=== PATIENT | female | born 2000 | race Caucasian/White ===

== ENCOUNTER 2021-05-29 16:50 | Emergency (ER) | payer SELFPAY ==
[2021-05-29 20:07] LABS: BUN Blood Urea Nitrogen 10 mg/dL (7-18); Bicarbonate 26 mmol/L (21-32); Glucose Level 93 mg/dL (74-106); Potassium 4.1 mmol/L (3.5-5.1); Sodium Level 138 mmol/L (136-145)
[2021-05-29 20:08] LABS: Absolute Lymphocytes (CBC) 1.9 K/uL (0.7-4.9); Basophils % 0.5 % (0-1.3); Hematocrit 39.5 % (36.0-45.0); Lymphocytes % 24.8 % (15.3-44.8); MPV 9.4 fL (7.6-11.3); RBC Red Blood Cell Count 4.62 M/uL (3.86-4.86)
--- NOTE | 2021-05-29 20:20 | ER ---
Nurse's Notes [facility] Name: Danuta Montiel Age: 21 yrs Sex: Female : 2000 Arrival Date: 05/29/2021 Time: 16:53 Bed 6 Private MD: Diagnosis: Acute anal fissure Presentation: 05/29 17:51 Chief complaint: Patient states: Anal bleeding starting this am. Pt stated, " Its been kg fading back and forth on how much blood, The blood is almost like I had my period." Pt stated that its bloody when she wipes but doesn't have to wear a pad or change her underwear, denies having clots. Coronavirus screen: Client denies travel out of the [place] in the last 14 days. At this time, unable to obtain information related to travel outside the [place] At this time, the client does not indicate any symptoms associated with coronavirus-19. Ebola Screen: Patient negative for fever greater than or equal to 101.5 degrees Fahrenheit, and additional compatible Ebola Virus Disease symptoms Patient denies exposure to infectious person. Patient denies travel to an Ebola-affected area in the 21 days before illness onset. Initial Sepsis Screen: Does the patient meet any 2 criteria? No. Patient's initial sepsis screen is negative. Does the patient have a suspected source of infection? No. Patient's initial sepsis screen is negative. Risk Assessment: Do you want to hurt yourself or someone else? Patient reports no desire to harm self or others. Onset of symptoms was May 29, 2021 at 11:00. 17:51 Method Of Arrival: Ambulatory kg 17:51 Acuity: VIRI 4 kg Triage Assessment: 17:55 General: Appears in no apparent distress. Behavior is calm, cooperative, appropriate kg for age, quiet. Pain: Denies pain. 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 - Social history:: Smoking status: Patient denies any tobacco usage or history of. Screenin:57 Abuse screen: Denies threats or abuse. Denies injuries from another. Nutritional kg screening: No deficits noted. Tuberculosis screening: No symptoms or risk factors identified. 17:57 Fall Risk None identified. kg Assessment: 19:03 General: Appears in no apparent distress. comfortable, Behavior is calm, cooperative, ap3 appropriate for age. Pain: Denies pain. Neuro: Level of Consciousness is awake, alert, obeys commands, Oriented to person, place, time, situation, Appropriate for age Contact Officer are equal bilaterally Moves all extremities. Gait is steady, Speech is normal. Cardiovascular: Denies chest pain, shortness of breath. Respiratory: Denies shortness of breath. GI: Reports rectal bleeding. : No signs and/or symptoms were reported regarding the genitourinary system. EENT: No signs and/or symptoms were reported regarding the EENT system. Derm: No signs and/or symptoms reported regarding the dermatologic system. 19:44 Reassessment: Assisted LEROY Milligan with rectal exam, small anal fissure noted, not lp1 actively bleeding at this time; patient reports hx of constipation, takes daily stool softener. Vital Signs: 17:51 Pulse 73; Resp 17; Temp 98.1(TE); Pulse Ox 99% on R/A; Weight 75.75 kg; Height 5 ft. 3 kg in. (160.02 cm); Pain 0/10; 17:51 BP 121 / 75; kg 20:57 BP 115 / 74; Pulse 84; Resp 16; Pulse Ox 100% on R/A; lp1 17:51 Body Mass Index 29.58 (75.75 kg, 160.02 cm) kg ED Course: 16:53 Patient arrived in ED. am2 17:54 Triage completed. kg 17:55 Arm band placed on right wrist. kg 17:57 Patient has correct armband on for positive identification. kg 18:52 Srini Nieves PA is PHCP. [facility] 18:52 Germán Murphy MD is Attending Physician. [facility] 19:36 Inserted saline lock: 20 gauge in right antecubital area, using aseptic technique. lp1 Blood collected. 19:43 Mara Munoz, RN is Primary Nurse. lp1 19:43 Served as a application development liaison during rectal exam. lp1 20:57 IV discontinued, No redness/swelling at site. Pressure dressing applied. lp1 Administered Medications: No medications were administered Outcome: 20:20 Discharge ordered by . gabriel 20:57 Discharged to home ambulatory. lp1 20:57 Condition: good 20:57 Discharge instructions given to patient, Instructed on discharge instructions, follow up and referral plans. Demonstrated understanding of instructions, follow-up care. 20:57 Patient left the ED. lp1 Signatures: Srini Nieves PA PA jmm Pena, Laura, RN RN lp1 Danuta Wilkerson am2 Danuta Melara RN RN ap3 Rajani Thompson RN RN kg Corrections: (The following items were deleted from the chart) 17:57 17:57 Fall Risk kg kg
--- NOTE | 2021-05-29 20:21 | EDPHYS ---
Physician Documentation [facility] Name: Danuta Montiel Age: 21 yrs Sex: Female : 2000 Arrival Date: 05/29/2021 Time: 16:53 Bed 6 Private MD: ED Physician Germán Murphy HPI: 05/29 19:09 This 21 yrs old Female presents to ER via Ambulatory with complaints of jmm Rectal Bleeding. 19:09 The patient presents to the emergency department with bleeding from the rectum/anus, jmm that is moderate. Onset: The symptoms/episode began/occurred today. Modifying factors: The symptoms are alleviated by nothing, The symptoms are aggravated by bowel movement. Associate signs and symptoms: Pertinent negatives: abdominal pain, diarrhea, vomiting. The patient has not experienced similar symptoms in the past. 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 - Social history:: Smoking status: Patient denies any tobacco usage or history of. ROS: 19:09 Constitutional: Negative for fever, chills, and weight loss, Cardiovascular: Negative jmm for chest pain, palpitations, and edema, Respiratory: Negative for shortness of breath, cough, wheezing, and pleuritic chest pain. 19:09 Abdomen/GI: Positive for rectal bleeding. 19:09 All other systems are negative. Exam: 19:09 Constitutional: This is a well developed, well nourished patient who is awake, alert, jmm and in no acute distress. Head/Face: atraumatic. Eyes: EOMI, no conjunctival erythema appreciated ENT: Moist Mucus Membranes Neck: Trachea midline, Supple Chest/axilla: Normal chest wall appearance and motion. Cardiovascular: Regular rate and rhythm. No edema appreciated Respiratory: Normal respirations, no respiratory distress appreciated 19:09 Back: Normal ROM Skin: General appearance color normal MS/ Extremity: Moves all extremities, no obvious deformities appreciated, no edema noted to the lower extremities Neuro: Awake and alert, normal gait Psych: Behavior is normal, Mood is normal, Patient is cooperative and pleasant 19:09 Abdomen/GI: Inspection: abdomen appears normal, Bowel sounds: normal, Palpation: soft, nontender, in all quadrants. Vital Signs: 17:51 Pulse 73; Resp 17; Temp 98.1(TE); Pulse Ox 99% on R/A; Weight 75.75 kg; Height 5 ft. 3 kg in. (160.02 cm); Pain 0/10; 17:51 BP 121 / 75; kg 20:57 BP 115 / 74; Pulse 84; Resp 16; Pulse Ox 100% on R/A; lp1 17:51 Body Mass Index 29.58 (75.75 kg, 160.02 cm) kg MDM: 19:08 Patient medically screened. [facility] 20:19 Data reviewed: vital signs, nurses notes. Counseling: I had a detailed discussion with gabriel the patient and/or guardian regarding: the historical points, exam findings, and any diagnostic results supporting the discharge/admit diagnosis, lab results, the need for outpatient follow up, to return to the emergency department if symptoms worsen or persist or if there are any questions or concerns that arise at home. ED course: Physical exam revealed an anal fissure. Patient's vital signs are normal, H\T\H is normal, patient is alert nontoxic in appearance. Patient advised to take stool softeners and otherwise advised to follow-up with PCP for reevaluation. Patient was otherwise given strict return precautions if she develops abdominal pain or increased bleeding or weakness. Patient understood and agrees plan of care.. 05/29 19:09 Order name: CBC with Diff; Complete Time: 20:19 [facility] 05/29 19:09 Order name: BMP; Complete Time: 20:19 [facility] 05/29 19:09 Order name: Saline Lock; Complete Time: 19:45 [facility] 05/29 19:09 Order name: Gown patient; Complete Time: 19:45 [facility] Administered Medications: No medications were administered Disposition Summary: 05/29/21 20:20 Discharge Ordered Location: Home [facility] Condition: Stable [facility] Diagnosis - Acute anal fissure [facility] Followup: [facility] - With: Private Physician - When: 2 - 3 days - Reason: Recheck today's complaints, Continuance of care, Re-evaluation by your physician Discharge Instructions: - Discharge Summary Sheet jmm - Anal Fissure, Adult jmm Forms: - Medication Reconciliation Form jm - Thank You Letter gabriel - Antibiotic Education [facility] - Prescription Opioid Use [facility] Addendum: 05/31/2021 09:08 Co-signature as Attending Physician, Germán Murphy MD I agree with the assessment and k dr plan of care. Signatures: Dispatcher [employer] EDGermán Sullivan MD MD kdr Mickail, Joel, PA PA jmm Graham, Kristen, RN RN kg
[2021-05-29 21:09] VITALS: BP 115/74; O2SAT 100
[2021-05-29 21:12] VITALS: TEMP 97.8
== END 2021-05-29 20:57 | disposition home or self-care (01) ==
LOC: ER 16:50
DX: K60.0 Acute anal fissure (principal)
CPT/HCPCS: 36415; 80048; 85025; 99283

== ENCOUNTER 2022-09-11 13:38 | Emergency (ER) | payer SELFPAY ==
--- OUTSIDE RECORDS SUMMARY | 2022-09-11 13:54 | XMS REPORT | Continuity of Care Document ---
:2000 Author Organization [facility] t Address [address] [place] [address] Care Team Providers Name Role Phone CARMEN HILTON Primary Care Physician Unavailable MOUSTAPHA BEATTY Attending Clinician Unavailable CARMEN HILTON Admitting Clinician Unavailable MOUSTAPHA BEATTY Admitting Clinician Unavailable Payers Payer Name Policy Type Policy Number Effective Date Expiration Date [facility] [id number] 2019 CHOICE MEDICAID 00:00:00 Problems This patient has no known problems. Allergies, Adverse Reactions, Alerts Allergy Allergy Status Severity Reaction(s) Onset Inactive Treating Comm ents Source Name Type Date Date Clinician BANANA DRUG Active High Anaphylaxis 2018-0 Unive rs INGREDI 06 ity of 00:00: [address] Medications This patient has no known medications. Procedures This patient has no known procedures. Encounters Start End Encounter Admission Attending Care Care Encounter Source Date/Time Date/Time Type Type Clinicians Facility Department ID 2021-08-07 Outpatient P [facility] [place] [id number] [facility] 14:58:04 [facility] 2019-12-20 2019-12-20 Emergency X S[facility]ER [facility] ERT [id number] [facility] 14:57:45 16:56:00 MOUSTAPHA [facility] 2019-03-21 2019-03-21 Emergency E [id number] MH 08:56:00 08:56:[address] [facility] l Results This patient has no known results.
[2022-09-11 15:24] LABS: Urine Blood Negative (Negative); Urine Glucose Negative (Negative); Urine Protein Negative (Negative); Urine Specific Gravity >=1.030 (1.005-1.030); Urine pH 5.5 (5.0-7.0)
[2022-09-11 15:37] LABS: Urine Bacteria <20 /HPF (<20); Urine Mucus 1+ /HPF (None Seen); Urine RBC <5 /HPF (None Seen)
--- NOTE | 2022-09-11 15:50 | RAD REPORT ---
EXAM DESCRIPTION: Mary Criag And Tab (2 Views)09/11/2022 3:40 pm CLINICAL HISTORY: Chest pain COMPARISON: None FINDINGS: The lungs appear clear of acute infiltrate. The heart is normal size IMPRESSION: No acute abnormalities displayed
[2022-09-11] MEDS ORDERED: KETOROLAC 30 MG/ML INJ ONE (16:41)
--- NOTE | 2022-09-11 16:44 | ER ---
Nurse's Notes [facility] Name: Danuta Montiel Age: 22 yrs Sex: Female : 2000 Arrival Date: 09/11/2022 Time: 13:42 Bed 7 Private MD: Diagnosis: Chest pain, unspecified Presentation: 09/11 14:19 Chief complaint: Patient states: woke up with substernal CP but thought the pain was kb3 caused by her 3-year old daughter kicking her in her sleep. Reports she went to work and the pain continued to come and go. Last episode caused her to feel faint and she called 911 for further evaluation. Coronavirus screen: Vaccine status: Patient reports being unvaccinated. Client denies travel out of the [place] in the last 14 days. Ebola Screen: Patient negative for fever greater than or equal to 101.5 degrees Fahrenheit, and additional compatible Ebola Virus Disease symptoms Patient denies exposure to infectious person. Patient denies travel to an Ebola-affected area in the 21 days before illness onset. Initial Sepsis Screen: Does the patient meet any 2 criteria? No. Patient's initial sepsis screen is negative. Does the patient have a suspected source of infection? No. Patient's initial sepsis screen is negative. Risk Assessment: Do you want to hurt yourself or someone else? Patient reports no desire to harm self or others. Onset of symptoms was September 11, 2022 at 08:00. 14:19 Method Of Arrival: EMS: [facility] kb3 14:19 Acuity: VIRI 3 kb3 Triage Assessment: 14:22 General: Appears in no apparent distress. Behavior is calm, cooperative. Pain: kb3 Complains of pain in mid-sternal area Pain does not radiate. Pain currently is 2 out of 10 on a pain scale. at worst was 10 out of 10 on a pain scale. Cardiovascular: Reports chest pain, lightheadedness, syncope. 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 Last tetanus immunization: up to date. - Social history:: Smoking status: Patient denies any tobacco usage or history of. Screenin:17 Abuse screen: Denies threats or abuse. Denies injuries from another. Nutritional kc6 screening: No deficits noted. Tuberculosis screening: No symptoms or risk factors identified. Fall Risk No fall in past 12 months (0 pts). No secondary diagnosis (0 pts). IV access (20 points). Ambulatory Aid- None/Bed Rest/Nurse Assist (0 pts). Gait- Normal/Bed Rest/Wheelchair (0 pts) Mental Status- Oriented to own ability (0 pts). Total Nichole Fall Scale indicates No Risk (0-24 pts). Assessment: 15:18 General: Appears in no apparent distress. comfortable, Behavior is calm, cooperative, kc6 appropriate for age. Pain: Complains of pain in chest Pain does not radiate. Pain currently is 1 out of 10 on a pain scale. Quality of pain is described as crampy, Pain began gradually, Is intermittent, Alleviated by rest, Aggravated by increased activity, Also complains of nausea. Neuro: Womack Agitation-Sedation Scale (RASS): 0 - Alert and Calm Level of Consciousness is awake, alert, obeys commands, Oriented to person, place, time, situation, Appropriate for age. Cardiovascular: Heart tones S1 S2 present Capillary refill < 3 seconds. Respiratory: Airway is patent Trachea midline Respiratory effort is even, unlabored, Respiratory pattern is regular, symmetrical, Breath sounds are clear bilaterally. GI: No signs and/or symptoms were reported involving the gastrointestinal system. : No signs and/or symptoms were reported regarding the genitourinary system. EENT: No signs and/or symptoms were reported regarding the EENT system. Derm: No signs and/or symptoms reported regarding the dermatologic system. Skin is intact, Skin is pink, warm \T\ dry. Musculoskeletal: No signs and/or symptoms reported regarding the musculoskeletal system. Circulation, motion, and sensation intact. Capillary refill < 3 seconds, Range of motion: intact in all extremities. 16:18 Reassessment: Patient appears in no apparent distress at this time. No changes from kc6 previously documented assessment. Patient and/or family updated on plan of care and expected duration. Pain level reassessed. Patient is alert, oriented x 3, equal unlabored respirations, skin warm/dry/pink. Vital Signs: 14:19 BP 115 / 62; Pulse 57; Resp 20; Temp 99.1; Pulse Ox 100% ; Weight 81.65 kg; Height 5 kb3 ft. 3 in. (160.02 cm); Pain 2/10; 16:25 BP 109 / 66; Pulse 60; Resp 18 S; Pulse Ox 100% on R/A; kc6 14:19 Body Mass Index 31.89 (81.65 kg, 160.02 cm) kb3 ED Course: 13:42 Patient arrived in ED. rg4 13:45 [facility]C [facility]. snw 13:45 Cristian Malone MD is Attending Physician. snw 14:22 Triage completed. kb3 14:22 Arm band placed on right wrist. kb3 14:24 Maintain EMS IV. Dressing intact. Site clean \T\ dry. Gauge \T\ site: 20G LAC. kb 3 15:04 Camelia Barker, AMENA is Primary Nurse. kc6 15:26 Urine Culture Sent. kc6 15:26 Urine Microscopic Only Sent. kc6 15:42 Chest Pa And Lat (2 Views) XRAY In Process Unspecified. EDMS 16:57 No provider procedures requiring assistance completed. IV discontinued, intact, kc6 bleeding controlled, No redness/swelling at site. Pressure dressing applied. Patient maintains SpO2 saturation greater than 95% on room air. 16:58 Patient has correct armband on for positive identification. Bed in low position. Call kc6 light in reach. Side rails up X 1. Adult w/ patient. Client placed on continuous cardiac and pulse oximetry monitoring. NIBP monitoring applied. Administered Medications: 16:43 Drug: Ketorolac 30 mg Route: IVP; Site: left antecubital; kc6 16:53 Follow up: Response: No adverse reaction kc6 Medication: 16:58 VIS not applicable for this client. kc6 Outcome: 16:43 Discharge ordered by . snw 16:58 Discharged to home ambulatory, with friend. kc6 16:58 Condition: stable 16:58 Discharge instructions given to patient, Instructed on discharge instructions, medication usage, Demonstrated understanding of instructions, medications, Prescriptions given X 2. 16:58 Patient left the ED. kc6 Signatures: Dispatcher [employer] EDMS Robnia Michael, SIGNAL MECHANIC-C SIGNAL MECHANIC-Csnw Jaleesa Paulino rg4 Camelia Barker RN RN kc6 Filomena Chahal RN RN kb3 Corrections: (The following items were deleted from the chart) 14:23 14:22 Home Meds: ALLERGY MEDICATION; kb3 kb3
--- NOTE | 2022-09-11 16:44 | EDPHYS ---
Physician Documentation [facility] Name: Danuta Montiel Age: 22 yrs Sex: Female : 2000 Arrival Date: 09/11/2022 Time: 13:42 Bed 7 Private MD: ED Physician Cristian Malone HPI: 09/11 15:19 This 22 yrs old Female presents to ER via EMS with complaints of Chest Pain. snw 15:19 The patient or guardian reports chest pain that is located primarily in the anterior snw chest wall, left. The pain does not radiate. Associated signs and symptoms: Pertinent positives: back pain. The chest pain is described as sharp. Duration: The patient or guardian reports multiple episodes, that wax and wane. Severity of pain: At its worst the pain was moderate. EMS care prior to arrival includes: saline lock. The patient has not experienced similar symptoms in the past. The patient has not recently seen a physician, pt recently off medications for anxiety, PTSD. 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 Last tetanus immunization: up to date. - Social history:: Smoking status: Patient denies any tobacco usage or history of. ROS: 15:18 Constitutional: Negative for fever, chills, and weight loss, Eyes: Negative for injury, snw pain, redness, and discharge, ENT: Negative for injury, pain, and discharge, Neck: Negative for injury, pain, and swelling. 15:18 Respiratory: Negative for shortness of breath, cough, wheezing, and pleuritic chest pain, Abdomen/GI: Negative for abdominal pain, nausea, vomiting, diarrhea, and constipation, Back: Negative for injury and pain, : Negative for injury, bleeding, discharge, and swelling, MS/Extremity: Negative for injury and deformity, Skin: Negative for injury, rash, and discoloration, Neuro: Negative for headache, weakness, numbness, tingling, and seizure, Psych: Negative for depression, anxiety, suicide ideation, homicidal ideation, and hallucinations. 15:18 Constitutional: 15:18 Cardiovascular: Positive for chest pain, of the anterior aspect of left upper chest. Exam: 15:17 Constitutional: This is a well developed, well nourished patient who is awake, alert, snw and in no acute distress. Head/Face: Normocephalic, atraumatic. Eyes: Pupils equal round and reactive to light, extra-ocular motions intact. Lids and lashes normal. Conjunctiva and sclera are non-icteric and not injected. Cornea within normal limits. Periorbital areas with no swelling, redness, or edema. ENT: Nares patent. No nasal discharge, no septal abnormalities noted. Tympanic membranes are normal and external auditory canals are clear. Oropharynx with no redness, swelling, or masses, exudates, or evidence of obstruction, uvula midline. Mucous membranes moist. Neck: Trachea midline, no thyromegaly or masses palpated, and no cervical lymphadenopathy. Supple, full range of motion without nuchal rigidity, or vertebral point tenderness. No Meningismus. Chest/axilla: Normal chest wall appearance and motion. Nontender with no deformity. No lesions are appreciated. Cardiovascular: Regular rate and rhythm with a normal S1 and S2. No gallops, murmurs, or rubs. Normal PMI, no JVD. No pulse deficits. Respiratory: Lungs have equal breath sounds bilaterally, clear to auscultation and percussion. No rales, rhonchi or wheezes noted. No increased work of breathing, no retractions or nasal flaring. Abdomen/GI: Soft, non-tender, with normal bowel sounds. No distension or tympany. No guarding or rebound. No evidence of tenderness throughout. Back: No spinal tenderness. No costovertebral tenderness. Full range of motion. Skin: Warm, dry with normal turgor. Normal color with no rashes, no lesions, and no evidence of cellulitis. MS/ Extremity: Pulses equal, no cyanosis. Neurovascular intact. Full, normal range of motion. Neuro: Awake and alert, GCS 15, oriented to person, place, time, and situation. Cranial nerves II-XII grossly intact. Motor strength 5/5 in all extremities. Sensory grossly intact. Cerebellar exam normal. Normal gait. Psych: Awake, alert, with orientation to person, place and time. Behavior, mood, and affect are within normal limits. Vital Signs: 14:19 BP 115 / 62; Pulse 57; Resp 20; Temp 99.1; Pulse Ox 100% ; Weight 81.65 kg; Height 5 kb3 ft. 3 in. (160.02 cm); Pain 2/10; 16:25 BP 109 / 66; Pulse 60; Resp 18 S; Pulse Ox 100% on R/A; kc6 14:19 Body Mass Index 31.89 (81.65 kg, 160.02 cm) kb3 MDM: 14:33 Patient medically screened. romie 15:20 HEART Score: History: Slightly Suspicious (0), ECG: Normal (0), Age: < or = 45 years snw (0), Risk Factors: No Risk Factors Known (0), Total Score = 0. Data reviewed: vital signs, nurses notes. Data interpreted: Pulse oximetry: on room air is 100 %. Interpretation: normal. 16:41 Counseling: I had a detailed discussion with the patient and/or guardian regarding: the snw historical points, exam findings, and any diagnostic results supporting the discharge/admit diagnosis, lab results, radiology results, the need for outpatient follow up, to return to the emergency department if symptoms worsen or persist or if there are any questions or concerns that arise at home. Response to treatment: the patient's symptoms have markedly improved after treatment. Special discussion: Based on the patient's history, exam, and Dx evaluation, there is no indication for emergent intervention or inpatient Tx. It is understood by the patient/guardian that if the Sx's persist or worsen they need to return immediately for re-evaluation. Based on the history and exam findings, there is no indication for further emergent testing or inpatient evaluation. I discussed with the patient/guardian the need to see the primary care provider for further evaluation of the symptoms. 09/11 15:07 Order name: Urine Culture snw 09/11 15:07 Order name: Urine Microscopic Only; Complete Time: 15:38 snw 09/11 14:34 Order name: Chest Pa And Lat (2 Views) XRAY; Complete Time: 15:53 snw 09/11 15:24 Order name: Urine Dipstick-Ancillary; Complete Time: 15:31 EDMS 09/11 15:30 Order name: Urine --Ancillary (enter results) eb 09/11 14:34 Order name: EKG; Complete Time: 14:35 snw 09/11 14:34 Order name: EKG - Nurse/Tech; Complete Time: 15:17 snw 09/11 15:07 Order name: Urine Dipstick-Ancillary (obtain specimen); Complete Time: 15:26 snw 09/11 15:07 Order name: Urine Test (obtain specimen); Complete Time: 15:26 snw EC:17 Rate is 52 beats/min. Rhythm is regular. QRS Newberg is Normal. NM interval is normal. snw Clinical impression: Sinus bradycardia. Administered Medications: 16:43 Drug: Ketorolac 30 mg Route: IVP; Site: left antecubital; [facility] 16:53 Follow up: Response: No adverse reaction kc6 Disposition: 09/12 08:09 Co-signature as Attending Physician, Cristian Malone MD I agree with the assessment and romie plan of care. Disposition Summary: 09/11/22 16:43 Discharge Ordered Location: Home snw Condition: Stable snw Diagnosis - Chest pain, unspecified snw Followup: snw - With: Emergency Department - When: As needed - Reason: Worsening of condition Followup: snw - With: Private Physician - When: 2 - 3 days - Reason: Recheck today's complaints, Continuance of care, Re-evaluation by your physician Discharge Instructions: - Discharge Summary Sheet snw - Chest Wall Pain snw - Musculoskeletal Pain snw Forms: - Medication Reconciliation Form snw - Thank You Letter snw - Antibiotic Education snw - Prescription Opioid Use snw - Work release form kc6 Prescriptions: - Mobic 7.5 mg Oral Tablet - take 1 tablet by ORAL route once daily take with food; 20 tablet; Refills: 0, snw Product Selection Permitted - Pepcid 20 mg Oral Tablet - take 1 tablet by ORAL route once daily; 20 tablet; Refills: 0, Product snw Selection Permitted Signatures: Dispatcher [employer] Cristian Feng MD MD cha Waters, Shelly, PRAVEENC CAR WRECKER-Camelia López RN RN kc6 Filomena Chahal RN RN kb3 Corrections: (The following items were deleted from the chart) 09/11 14:23 14:22 Home Meds: ALLERGY MEDICATION; kb3 kb3
[2022-09-11 17:03] VITALS: TEMP 99.1; O2SAT 100
[2022-09-11 17:04] VITALS: BP 109/66
--- NOTE | 2022-09-13 13:51 | EKG ---
Test Date: 2022-09-11 Test Time: 15:14:36 Rattan Worker: SELWYN MEASUREMENT RESULTS: Intervals: Rate: 52 HI: 170 QRSD: 86 QT: 438 QTc: 407 [place]: P: 48 HI: 170 QRS: 46 T: 34 INTERPRETIVE STATEMENTS: Sinus bradycardia with marked sinus arrhythmia Otherwise normal ECG No previous ECG available for comparison Electronically Signed On 09-13-22 13:49:34 HORTICULTURALIST by Rodríguez De Leon
== END 2022-09-11 16:58 | disposition home or self-care (01) ==
LOC: ER 13:38
DX: R07.9 Chest pain, unspecified (principal)
CPT/HCPCS: 71046; 81003; 81015; 81025; 87086; 87088; 93005; 96374; 99284

== ENCOUNTER 2023-03-02 14:16 | Emergency (ER) | payer OTHER ==
--- OUTSIDE RECORDS SUMMARY | 2023-03-02 14:23 | XMS REPORT | Continuity of Care Document ---
:2000 Author Organization [facility] t Address [address] [place] [address] [place] [id number] Care Team Providers Name Role Phone PCP, PATIENT DOES NOT HAVE A Primary Care Physician Unavaila ble CARMEN HILTON Attending Clinician Unavailable MJ IZAGUIRRE Attending Clinician Unavailable Carmen Hilton MD Attending Clinician BETI SHIRLEY Attending Clinician Unavailable Beti Shirley MD Attending Clinician NAEL DURAN Attending Clinician Unavailable Darren Moe MD Attending Clinician Nael Duran MD Attending Clinician 2, [facility] Attending Clinician Unavailable Doctor Unassigned, [place] Attending Clinician Unavailable MOUSTAPHA PAIZ Attending Clinician Unavailable Moustapha Paiz DO Attending Clinician CARMEN HILTON Admitting Clinician Unavailable BETI SHIRLEY Admitting Clinician Unavailable DARREN MOE Admitting Clinician Unavailable MOUSTAPHA PAIZ Admitting Clinician Unavailable Payers Payer Name Policy Type Policy Number Effective Date Expiration Date Critical access hospital [id number] 2019 [facility] MEDICAID 00:00:00 Problems Condition Condition Condition Status Onset Resolution Last Treating Co mments Source Name Details Category Date Date Treatment Clinician Date Vaginal Vaginal Disease Active [facility] bleeding bleeding 2-15 [place] High-risk High-risk Disease Active Uni vers 1-30 ity of in first in first 00:00: [place] trimester trimester 00 [facility] Branch History of History of Disease Active U nivers gestationa gestationa 1-30 [place] l diabetes l [place] [facility] History of History of Disease Active U nivers 1-30 [place] Disease Active U nivers depression depression 1-28 it y of 00:00: [place] [facility] Routine Routine Disease Active Univers 1-28 [place] of [place] Diabetes Diabetes Disease Active 2018-10 Unive rs mellitus mellitus 1-27 [place] [facility] in third in third Branch trimester trimester Asthma Asthma Disease Active Overview: Univer s Formattin ity of g of this [place] note Medical might be Branch different from the original. inhaler Allergies, Adverse Reactions, Alerts Allergy Allergy Status Severity Reaction(s) Onset Inactive Treating Comm ents Source Name Type Date Date Clinician Banana Propensi Active Anaphylaxis Uni vers ty to 6-06 ity of adverse 00:00: [place] reaction 00 [facility] BANANA DRUG Active High Anaphylaxis Unive rs INGREDI 6-06 ity of 00:00: [place] 00 [facility] Social History Social Habit Start Date Stop Date Quantity Comments Source ASSERTION 2022-09-15 [facility] 00:00:00 [facility] Alcohol intake 2022-12-05 2022-12-05 Ex-drinker [facility] 00:00:00 00:00:00 (finding) [facility] Exposure to 2022-11-14 2022-11-24 Not sure [facility] SARS-CoV-2 00:00:00 13:27:00 [facility] (event) Branch Tobacco use and 2022-11-08 2022-11-08 Smokeless tobacco Un iversity of exposure 00:00:00 00:00:00 non-user [facility] Alcohol Comment 2019-03-15 2019-03-15 last alcohol use: Un iversity of 00:00:00 00:00:00 08/2018 [facility] History of 2017-03-10 Cigarette Smoker [facility] ty of tobacco use 00:00:00 [facility] Sex Assigned At [birth year] Universit y of 00:00:00 00:00:00 [facility] Smoking Status Start Date Stop Date Source Ex-smoker 2022-11-08 00:00:00 2022-11-08 00:00:00 [facility] Medications Ordered Filled Start Stop Current Ordering Indication Dosage Frequency Signature Comments Components Source Medication Medication Date Date Medication? Clinician (SIG) Name Name amoxicillin 2022-3- No [id number] 500mg Take 1 Univers 500 mg 11-22- capsule by ity of capsule 00:00: 05:59 mouth in [place] 00 :00 the Medical morning Branch and 1 capsule at noon and 1 capsule in the evening. Do all this for 21 days. amoxicillin 2022-0 3- No [id number] 500mg Take 1 Univers 500 mg 11-22- capsule by ity of capsule 00:00: 05:59 mouth in [place] 00 :00 the Medical morning Branch and 1 capsule at noon and 1 capsule in the evening. Do all this for 21 days. amoxicillin 2022-0 3- No [id number] 500mg Take 1 Univers 500 mg 11-22- capsule by ity of capsule 00:00: 05:59 mouth in [place] 00 :00 the Medical morning Branch and 1 capsule at noon and 1 capsule in the evening. Do all this for 21 days. amoxicillin 2022-0 3- No [id number] 500mg Take 1 Univers 500 mg 11-22- capsule by ity of capsule 00:00: 05:59 mouth in [place] 00 :00 the Medical morning Branch and 1 capsule at noon and 1 capsule in the evening. Do all this for 21 days. amoxicillin 3-0 3- No [id number] 500mg Take 1 Univers 500 mg 11-22- capsule by ity of capsule 00:00: 05:59 mouth in [place] 00 :00 the Medical morning Branch and 1 capsule at noon and 1 capsule in the evening. Do all this for 21 days. cephALEXin 2022-0 2023- No [id number] 500mg Take 1 Univers 500 mg 11-12 capsule by ity of capsule 00:00: 05:59 mouth 4 [place] 00 :00 (four) Medical times Branch daily for 7 days. cephALEXin 2022-0 2022- No [id number] 500mg Take 1 Univers 500 mg 11-12 capsule by ity of capsule 00:00: 05:59 mouth 4 [place] 00 :00 (four) Medical times Branch daily for 7 days. cephALEXin 2022-0 3- No [id number] 500mg Take 1 Univers 500 mg 211-20 capsule by ity of capsule 00:00: 05:59 mouth 4 [place] 00 :00 (four) Medical times Branch daily for 7 days. cephALEXin 2022-0 2022- No [id number] 500mg Take 1 Univers 500 mg 11-12 capsule by ity of capsule 00:00: 05:59 mouth 4 [place] 00 :00 (four) Medical times Branch daily for 7 days. cephALEXin 2022-0 2022- No [id number] 500mg Take 1 Univers 500 mg 11-12- capsule by ity of capsule 00:00: 05:59 mouth 4 [place] 00 :00 (four) Medical times Branch daily for 7 days. metoclopram 0 Yes [id number] 10mg Take 1 Univers luis alberto HCl 10 1-30 tablet by ity of mg tablet 00:00: mouth [place] 00 every 6 Medical (six) Branch hours as needed for Nausea and Vomiting (N/V). pyridoxine, 0 Yes [id number] 25mg Take 1 Univers VITAMIN 1-30 tablet by ity of B-6, 00:00: mouth [place] (VITAMIN 00 every 6 Medical B-6) 25 mg (six) Branch tablet hours as needed for Nausea and Vomiting (N/V). doxylamine 2022-0 Yes [id number] 25mg Take 1 U nivers (UNISOM, 1-30 tablet by ity of DOXYLAMINE, [place] 25 mg 00 bedtime as Medica l tablet needed for Branch Nausea and Vomiting (N/V). metoclopram 2022-0 Yes [id number] 10mg Take 1 Univers luis alberto HCl 10 1-30 tablet by ity of mg tablet 00:00: mouth [place] 00 every 6 Medical (six) Branch hours as needed for Nausea and Vomiting (N/V). pyridoxine, 3-0 Yes [id number] 25mg Take 1 Univers VITAMIN 1-30 tablet by ity of B-6, 00:00: mouth [place] (VITAMIN 00 every 6 Medical B-6) 25 mg (six) Branch tablet hours as needed for Nausea and Vomiting (N/V). doxylamine 2022-0 Yes [id number] 25mg Take 1 U nivers (UNISOM, 1-30 tablet by ity of DOXYLAMINE, [place]:00: [place] 25 mg 00 bedtime as Medica l tablet needed for Branch Nausea and Vomiting (N/V). metoclopram 2022-0 Yes [id number] 10mg Take 1 Univers luis alberto HCl 10 1-30 tablet by ity of mg tablet 00:00: mouth [place] 00 every 6 Medical (six) Branch hours as needed for Nausea and Vomiting (N/V). pyridoxine, 2022-0 Yes [id number] 25mg Take 1 Univers VITAMIN 1-30 tablet by ity of B-6, 00:00: mouth [place] (VITAMIN 00 every 6 Medical B-6) 25 mg (six) Branch tablet hours as needed for Nausea and Vomiting (N/V). doxylamine 2022-0 Yes [id number] 25mg Take 1 U nivers (UNISOM, 1-30 tablet by ity of DOXYLAMINE, 00:00: [place] 25 mg 00 bedtime as Medica l tablet needed for Branch Nausea and Vomiting (N/V). metoclopram 3-0 Yes [id number] 10mg Take 1 Univers luis alberto HCl 10 1-30 tablet by ity of mg tablet 00:00: mouth [place] 00 every 6 Medical (six) Branch hours as needed for Nausea and Vomiting (N/V). pyridoxine, 3-0 Yes [id number] 25mg Take 1 Univers VITAMIN 1-30 tablet by ity of B-6, 00:00: mouth [place] (VITAMIN 00 every 6 Medical B-6) 25 mg (six) Branch tablet hours as needed for Nausea and Vomiting (N/V). doxylamine 2023-0 Yes [id number] 25mg Take 1 U nivers (UNISOM, 1-30 tablet by ity of DOXYLAMINE, [place]:00: [place] 25 mg 00 bedtime as Medica l tablet needed for Branch Nausea and Vomiting (N/V). metoclopram 2023-0 Yes [id number] 10mg Take 1 Univers luis alberto HCl 10 1-30 tablet by ity of mg tablet 00:00: mouth [place] 00 every 6 Medical (six) Branch hours as needed for Nausea and Vomiting (N/V). pyridoxine, 2022-0 Yes [id number] 25mg Take 1 Univers VITAMIN 1-30 tablet by ity of B-6, 00:00: mouth [place] (VITAMIN 00 every 6 Medical B-6) 25 mg (six) Branch tablet hours as needed for Nausea and Vomiting (N/V). doxylamine 3-0 Yes [id number] 25mg Take 1 U nivers (UNISOM, 1-30 tablet by ity of DOXYLAMINE, [place]:00: [place] 25 mg 00 bedtime as Medica l tablet needed for Branch Nausea and Vomiting (N/V). metoclopram 2022-0 Yes [id number] 10mg Take 1 Univers luis alberto HCl 10 1-30 tablet by ity of mg tablet 00:00: mouth [place] 00 every 6 Medical (six) Branch hours as needed for Nausea and Vomiting (N/V). pyridoxine, 3-0 Yes [id number] 25mg Take 1 Univers VITAMIN 1-30 tablet by ity of B-6, 00:00: mouth [place] (VITAMIN 00 every 6 Medical B-6) 25 mg (six) Branch tablet hours as needed for Nausea and Vomiting (N/V). doxylamine 3-0 Yes [id number] 25mg Take 1 U nivers (UNISOM, 1-30 tablet by ity of DOXYLAMINE, [place]:00: [place] 25 mg 00 bedtime as Medica l tablet needed for Branch Nausea and Vomiting (N/V). metoclopram 2023-0 Yes [id number] 10mg Take 1 Univers luis alberto HCl 10 1-30 tablet by ity of mg tablet 00:00: mouth [place] 00 every 6 Medical (six) Branch hours as needed for Nausea and Vomiting (N/V). pyridoxine, 3-0 Yes [id number] 25mg Take 1 Univers VITAMIN 1-30 tablet by ity of B-6, 00:00: mouth [place] (VITAMIN 00 every 6 Medical B-6) 25 mg (six) Branch tablet hours as needed for Nausea and Vomiting (N/V). doxylamine 3-0 Yes [id number] 25mg Take 1 U nivers (UNISOM, 1-30 tablet by ity of DOXYLAMINE, [place]: [place] 25 mg 00 bedtime as Medica l tablet needed for Branch Nausea and Vomiting (N/V). metoclopram 2022-0 Yes [id number] 10mg Take 1 Univers luis alberto HCl 10 1-30 tablet by ity of mg tablet 00:00: mouth [place] 00 every 6 Medical (six) Branch hours as needed for Nausea and Vomiting (N/V). pyridoxine, 2022-0 Yes [id number] 25mg Take 1 Univers VITAMIN 1-30 tablet by ity of B-6, 00:00: mouth [place] (VITAMIN 00 every 6 Medical B-6) 25 mg (six) Branch tablet hours as needed for Nausea and Vomiting (N/V). doxylamine 2022-0 Yes [id number] 25mg Take 1 U nivers (UNISOM, 1-30 tablet by ity of DOXYLAMINE, [place]:00: [place] 25 mg 00 bedtime as Medica l tablet needed for Branch Nausea and Vomiting (N/V). metoclopram 2022-0 Yes [id number] 10mg Take 1 Univers luis alberto HCl 10 1-30 tablet by ity of mg tablet 00:00: mouth [place] 00 every 6 Medical (six) Branch hours as needed for Nausea and Vomiting (N/V). pyridoxine, 2022-0 Yes [id number] 25mg Take 1 Univers VITAMIN 1-30 tablet by ity of B-6, 00:00: mouth [place] (VITAMIN 00 every 6 Medical B-6) 25 mg (six) Branch tablet hours as needed for Nausea and Vomiting (N/V). doxylamine 2023-0 Yes [id number] 25mg Take 1 U nivers (UNISOM, 1-30 tablet by ity of DOXYLAMINE, 00:00: [place] 25 mg 00 bedtime as Medica l tablet needed for Branch Nausea and Vomiting (N/V). metoclopram 2023-0 Yes [id number] 10mg Take 1 Univers luis alberto HCl 10 1-30 tablet by ity of mg tablet 00:00: mouth [place] 00 every 6 Medical (six) Branch hours as needed for Nausea and Vomiting (N/V). pyridoxine, 2022-0 Yes [id number] 25mg Take 1 Univers VITAMIN 1-30 tablet by ity of B-6, 00:00: mouth [place] (VITAMIN 00 every 6 Medical B-6) 25 mg (six) Branch tablet hours as needed for Nausea and Vomiting (N/V). doxylamine 2022-0 Yes [id number] 25mg Take 1 U nivers (UNISOM, 1-30 tablet by ity of DOXYLAMINE, 00:00: [place] 25 mg 00 bedtime as Medica l tablet needed for Branch Nausea and Vomiting (N/V). metoclopram 2022-0 Yes [id number] 10mg Take 1 Univers luis alberto HCl 10 1-30 tablet by ity of mg tablet 00:00: mouth [place] 00 every 6 Medical (six) Branch hours as needed for Nausea and Vomiting (N/V). pyridoxine, 0 Yes [id number] 25mg Take 1 Univers VITAMIN 1-30 tablet by ity of B-6, 00:00: mouth [place] (VITAMIN 00 every 6 Medical B-6) 25 mg (six) Branch tablet hours as needed for Nausea and Vomiting (N/V). doxylamine 2022-0 Yes [id number] 25mg Take 1 U nivers (UNISOM, 1-30 tablet by ity of DOXYLAMINE, 00:00: [place] 25 mg 00 bedtime as Medica l tablet needed for Branch Nausea and Vomiting (N/V). metoclopram 2022-0 Yes [id number] 10mg Take 1 Univers luis alberto HCl 10 1-30 tablet by ity of mg tablet 00:00: mouth [place] 00 every 6 Medical (six) Branch hours as needed for Nausea and Vomiting (N/V). pyridoxine, 2022-0 Yes [id number] 25mg Take 1 Univers VITAMIN 1-30 tablet by ity of B-6, 00:00: mouth [place] (VITAMIN 00 every 6 Medical B-6) 25 mg (six) Branch tablet hours as needed for Nausea and Vomiting (N/V). doxylamine 2022-0 Yes [id number] 25mg Take 1 U nivers (UNISOM, 1-30 tablet by ity of DOXYLAMINE, 00:00: [place] 25 mg 00 bedtime as Medica l tablet needed for Branch Nausea and Vomiting (N/V). lactulose 2022-0 2022- No 30mL 30 mL, Unive rs (CEPHULAC) 10-30 Oral, ity of solution 30 05:45: 05:41 ONCE, 1 [place] mL 00 :00 dose, On Medical Fri Branch 10/29/22 at 2345, TIMOTHY NaCl 0.9% 2022- No 1000mL at 999 Uni vers (NS) bolus 10-30 mL/hr, ity of infusion 05:45: 06:48 1,000 mL, [place] 1,000 mL 00 :00 IV Medical Infusion, Branch ONCE, 1 dose, On 10/29/22 at 2345, STAT metoclopram 2022-0 2022- No 10mg 10 mg, Uni vers luis alberto HCl 10-30 Slow IV ity of (REGLAN) 05:30: 05:39 Push, [place] injection 00 :00 ONCE, 1 Medical 10 mg dose, On Branch 10/29/22 at 2330, TIMOTHY metoclopram 3-0 Yes [id number] 10mg Take 1 Univers luis alberto HCl 10 1-21 tablet by ity of mg tablet 00:00: mouth [place] 00 every 6 Medical (six) Branch hours. metoclopram 2023-0 Yes [id number] 10mg Take 1 Univers luis alberto HCl 10 1-21 tablet by ity of mg tablet 00:00: mouth [place] 00 every 6 Medical (six) Branch hours. metoclopram 2023-0 Yes [id number] 10mg Take 1 Univers luis alberto HCl 10 1-21 tablet by ity of mg tablet 00:00: mouth [place] 00 every 6 Medical (six) Branch hours. metoclopram 2023-0 Yes [id number] 10mg Take 1 Univers luis alberto HCl 10 1-21 tablet by ity of mg tablet 00:00: mouth [place] 00 every 6 Medical (six) Branch hours. metoclopram 2023-0 Yes [id number] 10mg Take 1 Univers luis alberto HCl 10 1-21 tablet by ity of mg tablet 00:00: mouth [place] 00 every 6 Medical (six) Branch hours. metoclopram 2023-0 Yes [id number] 10mg Take 1 Univers luis alberto HCl 10 1-21 tablet by ity of mg tablet 00:00: mouth [place] 00 every 6 Medical (six) Branch hours. metoclopram 2023-0 Yes [id number] 10mg Take 1 Univers luis alberto HCl 10 1-21 tablet by ity of mg tablet 00:00: mouth [place] 00 every 6 Medical (six) Branch hours. metoclopram 2023-0 Yes [id number] 10mg Take 1 Univers luis alberto HCl 10 1-21 tablet by ity of mg tablet 00:00: mouth [place] 00 every 6 Medical (six) Branch hours. metoclopram 2023-0 Yes [id number] 10mg Take 1 Univers luis alberto HCl 10 1-21 tablet by ity of mg tablet 00:00: mouth [place] 00 every 6 Medical (six) Branch hours. metoclopram 2023-0 Yes [id number] 10mg Take 1 Univers luis alberto HCl 10 1-21 tablet by ity of mg tablet 00:00: mouth [place] 00 every 6 Medical (six) Branch hours. metoclopram 2023-0 Yes [id number] 10mg Take 1 Univers luis alberto HCl 10 1-21 tablet by ity of mg tablet 00:00: mouth [place] 00 every 6 Medical (six) Branch hours. metoclopram 2023-0 Yes [id number] 10mg Take 1 Univers luis alberto HCl 10 1-21 tablet by ity of mg tablet 00:00: mouth [place] 00 every 6 Medical (six) Branch hours. metoclopram 2023-0 Yes [id number] 10mg Take 1 Univers luis alberto HCl 10 1-21 tablet by ity of mg tablet 00:00: mouth [place] 00 every 6 Medical (six) Branch hours. metoclopram 2023-0 Yes [id number] 10mg Take 1 Univers luis alberto HCl 10 1-21 tablet by ity of mg tablet 00:00: mouth [place] 00 every 6 Medical (six) Branch hours. FLUoxetine 2020-0 Yes [id number] 10mg Take 1 U nivers 10 mg 6-30 capsule by ity of capsule 00:00: mouth [place] 00 daily. Medical Branch FLUoxetine 2020-0 Yes [id number] 10mg Take 1 U nivers 10 mg 6-30 capsule by ity of capsule 00:00: mouth [place] 00 daily. Medical Branch FLUoxetine 2020-0 Yes [id number] 10mg Take 1 U nivers 10 mg 6-30 capsule by ity of capsule 00:00: mouth [place] 00 daily. Medical Branch FLUoxetine 2022- No [id number] 10mg Take 1 Univers 10 mg 6-30 01-30 capsule by ity of capsule 00:00: 00:00 mouth [place] 00 :00 daily. Medical Branch FLUoxetine 2022- No [id number] 10mg Take 1 Univers 10 mg 6-30 01-30 capsule by ity of capsule 00:00: 00:00 mouth [place] 00 :00 daily. Medical Branch ondansetron Yes [id number] 4mg Take 1 Univers 4 mg 3-12 tablet by ity of disintegrat 00:00: mouth [place] ing tablet 00 every 8 Medica l (eight) Branch hours as needed for Nausea and Vomiting (N/V). ondansetron Yes [id number] 4mg Take 1 Univers 4 mg 3-12 tablet by ity of disintegrat 00:00: mouth [place] ing tablet 00 every 8 Medica l (eight) Branch hours as needed for Nausea and Vomiting (N/V). ondansetron Yes [id number] 4mg Take 1 Univers 4 mg 3-12 tablet by ity of disintegrat 00:00: mouth [place] ing tablet 00 every 8 Medica l (eight) Branch hours as needed for Nausea and Vomiting (N/V). ondansetron 2022- No [id number] 4mg Take 1 Univers 4 mg 3-12 01-30 tablet by ity of disintegrat 00:00: 00:00 [place] tablet 00 :00 every 8 Medica l (eight) Branch hours as needed for Nausea and Vomiting (N/V). ondansetron 2022- No [id number] 4mg Take 1 Univers 4 mg 3-12 01-30 tablet by ity of disintegrat 00:00: 00:00 [place] tablet 00 :00 every 8 Medica l (eight) Branch hours as needed for Nausea and Vomiting (N/V). 2019- Yes [id number] 1{tbl} Take 1 Univers vitamin 1-10 102 tablet by ity of w/FA tablet 00:00: mouth [place] 00 daily. Medical Branch Yes [id number] 1{tbl} Take 1 Univers vitamin 1-10 102 tablet by ity of w/FA tablet 00:00: mouth [place] 00 daily. Medical Branch 2020-0 Yes [id number] 1{tbl} Take 1 Univers vitamin 1-10 102 tablet by ity of w/FA tablet 00:00: mouth [place] 00 daily. Medical Branch 2020-0 Yes [id number] 1{tbl} Take 1 Univers vitamin 1-10 102 tablet by ity of w/FA tablet 00:00: mouth [place] 00 daily. Medical Branch 2020-0 Yes [id number] 1{tbl} Take 1 Univers vitamin 1-10 102 tablet by ity of w/FA tablet 00:00: mouth [place] 00 daily. Medical Branch 2020-0 Yes [id number] 1{tbl} Take 1 Univers vitamin 1-10 102 tablet by ity of w/FA tablet 00:00: mouth [place] 00 daily. Medical Branch 2020-0 Yes [id number] 1{tbl} Take 1 Univers vitamin 1-10 102 tablet by ity of w/FA tablet 00:00: mouth [place] 00 daily. Medical Branch 2020-0 Yes [id number] 1{tbl} Take 1 Univers vitamin 1-10 102 tablet by ity of w/FA tablet 00:00: mouth [place] 00 daily. Medical Branch 2020-0 Yes [id number] 1{tbl} Take 1 Univers vitamin 1-10 102 tablet by ity of w/FA tablet 00:00: mouth [place] 00 daily. Medical Branch 2020-0 Yes [id number] 1{tbl} Take 1 Univers vitamin 1-10 102 tablet by ity of w/FA tablet 00:00: mouth [place] 00 daily. Medical Branch 2020-0 Yes [id number] 1{tbl} Take 1 Univers vitamin 1-10 102 tablet by ity of w/FA tablet 00:00: mouth [place] 00 daily. Medical Branch 2020-0 Yes [id number] 1{tbl} Take 1 Univers vitamin 1-10 102 tablet by ity of w/FA tablet 00:00: mouth [place] 00 daily. Medical Branch 2020-0 Yes [id number] 1{tbl} Take 1 Univers vitamin 1-10 102 tablet by ity of w/FA tablet 00:00: mouth [place] 00 daily. Medical Branch 2020-0 Yes [id number] 1{tbl} Take 1 Univers vitamin 1-10 102 tablet by ity of w/FA tablet 00:00: mouth 00 daily. Medical Branch 2020-0 Yes [id number] 1{tbl} Take 1 Univers vitamin 1-10 102 tablet by ity of w/FA tablet 00:00: mouth 00 daily. Medical Branch Immunizations Ordered Immunization Filled Immunization Date Status Commen ts Source Name Name Influenza Virus 2022-11-08 Completed Universit y of Vaccine [facility] IM, 00:00:00 [place] Me dical Preserv and ABX Free Bran ch 6 MO-64 YRS Influenza Virus 2022-11-08 Completed Universit y of Vaccine [facility] IM, 00:00:00 [place] Me dical Preserv and ABX Free Bran ch 6 MO-64 YRS Influenza Virus 2022-11-08 Completed Universit y of Vaccine [facility] IM, 00:00:00 [place] Me dical Preserv and ABX Free Bran ch 6 MO-64 YRS Influenza Virus 2022-11-08 Completed Universit y of Vaccine [facility] IM, 00:00:00 [place] Me dical Preserv and ABX Free Bran ch 6 MO-64 YRS Influenza Virus 2022-11-08 Completed Universit y of Vaccine [facility] IM, 00:00:00 [place] Me dical Preserv and ABX Free Bran ch 6 MO-64 YRS Influenza Virus 2022-11-08 Completed Universit y of Vaccine [facility] IM, 00:00:00 [place] Me dical Preserv and ABX Free Bran ch 6 MO-64 YRS Influenza Virus 2022-11-08 Completed Universit y of Vaccine [facility] IM, 00:00:00 [place] Me dical Preserv and ABX Free Bran ch 6 MO-64 YRS Influenza Virus 2022-11-08 Completed Universit y of Vaccine [facility] IM, 00:00:00 [place] Me dical Preserv and ABX Free Bran ch 6 MO-64 YRS Influenza Virus 2022-11-08 Completed Universit y of Vaccine [facility] IM, 00:00:00 [place] Me dical Preserv and ABX Free Bran ch 6 MO-64 YRS Influenza Virus 2022-11-08 Completed Universit y of Vaccine [facility] IM, 00:00:00 [place] Me dical Preserv and ABX Free Bran ch 6 MO-64 YRS Influenza Virus 2022-11-08 Completed Universit y of Vaccine [facility] IM, 00:00:00 [place] Me dical Preserv and ABX Free Bran ch 6 MO-64 YRS Influenza Virus 2022-11-08 Completed Universit y of Vaccine Quad IM, 00:00:00 [place] Me dical Preserv and ABX Free Bran ch 6 MO-64 YRS TDAP (ADACEL) VACCINE 2019-08-15 Completed Uni versity of 00:00:00 [place] [facility] Branch TDAP 2019-08-15 Completed University of 00:00:00 [place] [facility] TDAP (ADACEL) VACCINE 2019-08-15 Completed Uni versity of 00:00:00 [place] [facility] TDAP 2019-08-15 Completed University of 00:00:00 [place] [facility] TDAP (ADACEL) VACCINE 2019-08-15 Completed Uni versity of 00:00:00 [place] [facility] TDAP 2019-08-15 Completed University of 00:00:00 [place] [facility] TDAP (ADACEL) VACCINE 2019-08-15 Completed Uni versity of 00:00:00 [place] [facility] TDAP 2019-08-15 Completed University of 00:00:00 [place] [facility] TDAP (ADACEL) VACCINE 2019-08-15 Completed Uni versity of 00:00:00 [place] [facility] TDAP 2019-08-15 Completed University of 00:00:00 [place] [facility] TDAP (ADACEL) VACCINE 2019-08-15 Completed Uni versity of 00:00:00 [place] [facility] TDAP (ADACEL) VACCINE 2019-08-15 Completed Uni versity of 00:00:00 [place] [facility] TDAP 2019-08-15 Completed University of 00:00:00 [place] [facility] TDAP (ADACEL) VACCINE 2019-08-15 Completed Uni versity of 00:00:00 [place] [facility] TDAP 2019-08-15 Completed University of 00:00:00 [place] [facility] TDAP (ADACEL) VACCINE 2019-08-15 Completed Uni versity of 00:00:00 [place] [facility] TDAP 2019-08-15 Completed University of 00:00:00 [place] [facility] TDAP (ADACEL) VACCINE 2019-08-15 Completed Uni versity of 00:00:00 [place] [facility] TDAP 2019-08-15 Completed University of 00:00:00 [place] [facility] TDAP (ADACEL) VACCINE 2019-08-15 Completed Uni versity of 00:00:00 [place] [facility] TDAP 2019-08-15 Completed University of 00:00:00 [facility] Branch TDAP 2019-08-15 Completed University of 00:00:00 [facility] TDAP (ADACEL) VACCINE 2019-08-15 Completed Uni versity of 00:00:00 [facility] Branch TDAP 2019-08-15 Completed University of 00:00:00 [facility] Branch TDAP (ADACEL) VACCINE 2019-08-15 Completed Uni versity of 00:00:00 [facility] Branch TDAP 2019-08-15 Completed [facility] 00:00:00 [facility] TDAP (ADACEL) VACCINE 2019-08-15 Completed [facility] 00:00:00 [facility] TDAP 2019-08-15 Completed [facility] 00[facility]00:00 [facility] TDAP (ADACEL) VACCINE 2019-08-15 Completed [facility] 00:00:00 [facility] TDAP 2019-08-15 Completed [facility] 00:00:00 [facility] HPV 2011-11-03 Completed [facility] 00:00:00 [facility] HPV 2011-11-03 Completed [facility] 00[facility]00:00 [facility] HPV 2011-11-03 Completed [facility] 00:00:00 [facility] HPV 2011-11-03 Completed [facility] 00:00:00 [facility] HPV 2011-11-03 Completed [facility] 00:00:00 [facility] HPV 2011-11-03 Completed [facility] 00:00:00 [facility] HPV 2011-11-03 Completed [facility] 00:00:00 [facility] HPV 2011-11-03 Completed [facility] 00:00:00 [facility] HPV 2011-11-03 Completed [facility] 00:00:00 [facility] HPV 2011-11-03 Completed [facility] 00:00:00 [facility] HPV 2011-11-03 Completed [facility] 00:00:00 [facility] HPV 2011-11-03 Completed [facility] 00:00:00 [facility] HPV 2011-11-03 Completed [facility] 00:00:00 [facility] HPV 2011-11-03 Completed [facility] 00:00:00 [facility] HPV 2011-11-03 Completed [facility] 00:00:00 [facility] HIB 3 Dose Schedule 2011-07-10 Completed [facility] 00:00:00 [facility] HIB 3 Dose Schedule 2011-07-10 Completed [facility] 00:00:00 [facility] HIB 3 Dose Schedule 2011-07-10 Completed [facility] 00:00:00 [facility] HIB 3 Dose Schedule 2011-07-10 Completed [facility] 00:00:00 [facility] HIB 3 Dose Schedule 2011-07-10 Completed [facility] 00:00:00 [facility] HIB 3 Dose Schedule 2011-07-10 Completed [facility] 00:00:00 [facility] HIB 3 Dose Schedule 2011-07-10 Completed [facility] 00:00:00 [facility] HIB 3 Dose Schedule 2011-07-10 Completed [facility] 00:00:00 [facility] HIB 3 Dose Schedule 2011-07-10 Completed [facility] 00:00:00 [facility] HIB 3 Dose Schedule 2011-07-10 Completed [facility] 00:00:00 [facility] HIB 3 Dose Schedule 2011-07-10 Completed [facility] 00:00:00 [facility] HIB 3 Dose Schedule 2011-07-10 Completed [facility] 00:00:00 [facility] HIB 3 Dose Schedule 2011-07-10 Completed [facility] 00:00:00 [facility] HIB 3 Dose Schedule 2011-07-10 Completed [facility] 00:00:00 [facility] HIB 3 Dose Schedule 2011-07-10 Completed [facility] 00:00:00 [facility] HPV 2011-07-01 Completed [facility] 00:00:00 [facility] HPV 2011-07-01 Completed [facility] 00:00:00 [facility] HPV 2011-07-01 Completed [facility] 00:00:00 [facility] HPV 2011-07-01 Completed [facility] 00:00:00 [facility] HPV 2011-07-01 Completed [facility] 00:00:00 [facility] HPV 2011-07-01 Completed [facility] 00:00:00 [facility] HPV 2011-07-01 Completed [facility] 00:00:00 [facility] HPV 2011-07-01 Completed [facility] 00:00:00 [facility] HPV 2011-07-01 Completed [facility] 00:00:00 [facility] HPV 2011-07-01 Completed [facility] 00:00:00 [facility] HPV 2011-07-01 Completed [facility] 00:00:00 [facility] HPV 2011-07-01 Completed [facility] 00:00:00 [facility] HPV 2011-07-01 Completed [facility] 00:00:00 [facility] HPV 2011-07-01 Completed [facility] 00:00:00 [facility] HPV 2011-07-01 Completed [facility] 00:00:00 [facility] HPV 2011-04-29 Completed [facility] 00:00:00 [facility] HPV 2011-04-29 Completed [facility] 00:00:00 [facility] HPV 2011-04-29 Completed [facility] 00:00:00 [facility] HPV 2011-04-29 Completed [facility] 00:00:00 [facility] HPV 2011-04-29 Completed [facility] 00:00:00 [facility] HPV 2011-04-29 Completed [facility] 00:00:00 [facility] HPV 2011-04-29 Completed [facility] 00:00:00 [facility] HPV 2011-04-29 Completed [facility] 00:00:00 [facility] HPV 2011-04-29 Completed [facility] 00:00:00 [facility] HPV 2011-04-29 Completed [facility] 00:00:00 [facility] HPV 2011-04-29 Completed [facility] 00:00:00 [facility] HPV 2011-04-29 Completed [facility] 00:00:00 [facility] HPV 2011-04-29 Completed [facility] 00:00:00 [facility] HPV 2011-04-29 Completed [facility] 00:00:00 [facility] HPV 2011-04-29 Completed [facility] 00:00:00 [facility] HPV 2010-10-27 Completed [facility] 00:00:00 [facility] HPV 2010-10-27 Completed [facility] 00:00:00 [facility] HPV 2010-10-27 Completed [facility] 00:00:00 [facility] HPV 2010-10-27 Completed [facility] 00:00:00 [facility] HPV 2010-10-27 Completed [facility] 00:00:00 [facility] HPV 2010-10-27 Completed [facility] 00:00:00 [facility] HPV 2010-10-27 Completed [facility] 00:00:00 [facility] HPV 2010-10-27 Completed [facility] 00:00:00 [facility] HPV 2010-10-27 Completed [facility] 00:00:00 [facility] HPV 2010-10-27 Completed [facility] 00:00:00 [facility] HPV 2010-10-27 Completed [facility] 00:00:00 [facility] HPV 2010-10-27 Completed [facility] 00:00:00 [facility] HPV 2010-10-27 Completed [facility] 00:00:00 [facility] HPV 2010-10-27 Completed [facility] 00:00:00 [facility] HPV 2010-10-27 Completed [facility] 00:00:00 [facility] Meningococcal 2010-03-18 Completed [facility] Polysaccharide 00:00:00 [place] [facility] (groups A, C, Y and Branc h W-135) conjugate vaccine (MCV4P) TDAP 2010-03-18 Completed [facility] 00:00:00 [facility] Varicella 2010-03-18 Completed [facility] (varivax)(chicken 00:00:00 [facility] pox) [facility] Meningococcal 2010-03-18 Completed [facility] Polysaccharide 00:00:00 [place] [facility] (groups A, C, Y and Branc h W-135) conjugate vaccine (MCV4P) TDAP 2010-03-18 Completed [facility] 00:00:00 [facility] Varicella 2010-03-18 Completed [facility] (varivax)(chicken 00:00:00 [facility] pox[facility] Meningococcal 2010-03-18 Completed [facility] Polysaccharide 00:00:00 [place] [facility] (groups A, C, Y and Branc h W-135) conjugate vaccine (MCV4P) TDAP 2010-03-18 Completed [facility] 00:00:00 [facility] Varicella 2010-03-18 Completed [facility] (varivax)(chicken 00:00:00 [place] [facility]ox[facility] Meningococcal 2010-03-18 Completed [facility] Polysaccharide 00:00:00 [place] [facility] (groups A, C, Y and Branc h W-135) conjugate vaccine (MCV4P) TDAP 2010-03-18 Completed [facility] 00:00:00 [facility] Varicella 2010-03-18 Completed [facility] (varivax)(chicken 00:00:00 [place] [facility] pox) [facility] Meningococcal 2010-03-18 Completed [facility] Polysaccharide 00:00:00 [place] [facility] (groups A, C, Y and Branc h W-135) conjugate vaccine (MCV4P) TDAP 2010-03-18 Completed [facility] 00:00:00 [facility] Varicella 2010-03-18 Completed [facility] (varivax)(chicken 00:00:00 [place] [facility] pox) [facility] Meningococcal 2010-03-18 Completed [facility] Polysaccharide 00:00:00 [place] [facility] (groups A, C, Y and Branc h W-135) conjugate vaccine (MCV4P) TDAP 2010-03-18 Completed [facility] 00:00:00 [facility] Varicella 2010-03-18 Completed [facility] (varivax)(chicken 00:00:00 [place] [facility]ox) [facility] Meningococcal 2010-03-18 Completed [facility] Polysaccharide 00:00:00 [place] [facility] (groups A, C, Y and Branc h W-135) conjugate vaccine (MCV4P) TDAP 2010-03-18 Completed [facility] 00:00:00 [facility] Varicella 2010-03-18 Completed [facility] (varivax)(chicken 00:00:00 [place] [facility]ox) [facility] Meningococcal 2010-03-18 Completed [facility] Polysaccharide 00:00:00 [place] [facility] (groups A, C, Y and Branc h W-135) conjugate vaccine (MCV4P) TDAP 2010-03-18 Completed [facility] 00:00:00 [facility] Varicella 2010-03-18 Completed [facility] (varivax)(chicken 00:00:00 [place] [facility]ox[facility] Meningococcal 2010-03-18 Completed [facility] Polysaccharide 00:00:00 [place] [facility] (groups A, C, Y and Branc h W-135) conjugate vaccine (MCV4P) TDAP 2010-03-18 Completed [facility] 00:00:00 [facility] Varicella 2010-03-18 Completed [facility] (varivax)(chicken 00:00:00 [place] [facility]ox) [facility] Meningococcal 2010-03-18 Completed [facility] Polysaccharide 00:00:00 [place] [facility] (groups A, C, Y and Branc h W-135) conjugate vaccine (MCV4P) Meningococcal 2010-03-18 Completed [facility] Polysaccharide 00:00:00 [place] [facility] (groups A, C, Y and Branc h W-135) conjugate vaccine (MCV4P) TDAP 2010-03-18 Completed [facility] 00:00:00 [facility] Varicella 2010-03-18 Completed [facility] (varivax)(chicken 00:00:00 [place] [facility] TDAP 2010-03-18 Completed [facility] 00:00:00 [facility] Varicella 2010-03-18 Completed [facility] (varivax)(chicken 00:00:00 [place] [facility]ox[facility] Meningococcal 2010-03-18 Completed [facility] Polysaccharide 00:00:00 [place] [facility] (groups A, C, Y and Branc h W-135) conjugate vaccine (MCV4P) TDAP 2010-03-18 Completed [facility] 00:00:00 [facility] Varicella 2010-03-18 Completed [facility] (varivax)(chicken 00:00:00 [place] [facility] pox) [facility] Meningococcal 2010-03-18 Completed [facility] Polysaccharide 00:00:00 [place] [facility] (groups A, C, Y and Branc h W-135) conjugate vaccine (MCV4P) TDAP 2010-03-18 Completed [facility] 00:00:00 [facility] Varicella 2010-03-18 Completed [facility] (varivax)(chicken 00:00:00 [place] [facility]ox[facility] Meningococcal 2010-03-18 Completed [facility] Polysaccharide 00:00:00 [place] [facility] (groups A, C, Y and Branc h W-135) conjugate vaccine (MCV4P) TDAP 2010-03-18 Completed [facility] 00:00:00 [facility] Varicella 2010-03-18 Completed [facility] (varivax)(chicken 00:00:00 [place] [facility]ox) [facility] Meningococcal 2010-03-18 Completed [facility] Polysaccharide 00:00:00 [place] [facility] (groups A, C, Y and Branc h W-135) conjugate vaccine (MCV4P) TDAP 2010-03-18 Completed [facility] 00:00:00 [facility] Varicella 2010-03-18 Completed [facility] (varivax)(chicken 00:00:00 [place] [facility] HEPATITIS A 2006-05-25 Completed [facility] 00:00:00 [facility] HEPATITIS A 2006-05-25 Completed [facility] 00:00:00 [facility] HEPATITIS A 2006-05-25 Completed [facility] 00:00:00 [facility] HEPATITIS A 2006-05-25 Completed [facility] 00:00:00 [facility] HEPATITIS A 2006-05-25 Completed [facility] 00:00:00 [facility] HEPATITIS A 2006-05-25 Completed [facility] 00:00:00 [facility] HEPATITIS A 2006-05-25 Completed [facility] 00:00:00 [facility] HEPATITIS A 2006-05-25 Completed [facility] 00:00:00 [facility] HEPATITIS A 2006-05-25 Completed [facility] 00:00:00 [facility] HEPATITIS A 2006-05-25 Completed [facility] 00:00:00 [facility] HEPATITIS A 2006-05-25 Completed [facility] 00:00:00 [facility] HEPATITIS A 2006-05-25 Completed [facility] 00:00:00 [facility] HEPATITIS A 2006-05-25 Completed [facility] 00:00:00 [facility] HEPATITIS A 2006-05-25 Completed [facility] 00:00:00 [facility] HEPATITIS A 2006-05-25 Completed [facility] 00:00:00 [facility] HEPATITIS A 2005-05-19 Completed [facility] 00:00:00 [facility] HEPATITIS A 2005-05-19 Completed [facility] 00:00:00 [facility] HEPATITIS A 2005-05-19 Completed [facility] 00:00:00 [facility] HEPATITIS A 2005-05-19 Completed [facility] 00:00:00 [facility] HEPATITIS A 2005-05-19 Completed [facility] 00:00:00 [facility] HEPATITIS A 2005-05-19 Completed [facility] 00:00:00 [facility] HEPATITIS A 2005-05-19 Completed [facility] 00:00:00 [facility] HEPATITIS A 2005-05-19 Completed [facility] 00:00:00 [facility] HEPATITIS A 2005-05-19 Completed [facility] 00:00:00 [facility] HEPATITIS A 2005-05-19 Completed [facility] 00:00:00 [facility] HEPATITIS A 2005-05-19 Completed [facility] 00:00:00 [facility] HEPATITIS A 2005-05-19 Completed [facility] 00:00:00 [facility] HEPATITIS A 2005-05-19 Completed [facility] 00:00:00 [facility] HEPATITIS A 2005-05-19 Completed [facility] 00:00:00 [facility] HEPATITIS A 2005-05-19 Completed [facility] 00:00:00 [facility] Varicella 2001-06-19 Completed [facility] (varivax)(chicken 00:00:00 [place] [facility] Varicella 2001-06-19 Completed [facility] (varivax)(chicken 00:00:00 [place] [facility] Varicella 2001-06-19 Completed [facility] (varivax)(chicken 00:00:00 [place] [facility] Varicella 2001-06-19 Completed [facility] (varivax)(chicken 00:00:00 [place] [facility] Varicella 2001-06-19 Completed [facility] (varivax)(chicken 00:00:00 [place] [facility] Varicella 2001-06-19 Completed [facility] (varivax)(chicken 00:00:00 [place] [facility] Varicella 2001-06-19 Completed [facility] (varivax)(chicken 00:00:00 [place] [facility] Varicella 2001-06-19 Completed [facility] (varivax)(chicken 00:00:00 [place] [facility] Varicella 2001-06-19 Completed [facility] (varivax)(chicken 00:00:00 [place] [facility] Varicella 2001-06-19 Completed [facility] (varivax)(chicken 00:00:00 [place] [facility] Varicella 2001-06-19 Completed [facility] (varivax)(chicken 00:00:00 [place] [facility] Varicella 2001-06-19 Completed [facility] (varivax)(chicken 00:00:00 [place] [facility] Varicella 2001-06-19 Completed [facility] (varivax)(chicken 00:00:00 [place] [facility] Varicella 2001-06-19 Completed [facility] (varivax)(chicken 00:00:00 [place] [facility] Varicella 2001-06-19 Completed [facility] (varivax)(chicken 00:00:00 [place] [facility] DTAP 1998 Completed [facility] 00:00:00 [facility] HIB 3 Dose Schedule 1998 Completed [facility] 00:00:00 [facility] Polio (IPV/OPV) 1998 Completed [facility] 00:00:00 [facility] DTAP 1998 Completed [facility] 00:00:00 [facility] HIB 3 Dose Schedule 1998 Completed [facility] 00:00:00 [facility] Polio (IPV/OPV) 1998 Completed [facility] 00:00:00 [facility] DTAP 1998 Completed [facility] 00:00:00 [facility] HIB 3 Dose Schedule 1998 Completed [facility] 00:00:00 [facility] Polio (IPV/OPV) 1998 Completed [facility] 00:00:00 [facility] DTAP 1998 Completed [facility] 00:00:00 [facility] HIB 3 Dose Schedule 1998 Completed [facility] of 00:00:00 [facility] Polio (IPV/OPV) 1998 Completed [facility] 00:00:00 [facility] DTAP 1998 Completed [facility] 00:00:00 [facility] HIB 3 Dose Schedule 1998 Completed [facility] of 00:00:00 [facility] Polio (IPV/OPV) 1998 Completed [facility] 00:00:00 [facility] DTAP 1998 Completed [facility] 00:00:00 [facility] HIB 3 Dose Schedule 1998 Completed [facility] 00:00:00 [facility] Polio (IPV/OPV) 1998 Completed [facility] 00:00:00 [facility] DTAP 1998 Completed [facility] 00:00:00 [facility] HIB 3 Dose Schedule 1998 Completed [facility] 00:00:00 [facility] DTAP 1998 Completed [facility] 00:00:00 [facility] Polio (IPV/OPV) 1998 Completed [facility] 00:00:00 [facility] HIB 3 Dose Schedule 1998 Completed [facility] 00:00:00 [facility] DTAP 1998 Completed [facility] 00:00:00 [facility] HIB 3 Dose Schedule 1998 Completed [facility] of 00:00:00 [facility] Polio (IPV/OPV) 1998 Completed [facility] 00:00:00 [facility] DTAP 1998 Completed [facility] 00:00:00 [facility] HIB 3 Dose Schedule 1998 Completed [facility] 00:00:00 [facility] Polio (IPV/OPV) 1998 Completed [facility] 00:00:00 [facility] DTAP 1998 Completed [facility] 00:00:00 [facility] HIB 3 Dose Schedule 1998 Completed [facility] 00:00:00 [facility] Polio (IPV/OPV) 1998 Completed [facility] 00:00:00 [facility] Polio (IPV/OPV) 1998 Completed [facility] 00:00:00 [facility] DTAP 1998 Completed [facility] 00:00:00 [facility] HIB 3 Dose Schedule 1998 Completed [facility] of 00:00:00 [facility] Polio (IPV/OPV) 1998 Completed [facility] 00:00:00 [facility] DTAP 1998 Completed [facility] 00:00:00 [facility] HIB 3 Dose Schedule 1998 Completed [facility] 00:00:00 [facility] Polio (IPV/OPV) 1998 Completed [facility] 00:00:00 [facility] DTAP 1998 Completed [facility] 00:00:00 [facility] HIB 3 Dose Schedule 1998 Completed [facility] 00:00:00 [facility] Polio (IPV/OPV) 1998 Completed [facility] 00:00:00 [facility] DTAP 1998 Completed [facility] 00:00:00 [facility] HIB 3 Dose Schedule 1998 Completed [facility] 00:00:00 [facility] Polio (IPV/OPV) 1998 Completed [facility] 00:00:00 [facility] DTAP 1998 Completed [facility] 00:00:00 [facility] Hep B, Adol or Pedi 1998 Completed Unive rsity of Dosage 00:00:00 [facility] Polio (IPV/OPV) 1998 Completed [facility] 00:00:00 [facility] DTAP 1998 Completed [facility] 00:00:00 [facility] Hep B, Adol or Pedi 1998 Completed [facility]ive [facility]ity of Dosage 00:00:00 [facility] Polio (IPV/OPV) 1998 Completed [facility] 00:00:00 [facility] DTAP 1998 Completed [facility] 00:00:00 [facility] Hep B, Adol or Pedi 1998 Completed [facility]ive [facility] of Dosage 00:00:00 [facility] Polio (IPV/OPV) 1998 Completed [facility] 00:00:00 [facility] DTAP 1998 Completed [facility] 00:00:00 [facility] Hep B, Adol or Pedi 1998 Completed Unive rsity of Dosage 00:00:00 [facility] Polio (IPV/OPV) 1998 Completed [facility] 00:00:00 [facility] DTAP 1998 Completed [facility] 00:00:00 [facility] Hep B, Adol or Pedi 1998 Completed Unive rsity of Dosage 00:00:00 [facility] Polio (IPV/OPV) 1998 Completed [facility] 00:00:00 [facility] DTAP 1998 Completed [facility] 00:00:00 [facility] Hep B, Adol or Pedi 1998 Completed Unive [facility]ity of Dosage 00:00:00 [facility] Polio (IPV/OPV) 1998 Completed [facility] 00:00:00 [facility] DTAP 1998 Completed [facility] 00:00:00 [facility] DTAP 1998 Completed [facility] 00:00:00 [facility] Hep B, Adol or Pedi 1998 Completed Unive [facility]ity of Dosage 00:00:00 [facility] Polio (IPV/OPV) 1998 Completed [facility] 00:00:00 [facility] DTAP 1998 Completed [facility] 00:00:00 [facility] Hep B, Adol or Pedi 1998 Completed Unive [facility]ity of Dosage 00:00:00 [facility] Polio (IPV/OPV) 1998 Completed [facility] 00:00:00 [facility] Hep B, Adol or Pedi 1998 Completed Unive [facility]ity of Dosage 00:00:00 [facility] DTAP 1998 Completed [facility] 00:00:00 [facility] Hep B, Adol or Pedi 1998 Completed [facility]ive [facility] of Dosage 00:00:00 [facility] Polio (IPV/OPV) 1998 Completed [facility] 00:00:00 [facility] Polio (IPV/OPV) 1998 Completed [facility] 00:00:00 [facility] DTAP 1998 Completed [facility] 00:00:00 [facility] Hep B, Adol or Pedi 1998 Completed [facility]ive [facility] of Dosage 00:00:00 [facility] Polio (IPV/OPV) 1998 Completed [facility] 00:00:00 [facility] DTAP 1998 Completed [facility] 00:00:00 [facility] Hep B, Adol or Pedi 1998 Completed [facility] of Dosage 00:00:00 [facility] Polio (IPV/OPV) 1998 Completed [facility] 00:00:00 [facility] DTAP 1998 Completed [facility] 00:00:00 [facility] Hep B, Adol or Pedi 1998 Completed [facility] of Dosage 00:00:00 [facility] Polio (IPV/OPV) 1998 Completed [facility] 00:00:00 [facility] DTAP 1998 Completed [facility] 00:00:00 [facility] Hep B, Adol or Pedi 1998 Completed [facility] of Dosage 00:00:00 [facility] Polio (IPV/OPV) 1998 Completed [facility] 00:00:00 [facility] DTAP 1998 Completed [facility] 00:00:00 [facility] Hep B, Adol or Pedi 1998 Completed [facility] of Dosage 00:00:00 [facility] Polio (IPV/OPV) 1998 Completed [facility] 00:00:00 [facility] Hep B, Adol or Pedi 1998 Completed [facility] Dosage 00:00:00 [facility] Hep B, Adol or Pedi 1998 Completed [facility] Dosage 00:00:00 [facility] Hep B, Adol or Pedi 1998 Completed [facility] Dosage 00:00:00 [facility] Hep B, Adol or Pedi 1998 Completed [facility] Dosage 00:00:00 [facility] Hep B, Adol or Pedi 1998 Completed [facility]ive [facility] of Dosage 00:00:00 [facility] Hep B, Adol or Pedi 1998 Completed [facility]ive [facility] of Dosage 00:00:00 [facility] Hep B, Adol or Pedi 1998 Completed [facility]ive [facility]ity of Dosage 00:00:00 [facility] Hep B, Adol or Pedi 1998 Completed [facility]ive rsity of Dosage 00:00:00 [facility] Hep B, Adol or Pedi 1998 Completed [facility]ive [facility] of Dosage 00:00:00 [facility] Hep B, Adol or Pedi 1998 Completed [facility]ive rsity of Dosage 00:00:00 [facility] Hep B, Adol or Pedi 1998 Completed [facility]ive rsity of Dosage 00:00:00 [facility] Hep B, Adol or Pedi 1998 Completed [facility]ive rsity of Dosage 00:00:00 [facility] Hep B, Adol or Pedi 1998 Completed [facility]ive rsity of Dosage 00:00:00 [facility] Hep B, Adol or Pedi 1998 Completed [facility]ive [facility] of Dosage 00:00:00 [facility] Hep B, Adol or Pedi 1998 Completed Unive [facility] of Dosage 00:00:00 [facility] Vital Signs Vital Name Observation Time Observation Value Comments Source Systolic blood 2022-12-05 19:39:00 120 mm[Hg] Univer sity of pressure [facility] Diastolic blood 2022-12-05 19:39:00 64 mm[Hg] Unive rsity of pressure [facility] Heart rate 2022-12-05 19:39:00 93 /min [facility] Body temperature 2022-12-05 19:39:00 36.61 [facility] height 2022-12-05 19:39:00 160 cm [facility] Body weight 2022-12-05 19:39:00 74.844 kg [facility] BMI 2022-12-05 19:39:00 29.23 kg/m2 [facility] Oxygen saturation in 2022-12-05 19:39:00 98 /min [facility] Arterial blood by [facility] Pulse oximetry Branch Systolic blood 2022-11-24 19:55:00 134 mm[Hg] Univer sity of pressure [facility] Diastolic blood 2022-11-24 19:55:00 66 mm[Hg] Unive rsity of pressure [facility] Heart rate 2022-11-24 19:55:00 89 /min [facility] Body temperature 2022-11-24 19:55:00 37 Leny [facility] Respiratory rate 2022-11-24 19:55:00 18 /min [facility] Body height 2022-11-24 19:55:00 160 cm [facility] Body weight 2022-11-24 19:55:00 76.658 kg [facility] BMI 2022-11-24 19:55:00 29.94 kg/m2 [facility] Systolic blood 2022-11-22 15:00:00 108 mm[Hg] Univer sity of pressure [facility] Diastolic blood 2022-11-22 15:00:00 62 mm[Hg] Unive rsity of pressure [facility] Heart rate 2022-11-22 15:00:00 74 /min [facility] Respiratory rate 2022-11-22 15:00:00 16 /min [facility] Oxygen saturation in 2022-11-22 15:00:00 100 /min [facility] Arterial blood by [facility] Pulse oximetry Branch Body temperature 2022-11-22 09:17:00 37.5 Leny [facility] Body height 2022-11-22 09:17:00 160 cm [facility] Body weight 2022-11-22 09:17:00 78.472 kg [facility] BMI 2022-11-22 09:17:00 30.65 kg/m2 [facility] Systolic blood 2022-11-08 17:39:00 116 mm[Hg] Univer sity of pressure [facility] Diastolic blood 2022-11-08 17:39:00 69 mm[Hg] Unive rsity of pressure [facility] Heart rate 2022-11-08 17:39:00 93 /min [facility] Body temperature 2022-11-08 17:39:00 36.72 Leny [facility] Body height 2022-11-08 17:39:00 160 cm Universi [facility] Body weight 2022-11-08 17:39:00 79.652 kg [facility] BMI 2022-11-08 17:39:00 31.11 kg/m2 [facility] Heart rate 2022-10-30 06:00:00 63 /min [facility] Oxygen saturation in 2022-10-30 06:00:00 99 /min [facility] Arterial blood by [facility] Pulse oximetry Branch Systolic blood 2022-10-30 06:00:00 105 mm[Hg] [facility] Diastolic blood 2022-10-30 06:00:00 65 mm[Hg] [facility] Body temperature 2022-10-30 05:00:00 37.22 Leny [facility] Respiratory rate 2022-10-30 05:00:00 16 /min [facility] Body height 2022-10-30 05:00:00 160 cm [facility] Body weight 2022-10-30 05:00:00 83.462 kg [facility] BMI 2022-10-30 05:00:00 32.59 kg/m2 [facility] Procedures Procedure Date / Time Performing Clinician Source Performed COMP. METABOLIC PANEL 2022-12-05 21:49:00 [id number] TOTAL BETA HCG ASSAY 2022-12-05 21:49:00 Beti Shirley [facility] CBC WITH DIFF 2022-12-05 21:49:[address] [facility] URINALYSIS 2022-12-05 21:49:[address] [facility] US FIRST 2022-12-05 21:18:35 Beti Shirley [facility] TRIMESTER LESS THAN 14 Medical [facility] WEEKS WITH TRANSVAGINAL ASSIGNMENT OF BENEFITS 2022-12-05 19:57:54 Doctor Unassigned, No [facility] Name [facility] POCT URINALYSIS W/O 2022-11-24 00:00:00 Carmen Hilton [facility] SPECIFIC GRAVITY [facility] US FIRST 2022-11-22 12:44:00 Darren Moe [facility] TRIMESTER LESS THAN 14 Medical [facility] WEEKS POCT TEST 2022-11-22 09:30:[address] [facility] LIPASE 2022-11-22 09:29:[address] [facility] COMP. METABOLIC PANEL 2022-11-22 09:29:00 Darren Moe [facility] ([id number]) [facility] TOTAL BETA HCG ASSAY 2022-11-22 09:29:00 Darren Moe [facility] CBC WITH DIFF 2022-11-22 09:29:[address] [facility] URINALYSIS 2022-11-22 09:29:[address] [facility] HB ABO GROUPING 2022-11-22 09:28:[address] [facility] CONSENT/REFUSAL FOR 2022-11-22 09:08:48 Doctor Unassigned, No [facility] DIAGNOSIS AND TREATMENT [facility] OB TRANSVAGINAL 2022-11-08 19:18:23 Carmen Hilton [facility] FLU VACC ([phone]), 6 2022-11-08 18:26:24 Carmen Hilton [facility] MO-62 YRS, .5ML, IM, Medical [facility] QUAD (FLUCELVAX) GALV ONLY - VAGINAL 2022-11-08 18:19:00 Carmen Hilton [facility] PATHOGENS BY NUCLEIC Medical [facility] ACID TESTING GC & CHLAMYDIA AMPLIFIED 2022-11-08 18:17:00 Carmen Hilton [facility] ASSAY [facility] Branch LAB ONLY PAP 2022-11-08 18:17:00 Carmen Hilton [facility] SMEAR-LIQUID BASED Medical Branc h TRICHOMONAS AMPLIFIED 2022-11-08 18:17:00 Carmen Hilton [facility] ASSAY [facility] PAP SMEAR-LIQUID 2022-11-08 18:17:00 Carmen Hilton [facility] BASED-CP Medical Branch URINE DRUG (IMMUNOASSAY) 2022-11-08 17:48:00 Carmen Hilton [facility] DRUG Medical [facility] SCREEN URINE CULTURE 2022-11-08 17:48:00 Carmen Hilton [facility] ASSIGNMENT OF BENEFITS 2022-11-08 16:58:12 Doctor Unassigned, No [facility] POCT TEST 2022-11-08 00:00:00 Carmen Hilton [facility] POCT URINALYSIS W/O 2022-11-08 00:00:00 Carmen Hilton [facility] SPECIFIC GRAVITY [facility] COMP. METABOLIC PANEL 2022-10-30 05:36:00 Crooks Moustapha [facility] ([id number]) [facility] CBC WITH DIFF 2022-10-30 05:36:00 [facility] URINALYSIS 2022-10-30 05:36:00 [facility] NOTICE OF PRIVACY 2022-10-30 04:59:24 Doctor Unassigned, No [facility] PRACTICES [facility] CONSENT/REFUSAL FOR 2022-10-30 04:58:00 Doctor Unassigned, No [facility] DIAGNOSIS AND TREATMENT [facility] Encounters Start End Encounter Admission Attending Care Care Encounter Source Date/Time Date/Time Type Type Clinicians Facility Department ID 2021-08-07 Outpatient P [facility] BONNIE [id number] Univers 14:58:04 [facility] 2022-12-22 2022-12-22 Outpatient R ZINA [facility] [id number] Univers 16:30:00 16:30:00 MJ [facility] 2022-12-07 2022-12-07 Telephone Carmen Hilton [facility] [id number] Univers 00:00:00 00:00:00 Cam [place] [id number] i ty of [facility] [id number] [phone] [place]ical NAL [address] [facility] 2022-12-05 2022-12-05 [facility] [id number] Univers 13:40:00 17:24:00 BETI ity [facility] 2022-12-05 2022-12-05 Emergency [facility] [id number] Univers 13:40:00 17:24:00 Beti [place] [id number] i ty [place] [id number] [address] 2022-11-24 2022-11-24 Outpatient R CARMEN HILTON [facility] [id number] Univers 13:45:00 14:30:38 ity of [facility] 2022-11-24 2022-11-24 Routine Anthony [facility] [id number] Univers 13:45:00 14:30:38 Van [place] [id number] ity of [place] [id number] [address] 2022-11-22 2022-11-22 Emergency X RENEE [facility] ERT [id number] Univers 03:13:00 09:10:00 NAEL barragan [facility] 2022-11-22 2022-11-22 Emergency Darren Moe S [facility] 1.2.840 .[id number] Univers 03:13:00 09:10:00 Nael Duran [id number] ity of [facility] [id number] [id number] [address] 2022-11-22 2022-11-22 Telephone Carmen Hilton [facility] [id number] Univers 00:00:00 00:00:00 Cam [place] [id number] i ty of [facility] [id number] [phone] [place] dical NAL 134 [facility] 2022-11-15 2022-11-15 Laboratory Manager 2, Adc Lab [facility] 1.2.840.114 [id number] Univers 10:15:00 10:30:00 Visit Carmen Hilton Van [place] [id number] ity of [place] [id number] Ga dical NAL 353 [facility] 2022-11-15 2022-11-15 Outpatient R CARMEN HILTON [facility] [id number] Univers 10:15:00 10:15:00 ity of [facility] 2022-11-15 2022-11-15 Telephone Carmen Hilton [facility] 1.2.840.114 [id number] Univers 00:00:00 00:00:00 Cam [place] [id number] i ty of [facility] [id number] [phone] Ga dical NAL 134 [facility] 2022-11-12 2022-11-12 Case Carmen Hilton [facility] [id number] Univers 00:00:00 00:00:00 Management Cam [place] [id number] ity of [facility] [id number] [id number] Ga dical NAL 134 [facility] 2022-11-08 2022-11-08 Outpatient R CARMEN HILTON [facility] [id number] Univers 11:00:00 12:28:17 ity of [facility] 2022-11-08 2022-11-08 Initial Carmen Hilton [facility] [id number] Univers 11:00:00 12:28:17 Cam [place] [id number] ity of [place] [phone] Ga dical NAL 134 [facility] 2022-11-08 2022-11-08 Orders Doctor LINDO 1.2.840.114 [id number] Univers 00:00:00 00:00:00 Only Unassigned, NICOLE [id number] ity of [facility] 4.2.7.2.686 Dean as [id number] [address] 2022-10-29 2022-10-30 Emergency X SINGER [facility] ERT [id number] Univers 23:07:00 00:49:00 MOUSTAPHA barragan [facility] 2022-10-29 2022-10-30 Emergency Singer [facility] [id number] Univers 23:07:00 00:49:00 Moustapha PAY[place] 350.1.13.10 i ty [facility] 4.2.7.2.686 [place] [facility] [id number] [place] 209334 [place] 2022-10-29 2022-10-29 Orders Doctor BELGICA 1.2.840.114 [id number] Univers 00:00:00 00:00:00 Only UnassignedNICOLE [id number] ity of [place] [facility] 4.2.7.2.686 Dean as [id number] [address] 2019-12-20 2019-12-20 Emergency X [facility] ERT [id number] Univers 14:57:45 16:56:00 MOUSTAPHA barragan [facility] 2019-03-21 2019-03-21 Emergency E MHSE MHSE [id number] MH 08:56:00 08:56:00 [facility] Results Test Description Test Time Test Comments Results Result Comments Source POCT URINALYSIS W/O SPECIFIC GRAVITY 2022-11-24 19:55:00 Test Item Value Reference Range Interpretation Comme nts POCT PH U (test code = 3254) 5 mg/dl 5-8 POCT U LEUK EST (test code = 3263) negative Negative - Negative POCT U NIT (test code = 3262) negative Negative - Negative POCT U PROT (test code = 3259) negative Negative - Negative POCT U GLU (test code = 3256) negative Negative - Negative POCT U KETONE (test code = 3258) 2+ Negative - Negative POCT U BLD (test code = 3257) negative Negative - Negative [facility] - ONCE [id number] 10:17:50 Test Item Value Reference Range Interpretation Comments ABO & RH (test code O Positive Performe d at [facility] = 20) Laboratory Serv [facility] [address] [place] [phone] Free: [phone] A No. [id number] IAT (test code = Negative Performed a t [facility] 1185) Laboratory Serv [facility] [address] [place] [phone] Free: [phone] A No. [id number] [facility] [id number] 09:30:00 Test Item Value Reference Range Interpretation Comments POCT PREG (test code = 1605) + On board controls acceptable with yes C Line (test code = 3574) POCT PREG LOT # (test code = 3575) [id number] POCT PREG TEST DATE (test 03/09/2024 code = 3576) Lab Interpretation (test code = Normal 63749-3) [facility] [id number] 17:43:00 Test Item Value Reference Range Interpretation Comments POCT PREG (test code = 1605) Positive On board controls acceptable with C Yes Line (test code = 3574) POCT PREG LOT # (test code = 3575) POCT PREG TEST DATE (test code = 3576) [facility] URINALYSIS W/O SPECIFIC [id number] 17:43:00 Test Item Value Reference Range Interpretation Comments POCT PH U (test code = 3254) 5 mg/dl 5-8 POCT U LEUK EST (test code = 2+ Negative - Negative 3263) POCT U NIT (test code = 3262) negative Negative - Negative POCT U PROT (test code = 3259) trace Negative - Negative POCT U GLU (test code = 3256) negative Negative - Negative POCT U KETONE (test code = 3258) 3+ Negative - Negative POCT U BLD (test code = 3257) negative Negative - Negative [facility] [id number] 17:43:00 Test Item Value Reference Range Interpretation Comments POCT PREG (test code = 1605) Positive On board controls acceptable with C Yes Line (test code = 3574) POCT PREG LOT # (test code = 3575) POCT PREG TEST DATE (test code = 3576) [facility] W/O SPECIFIC [id number] 17:43:00 Test Item Value Reference Range Interpretation Comments POCT PH U (test code = 3254) 5 mg/dl 5-8 POCT U LEUK EST (test code = 2+ Negative - Negative 3263) POCT U NIT (test code = 3262) negative Negative - Negative POCT U PROT (test code = 3259) trace Negative - Negative POCT U GLU (test code = 3256) negative Negative - Negative POCT U KETONE (test code = 3258) 3+ Negative - Negative POCT U BLD (test code = 3257) negative Negative - Negative [facility]OLIC PANEL ([id number])2022-10-30 06:22:54 Test Item Value Reference Range Interpretation Comments NA (test code = 135 mmol/L 135-145 7251097292) K (test code = 4.3 mmol/L 3.5-5.0 8089316773) CL (test code = 105 mmol/L 98-108 6108976677) CO2 TOTAL (test code = 22 mmol/L 23-31 L 4812444844) AGAP (test code = 2-16 5315285453) BUN (test code = 6 mg/dL 7-23 L 8672357565) GLUCOSE (test code = 100 mg/dL 70-110 4078988167) CREATININE (test code = 0.53 mg/dL 0.50-1.04 1316796763) TOTAL BILI (test code = 0.6 mg/dL 0.1-1.6 0490426050) CALCIUM (test code = 9.2 mg/dL 8.6-10.6 8144787105) T PROTEIN (test code = 7.7 g/dL 6.3-8.2 2217669409) ALBUMIN (test code = 4.5 g/dL 3.5-5.0 0923891742) ALK PHOS (test code = 66 U/L 34-122 6039649648) ALTv (test code = 21 U/L 5-35 1742-6) AST(SGOT) (test code = 23 U/L 13-40 4891624160) eGFR (test code = mL/min/1.73m2 2878363320) MATHEUS (test code = MATHEUS) Association of Glomerular Filtration Rate (GFR) and Staging of Kidney Disease* + --+ --+ ------+| GFR (mL/min/1.73 m2) ?| With Kidney Damage ?| ?Without Kidney Damage+ --------+ --------+ +| ?>90 ?| ?Stage one ?| ? Normal ?+ ---+ ---+ -------+| ?60-89 ?| ?Stage two ?| ? Decreased GFR ? + --+ --+ ------+| ?30-59 ?| ?Stage three ?| ? Stage three ? + --+ --+ ------+| ?15-29 ?| ?Stage four ? | ? Stage four ?+ ---+ ---+ -------+| ?<15 (or dialysis) ? ?| ?Stage five ? | ? Stage five ?+ ---+ ---+ -------+ *Each stage assumes the associated GFR level has been in effect for at least three months. ?Stages 1 to 5, with or without kidney disease, indicate chronic kidney disease. Notes: Determination of stages one and two (with eGFR >59mL/min/1.73 m2) requires estimation of kidney damage for at least three months as defined by structural or functional abnormalities of the kidney, manifested by either:Pathological abnormalities or Markers of kidney damage (including abnormalities in the composition of the blood or urine or abnormalities in imaging tests). Lab Interpretation Abnormal (test code = 24652-2) [facility] WITH [id number] 06:01:54 Test Item Value Reference Range Interpretation Comments WBC (test code = See_Comment [Automated message] 6690-2) The system [employer] generated this result transmitted ref erence range: 4.30 - 1 1.10 10*3/?L. The re ference range was not u sed to interpret this result as normal/abnor mal. RBC (test code = See_Comment [Automated message] 789-8) The system [employer] generated this result transmitted ref erence range: 3.93 - 5 .25 10*6/?L. The re ference range was not u sed to interpret this result as normal/abnor mal. HGB (test code = 12.7 g/dL 11.6-15.0 718-7) HCT (test code = 37.6 % 35.7-45.2 4544-3) MCV (test code = 85.8 fL 80.6-95.5 787-2) MCH (test code = 29.0 pg 25.9-32.8 785-6) MCHC (test code = 33.8 g/dL 31.6-35.1 786-4) RDW-SD (test code 39.1 fL 39.0-49.9 = 10509-6) RDW-CV (test code 12.5 % 12.0-15.5 = 788-0) PLT (test code = See_Comment [Automated message] 777-3) The system [employer] generated this result transmitted ref erence range: 166 - 35 8 10*3/?L. The re ference range was not u sed to interpret this result as normal/abnor mal. MPV (test code = 11.2 fL 9.5-12.9 26724-9) NRBC/100 WBC (test See_Comment [Automat ed message] code = 0393486810) The syste m which generated this result transmitted ref erence range: 0.0 - 10 .0 /100 WBCs. The refer ence range was not u sed to interpret this result as normal/abnor mal. NRBC x10^3 (test See_Comment [Automated message] code = 7852376141) The syste m which generated this result transmitted ref erence range: 10*3/?L. The reference range was not used to interpr et this result as normal/abnormal . GRAN MAT (NEUT) % 60.6 % (test code = 770-8) IMM GRAN % (test 0.40 % code = 3962852095) LYMPH % (test code 27.1 % = 736-9) MONO % (test code 7.6 % = 5905-5) EOS % (test code = 3.8 % 713-8) BASO % (test code 0.5 % = 706-2) GRAN MAT 4.95 10*3/uL 1.88-7.09 x10^3(ANC) (test code = 3893119034) IMM GRAN x10^3 0.03 10*3/uL 0.00-0.06 (test code = 8151874293) LYMPH x10^3 (test 2.21 10*3/uL 1.32-3.29 code = 731-0) MONO x10^3 (test 0.62 10*3/uL 0.33-0.92 code = 742-7) EOS x10^3 (test 0.31 10*3/uL 0.03-0.39 code = 711-2) BASO x10^3 (test 0.04 10*3/uL 0.01-0.07 code = 704-7) [facility]"
[2023-03-02 15:24] LABS: Specific Gravity 1.014 (1.005-1.030); Urine Bacteria <20 /HPF (<20); Urine Bilirubin NEGATIVE (Negative); Urine Blood Negative (Negative); Urine Clarity Clear (Clear); Urine Color Light-Yellow (Yellow); Urine Glucose NEGATIVE (Negative); Urine Mucus Slight /HPF (None Seen); Urine Protein NEGATIVE (Negative); Urine RBC <5 /HPF (None Seen); Urine Urobilinogen Normal (Normal)
[2023-03-02 15:38] LABS: Absolute Lymphocytes (CBC) 1.3 K/uL (0.7-4.9); Hematocrit 35.6 % (36.0-45.0); Lymphocytes % 13.2 % (15.3-44.8); MPV 10.3 fL (7.6-11.3); RBC Red Blood Cell Count 4.09 M/uL (3.86-4.86)
[2023-03-02 16:15] LABS: BUN Blood Urea Nitrogen 7 mg/dL (7-18); Bicarbonate 23 mEq/L (21-32); Glomerular Filtration Rate 134 ml/min (=/>90); Glucose Level 86 mg/dL (74-106); HCG, Quantitative 7058 mIU/mL (1-3); Lipase 35 U/L (13-75); Potassium 3.6 mEq/L (3.5-5.1); Sodium Level 136 mEq/L (136-145); Troponin High Sensitivity < 3.0 pg/mL (<58.9)
--- NOTE | 2023-03-02 17:05 | RAD REPORT ---
EXAM DESCRIPTION: USExtremity Venous Uni Ltd03/02/2023 4:37 pm CLINICAL HISTORY: left leg swelling COMPARISON: None FINDINGS: Left common femoral, superficial femoral, greater saphenous, popliteal and posterior tibi al veins are compressible and demonstrate augmentation. Doppler demonstrates good flow. Grayscale, color and spectral analysis performed on all vessels IMPRESSION: No evidence of deep venous thrombosis involving the left lower extremity.
--- NOTE | 2023-03-02 17:10 | ER ---
Nurse's Notes [facility] Name: Danuta Montiel Age: 22 yrs Sex: Female : 2000 Arrival Date: 03/02/2023 Time: 14:16 Bed 12 Private MD: Diagnosis: Chest pain, unspecified; state, incidental Presentation: 03/02 14:42 Chief complaint: Patient states: chest pain X 2 days, worse today, also her left eye iw has been twitching X 1 week, and her left hand is twitching , also feeling light headed . pt is approx 6 months . Coronavirus screen: At this time, the client does not indicate any symptoms associated with coronavirus-19. Ebola Screen: Patient negative for fever greater than or equal to 101.5 degrees Fahrenheit, and additional compatible Ebola Virus Disease symptoms Patient denies exposure to infectious person. Patient denies travel to an Ebola-affected area in the 21 days before illness onset. No symptoms or risks identified at this time. Initial Sepsis Screen: Does the patient meet any 2 criteria? No. Patient's initial sepsis screen is negative. Does the patient have a suspected source of infection? No. Patient's initial sepsis screen is negative. Risk Assessment: Do you want to hurt yourself or someone else? Patient reports no desire to harm self or others. Onset of symptoms was February 28, 2023. 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 - Social history:: Smoking status: Patient denies any tobacco usage or history of. Screenin:15 [facility] ED Fall Risk Assessment (Adult) History of falling in the last 3 months, mb9 including since admission No falls in past 3 months (0 pts) Confusion or Disorientation No (0 pts) Intoxicated or Sedated No (0 pts) Impaired Gait No (0 pts) Mobility Assist Device Used No (0 pt) Altered Elimination No (0 pt) Score/Fall Risk Level 0 - 2 = Low Risk Oriented to surroundings, Maintained a safe environment, Educated pt \T\ family on fall prevention, incl call for assistance when getting out of bed. Abuse screen: Denies threats or abuse. Nutritional screening: No deficits noted. Tuberculosis screening: No symptoms or risk factors identified. Assessment: 15:14 General: Appears in no apparent distress. Behavior is cooperative. Pain: Complains of mb9 pain in chest Pain does not radiate. Neuro: Level of Consciousness is awake, alert, obeys commands, Oriented to person, place, time, situation, Appropriate for age. Neuro: Reports dizziness. Cardiovascular: Heart tones S1 S2 present Patient's skin is warm and dry. Rhythm is regular. Respiratory: Airway is patent Respiratory effort is even, unlabored, Respiratory pattern is regular, symmetrical. Derm: Skin is pink, warm \T\ dry. Musculoskeletal: Range of motion: intact in all extremities. 16:22 Reassessment: No changes from previously documented assessment. Patient and/or family mb9 updated on plan of care and expected duration. Pain level reassessed. Patient is alert, oriented x 3, equal unlabored respirations, skin warm/dry/pink. 16:22 Reassessment: ultrasound at bedside. mb9 17:19 Reassessment: Patient and/or family updated on plan of care and expected duration. Pain mb9 level reassessed. Patient is alert, oriented x 3, equal unlabored respirations, skin warm/dry/pink. Patient states feeling better. Patient states symptoms have improved. Vital Signs: 14:42 BP 120 / 72; Pulse 65; Resp 16; Temp 98.1; Pulse Ox 100% on R/A; Weight 76.2 kg; Height iw 5 ft. 3 in. ; Pain 5/10; 16:21 BP 108 / 61; Pulse 61; Resp 16; Pulse Ox 100% on R/A; mb9 17:19 BP 105 / 64; Pulse 74; Resp 17; Pulse Ox 100% on R/A; mb9 14:42 Body Mass Index 29.76 (76.20 kg, 160.02 cm) iw 14:42 Pain Scale: Adult iw ED Course: 14:19 Patient arrived in ED. mr 14:25 Robina Michael FNP-C is PHCP. snw 14:26 Nathan Gilmore MD is Attending Physician. snw 14:37 Dora Woodson, RN is Primary Nurse. mb9 14:37 Arm band placed on. mb9 14:37 Placed in gown. Bed in low position. Call light in reach. Side rails up X 1. Client mb9 placed on continuous cardiac and pulse oximetry monitoring. NIBP monitoring applied. clinical research monitor on. 14:46 Triage completed. iw 15:14 Urinalysis w/ reflexes Sent. mb9 15:15 No provider procedures requiring assistance completed. mb9 15:30 Inserted saline lock: 20 gauge in right antecubital area, using aseptic technique. rs5 Blood collected. 15:30 Lipase Sent. rs5 15:30 Troponin HS Sent. rs5 15:30 Abo/rh Typing Sent. rs5 15:30 Basic Metabolic Panel Sent. rs5 15:30 CBC with Diff Sent. rs5 15:30 Quantitative Hcg Sent. rs5 15:41 Lipase Sent. mb9 15:41 Troponin HS Sent. mb9 15:41 Abo/rh Typing Sent. mb9 15:41 Basic Metabolic Panel Sent. mb9 15:41 CBC with Diff Sent. mb9 15:41 Quantitative Hcg Sent. mb9 16:39 US Extremity Venous Unilateral Ltd In Process Unspecified. EDMS 17:19 IV discontinued, intact, bleeding controlled, No redness/swelling at site. Pressure mb9 dressing applied. Administered Medications: 17:12 Drug: Famotidine PO 20 mg Route: PO; mb9 Medication: 14:37 VIS not applicable for this client. mb9 Outcome: 17:10 Discharge ordered by . snw 17:19 Discharged to home ambulatory. mb9 17:19 Condition: stable 17:19 Discharge instructions given to patient, Instructed on discharge instructions, follow up and referral plans. Demonstrated understanding of instructions, follow-up care. 17:19 Patient left the ED. mb9 Signatures: Dispatcher [employer] EDMS Robina Michael FNP-C FNP-Dora Orta Irene, RN AMENA iw Dora Woodson, RN RN mb9 Fernando Cosme rs5
--- NOTE | 2023-03-02 17:11 | EDPHYS ---
Physician Documentation [facility] Name: Danuta Montiel Age: 22 yrs Sex: Female : 2000 Arrival Date: 03/02/2023 Time: 14:16 Bed 12 Private MD: ED Physician Nathan Gilmore HPI: 03/02 14:54 This 22 yrs old Female presents to ER via Ambulatory with complaints of Chest Pain. snw 14:54 The patient or guardian reports chest pain that is located primarily in the anterior snw chest wall, left. The pain does not radiate. Associated signs and symptoms: Pertinent positives: lower extremity swelling, shortness of breath. The chest pain is described as squeezing. Duration: The patient or guardian reports multiple episodes. Severity of pain: At its worst the pain was moderate. The patient has experienced a previous episode, approximately 6 months ago. pt is , has seen OB 3 times but been to ED more as "placenta keeps ripping". Denies vaginal bleeding or abd pain currently. 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 - Social history:: Smoking status: Patient denies any tobacco usage or history of. ROS: 14:53 Constitutional: Negative for fever, chills, and weight loss, Eyes: Negative for injury, snw pain, redness, and discharge, ENT: Negative for injury, pain, and discharge, Neck: Negative for injury, pain, and swelling, Cardiovascular: Negative for palpitations, positive for edema and chest pain Respiratory: Negative for cough, wheezing, and pleuritic chest pain, + sob two to three days ago which is currently better Abdomen/GI: Negative for abdominal pain, nausea, vomiting, diarrhea, and constipation, Back: Negative for injury and pain, : Negative for injury, bleeding, discharge, and swelling, MS/Extremity: Negative for injury and deformity, Skin: Negative for injury, rash, and discoloration, Neuro: Negative for headache, weakness, numbness, tingling, and seizure, Psych: Negative for depression, anxiety, suicide ideation, homicidal ideation, and hallucinations. Exam: 14:53 Constitutional: This is a well developed, well nourished patient who is awake, alert, snw and in no acute distress. Head/Face: Normocephalic, atraumatic. Eyes: Pupils equal round and reactive to light, extra-ocular motions intact. Lids and lashes normal. Conjunctiva and sclera are non-icteric and not injected. Cornea within normal limits. Periorbital areas with no swelling, redness, or edema. ENT: Nares patent. No nasal discharge, no septal abnormalities noted. Tympanic membranes are normal and external auditory canals are clear. Oropharynx with no redness, swelling, or masses, exudates, or evidence of obstruction, uvula midline. Mucous membranes moist. Neck: Trachea midline, no thyromegaly or masses palpated, and no cervical lymphadenopathy. Supple, full range of motion without nuchal rigidity, or vertebral point tenderness. No Meningismus. Chest/axilla: Normal chest wall appearance and motion. Nontender with no deformity. No lesions are appreciated. Cardiovascular: Regular rate and rhythm with a normal S1 and S2. No gallops, murmurs, or rubs. Normal PMI, no JVD. No pulse deficits. Respiratory: Lungs have equal breath sounds bilaterally, clear to auscultation and percussion. No rales, rhonchi or wheezes noted. No increased work of breathing, no retractions or nasal flaring. Back: No spinal tenderness. No costovertebral tenderness. Full range of motion. Skin: Warm, dry with normal turgor. Normal color with no rashes, no lesions, and no evidence of cellulitis. MS/ Extremity: Pulses equal, no cyanosis. Neurovascular intact. Full, normal range of motion. Neuro: Awake and alert, GCS 15, oriented to person, place, time, and situation. Cranial nerves II-XII grossly intact. Motor strength 5/5 in all extremities. Sensory grossly intact. Cerebellar exam normal. Normal gait. Psych: Awake, alert, with orientation to person, place and time. Behavior, mood, and affect are within normal limits. 14:53 Abdomen/GI: Inspection: gravid appearance, is noted, Palpation: abdomen is soft and non-tender, in all quadrants. Vital Signs: 14:42 BP 120 / 72; Pulse 65; Resp 16; Temp 98.1; Pulse Ox 100% on R/A; Weight 76.2 kg; Height iw 5 ft. 3 in. ; Pain 5/10; 16:21 BP 108 / 61; Pulse 61; Resp 16; Pulse Ox 100% on R/A; mb9 17:19 BP 105 / 64; Pulse 74; Resp 17; Pulse Ox 100% on R/A; mb9 14:42 Body Mass Index 29.76 (76.20 kg, 160.02 cm) iw 14:42 Pain Scale: Adult iw MDM: 14:26 Patient medically screened. snw 17:16 Differential diagnosis: anxiety, chest wall pain, costochondritis, esophagitis, snw gastritis, gastroesophageal reflux disease (GERD). Data reviewed: vital signs, nurses notes. I considered the following discharge prescriptions or medication management in the emergency department Medications were administered in the Emergency Department. See MAR. Counseling: I had a detailed discussion with the patient and/or guardian regarding: the historical points, exam findings, and any diagnostic results supporting the discharge/admit diagnosis, lab results, radiology results, the need for outpatient follow up, for definitive care, to return to the emergency department if symptoms worsen or persist or if there are any questions or concerns that arise at home. Response to treatment: the patient's symptoms have mildly improved after treatment. Special discussion: Based on the patient's history, exam, and Dx evaluation, there is no indication for emergent intervention or inpatient Tx. It is understood by the patient/guardian that if the Sx's persist or worsen they need to return immediately for re-evaluation. Based on the history and exam findings, there is no indication for further emergent testing or inpatient evaluation. I discussed with the patient/guardian the need to see the OB Gyne specialist for further evaluation of the symptoms. I discussed with the patient/guardian the need to see the primary care provider for further evaluation of the symptoms. 03/02 14:53 Order name: Abo/rh Typing; Complete Time: 16:25 snw 03/02 14:53 Order name: Basic Metabolic Panel; Complete Time: 16:24 snw 03/02 14:53 Order name: CBC with Diff; Complete Time: 15:46 snw 03/02 14:53 Order name: Quantitative Hcg; Complete Time: 16:24 snw 03/02 14:53 Order name: Urinalysis w/ reflexes; Complete Time: 15:43 snw 03/02 14:53 Order name: Troponin HS; Complete Time: 16:24 snw 03/02 14:53 Order name: Lipase; Complete Time: 16:24 snw 03/02 14:53 Order name: US Extremity Venous Unilateral Ltd; Complete Time: 17:08 snw 03/02 14:53 Order name: Labs collected and sent; Complete Time: 15:30 snw 03/02 14:53 Order name: NPO; Complete Time: 15:00 snw Administered Medications: 17:12 Drug: Famotidine PO 20 mg Route: PO; mb9 Disposition: 20:12 Co-signature as Attending Physician, Nathan Gilmore MD I reviewed the patient's care rt provided by the Advanced Practice Provider and agree with the diagnosis and treatment plan. Disposition Summary: 03/02/23 17:10 Discharge Ordered Location: Home snw Condition: Stable snw Diagnosis - Chest pain, unspecified snw - state, incidental snw Followup: snw - With: Emergency Department - When: As needed - Reason: Worsening of condition Followup: snw - With: Private Physician - When: 2 - 3 days - Reason: Recheck today's complaints, Continuance of care, Re-evaluation by your physician Discharge Instructions: - Discharge Summary Sheet snw - Nonspecific Chest Pain, Adult snw - Gastroesophageal Reflux Disease, Adult snw - Care snw Forms: - Medication Reconciliation Form snw - Thank You Letter snw - Antibiotic Education snw - Prescription Opioid Use snw - Work release form mb9 Signatures: Dispatcher [employer] EDRobina Moreno, SEXTON HELPER-C SEXTON HELPER-Csnw Priti Jasmine RN Dora Zapata RN AMENA mb9 Nathan Gilmore MD MD rt Corrections: (The following items were deleted from the chart) 14:59 14:54 The patient has experienced a previous episode, approximately 6 months ago, snw snw 15:00 14:54 pt is 6mo , has seen OB 3 times but been to ED more as "placenta keeps snw ripping". Denies vaginal bleeding or abd pain currently, snw 15:00 14:54 The patient has experienced a previous episode, approximately 6 months ago, snw snw
[2023-03-02] MEDS ORDERED: FAMOTIDINE 20 MG TAB ONE (17:18)
[2023-03-02 17:34] VITALS: TEMP 98.1; O2SAT 100
[2023-03-02 17:46] VITALS: BP 105/64
== END 2023-03-02 17:19 | disposition home or self-care (01) ==
LOC: ER 14:16
DX: R07.89 Other chest pain (principal); Z33.1 Pregnant state, incidental
CPT/HCPCS: 36415; 80048; 81001; 83690; 84484; 84702; 85025; 86900; 86901; 93971

== ENCOUNTER → 2023-10-02 | Emergency (ER) | payer OTHER ==
[~2023-10-02] MED LIST: MORPHINE 4 MG/ML SYR ONE; NA CHLORIDE 0.9% 1,000 ML ONE; ONDANSETRON 4 MG/2 ML VIAL ONE
--- OUTSIDE RECORDS SUMMARY | 2023-10-02 11:00 | XMS REPORT | Continuity of Care Document ---
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
[2023-10-02 11:24] LABS: Absolute Lymphocytes (CBC) 1.5 K/uL (0.7-4.9); Hematocrit 37.2 % (36.0-45.0); Lymphocytes % 17.7 % (15.3-44.8); MCV 84.1 fL (80-100); MPV 9.3 fL (7.6-11.3); Platelets 338 thou/uL (152-406); RBC Red Blood Cell Count 4.42 M/uL (3.86-4.86)
[2023-10-02 11:34] LABS: Specific Gravity 1.026 (1.005-1.030)
[2023-10-02 11:42] LABS: Albumin 3.6 g/dL (3.4-5.0); Bilirubin Total 0.3 mg/dL (0.2-1.0); Potassium 3.5 mEq/L (3.5-5.1); Protein, Total 7.4 g/dL (6.4-8.2)
--- NOTE | 2023-10-02 13:39 | RAD REPORT ---
EXAM DESCRIPTION: CT - Abdomen Pelvis W Contrast - 10/02/2023 12:34 pm CLINICAL HISTORY: RLQ PAIN COMPARISON: No comparisons TECHNIQUE: Thin cut axial CT imaging of the abdomen and pelvis was performed following intravenous a dministration of 100 mL Isovue 300. Multiplanar reformats were generated and reviewed. All CT scans are performed using dose optimization technique as appropriate and may include automated exposure control or mA/KV adjustment according to patient size. FINDINGS: No suspicious findings in the lung bases. The liver, spleen, adrenal glands, and pancreas show no suspicious findings. Gallbladder and biliary tree are also without suspicious finding. Symmetric renal function is seen with no hydronephrosis or suspicious renal mass. No dilated bowel loops or bowel wall thickening. No free air, free fluid or inflammatory stranding. N o hernia, mass or bulky lymphadenopathy. The urinary bladder is without significant finding. No suspicious bony findings. IMPRESSION: No acute intra-abdominal process.
[2023-10-02 15:25] LABS: Specific Gravity 1.026 (1.005-1.030); Urine Bacteria <20 /HPF (<20); Urine Bilirubin NEGATIVE (Negative); Urine Blood 3+ (OVER) (Negative); Urine Clarity Turbid (Clear); Urine Color Light-Yellow (Yellow); Urine Glucose NEGATIVE (Negative); Urine Protein TRACE (Negative); Urine RBC <5 /HPF (None Seen); Urine Urobilinogen Normal (Normal); Urine WBC Clump Rare /HPF (None Seen); Urine pH 7.5 (5.0-7.0)
--- NOTE | 2023-10-02 15:36 | EDPHYS ---
Physician Documentation [facility] Name: Danuta Montiel Age: 23 yrs Sex: Female : 2000 Arrival Date: 10/02/2023 Time: 10:56 Bed 6 Private MD: ED Physician Nathan Gilmore HPI: 10/02 16:41 This 23 yrs old Female presents to ER via EMS with complaints of Abdominal Pain. rt 16:41 Patient presents to the ED with abdominal pain to the suprapubic right lower quadrant, rt sharp in nature. Otherwise radiating. Started overnight. Reports nausea without vomiting. Denies other acute complaints at this time, symptoms are moderate in severity, no other aggravating or elevating factors.. 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 - Social history:: Smoking status: Patient denies any tobacco usage or history of. - Family history:: not pertinent. ROS: 16:41 Constitutional: Negative for fever, chills, and weight loss, Cardiovascular: Negative rt for chest pain, palpitations, and edema, Respiratory: Negative for shortness of breath, cough, wheezing, and pleuritic chest pain, : Negative for injury, bleeding, discharge, and swelling, MS/Extremity: Negative for injury and deformity, Skin: Negative for injury, rash, and discoloration, Neuro: Negative for headache, weakness, numbness, tingling, and seizure, Psych: Negative for depression, anxiety, suicide ideation, homicidal ideation, and hallucinations, 16:41 Abdomen/GI: Positive for abdominal pain, nausea, Exam: 16:41 Constitutional: This is a well developed, well nourished patient who is awake, alert, rt and in no acute distress. Head/Face: Normocephalic, atraumatic. Chest/axilla: Normal chest wall appearance and motion. Nontender with no deformity. No lesions are appreciated. Cardiovascular: Regular rate and rhythm with a normal S1 and S2. No gallops, murmurs, or rubs. Normal PMI, no JVD. No pulse deficits. Respiratory: Lungs have equal breath sounds bilaterally, clear to auscultation and percussion. No rales, rhonchi or wheezes noted. No increased work of breathing, no retractions or nasal flaring. Skin: Warm, dry with normal turgor. Normal color with no rashes, no lesions, and no evidence of cellulitis. MS/ Extremity: Pulses equal, no cyanosis. Neurovascular intact. Full, normal range of motion. 16:41 Abdomen/GI: Mild tenderness to the right lower quadrant without guarding, rebound, distention, Vital Signs: 11:01 BP 119 / 77; Pulse 79; Resp 18; Temp 97.9; Pulse Ox 100% ; cp4 16:40 BP 106 / 70; Pulse 61; Resp 18; Pulse Ox 100% ; cp4 MDM: 11:04 Patient medically screened. rt 16:43 Differential diagnosis: UTI, kidney stone, appendicitis, ectopic . Data rt reviewed: vital signs, nurses notes, lab test result(s), radiologic studies. I considered the following discharge prescriptions or medication management in the emergency department Medications were administered in the Emergency Department. See MAR. Independent interpretation of the following test(s) in the Emergency Department CT Scan: My interpretation is No bowel obstruction seen on interpretation of CT scan images. Test considered but Not performed: Ultrasound Presentation not consistent with ovarian torsion, ultrasound not indicated. Counseling: I had a detailed discussion with the patient and/or guardian regarding the historical points, exam findings, and any diagnostic results supporting the discharge/admit diagnosis, lab results, radiology results, the need for outpatient follow up, to return to the emergency department if symptoms worsen or persist or if there are any questions or concerns that arise at home. Response to treatment: the patient's symptoms have markedly improved after treatment. 10/02 11:09 Order name: CBC with Diff; Complete Time: 11: rt 10/02 11:09 Order name: CMP; Complete Time: : rt 10/02 11:09 Order name: Lipase; Complete Time: : rt 10/02 11:09 Order name: Test, Urine; Complete Time: : rt 10/02 11:09 Order name: Urinalysis w/ reflexes; Complete Time: 15:27 rt 10/02 11:49 Order name: CT Abd/Pelvis - IV Contrast Only; Complete Time: 13:53 rt 10/02 11:09 Order name: IV Saline Lock; Complete Time: 11:12 rt 10/02 11:09 Order name: Labs collected and sent; Complete Time: 11:12 rt Administered Medications: 11:21 Drug: NS 0.9% IV 1000 ml IV at 1 bolus Per protocol; 1000 mL bolus Route: IV; Rate: 1 cp4 bolus; Site: right antecubital; 11:21 Drug: Ondansetron IVP 4 mg IVP once; over 2 minutes Route: IVP; Site: right antecubital;cp4 11:21 Drug: morphine IVP or IV 4 mg IVP once over 4 mins Route: IVP; Infused Over: 4 mins; cp4 Site: right antecubital; Disposition Summary: 10/02/23 15:36 Discharge Ordered Notes: Location: Home rt Problem: new rt Symptoms: are resolved rt Condition: Stable rt Diagnosis - Abdominal pain, Generalized rt Followup: rt - With: Private Physician - When: 2 - 3 days - Reason: Discharge Instructions: - Discharge Summary Sheet rt - Abdominal Pain, Adult rt Forms: - Medication Reconciliation Form rt - Thank You Letter rt - Antibiotic Education rt - Prescription Opioid Use rt - Patient Portal Instructions rt - Leadership Thank You Letter rt Signatures: Dispatcher [employer] Nathan Gaitan MD MD rt Mirta Preciado cp4
--- NOTE | 2023-10-02 15:36 | ER ---
Nurse's Notes [facility] Name: Danuta Montiel Age: 23 yrs Sex: Female : 2000 Arrival Date: 10/02/2023 Time: 10:56 Bed 6 Private MD: Diagnosis: Abdominal pain, Generalized Presentation: 10/02 11:01 Chief complaint: EMS states: abdominal pain that started last night. Patient reports cp4 she might be and had a brownish discharge this morning. Coronavirus screen: Vaccine status: Patient reports receiving the 2nd dose of the covid vaccine. At this time, the client does not indicate any symptoms associated with coronavirus-19. Ebola Screen: Patient negative for fever greater than or equal to 101.5 degrees Fahrenheit, and additional compatible Ebola Virus Disease symptoms Patient denies exposure to infectious person. Patient denies travel to an Ebola-affected area in the 21 days before illness onset. No symptoms or risks identified at this time. Initial Sepsis Screen: Does the patient meet any 2 criteria? No. Patient's initial sepsis screen is negative. Does the patient have a suspected source of infection? No. Patient's initial sepsis screen is negative. Risk Assessment: Do you want to hurt yourself or someone else? Patient reports no desire to harm self or others. Onset of symptoms was October 01, 2023. 11:01 Method Of Arrival: EMS: [facility] cp4 11:01 Acuity: VIRI 3 cp4 Triage Assessment: 11:03 General: Appears in no apparent distress. Behavior is calm, cooperative, appropriate cp4 for age. Pain: Complains of pain in abdomen Pain currently is 10 out of 10 on a pain scale. GI: Bowel sounds present X 4 quads. Reports diarrhea. 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 - Social history:: Smoking status: Patient denies any tobacco usage or history of. - Family history:: not pertinent. Screenin:04 [facility] ED Fall Risk Assessment (Adult) History of falling in the last 3 months, cp4 including since admission No falls in past 3 months (0 pts) Confusion or Disorientation No (0 pts) Intoxicated or Sedated No (0 pts) Impaired Gait No (0 pts) Mobility Assist Device Used No (0 pt) Altered Elimination No (0 pt) Score/Fall Risk Level 0 - 2 = Low Risk Oriented to surroundings, Maintained a safe environment, Educated pt \T\ family on fall prevention, incl call for assistance when getting out of bed, Assessed \T\ reinforced patient's understanding of fall precautions, Hourly rounding (assess needs \T\ fall precautionary measures) done. Abuse screen: Denies threats or abuse. Nutritional screening: No deficits noted. Tuberculosis screening: No symptoms or risk factors identified. Assessment: 11:04 Reassessment: No changes from previously documented assessment. GI: Abd is soft Abdomen cp4 is tender to palpation X 4 quads. Vital Signs: 11:01 BP 119 / 77; Pulse 79; Resp 18; Temp 97.9; Pulse Ox 100% ; cp4 16:40 BP 106 / 70; Pulse 61; Resp 18; Pulse Ox 100% ; cp4 ED Course: 11:00 Patient arrived in ED. cp4 11:01 Mirta Preciado is Primary Nurse. cp4 11:02 Nathan Gilmore MD is Attending Physician. rt 11:03 Triage completed. cp4 11:03 Arm band placed on right wrist. Patient placed in the treatment room, on a stretcher. cp4 11:04 Placed in gown. Bed in low position. Call light in reach. Side rails up X 1. cp4 11:04 No provider procedures requiring assistance completed. cp4 11:12 CBC with Diff Sent. cp4 11:12 CMP Sent. cp4 11:12 Lipase Sent. cp4 11:12 Test, Urine Sent. cp4 11:12 Urinalysis w/ reflexes Sent. cp4 11:21 Inserted saline lock: 20 gauge in right antecubital area, using aseptic technique. cp4 Blood collected. 12:36 CT Abd/Pelvis - IV Contrast Only In Process Unspecified. EDMS 16:41 Provided Education on: abdominal pain. cp4 Administered Medications: 11:21 Drug: NS 0.9% IV 1000 ml IV at 1 bolus Per protocol; 1000 mL bolus Route: IV; Rate: 1 cp4 bolus; Site: right antecubital; 11:21 Drug: Ondansetron IVP 4 mg IVP once; over 2 minutes Route: IVP; Site: right antecubital;cp4 11:21 Drug: morphine IVP or IV 4 mg IVP once over 4 mins Route: IVP; Infused Over: 4 mins; cp4 Site: right antecubital; Medication: 11:04 VIS not applicable for this client. cp4 Outcome: 15:36 Discharge ordered by . rt 16:41 Discharged to home ambulatory, cp4 16:41 Condition: stable 16:41 Discharge instructions given to patient, Instructed on discharge instructions, follow up and referral plans. Demonstrated understanding of instructions, follow-up care, 16:42 Patient left the ED. cp4 Signatures: Dispatcher [employer] EDNathan Longoria MD MD rt Mirat Preciado cp4
[2023-10-02 17:17] VITALS: TEMP 97.9; O2SAT 100
[2023-10-02 17:24] VITALS: BP 106/70
== END ==
LOC: ER 10:56
DX: R10.84 Generalized abdominal pain (principal); R11.0 Nausea
CPT/HCPCS: 85025; 81001; 36415; 81025; 83690; 80053; 74177; 96375; 96374; 99284; Q9967; J2405; J7030

== ENCOUNTER → 2023-12-04 | Emergency (ER) | payer OTHER ==
[~2023-12-04] MED LIST changes: +CEFTRIAXONE 1000 MG/VIAL ONE; +CIPROFLOXACIN HCL 500 MG TAB ONE; +MORPHINE 2 MG/ML SYR ONE; -MORPHINE 4 MG/ML SYR ONE
--- OUTSIDE RECORDS SUMMARY | 2023-12-04 13:25 | XMS REPORT | Continuity of Care Document ---
Author Name Unknown Address [address] [facility] [address] [place] [address] [facility] Address [address] [facility] [address] [place] [address] Care Team Providers Care Complaint Evaluation Officer Name Role Phone CONRAD COELLO Primary Care Physician KIRA Briceño Attending Clinician KIRA Briceño Attending Clinician SCOOTER Parish Attending Clinician Pily Lewis RN, Emiliano Attending Clinician Unavailab olivia Doctor Unassigned, [place] Attending Clinician U LORRIE Whalen Attending Clinician Unavailable Lorrie Tran MD Attending Clinician [phone] MARSHA KAPLAN Attending Clinician Unavailable Marsha Alonso Attending Clinician [phone] True BECKWITH, Zuleima Rider Attending Clinician UnavailRAMÍREZ Kerr Attending Clinician Unavailable Ramírez Shea Attending Clinician [phone] Unknown, Attending Attending Clinician Unavailab FAWN Parra Attending Clinician Unavailable Lab, Ang - Db Attending Clinician Unavailable BETI RODRÍGUEZ Attending Clinician Unavailable Beti Rodríguez MD Attending Clinician [phone] SPENCER SKELTON Attending Clinician Nell sherman Nurse, [facility] Attending Clinician Un available Spencer Mclean Attending Clinician + [phone] Fawn Cortez Attending Clinician [phone] Carmen Hilton MD Attending Clinician [phone] CARMEN HILTON Attending Clinician Unavailable Hayley Tinajero MD Attending Clinician [phone] Dale Lal CRNA Attending Clinician [phone], [facility] Attending Clinician Unavailable MJ IZAGUIRRE Attending Clinician Unavailable NAEL ARAGON Attending Clinician Unavailmitch Moe MD, Darren Alcantara Attending Clinician [phone] Nael Aargon MD Attending Clinician [phone] LUCHO BEATTY Attending Clinician Unavailable Lucho Beatty DO Attending Clinician [phone] KIRA FLOWER Admitting Clinician CARMEN Diehl Admitting Clinician Unavailable LORRIE TRAN Admitting Clinician Unavailable MARSHA KAPLAN Admitting Clinician Unavailable Carmen Hilton MD Admitting Clinician [phone] BETI RODRÍGUEZ Admitting Clinician Unavailable DARREN MOE Admitting Clinician Unavailable LUCHO BEATTY Admitting Clinician Unavailable Payers Payer Name Policy Type Policy Number Effective Date Expirati on Date Source [facility] [id number] 2022 00:00:00 Problems Condition Name Condition Details Condition Category Status Onset Date Resolution Date Last Treatment Date Treating Clinician Comments Source Sterilizat ion Sterilizat ion Disease Active 10-21 00:00: 00 [facility] Dizziness Dizziness Disease Active 2022-10 00:00: 00 [facility] Chest pain, unspecifie d type Chest pain, unspecifie d type Disease Active 2022-10 00:00: 00 [facility] premature rupture of membranes (PPROM) with onset of labor within 24 hours of rupture in third trimester, antepartum premature rupture of membranes (PPROM) with onset of labor within 24 hours of rupture in third trimester, antepartum Disease Active 822 00:00: 00 [facility] Full-term premature rupture of membranes with onset of labor within 24 hours of rupture Full-term premature rupture of membranes with onset of labor within 24 hours of rupture Disease Active 821 00:00: 00 [facility] Gestationa l hypertensi on, third trimester Gestationa l hypertensi on, third trimester Disease Active 821 00:00: 00 [facility] Encounter for tubal ligation counseling Encounter for tubal ligation counseling Disease Active 8 00:00: 00 [facility] Other specified anxiety disorders Other specified anxiety disorders Disease Active 04-06 00:00: 00 [facility] Depression affecting , antepartum Depression affecting , antepartum Disease Active 04-06 00:00: 00 [facility] History of anxiety History of anxiety Disease Active 04-06 00:00: 00 [facility] History of depression History of depression Disease Active 04-06 00:00: 00 [facility] Abnormal maternal glucose tolerance, antepartum Abnormal maternal glucose tolerance, antepartum Disease Active 04-06 00:00: 00 Last Assessmen t & Plan: Formattin g of this note might be different from the original. Normal 3 hr [facility] Obesity (BMI 30-39.9) Obesity (BMI 30-39.9) Disease Active 612 00:00: 00 [facility] Acute pain of left knee Acute pain of left knee Disease Active 6 00:00: 00 [facility] 27 weeks gestation of 27 weeks gestation of Disease Active 6 00:00: 00 [facility] Vaginal bleeding affecting early Vaginal bleeding affecting early Disease Active 2-15 00:00: 00 [facility] High-risk in first trimester High-risk in first trimester Disease Active 11-08 00:00: 00 [facility] History of gestationa l diabetes History of gestationa l diabetes Disease Active 11-08 00:00: 00 [facility] History of depression History of depression Disease Active 11-08 00:00: 00 [facility] depression depression Disease Active 11-06 00:00: 00 [facility] Routine follow-up Routine follow-up Disease Active 11-06 00:00: 00 [facility] Liveborn , of nielsen , born in hospital by vaginal delivery Liveborn infant, of nielsen , born in hospital by vaginal delivery Disease Active 10-18 00:00: 00 [facility] 38 weeks gestation of 38 weeks gestation of Disease Active 2018-10 00:00: 00 [facility] 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 inhaler [facility] Allergies, Adverse Reactions, Alerts Allergy Name Allergy Type Status Severity Reaction(s) Onset Date Inactive Date Treating Clinician Comments Source AVOCADO DRUG INGREDI Active Anaphylaxis 05-30 00:00: 00 [facility] Avocado Propensi ty to adverse reaction s Active Anaphylaxis 05-30 00:00: 00 [facility] Banana Propensi ty to adverse reaction s Active Anaphylaxis 03-15 00:00: 00 [facility] BANANA DRUG INGREDI Active High Anaphylaxis 03-15 00:00: 00 [facility] Social History Social Habit Start Date Stop Date Quantity Comments Source ASSERTION 2022-09-15 00:00:00 [facility] Gender identity Univ [facility] Sexual orientation U [facility] Alcohol intake 2023-11-28 00:00:00 2023-11-28 00:00:00 Ex-drinker (finding) [facility] History of Social function 2023-08-16 00:00:00 2023-08-16 00:00:00 [facility] Exposure to SARS-CoV-2 (event) 2022-11-14 00:00:00 2022-11-24 13:27:00 Not sure [facility] Tobacco use and exposure 2022-11-08 00:00:00 2022-11-08 00:00:00 Smokeless tobacco non-user [facility] Alcohol Comment 2019-03-15 00:00:00 2019-03-15 00:00:00 last alcohol use: 08/2018 [facility] History of tobacco use 2017-03-10 00:00:00 Cigarette Smoker [facility] Sex Assigned At 2000 00:00:00 2000 00:00:00 [facility] Smoking Status Start Date Stop Date Source Ex-smoker 2022-11-08 00:00:00 2022-11-08 00:00:00 U [facility] Medications Ordered Medication Name Filled Medication Name Start Date Stop Date Current Medication? Ordering Clinician Indication Dosage Frequency Signature (SIG) Comments Components Source PNV no.95/alexa us fum/folic ac ( ORAL) 11-24 08:38: 11 Yes Take by mouth. [facility] PNV no.95/alexa us fum/folic ac ( ORAL) 11-24 08:38: 11 Yes Take by mouth. [facility] PNV no.95/alexa us fum/folic ac ( ORAL) 11-24 08:38: 11 Yes Take by mouth. [facility] PNV no.95/alexa us fum/folic ac ( ORAL) 10-17 14:36: 47 Yes Take by mouth. [facility] PNV no.95/alexa us fum/folic ac ( ORAL) 10-17 14:36: 47 Yes Take by mouth. [facility] PNV no.95/alexa us fum/folic ac ( ORAL) 10-17 14:36: 47 Yes Take by mouth. [facility] PNV no.95/alexa us fum/folic ac ( ORAL) 10-17 14:36: 47 Yes Take by mouth. [facility] PNV no.95/alexa us fum/folic ac ( ORAL) 10-17 14:36: 47 Yes Take by mouth. [facility] PNV no.95/alexa us fum/folic ac ( ORAL) 10-17 14:36: 47 Yes Take by mouth. [facility] PNV no.95/alexa us fum/folic ac ( ORAL) 10-17 14:36: 47 Yes Take by mouth. [facility] PNV no.95/alexa us fum/folic ac ( ORAL) 10-17 14:36: 47 Yes Take by mouth. [facility] meclizine 25 mg tablet 2022-10 00:00: 00 10-07 05:59 :00 Yes [id number] 25mg Take 1 tablet by mouth 3 (three) times daily as needed for Dizziness for up to 7 days. [facility] meclizine 25 mg tablet 2022-10 00:00: 00 10-07 05:59 :00 Yes [id number] 25mg Take 1 tablet by mouth 3 (three) times daily as needed for Dizziness for up to 7 days. [facility] meclizine 25 mg tablet 2022-10 00:00: 00 10-07 05:59 :00 Yes [id number] 25mg Take 1 tablet by mouth 3 (three) times daily as needed for Dizziness for up to 7 days. [facility] meclizine 25 mg tablet 2022-10 00:00: 00 10-07 05:59 :00 Yes [id number] 25mg Take 1 tablet by mouth 3 (three) times daily as needed for Dizziness for up to 7 days. [facility] meclizine 25 mg tablet 2022-10 2 00:00: 00 10-07 05:59 :00 Yes [id number] 25mg Take 1 tablet by mouth 3 (three) times daily as needed for Dizziness for up to 7 days. [facility] meclizine 25 mg tablet 2022-10 00:00: 00 10-07 05:59 :00 Yes [id number] 25mg Take 1 tablet by mouth 3 (three) times daily as needed for Dizziness for up to 7 days. [facility] iopamidol (ISOVUE 370-500 mL) injection 83 mL 2022-10 15:45: 00 09-08 15:39 :00 No [id number] 83mL 83 mL, Intravenou s, ONCE, 1 dose, On Mariela 09/08/23 at 0945, Routine [facility] azelastine 137 mcg (0.1 %) nasal spray 2022-10 00:00: 00 Yes [id number] 1{spray } Use 1 [place] in each nostril in the morning and 1 [place] in the evening. Use in each nostril as directed [facility] azelastine 137 mcg (0.1 %) nasal spray 2022-10 00:00: 00 Yes [id number] 1{spray } Use 1 [place] in each nostril in the morning and 1 [place] in the evening. Use in each nostril as directed [facility] azelastine 137 mcg (0.1 %) nasal spray 2022-10 00:00: 00 Yes [id number] 1{spray } Use 1 [place] in each nostril in the morning and 1 [place] in the evening. Use in each nostril as directed [facility] azelastine 137 mcg (0.1 %) nasal spray 2022-10 00:00: 00 Yes [id number] 1{spray } Use 1 [place] in each nostril in the morning and 1 [place] in the evening. Use in each nostril as directed [facility] azelastine 137 mcg (0.1 %) nasal spray 2022-10 00:00: 00 Yes [id number] 1{spray } Use 1 [place] in each nostril in the morning and 1 [place] in the evening. Use in each nostril as directed [facility] azelastine 137 mcg (0.1 %) nasal spray 2022-10 00:00: 00 Yes [id number] 1{spray } Use 1 [place] in each nostril in the morning and 1 [place] in the evening. Use in each nostril as directed [facility] azelastine 137 mcg (0.1 %) nasal spray 2022-10 00:00: 00 Yes [id number] 1{spray } Use 1 [place] in each nostril in the morning and 1 [place] in the evening. Use in each nostril as directed [facility] azelastine 137 mcg (0.1 %) nasal spray 2022-10 00:00: 00 Yes [id number] 1{spray } Use 1 [place] in each nostril in the morning and 1 [place] in the evening. Use in each nostril as directed [facility] azelastine 137 mcg (0.1 %) nasal spray 2022-10 00:00: 00 Yes [id number] 1{spray } Use 1 [place] in each nostril in the morning and 1 [place] in the evening. Use in each nostril as directed [facility] azelastine 137 mcg (0.1 %) nasal spray 2022-10 00:00: 00 Yes [id number] 1{spray } Use 1 [place] in each nostril in the morning and 1 [place] in the evening. Use in each nostril as directed [facility] azelastine 137 mcg (0.1 %) nasal spray 2022-10 00:00: 00 Yes [id number] 1{spray } Use 1 [place] in each nostril in the morning and 1 [place] in the evening. Use in each nostril as directed [facility] azelastine 137 mcg (0.1 %) nasal spray 2022-10 00:00: 00 Yes [id number] 1{spray } Use 1 [place] in each nostril in the morning and 1 [place] in the evening. Use in each nostril as directed [facility] azelastine 137 mcg (0.1 %) nasal spray 2022-10 00:00: 00 Yes [id number] 1{spray } Use 1 [place] in each nostril in the morning and 1 [place] in the evening. Use in each nostril as directed [facility] azelastine 137 mcg (0.1 %) nasal spray 2022-10 00:00: 00 Yes [id number] 1{spray } Use 1 [place] in each nostril in the morning and 1 [place] in the evening. Use in each nostril as directed [facility] azelastine 137 mcg (0.1 %) nasal spray 2022-10 00:00: 00 10-17 00:00 :00 No [id number] 1{spray } Use 1 [place] in each nostril in the morning and 1 [place] in the evening. Use in each nostril as directed [facility] azelastine 137 mcg (0.1 %) nasal spray 2022-10 00:00: 00 10-17 00:00 :00 No [id number] 1{spray } Use 1 [place] in each nostril in the morning and 1 [place] in the evening. Use in each nostril as directed [facility] ketorolac (TORADOL) injection 30 mg 2022-10 21:45: 00 08-20 21:28 :00 No 30mg 30 mg, Slow IV Push, ONCE NOW, 1 dose, [facility] 08[facility]20[facility]23 [facility] 1545[facility]TRAVEL-EAS E (MECLIZINE) ) tablet 25 mg 2022-10 21:00: 00 08-20 21:28 :00 No 25mg 25 mg, Oral, ONCE, 1 dose, On 08/20/23 at 1500, TIMOTHY [facility] ketorolac 10 mg tablet 2022-10 00:00: 00 Yes [id number] 10mg Take 1 tablet by mouth every 6 (six) hours as needed for Pain (scale 4-6) or Pain (scale 7-10). [facility] ondansetron 4 mg disintegrat ing tablet 2022-10 00:00: 00 Yes [id number] 4mg Take 1 tablet by mouth every 8 (eight) hours as needed for Nausea and Vomiting (N/V). [facility] meclizine 25 mg tablet 2022-10 00:00: 00 Yes [id number] 25mg Take 1 tablet by mouth every 6 (six) hours. [facility] hyoscyamine sulfate (LEVSIN/SL) 0.125 mg sublingual tablet 2022-10 00:00: [id number] 2 tablets under the tongue every 6 (six) hours as needed (Abdominal pain or cramping). [facility] ketorolac 10 mg tablet 2022-10 00:00: 00 Yes [id number] 10mg Take 1 tablet by mouth every 6 (six) hours as needed for Pain (scale 4-6) or Pain (scale 7-10). [facility] ondansetron 4 mg disintegrat ing tablet 2022-10 00:00: 00 Yes [id number] 4mg Take 1 tablet by mouth every 8 (eight) hours as needed for Nausea and Vomiting (N/V). [facility] meclizine 25 mg tablet 2022-10 00:00: 00 Yes [id number] 25mg Take 1 tablet by mouth every 6 (six) hours. [facility] hyoscyamine sulfate (LEVSIN/SL) 0.125 mg sublingual tablet 2022-10 00:00: [id number] 2 tablets under the tongue every 6 (six) hours as needed (Abdominal pain or cramping). [facility] ketorolac 10 mg tablet 2022-10 00:00: 00 Yes [id number] 10mg Take 1 tablet by mouth every 6 (six) hours as needed for Pain (scale 4-6) or Pain (scale 7-10). [facility] ondansetron 4 mg disintegrat ing tablet 2022-10 00:00: 00 Yes [id number] 4mg Take 1 tablet by mouth every 8 (eight) hours as needed for Nausea and Vomiting (N/V). [facility] meclizine 25 mg tablet 2022-10 00:00: 00 Yes [id number] 25mg Take 1 tablet by mouth every 6 (six) hours. [facility] hyoscyamine sulfate (LEVSIN/SL) 0.125 mg sublingual tablet 2022-10 00:00: [id number] 2 tablets under the tongue every 6 (six) hours as needed (Abdominal pain or cramping). [facility] ketorolac 10 mg tablet 2022-10 00:00: 00 Yes [id number] 10mg Take 1 tablet by mouth every 6 (six) hours as needed for Pain (scale 4-6) or Pain (scale 7-10). [facility] ondansetron 4 mg disintegrat ing tablet 2022-10 00:00: 00 Yes [id number] 4mg Take 1 tablet by mouth every 8 (eight) hours as needed for Nausea and Vomiting (N/V). [facility] meclizine 25 mg tablet 2022-10 00:00: 00 Yes [id number] 25mg Take 1 tablet by mouth every 6 (six) hours. [facility] hyoscyamine sulfate (LEVSIN/SL) 0.125 mg sublingual tablet 2022-10 00:00: [id number] 2 tablets under the tongue every 6 (six) hours as needed (Abdominal pain or cramping). [facility] ketorolac 10 mg tablet 2022-10 00:00: 00 Yes [id number] 10mg Take 1 tablet by mouth every 6 (six) hours as needed for Pain (scale 4-6) or Pain (scale 7-10). [facility] ondansetron 4 mg disintegrat ing tablet 2022-10 00:00: 00 Yes [id number] 4mg Take 1 tablet by mouth every 8 (eight) hours as needed for Nausea and Vomiting (N/V). [facility] meclizine 25 mg tablet 2022-10 00:00: 00 Yes [id number] 25mg Take 1 tablet by mouth every 6 (six) hours. [facility] hyoscyamine sulfate (LEVSIN/SL) 0.125 mg sublingual tablet 2022-10 00:00: [id number] 2 tablets under the tongue every 6 (six) hours as needed (Abdominal pain or cramping). [facility] ketorolac 10 mg tablet 2022-10 00:00: 00 Yes [id number] 10mg Take 1 tablet by mouth every 6 (six) hours as needed for Pain (scale 4-6) or Pain (scale 7-10). [facility] ondansetron 4 mg disintegrat ing tablet 2022-10 00:00: 00 Yes [id number] 4mg Take 1 tablet by mouth every 8 (eight) hours as needed for Nausea and Vomiting (N/V). [facility] meclizine 25 mg tablet 2022-10 00:00: 00 Yes [id number] 25mg Take 1 tablet by mouth every 6 (six) hours. [facility] hyoscyamine sulfate (LEVSIN/SL) 0.125 mg sublingual tablet 2022-10 00:00: [id number] 2 tablets under the tongue every 6 (six) hours as needed (Abdominal pain or cramping). [facility] ketorolac 10 mg tablet 2022-10 00:00: 00 Yes [id number] 10mg Take 1 tablet by mouth every 6 (six) hours as needed for Pain (scale 4-6) or Pain (scale 7-10). [facility] ondansetron 4 mg disintegrat ing tablet 2022-10 00:00: 00 Yes [id number] 4mg Take 1 tablet by mouth every 8 (eight) hours as needed for Nausea and Vomiting (N/V). [facility] meclizine 25 mg tablet 2022-10 00:00: 00 Yes [id number] 25mg Take 1 tablet by mouth every 6 (six) hours. [facility] hyoscyamine sulfate (LEVSIN/SL) 0.125 mg sublingual tablet 2022-10 00:00: [id number] 2 tablets under the tongue every 6 (six) hours as needed (Abdominal pain or cramping). [facility] ketorolac 10 mg tablet 2022-10 00:00: 00 Yes [id number] 10mg Take 1 tablet by mouth every 6 (six) hours as needed for Pain (scale 4-6) or Pain (scale 7-10). [facility] ondansetron 4 mg disintegrat ing tablet 2022-10 00:00: 00 Yes [id number] 4mg Take 1 tablet by mouth every 8 (eight) hours as needed for Nausea and Vomiting (N/V). [facility] meclizine 25 mg tablet 2022-10 00:00: 00 Yes [id number] 25mg Take 1 tablet by mouth every 6 (six) hours. [facility] hyoscyamine sulfate (LEVSIN/SL) 0.125 mg sublingual tablet 2022-10 00:00: [id number] 2 tablets under the tongue every 6 (six) hours as needed (Abdominal pain or cramping). [facility] ketorolac 10 mg tablet 2022-10 00:00: 00 Yes [id number] 10mg Take 1 tablet by mouth every 6 (six) hours as needed for Pain (scale 4-6) or Pain (scale 7-10). [facility] ondansetron 4 mg disintegrat ing tablet 2022-10 00:00: 00 Yes [id number] 4mg Take 1 tablet by mouth every 8 (eight) hours as needed for Nausea and Vomiting (N/V). [facility] meclizine 25 mg tablet 2022-10 00:00: 00 Yes [id number] 25mg Take 1 tablet by mouth every 6 (six) hours. [facility] hyoscyamine sulfate (LEVSIN/SL) 0.125 mg sublingual tablet 2022-10 00:00: [id number] 2 tablets under the tongue every 6 (six) hours as needed (Abdominal pain or cramping). [facility] ketorolac 10 mg tablet 2022-10 00:00: 00 Yes [id number] 10mg Take 1 tablet by mouth every 6 (six) hours as needed for Pain (scale 4-6) or Pain (scale 7-10). [facility] ondansetron 4 mg disintegrat ing tablet 2022-10 00:00: 00 Yes [id number] 4mg Take 1 tablet by mouth every 8 (eight) hours as needed for Nausea and Vomiting (N/V). [facility] meclizine 25 mg tablet 2022-10 00:00: 00 Yes [id number] 25mg Take 1 tablet by mouth every 6 (six) hours. [facility] hyoscyamine sulfate (LEVSIN/SL) 0.125 mg sublingual tablet 2022-10 00:00: [id number] 2 tablets under the tongue every 6 (six) hours as needed (Abdominal pain or cramping). [facility] ketorolac 10 mg tablet 2022-10 00:00: 00 Yes [id number] 10mg Take 1 tablet by mouth every 6 (six) hours as needed for Pain (scale 4-6) or Pain (scale 7-10). [facility] ondansetron 4 mg disintegrat ing tablet 2022-10 00:00: 00 Yes [id number] 4mg Take 1 tablet by mouth every 8 (eight) hours as needed for Nausea and Vomiting (N/V). [facility] meclizine 25 mg tablet 2022-10 00:00: 00 Yes [id number] 25mg Take 1 tablet by mouth every 6 (six) hours. [facility] hyoscyamine sulfate (LEVSIN/SL) 0.125 mg sublingual tablet 2022-10 00:00: [id number] 2 tablets under the tongue every 6 (six) hours as needed (Abdominal pain or cramping). [facility] ketorolac 10 mg tablet 2022-10 00:00: 00 Yes [id number] 10mg Take 1 tablet by mouth every 6 (six) hours as needed for Pain (scale 4-6) or Pain (scale 7-10). [facility] ondansetron 4 mg disintegrat ing tablet 2022-10 00:00: 00 Yes [id number] 4mg Take 1 tablet by mouth every 8 (eight) hours as needed for Nausea and Vomiting (N/V). [facility] meclizine 25 mg tablet 2022-10 00:00: 00 Yes [id number] 25mg Take 1 tablet by mouth every 6 (six) hours. [facility] hyoscyamine sulfate (LEVSIN/SL) 0.125 mg sublingual tablet 2022-10 00:00: [id number] 2 tablets under the tongue every 6 (six) hours as needed (Abdominal pain or cramping). [facility] ketorolac 10 mg tablet 2022-10 00:00: 00 Yes [id number] 10mg Take 1 tablet by mouth every 6 (six) hours as needed for Pain (scale 4-6) or Pain (scale 7-10). [facility] ondansetron 4 mg disintegrat ing tablet 2022-10 00:00: 00 Yes [id number] 4mg Take 1 tablet by mouth every 8 (eight) hours as needed for Nausea and Vomiting (N/V). [facility] meclizine 25 mg tablet 2022-10 00:00: 00 Yes [id number] 25mg Take 1 tablet by mouth every 6 (six) hours. [facility] hyoscyamine sulfate (LEVSIN/SL) 0.125 mg sublingual tablet 2022-10 00:00: [id number] 2 tablets under the tongue every 6 (six) hours as needed (Abdominal pain or cramping). [facility] ketorolac 10 mg tablet 2022-10 00:00: 00 Yes [id number] 10mg Take 1 tablet by mouth every 6 (six) hours as needed for Pain (scale 4-6) or Pain (scale 7-10). [facility] ondansetron 4 mg disintegrat ing tablet 2022-10 00:00: 00 Yes [id number] 4mg Take 1 tablet by mouth every 8 (eight) hours as needed for Nausea and Vomiting (N/V). [facility] meclizine 25 mg tablet 2022-10 00:00: 00 Yes [id number] 25mg Take 1 tablet by mouth every 6 (six) hours. [facility] hyoscyamine sulfate (LEVSIN/SL) 0.125 mg sublingual tablet 2022-10 00:00: [id number] 2 tablets under the tongue every 6 (six) hours as needed (Abdominal pain or cramping). [facility] ketorolac 10 mg tablet 2022-10 00:00: 00 Yes [id number] 10mg Take 1 tablet by mouth every 6 (six) hours as needed for Pain (scale 4-6) or Pain (scale 7-10). [facility] ondansetron 4 mg disintegrat ing tablet 2022-10 00:00: 00 Yes [id number] 4mg Take 1 tablet by mouth every 8 (eight) hours as needed for Nausea and Vomiting (N/V). [facility] meclizine 25 mg tablet 2022-10 00:00: 00 Yes [id number] 25mg Take 1 tablet by mouth every 6 (six) hours. [facility] hyoscyamine sulfate (LEVSIN/SL) 0.125 mg sublingual tablet 2022-10 00:00: [id number] 2 tablets under the tongue every 6 (six) hours as needed (Abdominal pain or cramping). [facility] ketorolac 10 mg tablet 2022-10 00:00: 00 Yes [id number] 10mg Take 1 tablet by mouth every 6 (six) hours as needed for Pain (scale 4-6) or Pain (scale 7-10). [facility] ondansetron 4 mg disintegrat ing tablet 2022-10 00:00: 00 Yes [id number] 4mg Take 1 tablet by mouth every 8 (eight) hours as needed for Nausea and Vomiting (N/V). [facility] meclizine 25 mg tablet 2022-10 00:00: 00 Yes [id number] 25mg Take 1 tablet by mouth every 6 (six) hours. [facility] hyoscyamine sulfate (LEVSIN/SL) 0.125 mg sublingual tablet 2022-10 00:00: [id number] 2 tablets under the tongue every 6 (six) hours as needed (Abdominal pain or cramping). [facility] ketorolac 10 mg tablet 2022-10 00:00: 00 Yes [id number] 10mg Take 1 tablet by mouth every 6 (six) hours as needed for Pain (scale 4-6) or Pain (scale 7-10). [facility] ondansetron 4 mg disintegrat ing tablet 2022-10 00:00: 00 Yes [id number] 4mg Take 1 tablet by mouth every 8 (eight) hours as needed for Nausea and Vomiting (N/V). [facility] meclizine 25 mg tablet 2022-10 00:00: 00 Yes [id number] 25mg Take 1 tablet by mouth every 6 (six) hours. [facility] hyoscyamine sulfate (LEVSIN/SL) 0.125 mg sublingual tablet 2022-10 00:00: [id number] 2 tablets under the tongue every 6 (six) hours as needed (Abdominal pain or cramping). [facility] ketorolac 10 mg tablet 2022-10 00:00: 00 Yes [id number] 10mg Take 1 tablet by mouth every 6 (six) hours as needed for Pain (scale 4-6) or Pain (scale 7-10). [facility] ondansetron 4 mg disintegrat ing tablet 2022-10 00:00: 00 Yes [id number] 4mg Take 1 tablet by mouth every 8 (eight) hours as needed for Nausea and Vomiting (N/V). [facility] hyoscyamine sulfate (LEVSIN/SL) 0.125 mg sublingual tablet 2022-10 00:00: [id number] 2 tablets under the tongue every 6 (six) hours as needed (Abdominal pain or cramping). [facility] ketorolac 10 mg tablet 2022-10 00:00: 00 Yes [id number] 10mg Take 1 tablet by mouth every 6 (six) hours as needed for Pain (scale 4-6) or Pain (scale 7-10). [facility] ondansetron 4 mg disintegrat ing tablet 2022-10 00:00: 00 Yes [id number] 4mg Take 1 tablet by mouth every 8 (eight) hours as needed for Nausea and Vomiting (N/V). [facility] hyoscyamine sulfate (LEVSIN/SL) 0.125 mg sublingual tablet 2022-10 00:00: [id number] 2 tablets under the tongue every 6 (six) hours as needed (Abdominal pain or cramping). [facility] ketorolac 10 mg tablet 2022-10 00:00: 00 Yes [id number] 10mg Take 1 tablet by mouth every 6 (six) hours as needed for Pain (scale 4-6) or Pain (scale 7-10). [facility] ondansetron 4 mg disintegrat ing tablet 2022-10 00:00: 00 Yes [id number] 4mg Take 1 tablet by mouth every 8 (eight) hours as needed for Nausea and Vomiting (N/V). [facility] hyoscyamine sulfate (LEVSIN/SL) 0.125 mg sublingual tablet 2022-10 00:00: [id number] 2 tablets under the tongue every 6 (six) hours as needed (Abdominal pain or cramping). [facility] ketorolac 10 mg tablet 2022-10 00:00: 00 Yes [id number] 10mg Take 1 tablet by mouth every 6 (six) hours as needed for Pain (scale 4-6) or Pain (scale 7-10). [facility] ondansetron 4 mg disintegrat ing tablet 2022-10 00:00: 00 Yes [id number] 4mg Take 1 tablet by mouth every 8 (eight) hours as needed for Nausea and Vomiting (N/V). [facility] hyoscyamine sulfate (LEVSIN/SL) 0.125 mg sublingual tablet 2022-10 00:00: [id number] 2 tablets under the tongue every 6 (six) hours as needed (Abdominal pain or cramping). [facility] ketorolac 10 mg tablet 2022-10 00:00: 00 Yes [id number] 10mg Take 1 tablet by mouth every 6 (six) hours as needed for Pain (scale 4-6) or Pain (scale 7-10). [facility] ondansetron 4 mg disintegrat ing tablet 2022-10 00:00: 00 Yes [id number] 4mg Take 1 tablet by mouth every 8 (eight) hours as needed for Nausea and Vomiting (N/V). [facility] hyoscyamine sulfate (LEVSIN/SL) 0.125 mg sublingual tablet 2022-10 00:00: [id number] 2 tablets under the tongue every 6 (six) hours as needed (Abdominal pain or cramping). [facility] ketorolac 10 mg tablet 2022-10 00:00: 00 Yes [id number] 10mg Take 1 tablet by mouth every 6 (six) hours as needed for Pain (scale 4-6) or Pain (scale 7-10). [facility] ondansetron 4 mg disintegrat ing tablet 2022-10 00:00: 00 Yes [id number] 4mg Take 1 tablet by mouth every 8 (eight) hours as needed for Nausea and Vomiting (N/V). [facility] hyoscyamine sulfate (LEVSIN/SL) 0.125 mg sublingual tablet 2022-10 00:00: [id number] 2 tablets under the tongue every 6 (six) hours as needed (Abdominal pain or cramping). [facility] ketorolac 10 mg tablet 2022-10 00:00: 00 Yes [id number] 10mg Take 1 tablet by mouth every 6 (six) hours as needed for Pain (scale 4-6) or Pain (scale 7-10). [facility] ondansetron 4 mg disintegrat ing tablet 2022-10 00:00: 00 Yes [id number] 4mg Take 1 tablet by mouth every 8 (eight) hours as needed for Nausea and Vomiting (N/V). [facility] hyoscyamine sulfate (LEVSIN/SL) 0.125 mg sublingual tablet 2022-10 00:00: [id number] 2 tablets under the tongue every 6 (six) hours as needed (Abdominal pain or cramping). [facility] ketorolac 10 mg tablet 2022-10 00:00: 00 Yes [id number] 10mg Take 1 tablet by mouth every 6 (six) hours as needed for Pain (scale 4-6) or Pain (scale 7-10). [facility] ondansetron 4 mg disintegrat ing tablet 2022-10 00:00: 00 Yes [id number] 4mg Take 1 tablet by mouth every 8 (eight) hours as needed for Nausea and Vomiting (N/V). [facility] hyoscyamine sulfate (LEVSIN/SL) 0.125 mg sublingual tablet 2022-10 00:00: [id number] 2 tablets under the tongue every 6 (six) hours as needed (Abdominal pain or cramping). [facility] ketorolac 10 mg tablet 2022-10 00:00: 00 Yes [id number] 10mg Take 1 tablet by mouth every 6 (six) hours as needed for Pain (scale 4-6) or Pain (scale 7-10). [facility] ondansetron 4 mg disintegrat ing tablet 2022-10 00:00: 00 Yes [id number] 4mg Take 1 tablet by mouth every 8 (eight) hours as needed for Nausea and Vomiting (N/V). [facility] hyoscyamine sulfate (LEVSIN/SL) 0.125 mg sublingual tablet 2022-10 00:00: [id number] 2 tablets under the tongue every 6 (six) hours as needed (Abdominal pain or cramping). [facility] ketorolac 10 mg tablet 2022-10 00:00: 00 Yes [id number] 10mg Take 1 tablet by mouth every 6 (six) hours as needed for Pain (scale 4-6) or Pain (scale 7-10). [facility] ondansetron 4 mg disintegrat ing tablet 2022-10 00:00: 00 Yes [id number] 4mg Take 1 tablet by mouth every 8 (eight) hours as needed for Nausea and Vomiting (N/V). [facility] hyoscyamine sulfate (LEVSIN/SL) 0.125 mg sublingual tablet 2022-10 00:00: [id number] 2 tablets under the tongue every 6 (six) hours as needed (Abdominal pain or cramping). [facility] ketorolac 10 mg tablet 2022-10 00:00: 00 Yes [id number] 10mg Take 1 tablet by mouth every 6 (six) hours as needed for Pain (scale 4-6) or Pain (scale 7-10). [facility] ondansetron 4 mg disintegrat ing tablet 2022-10 00:00: 00 Yes [id number] 4mg Take 1 tablet by mouth every 8 (eight) hours as needed for Nausea and Vomiting (N/V). [facility] hyoscyamine sulfate (LEVSIN/SL) 0.125 mg sublingual tablet 2022-10 00:00: [id number] 2 tablets under the tongue every 6 (six) hours as needed (Abdominal pain or cramping). [facility] meclizine 25 mg tablet 2022-10 00:00: 00 10-17 00:00 :00 No [id number] 25mg Take 1 tablet by mouth every 6 (six) hours. [facility] meclizine 25 mg tablet 2022-10 00:00: 00 10-17 00:00 :00 No [id number] 25mg Take 1 tablet by mouth every 6 (six) hours. [facility] pantoprazol e 40 mg EC tablet 2022-10 00:00: 00 09-16 05:59 :00 No [id number] 40mg Take 1 tablet by mouth in the morning for 30 days. [facility] pantoprazol e 40 mg EC tablet 2022-10 00:00: 00 09-16 05:59 :00 No [id number] 40mg Take 1 tablet by mouth in the morning for 30 days. [facility] pantoprazol e 40 mg EC tablet 2022-10 00:00: 00 09-16 05:59 :00 No [id number] 40mg Take 1 tablet by mouth in the morning for 30 days. [facility] pantoprazol e 40 mg EC tablet 2022-10 00:00: 00 09-16 05:59 :00 No [id number] 40mg Take 1 tablet by mouth in the morning for 30 days. [facility] pantoprazol e 40 mg EC tablet 2022-10 00:00: 00 09-16 05:59 :00 No [id number] 40mg Take 1 tablet by mouth in the morning for 30 days. [facility] pantoprazol e 40 mg EC tablet 2022-10 00:00: 00 09-16 05:59 :00 No [id number] 40mg Take 1 tablet by mouth in the morning for 30 days. [facility] pantoprazol e 40 mg EC tablet 2022-10 00:00: 00 09-16 05:59 :00 No [id number] 40mg Take 1 tablet by mouth in the morning for 30 days. [facility] pantoprazol e 40 mg EC tablet 2022-10 00:00: 00 09-16 05:59 :00 No [id number] 40mg Take 1 tablet by mouth in the morning for 30 days. [facility] pantoprazol e 40 mg EC tablet 2022-10 00:00: 00 09-16 05:59 :00 No [id number] 40mg Take 1 tablet by mouth in the morning for 30 days. [facility] pantoprazol e 40 mg EC tablet 2022-10 00:00: 00 09-16 05:59 :00 No [id number] 40mg Take 1 tablet by mouth in the morning for 30 days. [facility] pantoprazol e 40 mg EC tablet 2022-10 00:00: 00 09-16 05:59 :00 No [id number] 40mg Take 1 tablet by mouth in the morning for 30 days. [facility] pantoprazol e 40 mg EC tablet 2022-10 00:00: 00 09-16 05:59 :00 No [id number] 40mg Take 1 tablet by mouth in the morning for 30 days. [facility] pantoprazol e 40 mg EC tablet 2022-10 00:00: 00 09-16 05:59 :00 No [id number] 40mg Take 1 tablet by mouth in the morning for 30 days. [facility] pantoprazol e 40 mg EC tablet 2022-10 00:00: 00 09-16 05:59 :00 No [id number] 40mg Take 1 tablet by mouth in the morning for 30 days. [facility] pantoprazol e 40 mg EC tablet 2022-10 00:00: 00 09-16 05:59 :00 No [id number] 40mg Take 1 tablet by mouth in the morning for 30 days. [facility] pantoprazol e 40 mg EC tablet 2022-10 00:00: 00 09-16 05:59 :00 No [id number] 40mg Take 1 tablet by mouth in the morning for 30 days. [facility] pantoprazol e 40 mg EC tablet 2022-10 00:00: 09-16 05:59 :00 No [id number] 40mg Take 1 tablet by mouth in the morning for 30 days. [facility] pantoprazol e 40 mg EC tablet 2022-10 00:00: 00 09-16 05:59 :00 No [id number] 40mg Take 1 tablet by mouth in the morning for 30 days. [facility] pantoprazol e 40 mg EC tablet 2022-10 00:00: 00 09-16 05:59 :00 No [id number] 40mg Take 1 tablet by mouth in the morning for 30 days. [facility] pantoprazol e 40 mg EC tablet 2022-10 00:00: 00 09-16 05:59 :00 No [id number] 40mg Take 1 tablet by mouth in the morning for 30 days. [facility] pantoprazol e 40 mg EC tablet 2022-10 00:00: 09-16 05:59 :00 No [id number] 40mg Take 1 tablet by mouth in the morning for 30 days. [facility] FLUoxetine (PROZAC) capsule 20 mg 06-01 14:00: 00 Yes 20mg 20 mg, Oral, DAILY, First dose on Tue06/01/23 at 0900, Until Discontinu ed, Routine [facility] ferrous sulfate 325 mg (65 mg iron) tablet 05-31 00:00: 00 Yes [id number] 325mg Take 1 tablet by mouth in the morning and 1 tablet in the evening. [facility] ibuprofen 600 mg tablet 05-31 00:00: 00 Yes [id number] 600mg Take 1 tablet by mouth every 6 (six) hours as needed (Pain). Take with food or milk. [facility] vitamin w/FA tablet 05-31 00:00: 00 Yes [id number] 1{tbl} Take 1 tablet by mouth in the morning. [facility] docusate 100 mg capsule 05-31 00:00: 00 Yes [id number] 200mg Take 2 capsules by mouth once daily as needed for Constipati on. [facility] ferrous sulfate 325 mg (65 mg iron) tablet 2022-0 05-31 00:00: 00 Yes [id number] 325mg Take 1 tablet by mouth in the morning and 1 tablet in the evening. [facility] ibuprofen 600 mg tablet 0 05-31 00:00: 00 Yes [id number] 600mg Take 1 tablet by mouth every 6 (six) hours as needed (Pain). Take with food or milk. [facility] vitamin w/FA tablet 05-31 00:00: 00 Yes [id number] 1{tbl} Take 1 tablet by mouth in the morning. [facility] docusate 100 mg capsule 05-31 00:00: 00 Yes [id number] 200mg Take 2 capsules by mouth once daily as needed for Constipati on. [facility] ferrous sulfate 325 mg (65 mg iron) tablet 05-31 00:00: 00 Yes [id number] 325mg Take 1 tablet by mouth in the morning and 1 tablet in the evening. [facility] ibuprofen 600 mg tablet 05-31 00:00: 00 Yes [id number] 600mg Take 1 tablet by mouth every 6 (six) hours as needed (Pain). Take with food or milk. [facility] vitamin w/FA tablet 0 05-31 00:00: 00 Yes [id number] 1{tbl} Take 1 tablet by mouth in the morning. [facility] docusate 100 mg capsule 2022-0 05-31 00:00: 00 Yes [id number] 200mg Take 2 capsules by mouth once daily as needed for Constipati on. [facility] ferrous sulfate 325 mg (65 mg iron) tablet 2022-0 05-31 00:00: 00 Yes [id number] 325mg Take 1 tablet by mouth in the morning and 1 tablet in the evening. [facility] ibuprofen 600 mg tablet 2022-0 05-31 00:00: 00 Yes [id number] 600mg Take 1 tablet by mouth every 6 (six) hours as needed (Pain). Take with food or milk. [facility] vitamin w/FA tablet 2022-0 05-31 00:00: 00 Yes [id number] 1{tbl} Take 1 tablet by mouth in the morning. [facility] docusate 100 mg capsule 2022-0 05-31 00:00: 00 Yes [id number] 200mg Take 2 capsules by mouth once daily as needed for Constipati on. [facility] ferrous sulfate 325 mg (65 mg iron) tablet 2022-0 05-31 00:00: 00 Yes [id number] 325mg Take 1 tablet by mouth in the morning and 1 tablet in the evening. [facility] ibuprofen 600 mg tablet 2022-0 05-31 00:00: 00 Yes [id number] 600mg Take 1 tablet by mouth every 6 (six) hours as needed (Pain). Take with food or milk. [facility] vitamin w/FA tablet 2022-0 05-31 00:00: 00 Yes [id number] 1{tbl} Take 1 tablet by mouth in the morning. [facility] docusate 100 mg capsule 2022-0 05-31 00:00: 00 Yes [id number] 200mg Take 2 capsules by mouth once daily as needed for Constipati on. [facility] ferrous sulfate 325 mg (65 mg iron) tablet 2022-0 05-31 00:00: 00 Yes [id number] 325mg Take 1 tablet by mouth in the morning and 1 tablet in the evening. [facility] ibuprofen 600 mg tablet 2022-0 05-31 00:00: 00 Yes [id number] 600mg Take 1 tablet by mouth every 6 (six) hours as needed (Pain). Take with food or milk. [facility] vitamin w/FA tablet 2022-0 05-31 00:00: 00 Yes [id number] 1{tbl} Take 1 tablet by mouth in the morning. [facility] docusate 100 mg capsule 2022-0 05-31 00:00: 00 Yes [id number] 200mg Take 2 capsules by mouth once daily as needed for Constipati on. [facility] ferrous sulfate 325 mg (65 mg iron) tablet 2022-0 05-31 00:00: 00 Yes [id number] 325mg Take 1 tablet by mouth in the morning and 1 tablet in the evening. [facility] ibuprofen 600 mg tablet 2022-0 05-31 00:00: 00 Yes [id number] 600mg Take 1 tablet by mouth every 6 (six) hours as needed (Pain). Take with food or milk. [facility] vitamin w/FA tablet 2022-0 05-31 00:00: 00 Yes [id number] 1{tbl} Take 1 tablet by mouth in the morning. [facility] docusate 100 mg capsule 2022-0 05-31 00:00: 00 Yes [id number] 200mg Take 2 capsules by mouth once daily as needed for Constipati on. [facility] ferrous sulfate 325 mg (65 mg iron) tablet 2022-0 05-31 00:00: 00 Yes [id number] 325mg Take 1 tablet by mouth in the morning and 1 tablet in the evening. [facility] ibuprofen 600 mg tablet 2022-0 05-31 00:00: 00 Yes [id number] 600mg Take 1 tablet by mouth every 6 (six) hours as needed (Pain). Take with food or milk. [facility] vitamin w/FA tablet 2022-0 05-31 00:00: 00 Yes [id number] 1{tbl} Take 1 tablet by mouth in the morning. [facility] docusate 100 mg capsule 2022-0 05-31 00:00: 00 Yes [id number] 200mg Take 2 capsules by mouth once daily as needed for Constipati on. [facility] ferrous sulfate 325 mg (65 mg iron) tablet 2022-0 05-31 00:00: 00 Yes [id number] 325mg Take 1 tablet by mouth in the morning and 1 tablet in the evening. [facility] ibuprofen 600 mg tablet 2022-0 05-31 00:00: 00 Yes [id number] 600mg Take 1 tablet by mouth every 6 (six) hours as needed (Pain). Take with food or milk. [facility] vitamin w/FA tablet 2022-0 05-31 00:00: 00 Yes [id number] 1{tbl} Take 1 tablet by mouth in the morning. [facility] docusate 100 mg capsule 2022-0 05-31 00:00: 00 Yes [id number] 200mg Take 2 capsules by mouth once daily as needed for Constipati on. [facility] ferrous sulfate 325 mg (65 mg iron) tablet 2022-0 05-31 00:00: 00 Yes [id number] 325mg Take 1 tablet by mouth in the morning and 1 tablet in the evening. [facility] ibuprofen 600 mg tablet 2022-0 05-31 00:00: 00 Yes [id number] 600mg Take 1 tablet by mouth every 6 (six) hours as needed (Pain). Take with food or milk. [facility] vitamin w/FA tablet 2022-0 05-31 00:00: 00 Yes [id number] 1{tbl} Take 1 tablet by mouth in the morning. [facility] docusate 100 mg capsule 0 05-31 00:00: 00 Yes [id number] 200mg Take 2 capsules by mouth once daily as needed for Constipati on. [facility] ferrous sulfate 325 mg (65 mg iron) tablet 0 05-31 00:00: 00 Yes [id number] 325mg Take 1 tablet by mouth in the morning and 1 tablet in the evening. [facility] ibuprofen 600 mg tablet 2022-0 05-31 00:00: 00 Yes [id number] 600mg Take 1 tablet by mouth every 6 (six) hours as needed (Pain). Take with food or milk. [facility] vitamin w/FA tablet 2022-0 05-31 00:00: 00 Yes [id number] 1{tbl} Take 1 tablet by mouth in the morning. [facility] docusate 100 mg capsule 2022-0 05-31 00:00: 00 Yes [id number] 200mg Take 2 capsules by mouth once daily as needed for Constipati on. [facility] ferrous sulfate 325 mg (65 mg iron) tablet 2022-0 05-31 00:00: 00 Yes [id number] 325mg Take 1 tablet by mouth in the morning and 1 tablet in the evening. [facility] ibuprofen 600 mg tablet 2022-0 05-31 00:00: 00 Yes [id number] 600mg Take 1 tablet by mouth every 6 (six) hours as needed (Pain). Take with food or milk. [facility] vitamin w/FA tablet 2022-0 05-31 00:00: 00 Yes [id number] 1{tbl} Take 1 tablet by mouth in the morning. [facility] docusate 100 mg capsule 2022-0 05-31 00:00: 00 Yes [id number] 200mg Take 2 capsules by mouth once daily as needed for Constipati on. [facility] ferrous sulfate 325 mg (65 mg iron) tablet 0 05-31 00:00: 00 Yes [id number] 325mg Take 1 tablet by mouth in the morning and 1 tablet in the evening. [facility] ibuprofen 600 mg tablet 2022-0 05-31 00:00: 00 Yes [id number] 600mg Take 1 tablet by mouth every 6 (six) hours as needed (Pain). Take with food or milk. [facility] vitamin w/FA tablet 2022-0 05-31 00:00: 00 Yes [id number] 1{tbl} Take 1 tablet by mouth in the morning. [facility] docusate 100 mg capsule 0 05-31 00:00: 00 Yes [id number] 200mg Take 2 capsules by mouth once daily as needed for Constipati on. [facility] ferrous sulfate 325 mg (65 mg iron) tablet 0 05-31 00:00: 00 Yes [id number] 325mg Take 1 tablet by mouth in the morning and 1 tablet in the evening. [facility] ibuprofen 600 mg tablet 2022-0 05-31 00:00: 00 Yes [id number] 600mg Take 1 tablet by mouth every 6 (six) hours as needed (Pain). Take with food or milk. [facility] vitamin w/FA tablet 2022-0 05-31 00:00: 00 Yes [id number] 1{tbl} Take 1 tablet by mouth in the morning. [facility] docusate 100 mg capsule 2022-0 05-31 00:00: 00 Yes [id number] 200mg Take 2 capsules by mouth once daily as needed for Constipati on. [facility] ferrous sulfate 325 mg (65 mg iron) tablet 2022-0 05-31 00:00: 00 Yes [id number] 325mg Take 1 tablet by mouth in the morning and 1 tablet in the evening. [facility] ibuprofen 600 mg tablet 2022-0 05-31 00:00: 00 Yes [id number] 600mg Take 1 tablet by mouth every 6 (six) hours as needed (Pain). Take with food or milk. [facility] vitamin w/FA tablet 2022-0 05-31 00:00: 00 Yes [id number] 1{tbl} Take 1 tablet by mouth in the morning. [facility] docusate 100 mg capsule 2022-0 05-31 00:00: 00 Yes [id number] 200mg Take 2 capsules by mouth once daily as needed for Constipati on. [facility] ferrous sulfate 325 mg (65 mg iron) tablet 0 05-31 00:00: 00 Yes [id number] 325mg Take 1 tablet by mouth in the morning and 1 tablet in the evening. [facility] ibuprofen 600 mg tablet 2022-0 05-31 00:00: 00 Yes [id number] 600mg Take 1 tablet by mouth every 6 (six) hours as needed (Pain). Take with food or milk. [facility] vitamin w/FA tablet 2022-0 05-31 00:00: 00 Yes [id number] 1{tbl} Take 1 tablet by mouth in the morning. [facility] docusate 100 mg capsule 2022-0 05-31 00:00: 00 Yes [id number] 200mg Take 2 capsules by mouth once daily as needed for Constipati on. [facility] ferrous sulfate 325 mg (65 mg iron) tablet 2022-0 05-31 00:00: 00 Yes [id number] 325mg Take 1 tablet by mouth in the morning and 1 tablet in the evening. [facility] ibuprofen 600 mg tablet 2022-0 05-31 00:00: 00 Yes [id number] 600mg Take 1 tablet by mouth every 6 (six) hours as needed (Pain). Take with food or milk. [facility] vitamin w/FA tablet 2022-0 05-31 00:00: 00 Yes [id number] 1{tbl} Take 1 tablet by mouth in the morning. [facility] docusate 100 mg capsule 2022-0 05-31 00:00: 00 Yes [id number] 200mg Take 2 capsules by mouth once daily as needed for Constipati on. [facility] ferrous sulfate 325 mg (65 mg iron) tablet 2022-0 05-31 00:00: 00 Yes [id number] 325mg Take 1 tablet by mouth in the morning and 1 tablet in the evening. [facility] ibuprofen 600 mg tablet 2022-0 05-31 00:00: 00 Yes [id number] 600mg Take 1 tablet by mouth every 6 (six) hours as needed (Pain). Take with food or milk. [facility] vitamin w/FA tablet 2022-0 05-31 00:00: 00 Yes [id number] 1{tbl} Take 1 tablet by mouth in the morning. [facility] docusate 100 mg capsule 2022-0 05-31 00:00: 00 Yes [id number] 200mg Take 2 capsules by mouth once daily as needed for Constipati on. [facility] ferrous sulfate 325 mg (65 mg iron) tablet 2022-0 05-31 00:00: 00 Yes [id number] 325mg Take 1 tablet by mouth in the morning and 1 tablet in the evening. [facility] ibuprofen 600 mg tablet 2022-0 05-31 00:00: 00 Yes [id number] 600mg Take 1 tablet by mouth every 6 (six) hours as needed (Pain). Take with food or milk. [facility] vitamin w/FA tablet 2022-0 05-31 00:00: 00 Yes [id number] 1{tbl} Take 1 tablet by mouth in the morning. [facility] docusate 100 mg capsule 2022-0 05-31 00:00: 00 Yes [id number] 200mg Take 2 capsules by mouth once daily as needed for Constipati on. [facility] ferrous sulfate 325 mg (65 mg iron) tablet 2022-0 05-31 00:00: 00 Yes [id number] 325mg Take 1 tablet by mouth in the morning and 1 tablet in the evening. [facility] ibuprofen 600 mg tablet 2022-0 05-31 00:00: 00 Yes [id number] 600mg Take 1 tablet by mouth every 6 (six) hours as needed (Pain). Take with food or milk. [facility] vitamin w/FA tablet 2022-0 05-31 00:00: 00 Yes [id number] 1{tbl} Take 1 tablet by mouth in the morning. [facility] docusate 100 mg capsule 2022-0 05-31 00:00: 00 Yes [id number] 200mg Take 2 capsules by mouth once daily as needed for Constipati on. [facility] ferrous sulfate 325 mg (65 mg iron) tablet 2022-0 05-31 00:00: 00 Yes [id number] 325mg Take 1 tablet by mouth in the morning and 1 tablet in the evening. [facility] ibuprofen 600 mg tablet 2022-0 05-31 00:00: 00 Yes [id number] 600mg Take 1 tablet by mouth every 6 (six) hours as needed (Pain). Take with food or milk. [facility] vitamin w/FA tablet 2022-0 05-31 00:00: 00 Yes [id number] 1{tbl} Take 1 tablet by mouth in the morning. [facility] docusate 100 mg capsule 2022-0 05-31 00:00: 00 Yes [id number] 200mg Take 2 capsules by mouth once daily as needed for Constipati on. [facility] ferrous sulfate 325 mg (65 mg iron) tablet 2022-0 05-31 00:00: 00 Yes [id number] 325mg Take 1 tablet by mouth in the morning and 1 tablet in the evening. [facility] ibuprofen 600 mg tablet 2022-0 05-31 00:00: 00 Yes [id number] 600mg Take 1 tablet by mouth every 6 (six) hours as needed (Pain). Take with food or milk. [facility] vitamin w/FA tablet 2022-0 05-31 00:00: 00 Yes [id number] 1{tbl} Take 1 tablet by mouth in the morning. [facility] docusate 100 mg capsule 2022-0 05-31 00:00: 00 Yes [id number] 200mg Take 2 capsules by mouth once daily as needed for Constipati on. [facility] ferrous sulfate 325 mg (65 mg iron) tablet 2022-05-31 00:00: 00 Yes [id number] 325mg Take 1 tablet by mouth in the morning and 1 tablet in the evening. [facility] ibuprofen 600 mg tablet 05-31 00:00: 00 Yes [id number] 600mg Take 1 tablet by mouth every 6 (six) hours as needed (Pain). Take with food or milk. [facility] vitamin w/FA tablet 05-31 00:00: 00 Yes [id number] 1{tbl} Take 1 tablet by mouth in the morning. [facility] docusate 100 mg capsule 05-31 00:00: 00 Yes [id number] 200mg Take 2 capsules by mouth once daily as needed for Constipati on. [facility] vitamin w/FA tablet 05-31 00:00: 00 09-27 00:00 :00 No [id number] 1{tbl} Take 1 tablet by mouth in the morning. [facility] docusate 100 mg capsule 05-31 00:00: 00 09-27 00:00 :00 No [id number] 200mg Take 2 capsules by mouth once daily as needed for Constipati on. [facility] ferrous sulfate 325 mg (65 mg iron) tablet 05-31 00:00: 00 09-27 00:00 :00 No [id number] 325mg Take 1 tablet by mouth in the morning and 1 tablet in the evening. [facility] ibuprofen 600 mg tablet 2022-05-31 00:00: 00 09-27 00:00 :00 No [id number] 600mg Take 1 tablet by mouth every 6 (six) hours as needed (Pain). Take with food or milk. [facility] vitamin w/FA tablet 2022-05-31 00:00: 00 09-27 00:00 :00 No [id number] 1{tbl} Take 1 tablet by mouth in the morning. [facility] docusate 100 mg capsule 2022-05-31 00:00: 00 09-27 00:00 :00 No [id number] 200mg Take 2 capsules by mouth once daily as needed for Constipati on. [facility] ferrous sulfate 325 mg (65 mg iron) tablet 05-31 00:00: 00 09-27 00:00 :00 No [id number] 325mg Take 1 tablet by mouth in the morning and 1 tablet in the evening. [facility] ibuprofen 600 mg tablet 05-31 00:00: 00 09-27 00:00 :00 No [id number] 600mg Take 1 tablet by mouth every 6 (six) hours as needed (Pain). Take with food or milk. [facility] vitamin w/FA tablet 05-31 00:00: 00 09-27 00:00 :00 No [id number] 1{tbl} Take 1 tablet by mouth in the morning. [facility] docusate 100 mg capsule 05-31 00:00: 00 09-27 00:00 :00 No [id number] 200mg Take 2 capsules by mouth once daily as needed for Constipati on. [facility] ferrous sulfate 325 mg (65 mg iron) tablet 05-31 00:00: 00 09-27 00:00 :00 No [id number] 325mg Take 1 tablet by mouth in the morning and 1 tablet in the evening. [facility] ibuprofen 600 mg tablet 05-31 00:00: 00 09-27 00:00 :00 No [id number] 600mg Take 1 tablet by mouth every 6 (six) hours as needed (Pain). Take with food or milk. [facility] rho(D) immune globulin (RHOGAM) syringe 300 mcg 05-30 18:30: 58 Yes 300ug 300 mcg, Intramuscu lar, ONCE, For 1 dose, Conditiona l, Routine [facility] witch Marcellus (TUCKS) 50 % topical pad 05-30 18:30: 26 Yes Topical, Q4HPRN, Starting on Tue05/30/23 at 1330, Until Discontinu ed, Routine, rectal/hem orrhoidal pain [facility] HYDROcodone -acetaminop hen (NORCO 5) 5-325 mg tablet 1 tablet 05-30 18:29: 39 Yes 1{tbl} 1 tablet, Oral, Q6HPRN, Starting on Tue05/30/23 at 1329, Until Discontinu ed, Routine, Pain (scale 7-10) [facility] ibuprofen (IBU) tablet 600 mg 05-30 18:29: 39 Yes 600mg 600 mg, Oral, Q6HPRN, Starting on Tue05/30/23 at 1329, Until Discontinu ed, Routine, Pain (scale 4-6) [facility] acetaminoph en (TYLENOL) tablet 650 mg 05-30 18:29: 39 Yes 650mg 650 mg, Oral, Q6HPRN, Starting on Tue05/30/23 at 1329, Until Discontinu ed, Routine, Pain (scale 1-3) [facility] diphenhydrA MINE (BENADRYL) tablet 25 mg 05-30 18:29: 39 Yes 25mg 25 mg, Oral, Q6HPRN, Starting on Tue05/30/23 at 1329, Until Discontinu ed, Routine, Sleep, Itching [facility] ondansetron (ZOFRAN (PF)) injection 4 mg 05-30 18:29: 39 Yes 4mg 4 mg, Slow IV Push, Q8HPRN, Starting on Tue05/30/23 at 1329, Until Discontinu ed, Routine, Nausea and Vomiting (N/V) [facility] simethicone (GAS RELIEF (SIMETHICON E)) chewable tablet 160 mg 05-30 18:29: 39 Yes 160mg 160 mg, Oral, PC+HSPRN, Starting on Tue05/30/23 at 1329, Until Discontinu ed, Routine, Gas [facility] docusate (COLACE) capsule 200 mg 05-30 18:29: 39 Yes 200mg 200 mg, Oral, QDAILYPRN, Starting on Tue05/30/23 at 1329, Until Discontinu ed, Routine, Constipati on [facility] magnesium hydroxide (MILK OF MAGNESIA) 400 mg/5 mL suspension 30 mL 05-30 18:29: 39 Yes 30mL 30 mL, Oral, QDAILYPRN, Starting on Tue05/30/23 at 1329, Until Discontinu ed, Routine, Constipati on [facility] benzocaine- menthol (DERMOPLAST ) 20-0.5 % topical spray 05-30 18:29: 39 Yes Topical, PRN, Starting on Tue05/30/23 at 1329, Until Discontinu ed, Routine, Perineum discomfort [facility] oxytocin (PITOCIN) 30 units in NS 500 mL IV infusion 05-30 08:48: 56 05-30 18:30 :56 No 2mU/min at 2-40 mL/hr, IV Infusion, TITRATE, Starting on Tue05/30/23 at 0348, Until Tue05/30/23 at 1330, TIMOTHY [facility] FENTanyl PF (SUBLIMAZE (PF)) injection 100 mcg 05-30 07:43: 28 05-30 18:30 :56 No 100ug 100 mcg, Slow IV Push, Q1HPRN, Starting on Tue05/30/23 at 0243, Until Tue05/30/23 at 1330, Routine, Pain (scale 7-10) [facility] proMETHazin e (PHENERGAN) 25 mg in NaCl 0.9% (NS) 50 mL IV piggyback 05-30 07:43: 19 05-30 18:30 :56 No 25mg 25 mg, IV Piggyback, Q4HPRN, Starting on Tue05/30/23 at 0243, Until Tue05/30/23 at 1330, Routine, Nausea and Vomiting (N/V) [facility] D5W-LR IV infusion 1,000 mL 05-30 07:37: 11 05-30 18:30 :56 No 1000mL at 1-125 mL/hr, IV Infusion, TITRATE, Starting on Tue05/30/23 at 0237, Until Tue05/30/23 at 1330, Routine [facility] FLUoxetine 20 mg capsule 2023-0 8-16 00:00: 00 Yes [id number] 20mg Take 1 capsule by mouth in the morning. [facility] FLUoxetine 20 mg capsule 2023-0 8-16 00:00: 00 Yes [id number] 20mg Take 1 capsule by mouth in the morning. [facility] FLUoxetine 20 mg capsule 2023-0 8-16 00:00: 00 Yes [id number] 20mg Take 1 capsule by mouth in the morning. [facility] FLUoxetine 20 mg capsule 2023-0 8-16 00:00: 00 Yes [id number] 20mg Take 1 capsule by mouth in the morning. [facility] FLUoxetine 20 mg capsule 2023-0 8-16 00:00: 00 Yes [id number] 20mg Take 1 capsule by mouth in the morning. [facility] FLUoxetine 20 mg capsule 2023-0 8-16 00:00: 00 Yes [id number] 20mg Take 1 capsule by mouth in the morning. [facility] FLUoxetine 20 mg capsule 2023-0 8-16 00:00: 00 Yes [id number] 20mg Take 1 capsule by mouth in the morning. [facility] FLUoxetine 20 mg capsule 2023-0 8-16 00:00: 00 Yes [id number] 20mg Take 1 capsule by mouth in the morning. [facility] FLUoxetine 20 mg capsule 2023-0 8-16 00:00: 00 Yes [id number] 20mg Take 1 capsule by mouth in the morning. [facility] FLUoxetine 20 mg capsule 2023-0 8-16 00:00: 00 Yes [id number] 20mg Take 1 capsule by mouth in the morning. [facility] FLUoxetine 20 mg capsule 2023-0 8-16 00:00: 00 Yes [id number] 20mg Take 1 capsule by mouth in the morning. [facility] FLUoxetine 20 mg capsule 2023-0 8-16 00:00: 00 Yes [id number] 20mg Take 1 capsule by mouth in the morning. [facility] FLUoxetine 20 mg capsule 2023-0 8-16 00:00: 00 Yes [id number] 20mg Take 1 capsule by mouth in the morning. [facility] FLUoxetine 20 mg capsule 2023-0 8-16 00:00: 00 Yes [id number] 20mg Take 1 capsule by mouth in the morning. [facility] FLUoxetine 20 mg capsule 2023-0 8-16 00:00: 00 Yes [id number] 20mg Take 1 capsule by mouth in the morning. [facility] FLUoxetine 20 mg capsule 2023-0 8-16 00:00: 00 Yes [id number] 20mg Take 1 capsule by mouth in the morning. [facility] FLUoxetine 20 mg capsule 2023-0 8-16 00:00: 00 Yes [id number] 20mg Take 1 capsule by mouth in the morning. [facility] FLUoxetine 20 mg capsule 3-0 8-16 00:00: 00 Yes [id number] 20mg Take 1 capsule by mouth in the morning. [facility] FLUoxetine 20 mg capsule 2023-0 8-16 00:00: 00 Yes [id number] 20mg Take 1 capsule by mouth in the morning. [facility] FLUoxetine 20 mg capsule 2023-0 8-16 00:00: 00 Yes [id number] 20mg Take 1 capsule by mouth in the morning. [facility] FLUoxetine 20 mg capsule 2023-0 8-16 00:00: 00 Yes [id number] 20mg Take 1 capsule by mouth in the morning. [facility] FLUoxetine 20 mg capsule 2023-0 8-16 00:00: 00 Yes [id number] 20mg Take 1 capsule by mouth in the morning. [facility] FLUoxetine 20 mg capsule 2023-0 8-16 00:00: 00 Yes [id number] 20mg Take 1 capsule by mouth in the morning. [facility] FLUoxetine 20 mg capsule 2023-0 8-16 00:00: 00 Yes [id number] 20mg Take 1 capsule by mouth in the morning. [facility] FLUoxetine 20 mg capsule 2023-0 8-16 00:00: 00 Yes [id number] 20mg Take 1 capsule by mouth in the morning. [facility] FLUoxetine 20 mg capsule 2023-0 8-16 00:00: 00 Yes [id number] 20mg Take 1 capsule by mouth in the morning. [facility] FLUoxetine 20 mg capsule 2023-0 8-16 00:00: 00 Yes [id number] 20mg Take 1 capsule by mouth in the morning. [facility] FLUoxetine 20 mg capsule 2023-0 8-16 00:00: 00 Yes [id number] 20mg Take 1 capsule by mouth in the morning. [facility] FLUoxetine 20 mg capsule 2023-0 8-16 00:00: 00 Yes [id number] 20mg Take 1 capsule by mouth in the morning. [facility] FLUoxetine 20 mg capsule 2023-0 8-16 00:00: 00 Yes [id number] 20mg Take 1 capsule by mouth in the morning. [facility] FLUoxetine 20 mg capsule 2023-0 8-16 00:00: 00 Yes [id number] 20mg Take 1 capsule by mouth in the morning. [facility] FLUoxetine 20 mg capsule 2023-0 8-16 00:00: 00 Yes [id number] 20mg Take 1 capsule by mouth in the morning. [facility] FLUoxetine 20 mg capsule 2023-0 8-16 00:00: 00 Yes [id number] 20mg Take 1 capsule by mouth in the morning. [facility] FLUoxetine 20 mg capsule 2023-0 8-16 00:00: 00 Yes [id number] 20mg Take 1 capsule by mouth in the morning. [facility] FLUoxetine 20 mg capsule 2023-0 8-16 00:00: 00 Yes [id number] 20mg Take 1 capsule by mouth in the morning. [facility] FLUoxetine 20 mg capsule 2023-0 8-16 00:00: 00 Yes [id number] 20mg Take 1 capsule by mouth in the morning. [facility] FLUoxetine 20 mg capsule 2023-0 8-16 00:00: 00 Yes [id number] 20mg Take 1 capsule by mouth in the morning. [facility] FLUoxetine 20 mg capsule 2023-0 8-16 00:00: 00 Yes [id number] 20mg Take 1 capsule by mouth in the morning. [facility] FLUoxetine 20 mg capsule 2023-0 8-16 00:00: 00 Yes [id number] 20mg Take 1 capsule by mouth in the morning. [facility] FLUoxetine 20 mg capsule 2023-0 8-16 00:00: 00 Yes [id number] 20mg Take 1 capsule by mouth in the morning. [facility] FLUoxetine 20 mg capsule 3-0 8-16 00:00: 00 Yes [id number] 20mg Take 1 capsule by mouth in the morning. [facility] FLUoxetine 20 mg capsule 3-0 8-16 00:00: 00 Yes [id number] 20mg Take 1 capsule by mouth in the morning. [facility] FLUoxetine 20 mg capsule 3-0 8-16 00:00: 00 Yes [id number] 20mg Take 1 capsule by mouth in the morning. [facility] FLUoxetine 20 mg capsule 3-0 8-16 00:00: 00 Yes [id number] 20mg Take 1 capsule by mouth in the morning. [facility] FLUoxetine 20 mg capsule 3-0 8-16 00:00: 00 Yes [id number] 20mg Take 1 capsule by mouth in the morning. [facility] amoxicillin 500 mg capsule 2022-0 2-13 00:00: 00 12-14 05:59 :00 No [id number] 500mg Take 1 capsule by mouth in the morning and 1 capsule at noon and 1 capsule in the evening. Do all this for 21 days. [facility] amoxicillin 500 mg capsule 3-0 2-13 00:00: 00 12-14 05:59 :00 No [id number] 500mg Take 1 capsule by mouth in the morning and 1 capsule at noon and 1 capsule in the evening. Do all this for 21 days. [facility] amoxicillin 500 mg capsule 3-0 2-13 00:00: 00 12-14 05:59 :00 No [id number] 500mg Take 1 capsule by mouth in the morning and 1 capsule at noon and 1 capsule in the evening. Do all this for 21 days. [facility] amoxicillin 500 mg capsule 3-0 2-13 00:00: 00 12-14 05:59 :00 No [id number] 500mg Take 1 capsule by mouth in the morning and 1 capsule at noon and 1 capsule in the evening. Do all this for 21 days. [facility] amoxicillin 500 mg capsule 2023-0 2-13 00:00: 00 12-14 05:59 :00 No [id number] 500mg Take 1 capsule by mouth in the morning and 1 capsule at noon and 1 capsule in the evening. Do all this for 21 days. [facility] cephALEXin 500 mg capsule 0 2-03 00:00: 00 11-20 05:59 :00 No [id number] 500mg Take 1 capsule by mouth 4 (four) times daily for 7 days. [facility] cephALEXin 500 mg capsule 0 2-03 00:00: 00 11-20 05:59 :00 No [id number] 500mg Take 1 capsule by mouth 4 (four) times daily for 7 days. [facility] cephALEXin 500 mg capsule 2-03 00:00: 00 11-20 05:59 :00 No [id number] 500mg Take 1 capsule by mouth 4 (four) times daily for 7 days. [facility] cephALEXin 500 mg capsule 2- 00:00: 00 11-20 05:59 :00 No [id number] 500mg Take 1 capsule by mouth 4 (four) times daily for 7 days. [facility] cephALEXin 500 mg capsule 2 00:00: 00 11-20 05:59 :00 No [id number] 500mg Take 1 capsule by mouth 4 (four) times daily for 7 days. [facility] metoclopram luis alberto HCl 10 mg tablet 11-08 00:00: 00 Yes [id number] 10mg Take 1 tablet by mouth every 6 (six) hours as needed for Nausea and Vomiting (N/V). [facility] pyridoxine, VITAMIN B-6, (VITAMIN B-6) 25 mg tablet 11-08 00:00: 00 Yes [id number] 25mg Take 1 tablet by mouth every 6 (six) hours as needed for Nausea and Vomiting (N/V). [facility] doxylamine (UNISOM, DOXYLAMINE, ) 25 mg tablet 11-08 00:00: 00 Yes [id number] 25mg Take 1 tablet by mouth at bedtime as needed for Nausea and Vomiting (N/V). [facility] metoclopram luis alberto HCl 10 mg tablet 11-08 00:00: 00 Yes [id number] 10mg Take 1 tablet by mouth every 6 (six) hours as needed for Nausea and Vomiting (N/V). [facility] pyridoxine, VITAMIN B-6, (VITAMIN B-6) 25 mg tablet 11-08 00:00: 00 Yes [id number] 25mg Take 1 tablet by mouth every 6 (six) hours as needed for Nausea and Vomiting (N/V). [facility] doxylamine (UNISOM, DOXYLAMINE, ) 25 mg tablet 11-08 00:00: 00 Yes [id number] 25mg Take 1 tablet by mouth at bedtime as needed for Nausea and Vomiting (N/V). [facility] metoclopram luis alberto HCl 10 mg tablet 11-08 00:00: 00 Yes [id number] 10mg Take 1 tablet by mouth every 6 (six) hours as needed for Nausea and Vomiting (N/V). [facility] pyridoxine, VITAMIN B-6, (VITAMIN B-6) 25 mg tablet 11-08 00:00: 00 Yes [id number] 25mg Take 1 tablet by mouth every 6 (six) hours as needed for Nausea and Vomiting (N/V). [facility] doxylamine (UNISOM, DOXYLAMINE, ) 25 mg tablet 11-08 00:00: 00 Yes [id number] 25mg Take 1 tablet by mouth at bedtime as needed for Nausea and Vomiting (N/V). [facility] metoclopram luis alberto HCl 10 mg tablet 11-08 00:00: 00 Yes [id number] 10mg Take 1 tablet by mouth every 6 (six) hours as needed for Nausea and Vomiting (N/V). [facility] pyridoxine, VITAMIN B-6, (VITAMIN B-6) 25 mg tablet 11-08 00:00: 00 Yes [id number] 25mg Take 1 tablet by mouth every 6 (six) hours as needed for Nausea and Vomiting (N/V). [facility] doxylamine (UNISOM, DOXYLAMINE, ) 25 mg tablet 11-08 00:00: 00 Yes [id number] 25mg Take 1 tablet by mouth at bedtime as needed for Nausea and Vomiting (N/V). [facility] metoclopram luis alberto HCl 10 mg tablet 0 11-08 00:00: 00 Yes [id number] 10mg Take 1 tablet by mouth every 6 (six) hours as needed for Nausea and Vomiting (N/V). [facility] pyridoxine, VITAMIN B-6, (VITAMIN B-6) 25 mg tablet 11-08 00:00: 00 Yes [id number] 25mg Take 1 tablet by mouth every 6 (six) hours as needed for Nausea and Vomiting (N/V). [facility] doxylamine (UNISOM, DOXYLAMINE, ) 25 mg tablet 11-08 00:00: 00 Yes [id number] 25mg Take 1 tablet by mouth at bedtime as needed for Nausea and Vomiting (N/V). [facility] metoclopram luis alberto HCl 10 mg tablet 11-08 00:00: 00 Yes [id number] 10mg Take 1 tablet by mouth every 6 (six) hours as needed for Nausea and Vomiting (N/V). [facility] pyridoxine, VITAMIN B-6, (VITAMIN B-6) 25 mg tablet 11-08 00:00: 00 Yes [id number] 25mg Take 1 tablet by mouth every 6 (six) hours as needed for Nausea and Vomiting (N/V). [facility] doxylamine (UNISOM, DOXYLAMINE, ) 25 mg tablet 0 11-08 00:00: 00 Yes [id number] 25mg Take 1 tablet by mouth at bedtime as needed for Nausea and Vomiting (N/V). [facility] metoclopram luis alberto HCl 10 mg tablet 11-08 00:00: 00 Yes [id number] 10mg Take 1 tablet by mouth every 6 (six) hours as needed for Nausea and Vomiting (N/V). [facility] pyridoxine, VITAMIN B-6, (VITAMIN B-6) 25 mg tablet 11-08 00:00: 00 Yes [id number] 25mg Take 1 tablet by mouth every 6 (six) hours as needed for Nausea and Vomiting (N/V). [facility] doxylamine (UNISOM, DOXYLAMINE, ) 25 mg tablet 11-08 00:00: 00 Yes [id number] 25mg Take 1 tablet by mouth at bedtime as needed for Nausea and Vomiting (N/V). [facility] pyridoxine, VITAMIN B-6, (VITAMIN B-6) 25 mg tablet 11-08 00:00: 00 Yes [id number] 25mg Take 1 tablet by mouth every 6 (six) hours as needed for Nausea and Vomiting (N/V). [facility] doxylamine (UNISOM, DOXYLAMINE, ) 25 mg tablet 11-08 00:00: 00 Yes [id number] 25mg Take 1 tablet by mouth at bedtime as needed for Nausea and Vomiting (N/V). [facility] pyridoxine, VITAMIN B-6, (VITAMIN B-6) 25 mg tablet 11-08 00:00: 00 Yes [id number] 25mg Take 1 tablet by mouth every 6 (six) hours as needed for Nausea and Vomiting (N/V). [facility] doxylamine (UNISOM, DOXYLAMINE, ) 25 mg tablet 11-08 00:00: 00 Yes [id number] 25mg Take 1 tablet by mouth at bedtime as needed for Nausea and Vomiting (N/V). [facility] metoclopram luis alberto HCl 10 mg tablet 11-08 00:00: 00 Yes [id number] 10mg Take 1 tablet by mouth every 6 (six) hours as needed for Nausea and Vomiting (N/V). [facility] pyridoxine, VITAMIN B-6, (VITAMIN B-6) 25 mg tablet 11-08 00:00: 00 Yes [id number] 25mg Take 1 tablet by mouth every 6 (six) hours as needed for Nausea and Vomiting (N/V). [facility] doxylamine (UNISOM, DOXYLAMINE, ) 25 mg tablet 11-08 00:00: 00 Yes [id number] 25mg Take 1 tablet by mouth at bedtime as needed for Nausea and Vomiting (N/V). [facility] metoclopram luis alberto HCl 10 mg tablet 11-08 00:00: 00 Yes [id number] 10mg Take 1 tablet by mouth every 6 (six) hours as needed for Nausea and Vomiting (N/V). [facility] pyridoxine, VITAMIN B-6, (VITAMIN B-6) 25 mg tablet 11-08 00:00: 00 Yes [id number] 25mg Take 1 tablet by mouth every 6 (six) hours as needed for Nausea and Vomiting (N/V). [facility] doxylamine (UNISOM, DOXYLAMINE, ) 25 mg tablet 11-08 00:00: 00 Yes [id number] 25mg Take 1 tablet by mouth at bedtime as needed for Nausea and Vomiting (N/V). [facility] metoclopram luis alberto HCl 10 mg tablet 0 11-08 00:00: 00 Yes [id number] 10mg Take 1 tablet by mouth every 6 (six) hours as needed for Nausea and Vomiting (N/V). [facility] pyridoxine, VITAMIN B-6, (VITAMIN B-6) 25 mg tablet 11-08 00:00: 00 Yes [id number] 25mg Take 1 tablet by mouth every 6 (six) hours as needed for Nausea and Vomiting (N/V). [facility] doxylamine (UNISOM, DOXYLAMINE, ) 25 mg tablet 0 11-08 00:00: 00 Yes [id number] 25mg Take 1 tablet by mouth at bedtime as needed for Nausea and Vomiting (N/V). [facility] metoclopram luis alberto HCl 10 mg tablet 0 11-08 00:00: 00 Yes [id number] 10mg Take 1 tablet by mouth every 6 (six) hours as needed for Nausea and Vomiting (N/V). [facility] pyridoxine, VITAMIN B-6, (VITAMIN B-6) 25 mg tablet 11-08 00:00: 00 Yes [id number] 25mg Take 1 tablet by mouth every 6 (six) hours as needed for Nausea and Vomiting (N/V). [facility] doxylamine (UNISOM, DOXYLAMINE, ) 25 mg tablet 11-08 00:00: 00 Yes [id number] 25mg Take 1 tablet by mouth at bedtime as needed for Nausea and Vomiting (N/V). [facility] metoclopram luis alberto HCl 10 mg tablet 11-08 00:00: 00 Yes [id number] 10mg Take 1 tablet by mouth every 6 (six) hours as needed for Nausea and Vomiting (N/V). [facility] pyridoxine, VITAMIN B-6, (VITAMIN B-6) 25 mg tablet 11-08 00:00: 00 Yes [id number] 25mg Take 1 tablet by mouth every 6 (six) hours as needed for Nausea and Vomiting (N/V). [facility] doxylamine (UNISOM, DOXYLAMINE, ) 25 mg tablet 11-08 00:00: 00 Yes [id number] 25mg Take 1 tablet by mouth at bedtime as needed for Nausea and Vomiting (N/V). [facility] metoclopram luis alberto HCl 10 mg tablet 11-08 00:00: 00 Yes [id number] 10mg Take 1 tablet by mouth every 6 (six) hours as needed for Nausea and Vomiting (N/V). [facility] pyridoxine, VITAMIN B-6, (VITAMIN B-6) 25 mg tablet 11-08 00:00: 00 Yes [id number] 25mg Take 1 tablet by mouth every 6 (six) hours as needed for Nausea and Vomiting (N/V). [facility] doxylamine (UNISOM, DOXYLAMINE, ) 25 mg tablet 11-08 00:00: 00 Yes [id number] 25mg Take 1 tablet by mouth at bedtime as needed for Nausea and Vomiting (N/V). [facility] metoclopram luis alberto HCl 10 mg tablet 11-08 00:00: 00 Yes [id number] 10mg Take 1 tablet by mouth every 6 (six) hours as needed for Nausea and Vomiting (N/V). [facility] pyridoxine, VITAMIN B-6, (VITAMIN B-6) 25 mg tablet 11-08 00:00: 00 Yes [id number] 25mg Take 1 tablet by mouth every 6 (six) hours as needed for Nausea and Vomiting (N/V). [facility] doxylamine (UNISOM, DOXYLAMINE, ) 25 mg tablet 11-08 00:00: 00 Yes [id number] 25mg Take 1 tablet by mouth at bedtime as needed for Nausea and Vomiting (N/V). [facility] metoclopram luis alberto HCl 10 mg tablet 11-08 00:00: 00 Yes [id number] 10mg Take 1 tablet by mouth every 6 (six) hours as needed for Nausea and Vomiting (N/V). [facility] pyridoxine, VITAMIN B-6, (VITAMIN B-6) 25 mg tablet 11-08 00:00: 00 Yes [id number] 25mg Take 1 tablet by mouth every 6 (six) hours as needed for Nausea and Vomiting (N/V). [facility] doxylamine (UNISOM, DOXYLAMINE, ) 25 mg tablet 11-08 00:00: 00 Yes [id number] 25mg Take 1 tablet by mouth at bedtime as needed for Nausea and Vomiting (N/V). [facility] metoclopram luis alberto HCl 10 mg tablet 11-08 00:00: 00 Yes [id number] 10mg Take 1 tablet by mouth every 6 (six) hours as needed for Nausea and Vomiting (N/V). [facility] pyridoxine, VITAMIN B-6, (VITAMIN B-6) 25 mg tablet 11-08 00:00: 00 Yes [id number] 25mg Take 1 tablet by mouth every 6 (six) hours as needed for Nausea and Vomiting (N/V). [facility] doxylamine (UNISOM, DOXYLAMINE, ) 25 mg tablet 11-08 00:00: 00 Yes [id number] 25mg Take 1 tablet by mouth at bedtime as needed for Nausea and Vomiting (N/V). [facility] metoclopram luis alberto HCl 10 mg tablet 11-08 00:00: 00 Yes [id number] 10mg Take 1 tablet by mouth every 6 (six) hours as needed for Nausea and Vomiting (N/V). [facility] pyridoxine, VITAMIN B-6, (VITAMIN B-6) 25 mg tablet 11-08 00:00: 00 Yes [id number] 25mg Take 1 tablet by mouth every 6 (six) hours as needed for Nausea and Vomiting (N/V). [facility] doxylamine (UNISOM, DOXYLAMINE, ) 25 mg tablet 11-08 00:00: 00 Yes [id number] 25mg Take 1 tablet by mouth at bedtime as needed for Nausea and Vomiting (N/V). [facility] metoclopram luis alberto HCl 10 mg tablet 11-08 00:00: 00 Yes [id number] 10mg Take 1 tablet by mouth every 6 (six) hours as needed for Nausea and Vomiting (N/V). [facility] pyridoxine, VITAMIN B-6, (VITAMIN B-6) 25 mg tablet 11-08 00:00: 00 Yes [id number] 25mg Take 1 tablet by mouth every 6 (six) hours as needed for Nausea and Vomiting (N/V). [facility] doxylamine (UNISOM, DOXYLAMINE, ) 25 mg tablet 11-08 00:00: 00 Yes [id number] 25mg Take 1 tablet by mouth at bedtime as needed for Nausea and Vomiting (N/V). [facility] metoclopram luis alberto HCl 10 mg tablet 11-08 00:00: 00 Yes [id number] 10mg Take 1 tablet by mouth every 6 (six) hours as needed for Nausea and Vomiting (N/V). [facility] pyridoxine, VITAMIN B-6, (VITAMIN B-6) 25 mg tablet 11-08 00:00: 00 Yes [id number] 25mg Take 1 tablet by mouth every 6 (six) hours as needed for Nausea and Vomiting (N/V). [facility] doxylamine (UNISOM, DOXYLAMINE, ) 25 mg tablet 11-08 00:00: 00 Yes [id number] 25mg Take 1 tablet by mouth at bedtime as needed for Nausea and Vomiting (N/V). [facility] metoclopram luis alberto HCl 10 mg tablet 11-08 00:00: 00 Yes [id number] 10mg Take 1 tablet by mouth every 6 (six) hours as needed for Nausea and Vomiting (N/V). [facility] pyridoxine, VITAMIN B-6, (VITAMIN B-6) 25 mg tablet 11-08 00:00: 00 Yes [id number] 25mg Take 1 tablet by mouth every 6 (six) hours as needed for Nausea and Vomiting (N/V). [facility] doxylamine (UNISOM, DOXYLAMINE, ) 25 mg tablet 11-08 00:00: 00 Yes [id number] 25mg Take 1 tablet by mouth at bedtime as needed for Nausea and Vomiting (N/V). [facility] metoclopram luis alberto HCl 10 mg tablet 11-08 00:00: 00 Yes [id number] 10mg Take 1 tablet by mouth every 6 (six) hours as needed for Nausea and Vomiting (N/V). [facility] pyridoxine, VITAMIN B-6, (VITAMIN B-6) 25 mg tablet 11-08 00:00: 00 Yes [id number] 25mg Take 1 tablet by mouth every 6 (six) hours as needed for Nausea and Vomiting (N/V). [facility] doxylamine (UNISOM, DOXYLAMINE, ) 25 mg tablet 11-08 00:00: 00 Yes [id number] 25mg Take 1 tablet by mouth at bedtime as needed for Nausea and Vomiting (N/V). [facility] metoclopram luis alberto HCl 10 mg tablet 11-08 00:00: 00 Yes [id number] 10mg Take 1 tablet by mouth every 6 (six) hours as needed for Nausea and Vomiting (N/V). [facility] pyridoxine, VITAMIN B-6, (VITAMIN B-6) 25 mg tablet 11-08 00:00: 00 Yes [id number] 25mg Take 1 tablet by mouth every 6 (six) hours as needed for Nausea and Vomiting (N/V). [facility] doxylamine (UNISOM, DOXYLAMINE, ) 25 mg tablet 11-08 00:00: 00 Yes [id number] 25mg Take 1 tablet by mouth at bedtime as needed for Nausea and Vomiting (N/V). [facility] metoclopram luis alberto HCl 10 mg tablet 11-08 00:00: 00 Yes [id number] 10mg Take 1 tablet by mouth every 6 (six) hours as needed for Nausea and Vomiting (N/V). [facility] pyridoxine, VITAMIN B-6, (VITAMIN B-6) 25 mg tablet 11-08 00:00: 00 Yes [id number] 25mg Take 1 tablet by mouth every 6 (six) hours as needed for Nausea and Vomiting (N/V). [facility] doxylamine (UNISOM, DOXYLAMINE, ) 25 mg tablet 11-08 00:00: 00 Yes [id number] 25mg Take 1 tablet by mouth at bedtime as needed for Nausea and Vomiting (N/V). [facility] metoclopram luis alberto HCl 10 mg tablet 11-08 00:00: 00 Yes [id number] 10mg Take 1 tablet by mouth every 6 (six) hours as needed for Nausea and Vomiting (N/V). [facility] pyridoxine, VITAMIN B-6, (VITAMIN B-6) 25 mg tablet 11-08 00:00: 00 Yes [id number] 25mg Take 1 tablet by mouth every 6 (six) hours as needed for Nausea and Vomiting (N/V). [facility] doxylamine (UNISOM, DOXYLAMINE, ) 25 mg tablet 11-08 00:00: 00 Yes [id number] 25mg Take 1 tablet by mouth at bedtime as needed for Nausea and Vomiting (N/V). [facility] metoclopram luis alberto HCl 10 mg tablet 11-08 00:00: 00 Yes [id number] 10mg Take 1 tablet by mouth every 6 (six) hours as needed for Nausea and Vomiting (N/V). [facility] pyridoxine, VITAMIN B-6, (VITAMIN B-6) 25 mg tablet 11-08 00:00: 00 Yes [id number] 25mg Take 1 tablet by mouth every 6 (six) hours as needed for Nausea and Vomiting (N/V). [facility] doxylamine (UNISOM, DOXYLAMINE, ) 25 mg tablet 11-08 00:00: 00 Yes [id number] 25mg Take 1 tablet by mouth at bedtime as needed for Nausea and Vomiting (N/V). [facility] metoclopram luis alberto HCl 10 mg tablet 11-08 00:00: 00 Yes [id number] 10mg Take 1 tablet by mouth every 6 (six) hours as needed for Nausea and Vomiting (N/V). [facility] pyridoxine, VITAMIN B-6, (VITAMIN B-6) 25 mg tablet 11-08 00:00: 00 Yes [id number] 25mg Take 1 tablet by mouth every 6 (six) hours as needed for Nausea and Vomiting (N/V). [facility] doxylamine (UNISOM, DOXYLAMINE, ) 25 mg tablet 11-08 00:00: 00 Yes [id number] 25mg Take 1 tablet by mouth at bedtime as needed for Nausea and Vomiting (N/V). [facility] metoclopram luis alberto HCl 10 mg tablet 11-08 00:00: 00 Yes [id number] 10mg Take 1 tablet by mouth every 6 (six) hours as needed for Nausea and Vomiting (N/V). [facility] pyridoxine, VITAMIN B-6, (VITAMIN B-6) 25 mg tablet 11-08 00:00: 00 Yes [id number] 25mg Take 1 tablet by mouth every 6 (six) hours as needed for Nausea and Vomiting (N/V). [facility] doxylamine (UNISOM, DOXYLAMINE, ) 25 mg tablet 11-08 00:00: 00 Yes [id number] 25mg Take 1 tablet by mouth at bedtime as needed for Nausea and Vomiting (N/V). [facility] metoclopram luis alberto HCl 10 mg tablet 11-08 00:00: 00 Yes [id number] 10mg Take 1 tablet by mouth every 6 (six) hours as needed for Nausea and Vomiting (N/V). [facility] pyridoxine, VITAMIN B-6, (VITAMIN B-6) 25 mg tablet 11-08 00:00: 00 Yes [id number] 25mg Take 1 tablet by mouth every 6 (six) hours as needed for Nausea and Vomiting (N/V). [facility] doxylamine (UNISOM, DOXYLAMINE, ) 25 mg tablet 11-08 00:00: 00 Yes [id number] 25mg Take 1 tablet by mouth at bedtime as needed for Nausea and Vomiting (N/V). [facility] metoclopram luis alberto HCl 10 mg tablet 11-08 00:00: 00 Yes [id number] 10mg Take 1 tablet by mouth every 6 (six) hours as needed for Nausea and Vomiting (N/V). [facility] pyridoxine, VITAMIN B-6, (VITAMIN B-6) 25 mg tablet 11-08 00:00: 00 Yes [id number] 25mg Take 1 tablet by mouth every 6 (six) hours as needed for Nausea and Vomiting (N/V). [facility] doxylamine (UNISOM, DOXYLAMINE, ) 25 mg tablet 11-08 00:00: 00 Yes [id number] 25mg Take 1 tablet by mouth at bedtime as needed for Nausea and Vomiting (N/V). [facility] pyridoxine, VITAMIN B-6, (VITAMIN B-6) 25 mg tablet 11-08 00:00: 00 05-31 00:00 :00 No [id number] 25mg Take 1 tablet by mouth every 6 (six) hours as needed for Nausea and Vomiting (N/V). [facility] doxylamine (UNISOM, DOXYLAMINE, ) 25 mg tablet 11-08 00:00: 00 05-31 00:00 :00 No [id number] 25mg Take 1 tablet by mouth at bedtime as needed for Nausea and Vomiting (N/V). [facility] metoclopram luis alberto HCl 10 mg tablet 11-08 00:00: 00 05-25 00:00 :00 No [id number] 10mg Take 1 tablet by mouth every 6 (six) hours as needed for Nausea and Vomiting (N/V). [facility] lactulose (CEPHULAC) solution 30 mL 10-30 05:45: 00 10-30 05:41 :00 No 30mL 30 mL, Oral, ONCE, 1 dose, On Tue10/29/22 at 2345, TIMOTHY [facility] NaCl 0.9% (NS) bolus infusion 1,000 mL 10-30 05:45: 00 10-30 06:48 :00 No 1000mL at 999 mL/hr, 1,000 mL, IV Infusion, ONCE, 1 dose, On Tue10/29/22 at 2345, STAT [facility] metoclopram luis alberto HCl (REGLAN) injection 10 mg 10-30 05:30: 00 10-30 05:39 :00 No 10mg 10 mg, Slow IV Push, ONCE, 1 dose, On Tue10/29/22 at 2330, TIMOTHY [facility] metoclopram luis alberto HCl 10 mg tablet 10-30 00:00: 00 Yes [id number] 10mg Take 1 tablet by mouth every 6 (six) hours. [facility] metoclopram luis alberto HCl 10 mg tablet 10-30 00:00: 00 Yes [id number] 10mg Take 1 tablet by mouth every 6 (six) hours. [facility] metoclopram luis alberto HCl 10 mg tablet 2023-0 1-21 00:00: 00 Yes [id number] 10mg Take 1 tablet by mouth every 6 (six) hours. [facility] metoclopram luis alberto HCl 10 mg tablet 3-0 1-21 00:00: 00 Yes [id number] 10mg Take 1 tablet by mouth every 6 (six) hours. [facility] metoclopram luis alberto HCl 10 mg tablet 3-0 1-21 00:00: 00 Yes [id number] 10mg Take 1 tablet by mouth every 6 (six) hours. [facility] metoclopram luis alberto HCl 10 mg tablet 3-0 -21 00:00: 00 Yes [id number] 10mg Take 1 tablet by mouth every 6 (six) hours. [facility] metoclopram luis alberto HCl 10 mg tablet 3-0 -21 00:00: 00 Yes [id number] 10mg Take 1 tablet by mouth every 6 (six) hours. [facility] metoclopram luis alberto HCl 10 mg tablet 3-0 -21 00:00: 00 Yes [id number] 10mg Take 1 tablet by mouth every 6 (six) hours. [facility] metoclopram luis alberto HCl 10 mg tablet 3-0 -21 00:00: 00 Yes [id number] 10mg Take 1 tablet by mouth every 6 (six) hours. [facility] metoclopram luis alberto HCl 10 mg tablet 3-0 -21 00:00: 00 Yes [id number] 10mg Take 1 tablet by mouth every 6 (six) hours. [facility] metoclopram luis alberto HCl 10 mg tablet 3-0 -21 00:00: 00 Yes [id number] 10mg Take 1 tablet by mouth every 6 (six) hours. [facility] metoclopram luis alberto HCl 10 mg tablet 3-0 1-21 00:00: 00 Yes [id number] 10mg Take 1 tablet by mouth every 6 (six) hours. [facility] metoclopram luis alberto HCl 10 mg tablet 3-0 1-21 00:00: 00 Yes [id number] 10mg Take 1 tablet by mouth every 6 (six) hours. [facility] metoclopram luis alberto HCl 10 mg tablet 3-0 1-21 00:00: 00 Yes [id number] 10mg Take 1 tablet by mouth every 6 (six) hours. [facility] metoclopram luis alberto HCl 10 mg tablet 2022-0 1-21 00:00: 00 Yes [id number] 10mg Take 1 tablet by mouth every 6 (six) hours. [facility] metoclopram luis alberto HCl 10 mg tablet 2022-0 1-21 00:00: 00 Yes [id number] 10mg Take 1 tablet by mouth every 6 (six) hours. [facility] metoclopram luis alberto HCl 10 mg tablet 2022-0 -21 00:00: 00 Yes [id number] 10mg Take 1 tablet by mouth every 6 (six) hours. [facility] metoclopram luis alberto HCl 10 mg tablet 2022-0 -21 00:00: 00 Yes [id number] 10mg Take 1 tablet by mouth every 6 (six) hours. [facility] metoclopram luis alberto HCl 10 mg tablet 2022-0 -21 00:00: 00 Yes [id number] 10mg Take 1 tablet by mouth every 6 (six) hours. [facility] metoclopram luis alberto HCl 10 mg tablet 2022-0 -21 00:00: 00 Yes [id number] 10mg Take 1 tablet by mouth every 6 (six) hours. [facility] metoclopram luis alberto HCl 10 mg tablet 2022-0 -21 00:00: 00 Yes [id number] 10mg Take 1 tablet by mouth every 6 (six) hours. [facility] metoclopram luis alberto HCl 10 mg tablet 2022-0 -21 00:00: 00 Yes [id number] 10mg Take 1 tablet by mouth every 6 (six) hours. [facility] metoclopram luis alberto HCl 10 mg tablet 2022-0 -21 00:00: 00 Yes [id number] 10mg Take 1 tablet by mouth every 6 (six) hours. [facility] metoclopram luis alberto HCl 10 mg tablet 3-0 1-21 00:00: 00 Yes [id number] 10mg Take 1 tablet by mouth every 6 (six) hours. [facility] metoclopram luis alberto HCl 10 mg tablet 3-0 1-21 00:00: 00 Yes [id number] 10mg Take 1 tablet by mouth every 6 (six) hours. [facility] metoclopram luis alberto HCl 10 mg tablet 3-0 1-21 00:00: 00 Yes [id number] 10mg Take 1 tablet by mouth every 6 (six) hours. [facility] metoclopram luis alberto HCl 10 mg tablet 3-0 1-21 00:00: 00 Yes [id number] 10mg Take 1 tablet by mouth every 6 (six) hours. [facility] metoclopram luis alberto HCl 10 mg tablet 2022-0 1-21 00:00: 00 Yes [id number] 10mg Take 1 tablet by mouth every 6 (six) hours. [facility] metoclopram luis alberto HCl 10 mg tablet 2022-0 1-21 00:00: 00 Yes [id number] 10mg Take 1 tablet by mouth every 6 (six) hours. [facility] metoclopram luis alberto HCl 10 mg tablet 2022-0 1-21 00:00: 00 Yes [id number] 10mg Take 1 tablet by mouth every 6 (six) hours. [facility] metoclopram luis alberto HCl 10 mg tablet 2022-0 1-21 00:00: 00 Yes [id number] 10mg Take 1 tablet by mouth every 6 (six) hours. [facility] metoclopram luis alberto HCl 10 mg tablet 2022-0 1-21 00:00: 00 0816 00:00 :00 No [id number] 10mg Take 1 tablet by mouth every 6 (six) hours. [facility] FLUoxetine 10 mg capsule 2019-0 6-30 00:00: 00 Yes [id number] 10mg Take 1 capsule by mouth daily. [facility] FLUoxetine 10 mg capsule 2020-0 6-30 00:00: 00 Yes [id number] 10mg Take 1 capsule by mouth daily. [facility] FLUoxetine 10 mg capsule 2019-0 6-30 00:00: 00 Yes [id number] 10mg Take 1 capsule by mouth daily. [facility] FLUoxetine 10 mg capsule 2019-0 6-30 00:00: 00 30 00:00 :00 No [id number] 10mg Take 1 capsule by mouth daily. [facility] FLUoxetine 10 mg capsule 6-30 00:00: 00 11-08 00:00 :00 No [id number] 10mg Take 1 capsule by mouth daily. [facility] ondansetron 4 mg disintegrat ing tablet 3-12 00:00: 00 Yes [id number] 4mg Take 1 tablet by mouth every 8 (eight) hours as needed for Nausea and Vomiting (N/V). [facility] ondansetron 4 mg disintegrat ing tablet 3-12 00:00: 00 Yes [id number] 4mg Take 1 tablet by mouth every 8 (eight) hours as needed for Nausea and Vomiting (N/V). [facility] ondansetron 4 mg disintegrat ing tablet -12 00:00: 00 Yes [id number] 4mg Take 1 tablet by mouth every 8 (eight) hours as needed for Nausea and Vomiting (N/V). [facility] ondansetron 4 mg disintegrat ing tablet 3-12 00:00: 00 11-08 00:00 :00 No [id number] 4mg Take 1 tablet by mouth every 8 (eight) hours as needed for Nausea and Vomiting (N/V). [facility] ondansetron 4 mg disintegrat ing tablet -12 00:00: 00 11-08 00:00 :00 No [id number] 4mg Take 1 tablet by mouth every 8 (eight) hours as needed for Nausea and Vomiting (N/V). [facility] vitamin w/FA tablet 2019-0 1-10 00:00: 00 Yes [id number] 102 1{tbl} Take 1 tablet by mouth daily. [facility] vitamin w/FA tablet 2020-0 1-10 00:00: 00 Yes [id number] 102 1{tbl} Take 1 tablet by mouth daily. [facility] vitamin w/FA tablet 2020-0 1-10 00:00: 00 Yes [id number] 102 1{tbl} Take 1 tablet by mouth daily. [facility] vitamin w/FA tablet 2020-0 1-10 00:00: 00 Yes [id number] 102 1{tbl} Take 1 tablet by mouth daily. [facility] vitamin w/FA tablet 2020-0 1-10 00:00: 00 Yes [id number] 102 1{tbl} Take 1 tablet by mouth daily. [facility] vitamin w/FA tablet 2020-0 -10 00:00: 00 Yes [id number] 102 1{tbl} Take 1 tablet by mouth daily. [facility] vitamin w/FA tablet 2020-0 -10 00:00: 00 Yes [id number] 102 1{tbl} Take 1 tablet by mouth daily. [facility] vitamin w/FA tablet 2020-0 - 00:00: 00 Yes [id number] 102 1{tbl} Take 1 tablet by mouth daily. [facility] vitamin w/FA tablet 2020-0 - 00:00: 00 Yes [id number] 102 1{tbl} Take 1 tablet by mouth daily. [facility] vitamin w/FA tablet 2020-0 - 00:00: 00 Yes [id number] 102 1{tbl} Take 1 tablet by mouth daily. [facility] vitamin w/FA tablet 2019-0 - 00:00: 00 Yes [id number] 102 1{tbl} Take 1 tablet by mouth daily. [facility] vitamin w/FA tablet 2020-0 - 00:00: 00 Yes [id number] 102 1{tbl} Take 1 tablet by mouth daily. [facility] vitamin w/FA tablet 2020-0 -10 00:00: 00 Yes [id number] 102 1{tbl} Take 1 tablet by mouth daily. [facility] vitamin w/FA tablet 2020-0 -10 00:00: 00 Yes [id number] 102 1{tbl} Take 1 tablet by mouth daily. [facility] vitamin w/FA tablet 2020-0 -10 00:00: 00 Yes [id number] 102 1{tbl} Take 1 tablet by mouth daily. [facility] vitamin w/FA tablet 2020-0 - 00:00: 00 Yes [id number] 102 1{tbl} Take 1 tablet by mouth daily. [facility] vitamin w/FA tablet 2020-0 -10 00:00: 00 Yes [id number] 102 1{tbl} Take 1 tablet by mouth daily. [facility] vitamin w/FA tablet 2020-0 -10 00:00: 00 Yes [id number] 102 1{tbl} Take 1 tablet by mouth daily. [facility] vitamin w/FA tablet 2020-0 -10 00:00: 00 Yes [id number] 102 1{tbl} Take 1 tablet by mouth daily. [facility] vitamin w/FA tablet 2020-0 - 00:00: 00 Yes [id number] 102 1{tbl} Take 1 tablet by mouth daily. [facility] vitamin w/FA tablet 2020-0 - 00:00: 00 Yes [id number] 102 1{tbl} Take 1 tablet by mouth daily. [facility] vitamin w/FA tablet 2020-0 - 00:00: 00 Yes [id number] 102 1{tbl} Take 1 tablet by mouth daily. [facility] vitamin w/FA tablet 2020-0 - 00:00: 00 Yes [id number] 102 1{tbl} Take 1 tablet by mouth daily. [facility] vitamin w/FA tablet 2020-0 - 00:00: 00 Yes [id number] 102 1{tbl} Take 1 tablet by mouth daily. [facility] vitamin w/FA tablet 2020-0 - 00:00: 00 Yes [id number] 102 1{tbl} Take 1 tablet by mouth daily. [facility] vitamin w/FA tablet 2020-0 -10 00:00: 00 Yes [id number] 102 1{tbl} Take 1 tablet by mouth daily. [facility] vitamin w/FA tablet 2020-0 -10 00:00: 00 Yes [id number] 102 1{tbl} Take 1 tablet by mouth daily. [facility] vitamin w/FA tablet 2020-0 -10 00:00: 00 Yes [id number] 102 1{tbl} Take 1 tablet by mouth daily. [facility] vitamin w/FA tablet 2020-0 1-10 00:00: 00 Yes [id number] 102 1{tbl} Take 1 tablet by mouth daily. [facility] vitamin w/FA tablet 2020-0 1-10 00:00: 00 Yes [id number] 102 1{tbl} Take 1 tablet by mouth daily. [facility] vitamin w/FA tablet 2019-0 -10 00:00: 00 Yes [id number] 102 1{tbl} Take 1 tablet by mouth daily. [facility] vitamin w/FA tablet 2019-0 - 00:00: 00 Yes [id number] 102 1{tbl} Take 1 tablet by mouth daily. [facility] vitamin w/FA tablet 2020-0 - 00:00: 00 Yes [id number] 102 1{tbl} Take 1 tablet by mouth daily. [facility] vitamin w/FA tablet 2019-0 10-19 00:00: 00 Yes [id number] 102 1{tbl} Take 1 tablet by mouth daily. [facility] vitamin w/FA tablet 2019-0 10-19 00:00: 00 05-31 00:00 :00 No [id number] 102 1{tbl} Take 1 tablet by mouth daily. [facility] Immunizations Ordered Immunization Name Filled Immunization Name Date Status Comments Source TDAP 2023-03-21 00:00:00 Completed [facility] TDAP 2023-03-21 00:00:00 Completed [facility] TDAP 2023-03-21 00:00:00 Completed [facility] TDAP 2023-03-21 00:00:00 Completed [facility] TDAP 2023-03-21 00:00:00 Completed [facility] TDAP 2023-03-21 00:00:00 Completed [facility] TDAP 2023-03-21 00:00:00 Completed [facility] TDAP 2023-03-21 00:00:00 Completed [facility] TDAP 2023-03-21 00:00:00 Completed [facility] TDAP 2023-03-21 00:00:00 Completed [facility] TDAP 2023-03-21 00:00:00 Completed [facility] TDAP 2023-03-21 00:00:00 Completed [facility] TDAP 2023-03-21 00:00:00 Completed [facility] TDAP 2023-03-21 00:00:00 Completed [facility] TDAP 2023-03-21 00:00:00 Completed [facility] TDAP 2023-03-21 00:00:00 Completed [facility] TDAP 2023-03-21 00:00:00 Completed [facility] TDAP 2023-03-21 00:00:00 Completed [facility] Influenza Virus Vaccine Quad IM, Preserv and ABX Free 6 MO-64 YRS 2022-11-08 00:00:00 Completed [facility] Influenza Virus Vaccine Quad IM, Preserv and ABX Free 6 MO-64 2022-11-08 00:00:00 Completed [facility] Influenza Virus Vaccine Quad IM, Preserv and ABX Free 6 MO-64 YRS 2022-11-08 00:00:00 Completed [facility] Influenza Virus Vaccine Quad IM, Preserv and ABX Free 6 MO-64 2022-11-08 00:00:00 Completed [facility] Influenza Virus Vaccine Quad IM, Preserv and ABX Free 6 MO-64 YRS 2022-11-08 00:00:00 Completed [facility] Influenza Virus Vaccine Quad IM, Preserv and ABX Free 6 MO-64 2022-11-08 00:00:00 Completed [facility] Influenza Virus Vaccine Quad IM, Preserv and ABX Free 6 MO-64 YRS 2022-11-08 00:00:00 Completed [facility] Influenza Virus Vaccine Quad IM, Preserv and ABX Free 6 MO-64 2022-11-08 00:00:00 Completed [facility] Influenza Virus Vaccine Quad IM, Preserv and ABX Free 6 MO-64 2022-11-08 00:00:00 Completed [facility] Influenza Virus Vaccine Quad IM, Preserv and ABX Free 6 MO-64 YRS 2022-11-08 00:00:00 Completed [facility] Influenza Virus Vaccine Quad IM, Preserv and ABX Free 6 MO-64 YRS 2022-11-08 00:00:00 Completed [facility] Influenza Virus Vaccine Quad IM, Preserv and ABX Free 6 MO-64 YRS 2022-11-08 00:00:00 Completed [facility] Influenza Virus Vaccine Quad IM, Preserv and ABX Free 6 MO-64 YRS 2022-11-08 00:00:00 Completed [facility] Influenza Virus Vaccine Quad IM, Preserv and ABX Free 6 MO-64 YRS 2022-11-08 00:00:00 Completed [facility] Influenza Virus Vaccine Quad IM, Preserv and ABX Free 6 MO-64 YRS 2022-11-08 00:00:00 Completed [facility] Influenza Virus Vaccine Quad IM, Preserv and ABX Free 6 MO-64 YRS 2022-11-08 00:00:00 Completed [facility] Influenza Virus Vaccine Quad IM, Preserv and ABX Free 6 MO-64 YRS 2022-11-08 00:00:00 Completed [facility] Influenza Virus Vaccine Quad IM, Preserv and ABX Free 6 MO-64 YRS 2022-11-08 00:00:00 Completed [facility] Influenza Virus Vaccine Quad IM, Preserv and ABX Free 6 MO-64 YRS 2022-11-08 00:00:00 Completed [facility] Influenza Virus Vaccine Quad IM, Preserv and ABX Free 6 MO-64 YRS 2022-11-08 00:00:00 Completed [facility] Influenza Virus Vaccine Quad IM, Preserv and ABX Free 6 MO-64 YRS 2022-11-08 00:00:00 Completed [facility] Influenza Virus Vaccine Quad IM, Preserv and ABX Free 6 MO-64 YRS 2022-11-08 00:00:00 Completed [facility] Influenza Virus Vaccine Quad IM, Preserv and ABX Free 6 MO-64 YRS 2022-11-08 00:00:00 Completed [facility] Influenza Virus Vaccine Quad IM, Preserv and ABX Free 6 MO-64 2022-11-08 00:00:00 Completed [facility] Influenza Virus Vaccine Quad IM, Preserv and ABX Free 6 MO-64 YRS 2022-11-08 00:00:00 Completed [facility] Influenza Virus Vaccine Quad IM, Preserv and ABX Free 6 MO-64 YRS 2022-11-08 00:00:00 Completed [facility] Influenza Virus Vaccine Quad IM, Preserv and ABX Free 6 MO-64 YRS 2022-11-08 00:00:00 Completed [facility] Influenza Virus Vaccine Quad IM, Preserv and ABX Free 6 MO-64 YRS 2022-11-08 00:00:00 Completed [facility] Influenza Virus Vaccine Quad IM, Preserv and ABX Free 6 MO-64 YRS 2022-11-08 00:00:00 Completed [facility] Influenza Virus Vaccine Quad IM, Preserv and ABX Free 6 MO-64 YRS 2022-11-08 00:00:00 Completed [facility] Influenza Virus Vaccine Quad IM, Preserv and ABX Free 6 MO-64 YRS 2022-11-08 00:00:00 Completed [facility] Influenza Virus Vaccine Quad IM, Preserv and ABX Free 6 MO-64 YRS 2022-11-08 00:00:00 Completed [facility] Influenza Virus Vaccine Quad IM, Preserv and ABX Free 6 MO-64 YRS 2022-11-08 00:00:00 Completed [facility] TDAP 2019-08-15 00:00:00 Completed [facility] TDAP (ADACEL) VACCINE 2019-08-15 00:00:00 Completed [facility] TDAP 2019-08-15 00:00:00 Completed [facility] TDAP (ADACEL) VACCINE 2019-08-15 00:00:00 Completed [facility] TDAP 2019-08-15 00:00:00 Completed [facility] TDAP (ADACEL) VACCINE 2019-08-15 00:00:00 Completed [facility] TDAP 2019-08-15 00:00:00 Completed [facility] TDAP (ADACEL) VACCINE 2019-08-15 00:00:00 Completed [facility] TDAP (ADACEL) VACCINE 2019-08-15 00:00:00 Completed [facility] TDAP 2019-08-15 00:00:00 Completed [facility] TDAP (ADACEL) VACCINE 2019-08-15 00:00:00 Completed [facility] TDAP 2019-08-15 00:00:00 Completed [facility] TDAP (ADACEL) VACCINE 2019-08-15 00:00:00 Completed [facility] TDAP 2019-08-15 00:00:00 Completed [facility] TDAP (ADACEL) VACCINE 2019-08-15 00:00:00 Completed [facility] TDAP 2019-08-15 00:00:00 Completed [facility] TDAP (ADACEL) VACCINE 2019-08-15 00:00:00 Completed [facility] TDAP 2019-08-15 00:00:00 Completed [facility] TDAP 2019-08-15 00:00:00 Completed [facility] TDAP (ADACEL) VACCINE 2019-08-15 00:00:00 Completed [facility] TDAP 2019-08-15 00:00:00 Completed [facility] TDAP (ADACEL) VACCINE 2019-08-15 00:00:00 Completed [facility] TDAP 2019-08-15 00:00:00 Completed [facility] TDAP (ADACEL) VACCINE 2019-08-15 00:00:00 Completed [facility] TDAP 2019-08-15 00:00:00 Completed [facility] TDAP (ADACEL) VACCINE 2019-08-15 00:00:00 Completed [facility] TDAP 2019-08-15 00:00:00 Completed [facility] TDAP (ADACEL) VACCINE 2019-08-15 00:00:00 Completed [facility] TDAP 2019-08-15 00:00:00 Completed [facility] TDAP (ADACEL) VACCINE 2019-08-15 00:00:00 Completed [facility] TDAP 2019-08-15 00:00:00 Completed [facility] TDAP (ADACEL) VACCINE 2019-08-15 00:00:00 Completed [facility] TDAP 2019-08-15 00:00:00 Completed [facility] TDAP (ADACEL) VACCINE 2019-08-15 00:00:00 Completed [facility] TDAP (ADACEL) VACCINE 2019-08-15 00:00:00 Completed [facility] TDAP 2019-08-15 00:00:00 Completed [facility] TDAP (ADACEL) VACCINE 2019-08-15 00:00:00 Completed [facility] TDAP 2019-08-15 00:00:00 Completed [facility] TDAP (ADACEL) VACCINE 2019-08-15 00:00:00 Completed [facility] TDAP 2019-08-15 00:00:00 Completed [facility] TDAP (ADACEL) VACCINE 2019-08-15 00:00:00 Completed [facility] TDAP 2019-08-15 00:00:00 Completed [facility] TDAP (ADACEL) VACCINE 2019-08-15 00:00:00 Completed [facility] TDAP 2019-08-15 00:00:00 Completed [facility] TDAP 2019-08-15 00:00:00 Completed [facility] TDAP (ADACEL) VACCINE 2019-08-15 00:00:00 Completed [facility] TDAP 2019-08-15 00:00:00 Completed [facility] TDAP (ADACEL) VACCINE 2019-08-15 00:00:00 Completed [facility] TDAP 2019-08-15 00:00:00 Completed [facility] TDAP (ADACEL) VACCINE 2019-08-15 00:00:00 Completed [facility] TDAP 2019-08-15 00:00:00 Completed [facility] TDAP (ADACEL) VACCINE 2019-08-15 00:00:00 Completed [facility] TDAP 2019-08-15 00:00:00 Completed [facility] TDAP (ADACEL) VACCINE 2019-08-15 00:00:00 Completed [facility] TDAP 2019-08-15 00:00:00 Completed [facility] TDAP (ADACEL) VACCINE 2019-08-15 00:00:00 Completed [facility] TDAP (ADACEL) VACCINE 2019-08-15 00:00:00 Completed [facility] TDAP 2019-08-15 00:00:00 Completed [facility] TDAP (ADACEL) VACCINE 2019-08-15 00:00:00 Completed [facility] TDAP 2019-08-15 00:00:00 Completed [facility] TDAP (ADACEL) VACCINE 2019-08-15 00:00:00 Completed [facility] TDAP 2019-08-15 00:00:00 Completed [facility] TDAP (ADACEL) VACCINE 2019-08-15 00:00:00 Completed [facility] TDAP 2019-08-15 00:00:00 Completed [facility] TDAP (ADACEL) VACCINE 2019-08-15 00:00:00 Completed [facility] TDAP 2019-08-15 00:00:00 Completed [facility] TDAP 2019-08-15 00:00:00 Completed [facility] TDAP (ADACEL) VACCINE 2019-08-15 00:00:00 Completed [facility] TDAP 2019-08-15 00:00:00 Completed [facility] TDAP (ADACEL) VACCINE 2019-08-15 00:00:00 Completed [facility] TDAP 2019-08-15 00:00:00 Completed [facility] TDAP (ADACEL) VACCINE 2019-08-15 00:00:00 Completed [facility] HPV 2011-11-03 00:00:00 Completed [facility] HPV 2011-11-03 00:00:00 Completed [facility] HPV 2011-11-03 00:00:00 Completed [facility] HPV 2011-11-03 00:00:00 Completed [facility] HPV 2011-11-03 00:00:00 Completed [facility] HPV 2011-11-03 00:00:00 Completed [facility] HPV 2011-11-03 00:00:00 Completed [facility] HPV 2011-11-03 00:00:00 Completed [facility] HPV 2011-11-03 00:00:00 Completed [facility] HPV 2011-11-03 00:00:00 Completed [facility] HPV 2011-11-03 00:00:00 Completed [facility] HPV 2011-11-03 00:00:00 Completed [facility] HPV 2011-11-03 00:00:00 Completed [facility] HPV 2011-11-03 00:00:00 Completed [facility] HPV 2011-11-03 00:00:00 Completed [facility] HPV 2011-11-03 00:00:00 Completed [facility] HPV 2011-11-03 00:00:00 Completed [facility] HPV 2011-11-03 00:00:00 Completed [facility] HPV 2011-11-03 00:00:00 Completed [facility] HPV 2011-11-03 00:00:00 Completed [facility] HPV 2011-11-03 00:00:00 Completed [facility] HPV 2011-11-03 00:00:00 Completed [facility] HPV 2011-11-03 00:00:00 Completed [facility] HPV 2011-11-03 00:00:00 Completed [facility] HPV 2011-11-03 00:00:00 Completed [facility] HPV 2011-11-03 00:00:00 Completed [facility] HPV 2011-11-03 00:00:00 Completed [facility] HPV 2011-11-03 00:00:00 Completed [facility] HPV 2011-11-03 00:00:00 Completed [facility] HPV 2011-11-03 00:00:00 Completed [facility] HPV 2011-11-03 00:00:00 Completed [facility] HPV 2011-11-03 00:00:00 Completed [facility] HPV 2011-11-03 00:00:00 Completed [facility] HPV 2011-11-03 00:00:00 Completed [facility] HPV 2011-11-03 00:00:00 Completed [facility] HPV 2011-11-03 00:00:00 Completed [facility] HIB 3 Dose Schedule 2011-07-10 00:00:00 Completed [facility] HIB 3 Dose Schedule 2011-07-10 00:00:00 Completed [facility] HIB 3 Dose Schedule 2011-07-10 00:00:00 Completed [facility] HIB 3 Dose Schedule 2011-07-10 00:00:00 Completed [facility] HIB 3 Dose Schedule 2011-07-10 00:00:00 Completed [facility] HIB 3 Dose Schedule 2011-07-10 00:00:00 Completed [facility] HIB 3 Dose Schedule 2011-07-10 00:00:00 Completed [facility] HIB 3 Dose Schedule 2011-07-10 00:00:00 Completed [facility] HIB 3 Dose Schedule 2011-07-10 00:00:00 Completed [facility] HIB 3 Dose Schedule 2011-07-10 00:00:00 Completed [facility] HIB 3 Dose Schedule 2011-07-10 00:00:00 Completed [facility] HIB 3 Dose Schedule 2011-07-10 00:00:00 Completed [facility] HIB 3 Dose Schedule 2011-07-10 00:00:00 Completed [facility] HIB 3 Dose Schedule 2011-07-10 00:00:00 Completed [facility] HIB 3 Dose Schedule 2011-07-10 00:00:00 Completed [facility] HIB 3 Dose Schedule 2011-07-10 00:00:00 Completed [facility] HIB 3 Dose Schedule 2011-07-10 00:00:00 Completed [facility] HIB 3 Dose Schedule 2011-07-10 00:00:00 Completed [facility] HIB 3 Dose Schedule 2011-07-10 00:00:00 Completed [facility] HIB 3 Dose Schedule 2011-07-10 00:00:00 Completed [facility] HIB 3 Dose Schedule 2011-07-10 00:00:00 Completed [facility] HIB 3 Dose Schedule 2011-07-10 00:00:00 Completed [facility] HIB 3 Dose Schedule 2011-07-10 00:00:00 Completed [facility] HIB 3 Dose Schedule 2011-07-10 00:00:00 Completed [facility] HIB 3 Dose Schedule 2011-07-10 00:00:00 Completed [facility] HIB 3 Dose Schedule 2011-07-10 00:00:00 Completed [facility] HIB 3 Dose Schedule 2011-07-10 00:00:00 Completed [facility] HIB 3 Dose Schedule 2011-07-10 00:00:00 Completed [facility] HIB 3 Dose Schedule 2011-07-10 00:00:00 Completed [facility] HIB 3 Dose Schedule 2011-07-10 00:00:00 Completed [facility] HIB 3 Dose Schedule 2011-07-10 00:00:00 Completed [facility] HIB 3 Dose Schedule 2011-07-10 00:00:00 Completed [facility] HIB 3 Dose Schedule 2011-07-10 00:00:00 Completed [facility] HIB 3 Dose Schedule 2011-07-10 00:00:00 Completed [facility] HIB 3 Dose Schedule 2011-07-10 00:00:00 Completed [facility] HIB 3 Dose Schedule 2011-07-10 00:00:00 Completed [facility] HPV 2011-07-01 00:00:00 Completed [facility] HPV 2011-07-01 00:00:00 Completed [facility] HPV 2011-07-01 00:00:00 Completed [facility] HPV 2011-07-01 00:00:00 Completed [facility] HPV 2011-07-01 00:00:00 Completed [facility] HPV 2011-07-01 00:00:00 Completed [facility] HPV 2011-07-01 00:00:00 Completed [facility] HPV 2011-07-01 00:00:00 Completed [facility] HPV 2011-07-01 00:00:00 Completed [facility] HPV 2011-07-01 00:00:00 Completed [facility] HPV 2011-07-01 00:00:00 Completed [facility] HPV 2011-07-01 00:00:00 Completed [facility] HPV 2011-07-01 00:00:00 Completed [facility] HPV 2011-07-01 00:00:00 Completed [facility] HPV 2011-07-01 00:00:00 Completed [facility] HPV 2011-07-01 00:00:00 Completed [facility] HPV 2011-07-01 00:00:00 Completed [facility] HPV 2011-07-01 00:00:00 Completed [facility] HPV 2011-07-01 00:00:00 Completed [facility] HPV 2011-07-01 00:00:00 Completed [facility] HPV 2011-07-01 00:00:00 Completed [facility] HPV 2011-07-01 00:00:00 Completed [facility] HPV 2011-07-01 00:00:00 Completed [facility] HPV 2011-07-01 00:00:00 Completed [facility] HPV 2011-07-01 00:00:00 Completed [facility] HPV 2011-07-01 00:00:00 Completed [facility] HPV 2011-07-01 00:00:00 Completed [facility] HPV 2011-07-01 00:00:00 Completed [facility] HPV 2011-07-01 00:00:00 Completed [facility] HPV 2011-07-01 00:00:00 Completed [facility] HPV 2011-07-01 00:00:00 Completed [facility] HPV 2011-07-01 00:00:00 Completed [facility] HPV 2011-07-01 00:00:00 Completed [facility] HPV 2011-07-01 00:00:00 Completed [facility] HPV 2011-07-01 00:00:00 Completed [facility] HPV 2011-07-01 00:00:00 Completed [facility] HPV 2011-04-29 00:00:00 Completed [facility] HPV 2011-04-29 00:00:00 Completed [facility] HPV 2011-04-29 00:00:00 Completed [facility] HPV 2011-04-29 00:00:00 Completed [facility] HPV 2011-04-29 00:00:00 Completed [facility] HPV 2011-04-29 00:00:00 Completed [facility] HPV 2011-04-29 00:00:00 Completed [facility] HPV 2011-04-29 00:00:00 Completed [facility] HPV 2011-04-29 00:00:00 Completed [facility] HPV 2011-04-29 00:00:00 Completed [facility] HPV 2011-04-29 00:00:00 Completed [facility] HPV 2011-04-29 00:00:00 Completed [facility] HPV 2011-04-29 00:00:00 Completed [facility] HPV 2011-04-29 00:00:00 Completed [facility] HPV 2011-04-29 00:00:00 Completed [facility] HPV 2011-04-29 00:00:00 Completed [facility] HPV 2011-04-29 00:00:00 Completed [facility] HPV 2011-04-29 00:00:00 Completed [facility] HPV 2011-04-29 00:00:00 Completed [facility] HPV 2011-04-29 00:00:00 Completed [facility] HPV 2011-04-29 00:00:00 Completed [facility] HPV 2011-04-29 00:00:00 Completed [facility] HPV 2011-04-29 00:00:00 Completed [facility] HPV 2011-04-29 00:00:00 Completed [facility] HPV 2011-04-29 00:00:00 Completed [facility] HPV 2011-04-29 00:00:00 Completed [facility] HPV 2011-04-29 00:00:00 Completed [facility] HPV 2011-04-29 00:00:00 Completed [facility] HPV 2011-04-29 00:00:00 Completed [facility] HPV 2011-04-29 00:00:00 Completed [facility] HPV 2011-04-29 00:00:00 Completed [facility] HPV 2011-04-29 00:00:00 Completed [facility] HPV 2011-04-29 00:00:00 Completed [facility] HPV 2011-04-29 00:00:00 Completed [facility] HPV 2011-04-29 00:00:00 Completed [facility] HPV 2011-04-29 00:00:00 Completed [facility] HPV 2010-10-27 00:00:00 Completed [facility] HPV 2010-10-27 00:00:00 Completed [facility] HPV 2010-10-27 00:00:00 Completed [facility] HPV 2010-10-27 00:00:00 Completed [facility] HPV 2010-10-27 00:00:00 Completed [facility] HPV 2010-10-27 00:00:00 Completed [facility] HPV 2010-10-27 00:00:00 Completed [facility] HPV 2010-10-27 00:00:00 Completed [facility] HPV 2010-10-27 00:00:00 Completed [facility] HPV 2010-10-27 00:00:00 Completed [facility] HPV 2010-10-27 00:00:00 Completed [facility] HPV 2010-10-27 00:00:00 Completed [facility] HPV 2010-10-27 00:00:00 Completed [facility] HPV 2010-10-27 00:00:00 Completed [facility] HPV 2010-10-27 00:00:00 Completed [facility] HPV 2010-10-27 00:00:00 Completed [facility] HPV 2010-10-27 00:00:00 Completed [facility] HPV 2010-10-27 00:00:00 Completed [facility] HPV 2010-10-27 00:00:00 Completed [facility] HPV 2010-10-27 00:00:00 Completed [facility] HPV 2010-10-27 00:00:00 Completed [facility] HPV 2010-10-27 00:00:00 Completed [facility] HPV 2010-10-27 00:00:00 Completed [facility] HPV 2010-10-27 00:00:00 Completed [facility] HPV 2010-10-27 00:00:00 Completed [facility] HPV 2010-10-27 00:00:00 Completed [facility] HPV 2010-10-27 00:00:00 Completed [facility] HPV 2010-10-27 00:00:00 Completed [facility] HPV 2010-10-27 00:00:00 Completed [facility] HPV 2010-10-27 00:00:00 Completed [facility] HPV 2010-10-27 00:00:00 Completed [facility] HPV 2010-10-27 00:00:00 Completed [facility] HPV 2010-10-27 00:00:00 Completed [facility] HPV 2010-10-27 00:00:00 Completed [facility] HPV 2010-10-27 00:00:00 Completed [facility] HPV 2010-10-27 00:00:00 Completed [facility] TDAP 2010-03-18 00:00:00 Completed [facility] Varicella (varivax)(chicken pox) 2010-03-18 00:00:00 Completed [facility] Meningococcal Polysaccharide (groups A, C, Y and W-135) conjugate vaccine (MCV4P) 2010-03-18 00:00:00 Completed [facility] TDAP 2010-03-18 00:00:00 Completed [facility] Varicella (varivax)(chicken pox) 2010-03-18 00:00:00 Completed [facility] Meningococcal Polysaccharide (groups A, C, Y and W-135) conjugate vaccine (MCV4P) 2010-03-18 00:00:00 Completed [facility] TDAP 2010-03-18 00:00:00 Completed [facility] Varicella (varivax)(chicken pox) 2010-03-18 00:00:00 Completed [facility] Meningococcal Polysaccharide (groups A, C, Y and W-135) conjugate vaccine (MCV4P) 2010-03-18 00:00:00 Completed [facility] TDAP 2010-03-18 00:00:00 Completed [facility] Varicella (varivax)(chicken pox) 2010-03-18 00:00:00 Completed [facility] Meningococcal Polysaccharide (groups A, C, Y and W-135) conjugate vaccine (MCV4P) 2010-03-18 [facility] Varicella (varivax)(chicken pox) 2010-03-18 00:00:00 Completed [facility] Meningococcal Polysaccharide (groups A, C, Y and W-135) conjugate vaccine (MCV4P) 2010-03-18 00:00:00 Completed [facility] TDAP 2010-03-18 00:00:00 Completed [facility] Varicella (varivax)(chicken pox) 2010-03-18 00:00:00 Completed [facility] Meningococcal Polysaccharide (groups A, C, Y and W-135) conjugate vaccine (MCV4P) 2010-03-18 00:00:00 Completed [facility] TDAP 2010-03-18 00:00:00 Completed [facility] Varicella (varivax)(chicken pox) 2010-03-18 00:00:00 Completed [facility] Meningococcal Polysaccharide (groups A, C, Y and W-135) conjugate vaccine (MCV4P) 2010-03-18 00:00:00 Completed [facility] TDAP 2010-03-18 00:00:00 Completed [facility] Varicella (varivax)(chicken pox) 2010-03-18 00:00:00 Completed [facility] Meningococcal Polysaccharide (groups A, C, Y and W-135) conjugate vaccine (MCV4P) 2010-03-18 00:00:00 Completed [facility] TDAP 2010-03-18 00:00:00 Completed [facility] Meningococcal Polysaccharide (groups A, C, Y and W-135) conjugate vaccine (MCV4P) 2010-03-18 00:00:00 Completed [facility] TDAP 2010-03-18 00:00:00 Completed [facility] Varicella (varivax)(chicken pox) 2010-03-18 00:00:00 Completed [facility] Varicella (varivax)(chicken pox) 2010-03-18 00:00:00 Completed [facility] Meningococcal Polysaccharide (groups A, C, Y and W-135) conjugate vaccine (MCV4P) 2010-03-18 00:00:00 Completed [facility] TDAP 2010-03-18 00:00:00 Completed [facility] Varicella (varivax)(chicken pox) 2010-03-18 00:00:00 Completed [facility] Meningococcal Polysaccharide (groups A, C, Y and W-135) conjugate vaccine (MCV4P) 2010-03-18 00:00:00 Completed [facility] TDAP 2010-03-18 00:00:00 Completed [facility] Varicella (varivax)(chicken pox) 2010-03-18 00:00:00 Completed [facility] Meningococcal Polysaccharide (groups A, C, Y and W-135) conjugate vaccine (MCV4P) 2010-03-18 00:00:00 Completed [facility] TDAP 2010-03-18 00:00:00 Completed [facility] Varicella (varivax)(chicken pox) 2010-03-18 00:00:00 Completed [facility] Meningococcal Polysaccharide (groups A, C, Y and W-135) conjugate vaccine (MCV4P) 2010-03-18 00:00:00 Completed [facility] TDAP 2010-03-18 00:00:00 Completed [facility] Varicella (varivax)(chicken pox) 2010-03-18 00:00:00 Completed [facility] Meningococcal Polysaccharide (groups A, C, Y and W-135) conjugate vaccine (MCV4P) 2010-03-18 00:00:00 Completed [facility] TDAP 2010-03-18 00:00:00 Completed [facility] Varicella (varivax)(chicken pox) 2010-03-18 00:00:00 Completed [facility] Meningococcal Polysaccharide (groups A, C, Y and W-135) conjugate vaccine (MCV4P) 2010-03-18 00:00:00 Completed [facility] TDAP 2010-03-18 00:00:00 Completed [facility] Varicella (varivax)(chicken pox) 2010-03-18 00:00:00 Completed [facility] Meningococcal Polysaccharide (groups A, C, Y and W-135) conjugate vaccine (MCV4P) 2010-03-18 00:00:00 Completed [facility] TDAP 2010-03-18 00:00:00 Completed [facility] Varicella (varivax)(chicken pox) 2010-03-18 00:00:00 Completed [facility] Meningococcal Polysaccharide (groups A, C, Y and W-135) conjugate vaccine (MCV4P) 2010-03-18 00:00:00 Completed [facility] TDAP 2010-03-18 00:00:00 Completed [facility] Varicella (varivax)(chicken pox) 2010-03-18 00:00:00 Completed [facility] Meningococcal Polysaccharide (groups A, C, Y and W-135) conjugate vaccine (MCV4P) 2010-03-18 00:00:00 Completed [facility] TDAP 2010-03-18 00:00:00 Completed [facility] Varicella (varivax)(chicken pox) 2010-03-18 00:00:00 Completed [facility] Meningococcal Polysaccharide (groups A, C, Y and W-135) conjugate vaccine (MCV4P) 2010-03-18 00:00:00 Completed [facility] TDAP 2010-03-18 00:00:00 Completed [facility] Varicella (varivax)(chicken pox) 2010-03-18 00:00:00 Completed [facility] Meningococcal Polysaccharide (groups A, C, Y and W-135) conjugate vaccine (MCV4P) 2010-03-18 00:00:00 Completed [facility] TDAP 2010-03-18 00:00:00 Completed [facility] Varicella (varivax)(chicken pox) 2010-03-18 00:00:00 Completed [facility] Meningococcal Polysaccharide (groups A, C, Y and W-135) conjugate vaccine (MCV4P) 2010-03-18 00:00:00 Completed [facility] Meningococcal Polysaccharide (groups A, C, Y and W-135) conjugate vaccine (MCV4P) 2010-03-18 00:00:00 Completed [facility] TDAP 2010-03-18 00:00:00 Completed [facility] Varicella (varivax)(chicken pox) 2010-03-18 00:00:00 Completed [facility] TDAP 2010-03-18 00:00:00 Completed [facility] Varicella (varivax)(chicken pox) 2010-03-18 00:00:00 Completed [facility] Meningococcal Polysaccharide (groups A, C, Y and W-135) conjugate vaccine (MCV4P) 2010-03-18 00:00:00 Completed [facility] TDAP 2010-03-18 00:00:00 Completed [facility] Varicella (varivax)(chicken pox) 2010-03-18 00:00:00 Completed [facility] Meningococcal Polysaccharide (groups A, C, Y and W-135) conjugate vaccine (MCV4P) 2010-03-18 00:00:00 Completed [facility] TDAP 2010-03-18 00:00:00 Completed [facility] Varicella (varivax)(chicken pox) 2010-03-18 00:00:00 Completed [facility] Meningococcal Polysaccharide (groups A, C, Y and W-135) conjugate vaccine (MCV4P) 2010-03-18 00:00:00 Completed [facility] TDAP 2010-03-18 00:00:00 Completed [facility] Varicella (varivax)(chicken pox) 2010-03-18 00:00:00 Completed [facility] Meningococcal Polysaccharide (groups A, C, Y and W-135) conjugate vaccine (MCV4P) 2010-03-18 00:00:00 Completed [facility] TDAP 2010-03-18 00:00:00 Completed [facility] Varicella (varivax)(chicken pox) 2010-03-18 00:00:00 Completed [facility] Meningococcal Polysaccharide (groups A, C, Y and W-135) conjugate vaccine (MCV4P) 2010-03-18 00:00:00 Completed [facility] TDAP 2010-03-18 00:00:00 Completed [facility] Varicella (varivax)(chicken pox) 2010-03-18 00:00:00 Completed [facility] Meningococcal Polysaccharide (groups A, C, Y and W-135) conjugate vaccine (MCV4P) 2010-03-18 00:00:00 Completed [facility] TDAP 2010-03-18 00:00:00 Completed [facility] Varicella (varivax)(chicken pox) 2010-03-18 00:00:00 Completed [facility] Meningococcal Polysaccharide (groups A, C, Y and W-135) conjugate vaccine (MCV4P) 2010-03-18 00:00:00 Completed [facility] TDAP 2010-03-18 00:00:00 Completed [facility] Varicella (varivax)(chicken pox) 2010-03-18 00:00:00 Completed [facility] Meningococcal Polysaccharide (groups A, C, Y and W-135) conjugate vaccine (MCV4P) 2010-03-18 00:00:00 Completed [facility] TDAP 2010-03-18 00:00:00 Completed [facility] Varicella (varivax)(chicken pox) 2010-03-18 00:00:00 Completed [facility] Meningococcal Polysaccharide (groups A, C, Y and W-135) conjugate vaccine (MCV4P) 2010-03-18 00:00:00 Completed [facility] Meningococcal Polysaccharide (groups A, C, Y and W-135) conjugate vaccine (MCV4P) 2010-03-18 00:00:00 Completed [facility] TDAP 2010-03-18 00:00:00 Completed [facility] Varicella (varivax)(chicken pox) 2010-03-18 00:00:00 Completed [facility] TDAP 2010-03-18 00:00:00 Completed [facility] Meningococcal Polysaccharide (groups A, C, Y and W-135) conjugate vaccine (MCV4P) 2010-03-18 00:00:00 Completed [facility] TDAP 2010-03-18 00:00:00 Completed [facility] Varicella (varivax)(chicken pox) 2010-03-18 00:00:00 Completed [facility] Varicella (varivax)(chicken pox) 2010-03-18 00:00:00 Completed [facility] Meningococcal Polysaccharide (groups A, C, Y and W-135) conjugate vaccine (MCV4P) 2010-03-18 00:00:00 Completed [facility] TDAP 2010-03-18 00:00:00 Completed [facility] Varicella (varivax)(chicken pox) 2010-03-18 00:00:00 Completed [facility] Meningococcal Polysaccharide (groups A, C, Y and W-135) conjugate vaccine (MCV4P) 2010-03-18 00:00:00 Completed [facility] TDAP 2010-03-18 00:00:00 Completed [facility] Varicella (varivax)(chicken pox) 2010-03-18 00:00:00 Completed [facility] Meningococcal Polysaccharide (groups A, C, Y and W-135) conjugate vaccine (MCV4P) 2010-03-18 00:00:00 Completed [facility] HEPATITIS A 2006-05-25 00:00:00 Completed [facility] HEPATITIS A 2006-05-25 00:00:00 Completed [facility] HEPATITIS A 2006-05-25 00:00:00 Completed [facility] HEPATITIS A 2006-05-25 00:00:00 Completed [facility] HEPATITIS A 2006-05-25 00:00:00 Completed [facility] HEPATITIS A 2006-05-25 00:00:00 Completed [facility] HEPATITIS A 2006-05-25 00:00:00 Completed [facility] HEPATITIS A 2006-05-25 00:00:00 Completed [facility] HEPATITIS A 2006-05-25 00:00:00 Completed [facility] HEPATITIS A 2006-05-25 00:00:00 Completed [facility] HEPATITIS A 2006-05-25 00:00:00 Completed [facility] HEPATITIS A 2006-05-25 00:00:00 Completed [facility] HEPATITIS A 2006-05-25 00:00:00 Completed [facility] HEPATITIS A 2006-05-25 00:00:00 Completed [facility] HEPATITIS A 2006-05-25 00:00:00 Completed [facility] HEPATITIS A 2006-05-25 00:00:00 Completed [facility] HEPATITIS A 2006-05-25 00:00:00 Completed [facility] HEPATITIS A 2006-05-25 00:00:00 Completed [facility] HEPATITIS A 2006-05-25 00:00:00 Completed [facility] HEPATITIS A 2006-05-25 00:00:00 Completed [facility] HEPATITIS A 2006-05-25 00:00:00 Completed [facility] HEPATITIS A 2006-05-25 00:00:00 Completed [facility] HEPATITIS A 2006-05-25 00:00:00 Completed [facility] HEPATITIS A 2006-05-25 00:00:00 Completed [facility] HEPATITIS A 2006-05-25 00:00:00 Completed [facility] HEPATITIS A 2006-05-25 00:00:00 Completed [facility] HEPATITIS A 2006-05-25 00:00:00 Completed [facility] HEPATITIS A 2006-05-25 00:00:00 Completed [facility] HEPATITIS A 2006-05-25 00:00:00 Completed [facility] HEPATITIS A 2006-05-25 00:00:00 Completed [facility] HEPATITIS A 2006-05-25 00:00:00 Completed [facility] HEPATITIS A 2006-05-25 00:00:00 Completed [facility] HEPATITIS A 2006-05-25 00:00:00 Completed [facility] HEPATITIS A 2006-05-25 00:00:00 Completed [facility] HEPATITIS A 2006-05-25 00:00:00 Completed [facility] HEPATITIS A 2006-05-25 00:00:00 Completed [facility] HEPATITIS A 2005-05-19 00:00:00 Completed [facility] HEPATITIS A 2005-05-19 00:00:00 Completed [facility] HEPATITIS A 2005-05-19 00:00:00 Completed [facility] HEPATITIS A 2005-05-19 00:00:00 Completed [facility] HEPATITIS A 2005-05-19 00:00:00 Completed [facility] HEPATITIS A 2005-05-19 00:00:00 Completed [facility] HEPATITIS A 2005-05-19 00:00:00 Completed [facility] HEPATITIS A 2005-05-19 00:00:00 Completed [facility] HEPATITIS A 2005-05-19 00:00:00 Completed [facility] HEPATITIS A 2005-05-19 00:00:00 Completed [facility] HEPATITIS A 2005-05-19 00:00:00 Completed [facility] HEPATITIS A 2005-05-19 00:00:00 Completed [facility] HEPATITIS A 2005-05-19 00:00:00 Completed [facility] HEPATITIS A 2005-05-19 00:00:00 Completed [facility] HEPATITIS A 2005-05-19 00:00:00 Completed [facility] HEPATITIS A 2005-05-19 00:00:00 Completed [facility] HEPATITIS A 2005-05-19 00:00:00 Completed [facility] HEPATITIS A 2005-05-19 00:00:00 Completed [facility] HEPATITIS A 2005-05-19 00:00:00 Completed [facility] HEPATITIS A 2005-05-19 00:00:00 Completed [facility] HEPATITIS A 2005-05-19 00:00:00 Completed [facility] HEPATITIS A 2005-05-19 00:00:00 Completed [facility] HEPATITIS A 2005-05-19 00:00:00 Completed [facility] HEPATITIS A 2005-05-19 00:00:00 Completed [facility] HEPATITIS A 2005-05-19 00:00:00 Completed [facility] HEPATITIS A 2005-05-19 00:00:00 Completed [facility] HEPATITIS A 2005-05-19 00:00:00 Completed [facility] HEPATITIS A 2005-05-19 00:00:00 Completed [facility] HEPATITIS A 2005-05-19 00:00:00 Completed [facility] HEPATITIS A 2005-05-19 00:00:00 Completed [facility] HEPATITIS A 2005-05-19 00:00:00 Completed [facility] HEPATITIS A 2005-05-19 00:00:00 Completed [facility] HEPATITIS A 2005-05-19 00:00:00 Completed [facility] HEPATITIS A 2005-05-19 00:00:00 Completed [facility] HEPATITIS A 2005-05-19 00:00:00 Completed [facility] HEPATITIS A 2005-05-19 00:00:00 Completed [facility] Varicella (varivax)(chicken pox) 2001-06-19 00:00:00 Completed [facility] Varicella (varivax)(chicken pox) 2001-06-19 00:00:00 Completed [facility] Varicella (varivax)(chicken pox) 2001-06-19 00:00:00 Completed [facility] Varicella (varivax)(chicken pox) 2001-06-19 00:00:00 Completed [facility] Varicella (varivax)(chicken pox) 2001-06-19 00:00:00 Completed [facility] Varicella (varivax)(chicken pox) 2001-06-19 00:00:00 Completed [facility] Varicella (varivax)(chicken pox) 2001-06-19 00:00:00 Completed [facility] Varicella (varivax)(chicken pox) 2001-06-19 00:00:00 Completed [facility] Varicella (varivax)(chicken pox) 2001-06-19 00:00:00 Completed [facility] Varicella (varivax)(chicken pox) 2001-06-19 00:00:00 Completed [facility] Varicella (varivax)(chicken pox) 2001-06-19 00:00:00 Completed [facility] Varicella (varivax)(chicken pox) 2001-06-19 00:00:00 Completed [facility] Varicella (varivax)(chicken pox) 2001-06-19 00:00:00 Completed [facility] Varicella (varivax)(chicken pox) 2001-06-19 00:00:00 Completed [facility] Varicella (varivax)(chicken pox) 2001-06-19 00:00:00 Completed [facility] Varicella (varivax)(chicken pox) 2001-06-19 00:00:00 Completed [facility] Varicella (varivax)(chicken pox) 2001-06-19 00:00:00 Completed [facility] Varicella (varivax)(chicken pox) 2001-06-19 00:00:00 Completed [facility] Varicella (varivax)(chicken pox) 2001-06-19 00:00:00 Completed [facility] Varicella (varivax)(chicken pox) 2001-06-19 00:00:00 Completed [facility] Varicella (varivax)(chicken pox) 2001-06-19 00:00:00 Completed [facility] Varicella (varivax)(chicken pox) 2001-06-19 00:00:00 Completed [facility] Varicella (varivax)(chicken pox) 2001-06-19 00:00:00 Completed [facility] Varicella (varivax)(chicken pox) 2001-06-19 00:00:00 Completed [facility] Varicella (varivax)(chicken pox) 2001-06-19 00:00:00 Completed [facility] Varicella (varivax)(chicken pox) 2001-06-19 00:00:00 Completed [facility] Varicella (varivax)(chicken pox) 2001-06-19 00:00:00 Completed [facility] Varicella (varivax)(chicken pox) 2001-06-19 00:00:00 Completed [facility] Varicella (varivax)(chicken pox) 2001-06-19 00:00:00 Completed [facility] Varicella (varivax)(chicken pox) 2001-06-19 00:00:00 Completed [facility] Varicella (varivax)(chicken pox) 2001-06-19 00:00:00 Completed [facility] Varicella (varivax)(chicken pox) 2001-06-19 00:00:00 Completed [facility] Varicella (varivax)(chicken pox) 2001-06-19 00:00:00 Completed [facility] Varicella (varivax)(chicken pox) 2001-06-19 00:00:00 Completed [facility] Varicella (varivax)(chicken pox) 2001-06-19 00:00:00 Completed [facility] Varicella (varivax)(chicken pox) 2001-06-19 00:00:00 Completed [facility] DTAP 1998 00:00:00 Completed [facility] HIB 3 Dose Schedule 1998 00:00:00 Completed [facility] Polio (IPV/OPV) 1998 00:00:00 Completed [facility] DTAP 1998 00:00:00 Completed [facility] HIB 3 Dose Schedule 1998 00:00:00 Completed [facility] Polio (IPV/OPV) 1998 00:00:00 Completed [facility] DTAP 1998 00:00:00 Completed [facility] HIB 3 Dose Schedule 1998 00:00:00 Completed [facility] Polio (IPV/OPV) 1998 00:00:00 Completed [facility] DTAP 1998 00:00:00 Completed [facility] HIB 3 Dose Schedule 1998 00:00:00 Completed [facility] Polio (IPV/OPV) 1998 00:00:00 Completed [facility] DTAP 1998 00:00:00 Completed [facility] DTAP 1998 00:00:00 Completed [facility] HIB 3 Dose Schedule 1998 00:00:00 Completed [facility] HIB 3 Dose Schedule 1998 00:00:00 Completed [facility] Polio (IPV/OPV) 1998 00:00:00 Completed [facility] DTAP 1998 00:00:00 Completed [facility] HIB 3 Dose Schedule 1998 00:00:00 Completed [facility] Polio (IPV/OPV) 1998 00:00:00 Completed [facility] DTAP 1998 00:00:00 Completed [facility] HIB 3 Dose Schedule 1998 00:00:00 Completed [facility] Polio (IPV/OPV) 1998 00:00:00 Completed [facility] Polio (IPV/OPV) 1998 00:00:00 Completed [facility] DTAP 1998 00:00:00 Completed [facility] HIB 3 Dose Schedule 1998 00:00:00 Completed [facility] Polio (IPV/OPV) 1998 00:00:00 Completed [facility] DTAP 1998 00:00:00 Completed [facility] HIB 3 Dose Schedule 1998 00:00:00 Completed [facility] Polio (IPV/OPV) 1998 00:00:00 Completed [facility] DTAP 1998 00:00:00 Completed [facility] HIB 3 Dose Schedule 1998 00:00:00 Completed [facility] Polio (IPV/OPV) 1998 00:00:00 Completed [facility] DTAP 1998 00:00:00 Completed [facility] HIB 3 Dose Schedule 1998 00:00:00 Completed [facility] Polio (IPV/OPV) 1998 00:00:00 Completed [facility] DTAP 1998 00:00:00 Completed [facility] HIB 3 Dose Schedule 1998 00:00:00 Completed [facility] Polio (IPV/OPV) 1998 00:00:00 Completed [facility] DTAP 1998 00:00:00 Completed [facility] HIB 3 Dose Schedule 1998 00:00:00 Completed [facility] Polio (IPV/OPV) 1998 00:00:00 Completed [facility] DTAP 1998 00:00:00 Completed [facility] HIB 3 Dose Schedule 1998 00:00:00 Completed [facility] Polio (IPV/OPV) 1998 00:00:00 Completed [facility] DTAP 1998 00:00:00 Completed [facility] HIB 3 Dose Schedule 1998 00:00:00 Completed [facility] Polio (IPV/OPV) 1998 00:00:00 Completed [facility] DTAP 1998 00:00:00 Completed [facility] HIB 3 Dose Schedule 1998 00:00:00 Completed [facility] Polio (IPV/OPV) 1998 00:00:00 Completed [facility] DTAP 1998 00:00:00 Completed [facility] HIB 3 Dose Schedule 1998 00:00:00 Completed [facility] DTAP 1998 00:00:00 Completed [facility] Polio (IPV/OPV) 1998 00:00:00 Completed [facility] HIB 3 Dose Schedule 1998 00:00:00 Completed [facility] DTAP 1998 00:00:00 Completed [facility] HIB 3 Dose Schedule 1998 00:00:00 Completed [facility] Polio (IPV/OPV) 1998 00:00:00 Completed [facility] DTAP 1998 00:00:00 Completed [facility] HIB 3 Dose Schedule 1998 00:00:00 Completed [facility] Polio (IPV/OPV) 1998 00:00:00 Completed [facility] DTAP 1998 00:00:00 Completed [facility] HIB 3 Dose Schedule 1998 00:00:00 Completed [facility] Polio (IPV/OPV) 1998 00:00:00 Completed [facility] Polio (IPV/OPV) 1998 00:00:00 Completed [facility] DTAP 1998 00:00:00 Completed [facility] HIB 3 Dose Schedule 1998 00:00:00 Completed [facility] Polio (IPV/OPV) 1998 00:00:00 Completed [facility] DTAP 1998 00:00:00 Completed [facility] HIB 3 Dose Schedule 1998 00:00:00 Completed [facility] Polio (IPV/OPV) 1998 00:00:00 Completed [facility] DTAP 1998 00:00:00 Completed [facility] HIB 3 Dose Schedule 1998 00:00:00 Completed [facility] Polio (IPV/OPV) 1998 00:00:00 Completed [facility] DTAP 1998 00:00:00 Completed [facility] HIB 3 Dose Schedule 1998 00:00:00 Completed [facility] Polio (IPV/OPV) 1998 00:00:00 Completed [facility] DTAP 1998 00:00:00 Completed [facility] HIB 3 Dose Schedule 1998 00:00:00 Completed [facility] Polio (IPV/OPV) 1998 00:00:00 Completed [facility] DTAP 1998 00:00:00 Completed [facility] HIB 3 Dose Schedule 1998 00:00:00 Completed [facility] Polio (IPV/OPV) 1998 00:00:00 Completed [facility] DTAP 1998 00:00:00 Completed [facility] HIB 3 Dose Schedule 1998 00:00:00 Completed [facility] DTAP 1998 00:00:00 Completed [facility] HIB 3 Dose Schedule 1998 00:00:00 Completed [facility] Polio (IPV/OPV) 1998 00:00:00 Completed [facility] DTAP 1998 00:00:00 Completed [facility] HIB 3 Dose Schedule 1998 00:00:00 Completed [facility] Polio (IPV/OPV) 1998 00:00:00 Completed [facility] DTAP 1998 00:00:00 Completed [facility] HIB 3 Dose Schedule 1998 00:00:00 Completed [facility] Polio (IPV/OPV) 1998 00:00:00 Completed [facility] Polio (IPV/OPV) 1998 00:00:00 Completed [facility] DTAP 1998 00:00:00 Completed [facility] HIB 3 Dose Schedule 1998 00:00:00 Completed [facility] Polio (IPV/OPV) 1998 00:00:00 Completed [facility] DTAP 1998 00:00:00 Completed [facility] HIB 3 Dose Schedule 1998 00:00:00 Completed [facility] Polio (IPV/OPV) 1998 00:00:00 Completed [facility] DTAP 1998 00:00:00 Completed [facility] HIB 3 Dose Schedule 1998 00:00:00 Completed [facility] Polio (IPV/OPV) 1998 00:00:00 Completed [facility] DTAP 1998 00:00:00 Completed [facility] HIB 3 Dose Schedule 1998 00:00:00 Completed [facility] Polio (IPV/OPV) 1998 00:00:00 Completed [facility] DTAP 1998 00:00:00 Completed [facility] Hep B, Adol or Pedi Dosage 1998 00:00:00 Completed [facility] Polio (IPV/OPV) 1998 00:00:00 Completed [facility] DTAP 1998 00:00:00 Completed [facility] Hep B, Adol or Pedi Dosage 1998 00:00:00 Completed [facility] Polio (IPV/OPV) 1998 00:00:00 Completed [facility] DTAP 1998 00:00:00 Completed [facility] Hep B, Adol or Pedi Dosage 1998 00:00:00 Completed [facility] Polio (IPV/OPV) 1998 00:00:00 Completed [facility] DTAP 1998 00:00:00 Completed [facility] Hep B, Adol or Pedi Dosage 1998 00:00:00 Completed [facility] DTAP 1998 00:00:00 Completed [facility] Polio (IPV/OPV) 1998 00:00:00 Completed [facility] DTAP 1998 00:00:00 Completed [facility] Hep B, Adol or Pedi Dosage 1998 00:00:00 Completed [facility] Polio (IPV/OPV) 1998 00:00:00 Completed [facility] DTAP 1998 00:00:00 Completed [facility] Hep B, Adol or Pedi Dosage 1998 00:00:00 Completed [facility] Polio (IPV/OPV) 1998 00:00:00 Completed [facility] Hep B, Adol or Pedi Dosage 1998 00:00:00 Completed [facility] DTAP 1998 00:00:00 Completed [facility] Hep B, Adol or Pedi Dosage 1998 00:00:00 Completed [facility] Polio (IPV/OPV) 1998 00:00:00 Completed [facility] Polio (IPV/OPV) 1998 00:00:00 Completed [facility] DTAP 1998 00:00:00 Completed [facility] Hep B, Adol or Pedi Dosage 1998 00:00:00 Completed [facility] Polio (IPV/OPV) 1998 00:00:00 Completed [facility] DTAP 1998 00:00:00 Completed [facility] Hep B, Adol or Pedi Dosage 1998 00:00:00 Completed [facility] Polio (IPV/OPV) 1998 00:00:00 Completed [facility] DTAP 1998 00:00:00 Completed [facility] Hep B, Adol or Pedi Dosage 1998 00:00:00 Completed [facility] Polio (IPV/OPV) 1998 00:00:00 Completed [facility] DTAP 1998 00:00:00 Completed [facility] Hep B, Adol or Pedi Dosage 1998 00:00:00 Completed [facility] Polio (IPV/OPV) 1998 00:00:00 Completed [facility] DTAP 1998 00:00:00 Completed [facility] Hep B, Adol or Pedi Dosage 1998 00:00:00 Completed [facility] Polio (IPV/OPV) 1998 00:00:00 Completed [facility] DTAP 1998 00:00:00 Completed [facility] Hep B, Adol or Pedi Dosage 1998 00:00:00 Completed [facility] Polio (IPV/OPV) 1998 00:00:00 Completed [facility] DTAP 1998 00:00:00 Completed [facility] Hep B, Adol or Pedi Dosage 1998 00:00:00 Completed [facility] Polio (IPV/OPV) 1998 00:00:00 Completed [facility] DTAP 1998 00:00:00 Completed [facility] Hep B, Adol or Pedi Dosage 1998 00:00:00 Completed [facility] Polio (IPV/OPV) 1998 00:00:00 Completed [facility] DTAP 1998 00:00:00 Completed [facility] Hep B, Adol or Pedi Dosage 1998 00:00:00 Completed [facility] Polio (IPV/OPV) 1998 00:00:00 Completed [facility] DTAP 1998 00:00:00 Completed [facility] DTAP 1998 00:00:00 Completed [facility] Hep B, Adol or Pedi Dosage 1998 00:00:00 Completed [facility] Polio (IPV/OPV) 1998 00:00:00 Completed [facility] DTAP 1998 00:00:00 Completed [facility] Hep B, Adol or Pedi Dosage 1998 00:00:00 Completed [facility] Polio (IPV/OPV) 1998 00:00:00 Completed [facility] Hep B, Adol or Pedi Dosage 1998 00:00:00 Completed [facility] DTAP 1998 00:00:00 Completed [facility] Hep B, Adol or Pedi Dosage 1998 00:00:00 Completed [facility] Polio (IPV/OPV) 1998 00:00:00 Completed [facility] Polio (IPV/OPV) 1998 00:00:00 Completed [facility] DTAP 1998 00:00:00 Completed [facility] Hep B, Adol or Pedi Dosage 1998 00:00:00 Completed [facility] Polio (IPV/OPV) 1998 00:00:00 Completed [facility] DTAP 1998 00:00:00 Completed [facility] Hep B, Adol or Pedi Dosage 1998 00:00:00 Completed [facility] Polio (IPV/OPV) 1998 00:00:00 Completed [facility] DTAP 1998 00:00:00 Completed [facility] Hep B, Adol or Pedi Dosage 1998 00:00:00 Completed [facility] Polio (IPV/OPV) 1998 00:00:00 Completed [facility] DTAP 1998 00:00:00 Completed [facility] Hep B, Adol or Pedi Dosage 1998 00:00:00 Completed [facility] Polio (IPV/OPV) 1998 00:00:00 Completed [facility] DTAP 1998 00:00:00 Completed [facility] Hep B, Adol or Pedi Dosage 1998 00:00:00 Completed [facility] Polio (IPV/OPV) 1998 00:00:00 Completed [facility] DTAP 1998 00:00:00 Completed [facility] Hep B, Adol or Pedi Dosage 1998 00:00:00 Completed [facility] Polio (IPV/OPV) 1998 00:00:00 Completed [facility] DTAP 1998 00:00:00 Completed [facility] DTAP 1998 00:00:00 Completed [facility] Hep B, Adol or Pedi Dosage 1998 00:00:00 Completed [facility] Polio (IPV/OPV) 1998 00:00:00 Completed [facility] DTAP 1998 00:00:00 Completed [facility] Hep B, Adol or Pedi Dosage 1998 00:00:00 Completed [facility] Polio (IPV/OPV) 1998 00:00:00 Completed [facility] Hep B, Adol or Pedi Dosage 1998 00:00:00 Completed [facility] DTAP 1998 00:00:00 Completed [facility] Hep B, Adol or Pedi Dosage 1998 00:00:00 Completed [facility] Polio (IPV/OPV) 1998 00:00:00 Completed [facility] DTAP 1998 00:00:00 Completed [facility] Hep B, Adol or Pedi Dosage 1998 00:00:00 Completed [facility] Polio (IPV/OPV) 1998 00:00:00 Completed [facility] Polio (IPV/OPV) 1998 00:00:00 Completed [facility] DTAP 1998 00:00:00 Completed [facility] Hep B, Adol or Pedi Dosage 1998 00:00:00 Completed [facility] Polio (IPV/OPV) 1998 00:00:00 Completed [facility] DTAP 1998 00:00:00 Completed [facility] Hep B, Adol or Pedi Dosage 1998 00:00:00 Completed [facility] Polio (IPV/OPV) 1998 00:00:00 Completed [facility] DTAP 1998 00:00:00 Completed [facility] Hep B, Adol or Pedi Dosage 1998 00:00:00 Completed [facility] Polio (IPV/OPV) 1998 00:00:00 Completed [facility] DTAP 1998 00:00:00 Completed [facility] Hep B, Adol or Pedi Dosage 1998 00:00:00 Completed [facility] Polio (IPV/OPV) 1998 00:00:00 Completed [facility] Hep B, Adol or Pedi Dosage 1998 00:00:00 Completed [facility] Hep B, Adol or Pedi Dosage 1998 00:00:00 Completed [facility] Hep B, Adol or Pedi Dosage 1998 00:00:00 Completed [facility] Hep B, Adol or Pedi Dosage 1998 00:00:00 Completed [facility] Hep B, Adol or Pedi Dosage 1998 00:00:00 Completed [facility] Hep B, Adol or Pedi Dosage 1998 00:00:00 Completed [facility] Hep B, Adol or Pedi Dosage 1998 00:00:00 Completed [facility] Hep B, Adol or Pedi Dosage 1998 00:00:00 Completed [facility] Hep B, Adol or Pedi Dosage 1998 00:00:00 Completed [facility] Hep B, Adol or Pedi Dosage 1998 00:00:00 Completed [facility] Hep B, Adol or Pedi Dosage 1998 00:00:00 Completed [facility] Hep B, Adol or Pedi Dosage 1998 00:00:00 Completed [facility] Hep B, Adol or Pedi Dosage 1998 00:00:00 Completed [facility] Hep B, Adol or Pedi Dosage 1998 00:00:00 Completed [facility] Hep B, Adol or Pedi Dosage 1998 00:00:00 Completed [facility] Hep B, Adol or Pedi Dosage 1998 00:00:00 Completed [facility] Hep B, Adol or Pedi Dosage 1998 00:00:00 Completed [facility] Hep B, Adol or Pedi Dosage 1998 00:00:00 Completed [facility] Hep B, Adol or Pedi Dosage 1998 00:00:00 Completed [facility] Hep B, Adol or Pedi Dosage 1998 00:00:00 Completed [facility] Hep B, Adol or Pedi Dosage 1998 00:00:00 Completed [facility] Hep B, Adol or Pedi Dosage 1998 00:00:00 Completed [facility] Hep B, Adol or Pedi Dosage 1998 00:00:00 Completed [facility] Hep B, Adol or Pedi Dosage 1998 00:00:00 Completed [facility] Hep B, Adol or Pedi Dosage 1998 00:00:00 Completed [facility] Hep B, Adol or Pedi Dosage 1998 00:00:00 Completed [facility] Hep B, Adol or Pedi Dosage 1998 00:00:00 Completed [facility] Hep B, Adol or Pedi Dosage 1998 00:00:00 Completed [facility] Hep B, Adol or Pedi Dosage 1998 00:00:00 Completed [facility] Hep B, Adol or Pedi Dosage 1998 00:00:00 Completed [facility] Hep B, Adol or Pedi Dosage 1998 00:00:00 Completed [facility] Hep B, Adol or Pedi Dosage 1998 00:00:00 Completed [facility] Hep B, Adol or Pedi Dosage 1998 00:00:00 Completed [facility] Hep B, Adol or Pedi Dosage 1998 00:00:00 Completed [facility] Hep B, Adol or Pedi Dosage 1998 00:00:00 Completed [facility] Hep B, Adol or Pedi Dosage 1998 00:00:00 Completed [facility] TDAP (ADACEL) VACCINE Unknown Completed [facility] DTAP Unknown Completed [facility] DTAP Unknown Completed [facility] HIB 3 Dose Schedule Unknown Completed [facility] HIB 3 Dose Schedule Unknown Completed [facility] HEPATITIS A Unknown Completed [facility] HEPATITIS A Unknown Completed [facility] Hep B, Adol or Pedi Dosage Unknown Completed [facility] Hep B, Adol or Pedi Dosage Unknown Completed [facility] HPV Unknown Completed [facility] HPV Unknown Completed [facility] HPV Unknown Completed [facility] HPV Unknown Completed [facility] Meningococcal Polysaccharide (groups A, C, Y and W-135) conjugate vaccine (MCV4P) Unknown Completed [facility] Polio (IPV/OPV) Unknown Completed [facility] Polio (IPV/OPV) Unknown Completed [facility] TDAP Unknown Completed [facility] TDAP Unknown Completed [facility] Varicella (varivax)(chicken pox) Unknown Completed [facility] Varicella (varivax)(chicken pox) Unknown Completed [facility] Influenza Virus Vaccine Quad IM, Preserv and ABX Free 6 MO-64 YRS (FLUCELVAX) Unknown Completed [facility] TDAP Unknown Completed [facility] TDAP (ADACEL) VACCINE Unknown Completed [facility] DTAP Unknown Completed [facility] DTAP Unknown Completed [facility] HIB 3 Dose Schedule Unknown Completed [facility] HIB 3 Dose Schedule Unknown Completed [facility] HEPATITIS A Unknown Completed [facility] HEPATITIS A Unknown Completed [facility] Hep B, Adol or Pedi Dosage Unknown Completed [facility] Hep B, Adol or Pedi Dosage Unknown Completed [facility] HPV Unknown Completed [facility] HPV Unknown Completed [facility] HPV Unknown Completed [facility] HPV Unknown Completed [facility] Meningococcal Polysaccharide (groups A, C, Y and W-135) conjugate vaccine (MCV4P) Unknown Completed [facility] Polio (IPV/OPV) Unknown Completed [facility] Polio (IPV/OPV) Unknown Completed [facility] TDAP Unknown Completed [facility] TDAP Unknown Completed [facility] Varicella (varivax)(chicken pox) Unknown Completed [facility] Varicella (varivax)(chicken pox) Unknown Completed [facility] Influenza Virus Vaccine Quad IM, Preserv and ABX Free 6 MO-64 YRS (FLUCELVAX) Unknown Completed [facility] TDAP Unknown Completed [facility] TDAP (ADACEL) VACCINE Unknown Completed [facility] DTAP Unknown Completed [facility] DTAP Unknown Completed [facility] HIB 3 Dose Schedule Unknown Completed [facility] HIB 3 Dose Schedule Unknown Completed [facility] HEPATITIS A Unknown Completed [facility] HEPATITIS A Unknown Completed [facility] Hep B, Adol or Pedi Dosage Unknown Completed [facility] Hep B, Adol or Pedi Dosage Unknown Completed [facility] HPV Unknown Completed [facility] HPV Unknown Completed [facility] HPV Unknown Completed [facility] HPV Unknown Completed [facility] Meningococcal Polysaccharide (groups A, C, Y and W-135) conjugate vaccine (MCV4P) Unknown Completed [facility] Polio (IPV/OPV) Unknown Completed [facility] Polio (IPV/OPV) Unknown Completed [facility] TDAP Unknown Completed [facility] TDAP Unknown Completed [facility] Varicella (varivax)(chicken pox) Unknown Completed [facility] Varicella (varivax)(chicken pox) Unknown Completed [facility] Influenza Virus Vaccine Quad IM, Preserv and ABX Free 6 MO-64 YRS (FLUCELVAX) Unknown Completed [facility] TDAP Unknown Completed [facility] TDAP (ADACEL) VACCINE Unknown Completed [facility] DTAP Unknown Completed [facility] DTAP Unknown Completed [facility] HIB 3 Dose Schedule Unknown Completed [facility] HIB 3 Dose Schedule Unknown Completed [facility] HEPATITIS A Unknown Completed [facility] HEPATITIS A Unknown Completed [facility] Hep B, Adol or Pedi Dosage Unknown Completed [facility] Hep B, Adol or Pedi Dosage Unknown Completed [facility] HPV Unknown Completed [facility] HPV Unknown Completed [facility] HPV Unknown Completed [facility] HPV Unknown Completed [facility] Meningococcal Polysaccharide (groups A, C, Y and W-135) conjugate vaccine (MCV4P) Unknown Completed [facility] Polio (IPV/OPV) Unknown [facility]) [facility] Com[facility] TDAP Unknown Completed [facility] TDAP Unknown Completed [facility] Varicella (varivax)(chicken pox) Unknown Completed [facility] Varicella (varivax)(chicken pox) Unknown Completed [facility] Influenza Virus Vaccine Quad IM, Preserv and ABX Free 6 MO-64 YRS (FLUCELVAX) Unknown Completed [facility] TDAP (ADACEL) VACCINE Unknown Completed [facility] DTAP Unknown Completed [facility] DTAP Unknown Completed [facility] HIB 3 Dose Schedule Unknown Completed [facility] HIB 3 Dose Schedule Unknown Completed [facility] HEPATITIS A Unknown Completed [facility] HEPATITIS A Unknown Completed [facility] Hep B, Adol or Pedi Dosage Unknown Completed [facility] Hep B, Adol or Pedi Dosage Unknown Completed [facility] HPV Unknown Completed [facility] HPV Unknown Completed [facility] HPV Unknown Completed [facility] HPV Unknown Completed [facility] Meningococcal Polysaccharide (groups A, C, Y and W-135) conjugate vaccine (MCV4P) Unknown Completed [facility] Polio (IPV/OPV) Unknown [facility]) [facility] Com[facility] TDAP Unknown Completed [facility] TDAP Unknown Completed [facility] Varicella (varivax)(chicken pox) Unknown Completed [facility] Varicella (varivax)(chicken pox) Unknown Completed [facility] Influenza Virus Vaccine Quad IM, Preserv and ABX Free 6 MO-64 YRS (FLUCELVAX) Unknown Completed [facility] TDAP Unknown Completed [facility] Tetanus/Diptheria Unknown [facility] Completed [facility] IPV Unknown Completed [facility] Haemophilus influenzae type b vaccine, conjugate unspecified formulation Unknown Completed [facility] Haemophilus influenzae type b vaccine, conjugate unspecified formulation Unknown Completed [facility] DTaP, Unspecified Formulation Unknown Completed [facility] DTaP, Unspecified Formulation Unknown Completed [facility] TDAP (ADACEL) VACCINE Unknown Completed [facility] DTAP Unknown Completed [facility] DTAP Unknown Completed [facility] HIB 3 Dose Schedule Unknown Completed [facility] HIB 3 Dose Schedule Unknown Completed [facility] HEPATITIS A Unknown Completed [facility] HEPATITIS A Unknown Completed [facility] Hep B, Adol or Pedi Dosage Unknown Completed [facility] Hep B, Adol or Pedi Dosage Unknown Completed [facility] HPV Unknown Completed [facility] HPV Unknown Completed [facility] HPV Unknown Completed [facility] HPV Unknown Completed [facility] Meningococcal Polysaccharide (groups A, C, Y and W-135) conjugate vaccine (MCV4P) Unknown Completed [facility] Polio (IPV/OPV) Unknown Completed [facility] Polio (IPV/OPV) Unknown Completed [facility] TDAP Unknown Completed [facility] TDAP Unknown Completed [facility] Varicella (varivax)(chicken pox) Unknown Completed [facility] Varicella (varivax)(chicken pox) Unknown Completed [facility] Influenza Virus Vaccine Quad IM, Preserv and ABX Free 6 MO-64 YRS (FLUCELVAX) Unknown Completed [facility] TDAP Unknown Completed [facility] Tetanus/Diptheria Unknown [facility] Completed [facility] IPV Unknown Completed [facility] Haemophilus influenzae type b vaccine, conjugate unspecified formulation Unknown Completed [facility] Haemophilus influenzae type b vaccine, conjugate unspecified formulation Unknown Completed [facility] DTaP, Unspecified Formulation Unknown Completed [facility] DTaP, Unspecified Formulation Unknown Completed [facility] TDAP (ADACEL) VACCINE Unknown Completed [facility] DTAP Unknown Completed [facility] DTAP Unknown Completed [facility] HIB 3 Dose Schedule Unknown Completed [facility] HIB 3 Dose Schedule Unknown Completed [facility] HEPATITIS A Unknown Completed [facility] HEPATITIS A Unknown Completed [facility] Hep B, Adol or Pedi Dosage Unknown Completed [facility] Hep B, Adol or Pedi Dosage Unknown Completed [facility] HPV Unknown Completed [facility] HPV Unknown Completed [facility] HPV Unknown Completed [facility] HPV Unknown Completed [facility] Meningococcal Polysaccharide (groups A, C, Y and W-135) conjugate vaccine (MCV4P) Unknown Completed [facility] Polio (IPV/OPV) Unknown Completed [facility] Polio (IPV/OPV) Unknown Completed [facility] TDAP Unknown Completed [facility] TDAP Unknown Completed [facility] Varicella (varivax)(chicken pox) Unknown Completed [facility] Varicella (varivax)(chicken pox) Unknown Completed [facility] Influenza Virus Vaccine Quad IM, Preserv and ABX Free 6 MO-64 YRS (FLUCELVAX) Unknown Completed [facility] TDAP Unknown Completed [facility] Tetanus/Diptheria Unknown Completed Un [facility] IPV Unknown Completed [facility] IPV Unknown Completed [facility] Haemophilus influenzae type b vaccine, conjugate unspecified formulation Unknown Completed [facility] Haemophilus influenzae type b vaccine, conjugate unspecified formulation Unknown Completed [facility] DTaP, Unspecified Formulation Unknown Completed [facility] DTaP, Unspecified Formulation Unknown Completed [facility] TDAP (ADACEL) VACCINE Unknown Completed [facility] DTAP Unknown Completed [facility] DTAP Unknown Completed [facility] HIB 3 Dose Schedule Unknown Completed [facility] HIB 3 Dose Schedule Unknown Completed [facility] HEPATITIS A Unknown Completed [facility]PATITIS A [facility] Hep B, Adol or Pedi Dosage Unknown Completed [facility] Hep B, Adol or Pedi Dosage Unknown Completed [facility] HPV Unknown Completed [facility] HPV Unknown Completed [facility] HPV Unknown Completed [facility] HPV Unknown Completed [facility] Meningococcal Polysaccharide (groups A, C, Y and W-135) conjugate vaccine (MCV4P) Unknown Completed [facility] Polio (IPV/OPV) Unknown Completed [facility] Polio (IPV/OPV) Unknown Completed [facility] TDAP Unknown Completed [facility] TDAP Unknown Completed [facility] Varicella (varivax)(chicken pox) Unknown Completed [facility] Varicella (varivax)(chicken pox) Unknown Completed [facility] Influenza Virus Vaccine Quad IM, Preserv and ABX Free 6 MO-64 YRS (FLUCELVAX) Unknown Completed [facility] TDAP Unknown Completed [facility]anus[facility]Diptheria [facility] IPV Unknown Completed [facility] Haemophilus influenzae type b vaccine, conjugate unspecified formulation Unknown Completed [facility] Haemophilus influenzae type b vaccine, conjugate unspecified formulation Unknown Completed [facility] DTaP, Unspecified Formulation Unknown Completed [facility] DTaP, Unspecified Formulation Unknown Completed [facility] TDAP (ADACEL) VACCINE Unknown Completed [facility] DTAP Unknown Completed [facility] DTAP Unknown Completed [facility] HIB 3 Dose Schedule Unknown Completed [facility] HIB 3 Dose Schedule Unknown Completed [facility] HEPATITIS A Unknown Com[facility]PATITIS A Unknown [facility] [place] [facility] [place] [facility] Hep B, Adol or Pedi Dosage Unknown Completed [facility] Hep B, Adol or Pedi Dosage Unknown Completed [facility] HPV Unknown Completed [facility] HPV Unknown Completed [facility] HPV Unknown Completed [facility] HPV Unknown Completed [facility] Meningococcal Polysaccharide (groups A, C, Y and W-135) conjugate vaccine (MCV4P) Unknown Completed [facility] Polio (IPV/OPV) Unknown Completed [facility] Polio (IPV/OPV) Unknown Completed [facility] TDAP Unknown Completed [facility] TDAP Unknown Completed [facility] Varicella (varivax)(chicken pox) Unknown Completed [facility] Varicella (varivax)(chicken pox) Unknown Completed [facility] Influenza Virus Vaccine Quad IM, Preserv and ABX Free 6 MO-64 YRS (FLUCELVAX) Unknown Completed [facility] TDAP Unknown Completed [facility] Tetanus/Diptheria Unknown Completed [facility] IPV Unknown Completed [facility] IPV Unknown Completed [facility] Haemophilus influenzae type b vaccine, conjugate unspecified formulation Unknown Completed [facility] Haemophilus influenzae type b vaccine, conjugate unspecified formulation Unknown Completed [facility] DTaP, Unspecified Formulation Unknown Completed [facility] DTaP, Unspecified Formulation Unknown Completed [facility] TDAP (ADACEL) VACCINE Unknown Completed [facility] DTAP Unknown Completed [facility] DTAP Unknown Completed [facility] HIB 3 Dose Schedule Unknown Completed [facility] HIB 3 Dose Schedule Unknown Completed [facility] HEPATITIS A Unknown Completed [facility] HEPATITIS A Unknown Completed [facility] Hep B, Adol or Pedi Dosage Unknown Completed [facility] Hep B, Adol or Pedi Dosage Unknown Completed [facility] HPV Unknown Completed [facility] HPV Unknown Completed [facility] HPV Unknown Completed [facility] HPV Unknown Completed [facility] Meningococcal Polysaccharide (groups A, C, Y and W-135) conjugate vaccine (MCV4P) Unknown Completed [facility] Polio (IPV/OPV) Unknown Completed [facility] Polio (IPV/OPV) Unknown Completed [facility] TDAP Unknown Completed [facility] TDAP Unknown Completed [facility] Varicella (varivax)(chicken pox) Unknown Completed [facility] Varicella (varivax)(chicken pox) Unknown Completed [facility] Influenza Virus Vaccine Quad IM, Preserv and ABX Free 6 MO-64 YRS (FLUCELVAX) Unknown Completed [facility] TDAP Unknown Completed [facility] Tetanus/Diptheria Unknown [facility] Completed [facility] IPV Unknown Completed [facility] Haemophilus influenzae type b vaccine, conjugate unspecified formulation Unknown Completed [facility] Haemophilus influenzae type b vaccine, conjugate unspecified formulation Unknown Completed [facility] DTaP, Unspecified Formulation Unknown Completed [facility] DTaP, Unspecified Formulation Unknown Completed [facility] TDAP (ADACEL) VACCINE Unknown Completed [facility] DTAP Unknown Completed [facility] DTAP Unknown Completed [facility] HIB 3 Dose Schedule Unknown Completed [facility] HIB 3 Dose Schedule Unknown Completed [facility] HEPATITIS A Unknown Completed [facility] HEPATITIS A Unknown Completed [facility] Hep B, Adol or Pedi Dosage Unknown Completed [facility] Hep B, Adol or Pedi Dosage Unknown Completed [facility] HPV Unknown Completed [facility] HPV Unknown Completed [facility] HPV Unknown Completed [facility] HPV Unknown Completed [facility] Meningococcal Polysaccharide (groups A, C, Y and W-135) conjugate vaccine (MCV4P) Unknown Completed [facility] Polio (IPV/OPV) Unknown Completed [facility] Polio (IPV/OPV) Unknown Completed [facility] TDAP Unknown Completed [facility] TDAP Unknown Completed [facility] Varicella (varivax)(chicken pox) Unknown Completed [facility] Varicella (varivax)(chicken pox) Unknown Completed [facility] Influenza Virus Vaccine Quad IM, Preserv and ABX Free 6 MO-64 YRS (FLUCELVAX) Unknown Completed [facility] TDAP Unknown Completed [facility] Tetanus/Diptheria Unknown Completed Un [facility] IPV Unknown Completed [facility] IPV Unknown Completed [facility] Haemophilus influenzae type b vaccine, conjugate unspecified formulation Unknown Completed [facility] Haemophilus influenzae type b vaccine, conjugate unspecified formulation Unknown Completed [facility] DTaP, Unspecified Formulation Unknown Completed [facility] DTaP, Unspecified Formulation Unknown Completed [facility] TDAP (ADACEL) VACCINE Unknown Completed [facility] DTAP Unknown Completed [facility] DTAP Unknown Completed [facility] HIB 3 Dose Schedule Unknown Completed [facility] HIB 3 Dose Schedule Unknown Completed [facility] HEPATITIS A Unknown Completed [facility] HEPATITIS A Unknown Com[facility] Hep B, Adol or Pedi Dosage Unknown Completed [facility] Hep B, Adol or Pedi Dosage Unknown Completed [facility] HPV Unknown Completed [facility] HPV Unknown Completed [facility] HPV Unknown Completed [facility] HPV Unknown Completed [facility] Meningococcal Polysaccharide (groups A, C, Y and W-135) conjugate vaccine (MCV4P) Unknown Completed [facility] Polio (IPV/OPV) Unknown Completed [facility] Polio (IPV/OPV) Unknown Completed [facility] TDAP Unknown Completed [facility] TDAP Unknown Completed [facility] Varicella (varivax)(chicken pox) Unknown Completed [facility] Varicella (varivax)(chicken pox) Unknown Completed [facility] Influenza Virus Vaccine Quad IM, Preserv and ABX Free 6 MO-64 YRS (FLUCELVAX) Unknown Completed [facility] TDAP Unknown Completed [facility] Tetanus/Diptheria [facility] Completed [facility] IPV Unknown Completed [facility] Haemophilus influenzae type b vaccine, conjugate unspecified formulation Unknown Completed [facility] Haemophilus influenzae type b vaccine, conjugate unspecified formulation Unknown Completed [facility] DTaP, Unspecified Formulation Unknown Completed [facility] DTaP, Unspecified Formulation Unknown Completed [facility] TDAP (ADACEL) VACCINE Unknown Completed [facility] DTAP Unknown Completed [facility] DTAP Unknown Completed [facility] HIB 3 Dose Schedule Unknown Completed [facility] HIB 3 Dose Schedule Unknown Completed [facility] HEPATITIS A Unknown Completed [facility] HEPATITIS A Unknown Completed [facility] Hep B, Adol or Pedi Dosage Unknown Completed [facility] Hep B, Adol or Pedi Dosage Unknown Completed [facility] HPV Unknown Completed [facility] HPV Unknown Completed [facility] HPV Unknown Completed [facility] HPV Unknown Completed [facility] Meningococcal Polysaccharide (groups A, C, Y and W-135) conjugate vaccine (MCV4P) Unknown Completed [facility] Polio (IPV/OPV) Unknown Completed [facility] Polio (IPV/OPV) Unknown Completed [facility] TDAP Unknown Completed [facility] TDAP Unknown Completed [facility] Varicella (varivax)(chicken pox) Unknown Completed [facility] Varicella (varivax)(chicken pox) Unknown Completed [facility] Influenza Virus Vaccine Quad IM, Preserv and ABX Free 6 MO-64 YRS (FLUCELVAX) Unknown Completed [facility] TDAP Unknown Completed [facility] Tetanus/Diptheria [facility] IPV Unknown Completed [facility] Haemophilus influenzae type b vaccine, conjugate unspecified formulation Unknown Completed [facility] Haemophilus influenzae type b vaccine, conjugate unspecified formulation Unknown Completed [facility] DTaP, Unspecified Formulation Unknown Completed [facility] DTaP, Unspecified Formulation Unknown Completed [facility] TDAP (ADACEL) VACCINE Unknown Completed [facility] DTAP Unknown Completed [facility] DTAP Unknown Completed [facility] HIB 3 Dose Schedule Unknown Completed [facility] HIB 3 Dose Schedule Unknown Completed [facility] HEPATITIS A Unknown Completed [facility] HEPATITIS A Unknown Completed [facility] Hep B, Adol or Pedi Dosage Unknown Completed [facility] Hep B, Adol or Pedi Dosage Unknown Completed [facility] HPV Unknown Completed [facility] HPV Unknown Completed [facility] HPV Unknown Completed [facility] HPV Unknown Completed [facility] Meningococcal Polysaccharide (groups A, C, Y and W-135) conjugate vaccine (MCV4P) Unknown Completed [facility] Polio (IPV/OPV) Unknown Completed [facility] Polio (IPV/OPV) Unknown Completed [facility] TDAP Unknown Completed [facility] TDAP Unknown Completed [facility] Varicella (varivax)(chicken pox) Unknown Completed [facility] Varicella (varivax)(chicken pox) Unknown Completed [facility] Influenza Virus Vaccine Quad IM, Preserv and ABX Free 6 MO-64 YRS (FLUCELVAX) Unknown Completed [facility] TDAP Unknown Completed [facility] Tetanus/Diptheria Unknown [facility] Completed [facility] IPV Unknown Completed [facility] Haemophilus influenzae type b vaccine, conjugate unspecified formulation Unknown Completed [facility] Haemophilus influenzae type b vaccine, conjugate unspecified formulation Unknown Completed [facility] DTaP, Unspecified Formulation Unknown Completed [facility] DTaP, Unspecified Formulation Unknown Completed [facility] TDAP (ADACEL) VACCINE Unknown Completed [facility] DTAP Unknown Completed [facility] DTAP Unknown Completed [facility] HIB 3 Dose Schedule Unknown Completed [facility] HIB 3 Dose Schedule Unknown Completed [facility] HEPATITIS A Unknown Completed [facility] HEPATITIS A Unknown Completed [facility] Hep B, Adol or Pedi Dosage Unknown Completed [facility] Hep B, Adol or Pedi Dosage Unknown Completed [facility] HPV Unknown Completed [facility] HPV Unknown Completed [facility] HPV Unknown Completed [facility] HPV Unknown Completed [facility] Meningococcal Polysaccharide (groups A, C, Y and W-135) conjugate vaccine (MCV4P) Unknown Completed [facility] Polio (IPV/OPV) Unknown Completed [facility] Polio (IPV/OPV) Unknown Completed [facility] TDAP Unknown Completed [facility] TDAP Unknown Completed [facility] Varicella (varivax)(chicken pox) Unknown Completed [facility] Varicella (varivax)(chicken pox) Unknown Completed [facility] Influenza Virus Vaccine Quad IM, Preserv and ABX Free 6 MO-64 YRS (FLUCELVAX) Unknown Completed [facility] TDAP Unknown Completed [facility] Tetanus/Diptheria Unknown Completed Un [facility] IPV Unknown Completed [facility] IPV Unknown Completed [facility] Haemophilus influenzae type b vaccine, conjugate unspecified formulation Unknown Completed [facility] Haemophilus influenzae type b vaccine, conjugate unspecified formulation Unknown Completed [facility] DTaP, Unspecified Formulation Unknown Completed [facility] DTaP, Unspecified Formulation Unknown Completed [facility] TDAP (ADACEL) VACCINE Unknown Completed [facility] DTAP Unknown Completed [facility] DTAP Unknown Completed [facility] HIB 3 Dose Schedule Unknown Completed [facility] HIB 3 Dose Schedule Unknown Completed [facility] HEPATITIS A Unknown Completed [facility] HEPATITIS A Unknown Completed [facility] Hep B, Adol or Pedi Dosage Unknown Completed [facility] Hep B, Adol or Pedi Dosage Unknown Completed [facility] HPV Unknown Completed [facility] HPV Unknown Completed [facility] HPV Unknown Completed [facility] HPV Unknown Completed [facility] Meningococcal Polysaccharide (groups A, C, Y and W-135) conjugate vaccine (MCV4P) Unknown Completed [facility] Polio (IPV/OPV) Unknown Completed [facility] Polio (IPV/OPV) Unknown Completed [facility] TDAP Unknown Completed [facility] TDAP Unknown Completed [facility] Varicella (varivax)(chicken pox) Unknown Completed [facility] Varicella (varivax)(chicken pox) Unknown Completed [facility] Influenza Virus Vaccine Quad IM, Preserv and ABX Free 6 MO-64 YRS (FLUCELVAX) Unknown Completed [facility] TDAP Unknown Completed [facility] Tetanus/Diptheria Unknown Completed [facility] IPV Unknown Completed [facility] IPV Unknown Completed [facility] Haemophilus influenzae type b vaccine, conjugate unspecified formulation Unknown Completed [facility] Haemophilus influenzae type b vaccine, conjugate unspecified formulation Unknown Completed [facility] DTaP, Unspecified Formulation Unknown Completed [facility] DTaP, Unspecified Formulation Unknown Completed [facility] TDAP (ADACEL) VACCINE Unknown Completed [facility] DTAP Unknown Completed [facility] DTAP Unknown Completed [facility] HIB 3 Dose Schedule Unknown Completed [facility] HIB 3 Dose Schedule Unknown Completed [facility] HEPATITIS A Unknown Completed [facility] HEPATITIS A Unknown [facility] Hep B, Adol or Pedi Dosage Unknown Completed [facility] Hep B, Adol or Pedi Dosage Unknown Completed [facility] HPV Unknown Completed [facility] HPV Unknown Completed [facility] HPV Unknown Completed [facility] HPV Unknown Completed [facility] Meningococcal Polysaccharide (groups A, C, Y and W-135) conjugate vaccine (MCV4P) Unknown Completed [facility] Polio (IPV/OPV) Unknown Completed [facility] Polio (IPV/OPV) Unknown Completed [facility] TDAP Unknown Completed [facility] TDAP Unknown Completed [facility] Varicella (varivax)(chicken pox) Unknown Completed [facility] Varicella (varivax)(chicken pox) Unknown Completed [facility] Influenza Virus Vaccine Quad IM, Preserv and ABX Free 6 MO-64 YRS (FLUCELVAX) Unknown Completed [facility] TDAP Unknown Completed [facility] Tetanus/Diptheria [facility] Com[facility] IPV Unknown Completed [facility] Haemophilus influenzae type b vaccine, conjugate unspecified formulation Unknown Completed [facility] Haemophilus influenzae type b vaccine, conjugate unspecified formulation Unknown Completed [facility] DTaP, Unspecified Formulation Unknown Completed [facility] DTaP, Unspecified Formulation Unknown Completed [facility] TDAP (ADACEL) VACCINE Unknown Completed [facility] DTAP Unknown Completed [facility] DTAP Unknown Completed [facility] HIB 3 Dose Schedule Unknown Completed [facility] HIB 3 Dose Schedule Unknown Completed [facility] HEPATITIS A Unknown Completed [facility] HEPATITIS A Unknown Com[facility] Hep B, Adol or Pedi Dosage Unknown Completed [facility] Hep B, Adol or Pedi Dosage Unknown Completed [facility] HPV Unknown Completed [facility] HPV Unknown Completed [facility] HPV Unknown Completed [facility] HPV Unknown Completed [facility] Meningococcal Polysaccharide (groups A, C, Y and W-135) conjugate vaccine (MCV4P) Unknown Completed [facility] Polio (IPV/OPV) Unknown Completed [facility] Polio (IPV/OPV) Unknown Completed [facility] TDAP Unknown Completed [facility] TDAP Unknown Completed [facility] Varicella (varivax)(chicken pox) Unknown Completed [facility] Varicella (varivax)(chicken pox) Unknown Completed [facility] Influenza Virus Vaccine Quad IM, Preserv and ABX Free 6 MO-64 YRS (FLUCELVAX) Unknown Completed [facility] TDAP Unknown Completed [facility] Tetanus/Diptheria Unknown Completed [facility] IPV Unknown Completed [facility] IPV Unknown Completed [facility] Haemophilus influenzae type b vaccine, conjugate unspecified formulation Unknown Completed [facility] Haemophilus influenzae type b vaccine, conjugate unspecified formulation Unknown Completed [facility] DTaP, Unspecified Formulation Unknown Completed [facility] DTaP, Unspecified Formulation Unknown Completed [facility] TDAP (ADACEL) VACCINE Unknown Completed [facility] DTAP Unknown Completed [facility] DTAP Unknown Completed [facility] HIB 3 Dose Schedule Unknown Completed [facility] HIB 3 Dose Schedule Unknown Completed [facility] HEPATITIS A Unknown Completed [facility] HEPATITIS A Unknown Completed [facility] Hep B, Adol or Pedi Dosage Unknown Completed [facility] Hep B, Adol or Pedi Dosage Unknown Completed [facility] HPV Unknown Completed [facility] HPV Unknown Completed [facility] HPV Unknown Completed [facility] HPV Unknown Completed [facility] Meningococcal Polysaccharide (groups A, C, Y and W-135) conjugate vaccine (MCV4P) Unknown Completed [facility] Polio (IPV/OPV) Unknown Completed [facility] Polio (IPV/OPV) Unknown Completed [facility] TDAP Unknown Completed [facility] TDAP Unknown Completed [facility] Varicella (varivax)(chicken pox) Unknown Completed [facility] Varicella (varivax)(chicken pox) Unknown Completed [facility] Influenza Virus Vaccine Quad IM, Preserv and ABX Free 6 MO-64 YRS (FLUCELVAX) Unknown Completed [facility] TDAP Unknown Completed [facility] Tetanus/Diptheria Unknown [facility] Completed [facility] IPV Unknown Completed [facility] Haemophilus influenzae type b vaccine, conjugate unspecified formulation Unknown Completed [facility] Haemophilus influenzae type b vaccine, conjugate unspecified formulation Unknown Completed [facility] DTaP, Unspecified Formulation Unknown Completed [facility] DTaP, Unspecified Formulation Unknown Completed [facility] TDAP (ADACEL) VACCINE Unknown Completed [facility] DTAP Unknown Completed [facility] DTAP Unknown Completed [facility] HIB 3 Dose Schedule Unknown Completed [facility] HIB 3 Dose Schedule Unknown Completed [facility] HEPATITIS A Unknown Completed [facility] HEPATITIS A Unknown Completed [facility] Hep B, Adol or Pedi Dosage Unknown Completed [facility] Hep B, Adol or Pedi Dosage Unknown Completed [facility] HPV Unknown Completed [facility] HPV Unknown Completed [facility] HPV Unknown Completed [facility] HPV Unknown Completed [facility] Meningococcal Polysaccharide (groups A, C, Y and W-135) conjugate vaccine (MCV4P) Unknown Completed [facility] Polio (IPV/OPV) Unknown Completed [facility] Polio (IPV/OPV) Unknown Completed [facility] TDAP Unknown Completed [facility] TDAP Unknown Completed [facility] Varicella (varivax)(chicken pox) Unknown Completed [facility] Varicella (varivax)(chicken pox) Unknown Completed [facility] Influenza Virus Vaccine Quad IM, Preserv and ABX Free 6 MO-64 YRS (FLUCELVAX) Unknown Completed [facility] TDAP Unknown Completed [facility] Tetanus/Diptheria Unknown Completed Un [facility] IPV Unknown Completed [facility] IPV Unknown Completed [facility] Haemophilus influenzae type b vaccine, conjugate unspecified formulation Unknown Completed [facility] Haemophilus influenzae type b vaccine, conjugate unspecified formulation Unknown Completed [facility] DTaP, Unspecified Formulation Unknown Completed [facility] DTaP, Unspecified Formulation Unknown Completed [facility] TDAP (ADACEL) VACCINE Unknown Completed [facility] DTAP Unknown Completed [facility] DTAP Unknown Completed [facility] HIB 3 Dose Schedule Unknown Completed [facility] HIB 3 Dose Schedule Unknown Completed [facility] HEPATITIS A Unknown Completed [facility] HEPATITIS A Unknown Completed [facility] Hep B, Adol or Pedi Dosage Unknown Completed [facility] Hep B, Adol or Pedi Dosage Unknown Completed [facility] HPV Unknown Completed [facility] HPV Unknown Completed [facility] HPV Unknown Completed [facility] HPV Unknown Completed [facility] Meningococcal Polysaccharide (groups A, C, Y and W-135) conjugate vaccine (MCV4P) Unknown Completed [facility] Polio (IPV/OPV) Unknown Completed [facility] Polio (IPV/OPV) Unknown Completed [facility] TDAP Unknown Completed [facility] TDAP Unknown Completed [facility] Varicella (varivax)(chicken pox) Unknown Completed [facility] Varicella (varivax)(chicken pox) Unknown Completed [facility] Influenza Virus Vaccine Quad IM, Preserv and ABX Free 6 MO-64 YRS (FLUCELVAX) Unknown Completed [facility] TDAP Unknown Completed [facility] Tetanus/Diptheria Unknown Completed [facility] IPV Unknown Completed [facility] IPV Unknown Completed [facility] Haemophilus influenzae type b vaccine, conjugate unspecified formulation Unknown Completed [facility] Haemophilus influenzae type b vaccine, conjugate unspecified formulation Unknown Completed [facility] DTaP, Unspecified Formulation Unknown Completed [facility] DTaP, Unspecified Formulation Unknown Completed [facility] TDAP (ADACEL) VACCINE Unknown Completed [facility] DTAP Unknown Completed [facility] DTAP Unknown Completed [facility] HIB 3 Dose Schedule Unknown Completed [facility] HIB 3 Dose Schedule Unknown Completed [facility] HEPATITIS A Unknown Completed [facility] HEPATITIS A Unknown Completed [facility] Hep B, Adol or Pedi Dosage Unknown Completed [facility] Hep B, Adol or Pedi Dosage Unknown Completed [facility] HPV Unknown Completed [facility] HPV Unknown Completed [facility] HPV Unknown Completed [facility] HPV Unknown Completed [facility] Meningococcal Polysaccharide (groups A, C, Y and W-135) conjugate vaccine (MCV4P) Unknown Completed [facility] Polio (IPV/OPV) Unknown Completed [facility] Polio (IPV/OPV) Unknown Completed [facility] TDAP Unknown Completed [facility] TDAP Unknown Completed [facility] Varicella (varivax)(chicken pox) Unknown Completed [facility] Varicella (varivax)(chicken pox) Unknown Completed [facility] Influenza Virus Vaccine Quad IM, Preserv and ABX Free 6 MO-64 YRS (FLUCELVAX) Unknown Completed [facility] TDAP Unknown Completed [facility] Tetanus/Diptheria [facility] IPV Unknown Completed [facility] Haemophilus influenzae type b vaccine, conjugate unspecified formulation Unknown Completed [facility] Haemophilus influenzae type b vaccine, conjugate unspecified formulation Unknown Completed [facility] DTaP, Unspecified Formulation Unknown Completed [facility] DTaP, Unspecified Formulation Unknown Completed [facility] TDAP (ADACEL) VACCINE Unknown Completed [facility] DTAP Unknown Completed [facility] DTAP Unknown Completed [facility] HIB 3 Dose Schedule Unknown Completed [facility] HIB 3 Dose Schedule Unknown Completed [facility] HEPATITIS A Unknown Completed [facility] HEPATITIS A Unknown Completed [facility] Hep B, Adol or Pedi Dosage Unknown Completed [facility] Hep B, Adol or Pedi Dosage Unknown Completed [facility] HPV Unknown Completed [facility] HPV Unknown Completed [facility] HPV Unknown Completed [facility] HPV Unknown Completed [facility] Meningococcal Polysaccharide (groups A, C, Y and W-135) conjugate vaccine (MCV4P) Unknown Completed [facility] Polio (IPV/OPV) Unknown Completed [facility] Polio (IPV/OPV) Unknown Completed [facility] TDAP Unknown Completed [facility] TDAP Unknown Completed [facility] Varicella (varivax)(chicken pox) Unknown Completed [facility] Varicella (varivax)(chicken pox) Unknown Completed [facility] Influenza Virus Vaccine Quad IM, Preserv and ABX Free 6 MO-64 YRS (FLUCELVAX) Unknown Completed [facility] TDAP Unknown Completed [facility] Tetanus/Diptheria Unknown Completed Un [facility] IPV Unknown Completed [facility] IPV Unknown Completed [facility] Haemophilus influenzae type b vaccine, conjugate unspecified formulation Unknown Completed [facility] Haemophilus influenzae type b vaccine, conjugate unspecified formulation Unknown Completed [facility] DTaP, Unspecified Formulation Unknown Completed [facility] DTaP, Unspecified Formulation Unknown Completed [facility] TDAP (ADACEL) VACCINE Unknown Completed [facility] DTAP Unknown Completed [facility] DTAP Unknown Completed [facility] HIB 3 Dose Schedule Unknown Completed [facility] HIB 3 Dose Schedule Unknown Completed [facility] HEPATITIS A Unknown Completed [facility] HEPATITIS A Unknown Completed [facility] Hep B, Adol or Pedi Dosage Unknown Completed [facility] Hep B, Adol or Pedi Dosage Unknown Completed [facility] HPV Unknown Completed [facility] HPV Unknown Completed [facility] HPV Unknown Completed [facility] HPV Unknown Completed [facility] Meningococcal Polysaccharide (groups A, C, Y and W-135) conjugate vaccine (MCV4P) Unknown Completed [facility] Polio (IPV/OPV) Unknown Completed [facility] Polio (IPV/OPV) Unknown Completed [facility] TDAP Unknown Completed [facility] TDAP Unknown Completed [facility] Varicella (varivax)(chicken pox) Unknown Completed [facility] Varicella (varivax)(chicken pox) Unknown Completed [facility] Influenza Virus Vaccine Quad IM, Preserv and ABX Free 6 MO-64 YRS (FLUCELVAX) Unknown Completed [facility] TDAP Unknown Completed [facility] Tetanus/Diptheria Unknown Completed [facility] IPV Unknown Completed [facility] IPV Unknown Completed [facility] Haemophilus influenzae type b vaccine, conjugate unspecified formulation Unknown Completed [facility] Haemophilus influenzae type b vaccine, conjugate unspecified formulation Unknown Completed [facility] DTaP, Unspecified Formulation Unknown Completed [facility] DTaP, Unspecified Formulation Unknown Completed [facility] TDAP (ADACEL) VACCINE Unknown Completed [facility] DTAP Unknown Completed [facility] DTAP Unknown Completed [facility] HIB 3 Dose Schedule Unknown Completed [facility] HIB 3 Dose Schedule Unknown Completed [facility] HEPATITIS A Unknown Completed [facility] HEPATITIS A Unknown Completed [facility] Hep B, Adol or Pedi Dosage Unknown Completed [facility] Hep B, Adol or Pedi Dosage Unknown Completed [facility] HPV Unknown Completed [facility] HPV Unknown Completed [facility] HPV Unknown Completed [facility] HPV Unknown Completed [facility] Meningococcal Polysaccharide (groups A, C, Y and W-135) conjugate vaccine (MCV4P) Unknown Completed [facility] Polio (IPV/OPV) Unknown Completed [facility] Polio (IPV/OPV) Unknown Completed [facility] TDAP Unknown Completed [facility] TDAP Unknown Completed [facility] Varicella (varivax)(chicken pox) Unknown Completed [facility] Varicella (varivax)(chicken pox) Unknown Completed [facility] Influenza Virus Vaccine Quad IM, Preserv and ABX Free 6 MO-64 YRS (FLUCELVAX) Unknown Completed [facility] TDAP Unknown Completed [facility] Tetanus/Diptheria [facility] Completed [facility] IPV Unknown Completed [facility] Haemophilus influenzae type b vaccine, conjugate unspecified formulation Unknown Completed [facility] Haemophilus influenzae type b vaccine, conjugate unspecified formulation Unknown Completed [facility] DTaP, Unspecified Formulation Unknown Completed [facility] DTaP, Unspecified Formulation Unknown Completed [facility] TDAP (ADACEL) VACCINE Unknown Completed [facility] DTAP Unknown Completed [facility] DTAP Unknown Completed [facility] HIB 3 Dose Schedule Unknown Completed [facility] HIB 3 Dose Schedule Unknown Completed [facility] HEPATITIS A Unknown Completed [facility] HEPATITIS A Unknown Completed [facility] Hep B, Adol or Pedi Dosage Unknown Completed [facility] Hep B, Adol or Pedi Dosage Unknown Completed [facility] HPV Unknown Completed [facility] HPV Unknown Completed [facility] HPV Unknown Completed [facility] HPV Unknown Completed [facility] Meningococcal Polysaccharide (groups A, C, Y and W-135) conjugate vaccine (MCV4P) Unknown Completed [facility] Polio (IPV/OPV) Unknown Completed [facility] Polio (IPV/OPV) Unknown Completed [facility] TDAP Unknown Completed [facility] TDAP Unknown Completed [facility] Varicella (varivax)(chicken pox) Unknown Completed [facility] Varicella (varivax)(chicken pox) Unknown Completed [facility] Influenza Virus Vaccine Quad IM, Preserv and ABX Free 6 MO-64 YRS (FLUCELVAX) Unknown Completed [facility] TDAP Unknown Completed [facility] Tetanus/Diptheria Unknown Completed [facility] IPV Unknown Completed [facility] IPV Unknown Completed [facility] Haemophilus influenzae type b vaccine, conjugate unspecified formulation Unknown Completed [facility] Haemophilus influenzae type b vaccine, conjugate unspecified formulation Unknown Completed [facility] DTaP, Unspecified Formulation Unknown Completed [facility] DTaP, Unspecified Formulation Unknown Completed [facility] TDAP (ADACEL) VACCINE Unknown Completed [facility] DTAP Unknown Completed [facility] DTAP Unknown Completed [facility] HIB 3 Dose Schedule Unknown Completed [facility] HIB 3 Dose Schedule Unknown Completed [facility] HEPATITIS A Unknown Completed [facility] HEPATITIS A Unknown Completed [facility] Hep B, Adol or Pedi Dosage Unknown Completed [facility] Hep B, Adol or Pedi Dosage Unknown Completed [facility] HPV Unknown Completed [facility] HPV Unknown Completed [facility] HPV Unknown Completed [facility] HPV Unknown Completed [facility] Meningococcal Polysaccharide (groups A, C, Y and W-135) conjugate vaccine (MCV4P) Unknown Completed [facility] Polio (IPV/OPV) Unknown Completed [facility] Polio (IPV/OPV) Unknown Completed [facility] TDAP Unknown Completed [facility] TDAP Unknown Completed [facility] Varicella (varivax)(chicken pox) Unknown Completed [facility] Varicella (varivax)(chicken pox) Unknown Completed [facility] Influenza Virus Vaccine Quad IM, Preserv and ABX Free 6 MO-64 YRS (FLUCELVAX) Unknown Completed [facility] TDAP Unknown Completed [facility] Tetanus/Diptheria Unknown [facility] Completed [facility] IPV Unknown Completed [facility] Haemophilus influenzae type b vaccine, conjugate unspecified formulation Unknown Completed [facility] Haemophilus influenzae type b vaccine, conjugate unspecified formulation Unknown Completed [facility] DTaP, Unspecified Formulation Unknown Completed [facility] DTaP, Unspecified Formulation Unknown Completed [facility] TDAP (ADACEL) VACCINE Unknown Completed [facility] DTAP Unknown Completed [facility] DTAP Unknown Completed [facility] HIB 3 Dose Schedule Unknown Completed [facility] HIB 3 Dose Schedule Unknown Completed [facility] HEPATITIS A Unknown Completed [facility] HEPATITIS A Unknown Completed [facility] Hep B, Adol or Pedi Dosage Unknown Completed [facility] Hep B, Adol or Pedi Dosage Unknown Completed [facility] HPV Unknown Completed [facility] HPV Unknown Completed [facility] HPV Unknown Completed [facility] HPV Unknown Completed [facility] Meningococcal Polysaccharide (groups A, C, Y and W-135) conjugate vaccine (MCV4P) Unknown Completed [facility] Polio (IPV/OPV) Unknown Completed [facility] Polio (IPV/OPV) Unknown Completed [facility] TDAP Unknown Completed [facility] TDAP Unknown Completed [facility] Varicella (varivax)(chicken pox) Unknown Completed [facility] Varicella (varivax)(chicken pox) Unknown Completed [facility] Influenza Virus Vaccine Quad IM, Preserv and ABX Free 6 MO-64 YRS (FLUCELVAX) Unknown Completed [facility] TDAP Unknown Completed [facility] Tetanus/Diptheria Unknown [facility] Completed [facility] IPV Unknown Completed [facility] Haemophilus influenzae type b vaccine, conjugate unspecified formulation Unknown Completed [facility] Haemophilus influenzae type b vaccine, conjugate unspecified formulation Unknown Completed [facility] DTaP, Unspecified Formulation Unknown Completed [facility] DTaP, Unspecified Formulation Unknown Completed [facility] TDAP (ADACEL) VACCINE Unknown Completed [facility] DTAP Unknown Completed [facility] DTAP Unknown Completed [facility] HIB 3 Dose Schedule Unknown Completed [facility] HIB 3 Dose Schedule Unknown Completed [facility] HEPATITIS A Unknown Completed [facility] HEPATITIS A Unknown Completed [facility] Hep B, Adol or Pedi Dosage Unknown Completed [facility] Hep B, Adol or Pedi Dosage Unknown Completed [facility] HPV Unknown Completed [facility] HPV Unknown Completed [facility] HPV Unknown Completed [facility] HPV Unknown Completed [facility] Meningococcal Polysaccharide (groups A, C, Y and W-135) conjugate vaccine (MCV4P) Unknown Completed [facility] Polio (IPV/OPV) Unknown Completed [facility] Polio (IPV/OPV) Unknown Completed [facility] TDAP Unknown Completed [facility] TDAP Unknown Completed [facility] Varicella (varivax)(chicken pox) Unknown Completed [facility] Varicella (varivax)(chicken pox) Unknown Completed [facility] Influenza Virus Vaccine Quad IM, Preserv and ABX Free 6 MO-64 YRS (FLUCELVAX) Unknown Completed [facility] TDAP Unknown Completed [facility] Tetanus/Diptheria Unknown Completed Un [facility] IPV Unknown Completed [facility] IPV Unknown Completed [facility] Haemophilus influenzae type b vaccine, conjugate unspecified formulation Unknown Completed [facility] Haemophilus influenzae type b vaccine, conjugate unspecified formulation Unknown Completed [facility] DTaP, Unspecified Formulation Unknown Completed [facility] DTaP, Unspecified Formulation Unknown Completed [facility] TDAP (ADACEL) VACCINE Unknown Completed [facility] DTAP Unknown Completed [facility] DTAP Unknown Completed [facility] HIB 3 Dose Schedule Unknown Completed [facility] HIB 3 Dose Schedule Unknown Completed [facility] HEPATITIS A Unknown Completed [facility] HEPATITIS A Unknown Completed [facility] Hep B, Adol or Pedi Dosage Unknown Completed [facility] Hep B, Adol or Pedi Dosage Unknown Completed [facility] HPV Unknown Completed [facility] HPV Unknown Completed [facility] HPV Unknown Completed [facility] HPV Unknown Completed [facility] Meningococcal Polysaccharide (groups A, C, Y and W-135) conjugate vaccine (MCV4P) Unknown Completed [facility] Polio (IPV/OPV) Unknown Completed [facility] Polio (IPV/OPV) Unknown Completed [facility] TDAP Unknown Completed [facility] TDAP Unknown Completed [facility] Varicella (varivax)(chicken pox) Unknown Completed [facility] Varicella (varivax)(chicken pox) Unknown Completed [facility] Influenza Virus Vaccine Quad IM, Preserv and ABX Free 6 MO-64 YRS (FLUCELVAX) Unknown Completed [facility] TDAP Unknown Completed [facility] Tetanus/Diptheria Unknown Completed [facility] IPV Unknown Completed [facility] IPV Unknown Completed [facility] Haemophilus influenzae type b vaccine, conjugate unspecified formulation Unknown Completed [facility] Haemophilus influenzae type b vaccine, conjugate unspecified formulation Unknown Completed [facility] DTaP, Unspecified Formulation Unknown Completed [facility] DTaP, Unspecified Formulation Unknown Completed [facility] TDAP (ADACEL) VACCINE Unknown Completed [facility] DTAP Unknown Completed [facility] DTAP Unknown Completed [facility] HIB 3 Dose Schedule Unknown Completed [facility] HIB 3 Dose Schedule Unknown Completed [facility] HEPATITIS A Unknown Completed [facility] HEPATITIS A Unknown Completed [facility] Hep B, Adol or Pedi Dosage Unknown Completed [facility] Hep B, Adol or Pedi Dosage Unknown Completed [facility] HPV Unknown Completed [facility] HPV Unknown Completed [facility] HPV Unknown Completed [facility] HPV Unknown Completed [facility] Meningococcal Polysaccharide (groups A, C, Y and W-135) conjugate vaccine (MCV4P) Unknown Completed [facility] Polio (IPV/OPV) Unknown Completed [facility] Polio (IPV/OPV) Unknown Completed [facility] TDAP Unknown Completed [facility] TDAP Unknown Completed [facility] Varicella (varivax)(chicken pox) Unknown Completed [facility] Varicella (varivax)(chicken pox) Unknown Completed [facility] Influenza Virus Vaccine Quad IM, Preserv and ABX Free 6 MO-64 YRS (FLUCELVAX) Unknown Completed [facility] TDAP [facility] [facility] Tetanus/Diptheria Unknown Completed Un [facility] IPV Unknown Completed [facility] IPV Unknown Completed [facility] Haemophilus influenzae type b vaccine, conjugate unspecified formulation Unknown Completed [facility] Haemophilus influenzae type b vaccine, conjugate unspecified formulation Unknown Completed [facility] DTaP, Unspecified Formulation Unknown Completed [facility] DTaP, Unspecified Formulation Unknown Completed [facility] TDAP (ADACEL) VACCINE Unknown Completed [facility] DTAP Unknown Completed [facility] DTAP Unknown Completed [facility] HIB 3 Dose Schedule Unknown Completed [facility] HIB 3 Dose Schedule Unknown Completed [facility] HEPATITIS A Unknown Completed [facility] HEPATITIS A Unknown Completed [facility] Hep B, Adol or Pedi Dosage Unknown Completed [facility] Hep B, Adol or Pedi Dosage Unknown Completed [facility] HPV Unknown Completed [facility] HPV Unknown Completed [facility] HPV Unknown Completed [facility] HPV Unknown Completed [facility] Meningococcal Polysaccharide (groups A, C, Y and W-135) conjugate vaccine (MCV4P) Unknown Completed [facility] Polio (IPV/OPV) Unknown Completed [facility] Polio (IPV/OPV) Unknown Completed [facility] TDAP Unknown Completed [facility] TDAP Unknown Completed [facility] Varicella (varivax)(chicken pox) Unknown Completed [facility] Varicella (varivax)(chicken pox) Unknown Completed [facility] Influenza Virus Vaccine Quad IM, Preserv and ABX Free 6 MO-64 YRS (FLUCELVAX) Unknown Completed [facility] TDAP Unknown Completed [facility] Tetanus/Diptheria Unknown Completed Un [facility] IPV Unknown Completed [facility] IPV Unknown Completed [facility] Haemophilus influenzae type b vaccine, conjugate unspecified formulation Unknown Completed [facility] Haemophilus influenzae type b vaccine, conjugate unspecified formulation Unknown Completed [facility] DTaP, Unspecified Formulation Unknown Completed [facility] DTaP, Unspecified Formulation Unknown Completed [facility] TDAP (ADACEL) VACCINE Unknown Completed [facility] DTAP Unknown Completed [facility] DTAP Unknown Completed [facility] HIB 3 Dose Schedule Unknown Completed [facility] HIB 3 Dose Schedule Unknown Completed [facility] HEPATITIS A Unknown Completed [facility] HEPATITIS A Unknown Completed [facility] Hep B, Adol or Pedi Dosage Unknown Completed [facility] Hep B, Adol or Pedi Dosage Unknown Completed [facility] HPV Unknown Completed [facility] HPV Unknown Completed [facility] HPV Unknown Completed [facility] HPV Unknown Completed [facility] Meningococcal Polysaccharide (groups A, C, Y and W-135) conjugate vaccine (MCV4P) Unknown Completed [facility] Polio (IPV/OPV) Unknown Completed [facility] Polio (IPV/OPV) Unknown Completed [facility] TDAP Unknown Completed [facility] TDAP Unknown Completed [facility] Varicella (varivax)(chicken pox) Unknown Completed [facility] Varicella (varivax)(chicken pox) Unknown Completed [facility] Influenza Virus Vaccine Quad IM, Preserv and ABX Free 6 MO-64 YRS (FLUCELVAX) Unknown Completed [facility] TDAP Unknown Completed [facility] Tetanus/Diptheria [facility] Com[facility] IPV Unknown Completed [facility] Haemophilus influenzae type b vaccine, conjugate unspecified formulation Unknown Completed [facility] Haemophilus influenzae type b vaccine, conjugate unspecified formulation Unknown Completed [facility] DTaP, Unspecified Formulation Unknown Completed [facility] DTaP, Unspecified Formulation Unknown Completed [facility] TDAP (ADACEL) VACCINE Unknown Completed [facility] DTAP Unknown Completed [facility] DTAP Unknown Completed [facility] HIB 3 Dose Schedule Unknown Completed [facility] HIB 3 Dose Schedule Unknown Completed [facility] HEPATITIS A Unknown Completed [facility] HEPATITIS A Unknown Completed [facility] Hep B, Adol or Pedi Dosage Unknown Completed [facility] Hep B, Adol or Pedi Dosage Unknown Completed [facility] HPV Unknown Completed [facility] HPV Unknown Completed [facility] HPV Unknown Completed [facility] HPV Unknown Completed [facility] Meningococcal Polysaccharide (groups A, C, Y and W-135) conjugate vaccine (MCV4P) Unknown Completed [facility] Polio (IPV/OPV) Unknown Completed [facility] Polio (IPV/OPV) Unknown Completed [facility] TDAP Unknown Completed [facility] TDAP Unknown Completed [facility] Varicella (varivax)(chicken pox) Unknown Completed [facility] Varicella (varivax)(chicken pox) Unknown Completed [facility] Influenza Virus Vaccine Quad IM, Preserv and ABX Free 6 MO-64 YRS (FLUCELVAX) Unknown Completed [facility] TDAP Unknown Completed [facility] Tetanus/Diptheria Unknown [facility] Completed [facility] IPV Unknown Completed [facility] Haemophilus influenzae type b vaccine, conjugate unspecified formulation Unknown Completed [facility] Haemophilus influenzae type b vaccine, conjugate unspecified formulation Unknown Completed [facility] DTaP, Unspecified Formulation Unknown Completed [facility] DTaP, Unspecified Formulation Unknown Completed [facility] TDAP (ADACEL) VACCINE Unknown Completed [facility] DTAP Unknown Completed [facility] DTAP Unknown Completed [facility] HIB 3 Dose Schedule Unknown Completed [facility] HIB 3 Dose Schedule Unknown Completed [facility] HEPATITIS A Unknown Completed [facility]IS [facility] or [facility] Dos[facility] Completed [facility] Hep B, Adol or Pedi Dosage Unknown Completed [facility] HPV Unknown Completed [facility] HPV Unknown Completed [facility] HPV Unknown Completed [facility] HPV Unknown Completed [facility] Meningococcal Polysaccharide (groups A, C, Y and W-135) conjugate vaccine (MCV4P) Unknown Completed [facility] Polio (IPV/OPV) Unknown Completed [facility] Polio (IPV/OPV) Unknown Completed [facility] TDAP Unknown Completed [facility] TDAP Unknown Completed [facility] Varicella (varivax)(chicken pox) Unknown Completed [facility] Varicella (varivax)(chicken pox) Unknown Completed [facility] Influenza Virus Vaccine Quad IM, Preserv and ABX Free 6 MO-64 YRS (FLUCELVAX) Unknown Completed [facility] TDAP Unknown Completed [facility] Tetanus/Diptheria [facility] Com[facility] IPV Unknown Completed [facility] Haemophilus influenzae type b vaccine, conjugate unspecified formulation Unknown Completed [facility] Haemophilus influenzae type b vaccine, conjugate unspecified formulation Unknown Completed [facility] DTaP, Unspecified Formulation Unknown Completed [facility] DTaP, Unspecified Formulation Unknown Completed [facility] TDAP (ADACEL) VACCINE Unknown Completed [facility] DTAP Unknown Completed [facility] DTAP Unknown Completed [facility] HIB 3 Dose Schedule Unknown Completed [facility] HIB 3 Dose Schedule Unknown Completed [facility] HEPATITIS A Unknown Completed [facility] HEPATITIS A Unknown Completed [facility] Hep B, Adol or Pedi Dosage Unknown Completed [facility] Hep B, Adol or Pedi Dosage Unknown Completed [facility] HPV Unknown Completed [facility] HPV Unknown Completed [facility] HPV Unknown Completed [facility] HPV Unknown Completed [facility] Meningococcal Polysaccharide (groups A, C, Y and W-135) conjugate vaccine (MCV4P) Unknown Completed [facility] Polio (IPV/OPV) Unknown Completed [facility] Polio (IPV/OPV) Unknown [facility] Completed [facility] TDAP Unknown Completed [facility] Varicella (varivax)(chicken pox) Unknown Completed [facility] Varicella (varivax)(chicken pox) Unknown Completed [facility] Influenza Virus Vaccine Quad IM, Preserv and ABX Free 6 MO-64 YRS (FLUCELVAX) Unknown Completed [facility] TDAP Unknown Completed [facility] Tetanus/Diptheria Unknown [facility] Completed [facility] IPV Unknown Completed [facility] Haemophilus influenzae type b vaccine, conjugate unspecified formulation Unknown Completed [facility] Haemophilus influenzae type b vaccine, conjugate unspecified formulation Unknown Completed [facility] DTaP, Unspecified Formulation Unknown Completed [facility] DTaP, Unspecified Formulation Unknown Completed [facility] TDAP (ADACEL) VACCINE Unknown Completed [facility] DTAP Unknown Completed [facility] DTAP Unknown Completed [facility] HIB 3 Dose Schedule Unknown Completed [facility] HIB 3 Dose Schedule Unknown Completed [facility] HEPATITIS A Unknown Completed [facility] HEPATITIS A Unknown Completed [facility] Hep B, Adol or Pedi Dosage Unknown Completed [facility] Hep B, Adol or Pedi Dosage Unknown Completed [facility] HPV Unknown Completed [facility] HPV Unknown Completed [facility] HPV Unknown Completed [facility] HPV Unknown Completed [facility] Meningococcal Polysaccharide (groups A, C, Y and W-135) conjugate vaccine (MCV4P) Unknown Completed [facility] Polio (IPV/OPV) Unknown [facility] ([facility]V) Unknown Completed [facility] TDAP Unknown Completed [facility] TDAP Unknown Completed [facility] Varicella (varivax)(chicken pox) Unknown Completed [facility] Varicella (varivax)(chicken pox) Unknown Completed [facility] Influenza Virus Vaccine Quad IM, Preserv and ABX Free 6 MO-64 YRS (FLUCELVAX) Unknown Completed [facility] TDAP Unknown Completed [facility] Tetanus/Diptheria Unknown [facility] Completed [facility] IPV Unknown Completed [facility] Haemophilus influenzae type b vaccine, conjugate unspecified formulation Unknown Completed [facility] Haemophilus influenzae type b vaccine, conjugate unspecified formulation Unknown Completed [facility] DTaP, Unspecified Formulation Unknown Completed [facility] DTaP, Unspecified Formulation Unknown Completed [facility] TDAP (ADACEL) VACCINE Unknown Completed [facility] DTAP Unknown Completed [facility] DTAP Unknown Completed [facility] HIB 3 Dose Schedule Unknown Completed [facility] HIB 3 Dose Schedule Unknown Completed [facility] HEPATITIS A Unknown Completed [facility] HEPATITIS A Unknown Completed [facility] Hep B, Adol or Pedi Dosage Unknown Completed [facility] Hep B, Adol or Pedi Dosage Unknown Completed [facility] HPV Unknown Completed [facility] HPV Unknown Completed [facility] HPV Unknown Completed [facility] HPV Unknown Completed [facility] Meningococcal Polysaccharide (groups A, C, Y and W-135) conjugate vaccine (MCV4P) Unknown Completed [facility] Polio (IPV/OPV) Unknown Completed [facility] Polio (IPV/OPV) Unknown Completed [facility] TDAP Unknown Completed [facility] TDAP Unknown Completed [facility] Varicella (varivax)(chicken pox) Unknown Completed [facility] Varicella (varivax)(chicken pox) Unknown Completed [facility] Influenza Virus Vaccine Quad IM, Preserv and ABX Free 6 MO-64 YRS (FLUCELVAX) Unknown Completed [facility] TDAP Unknown Completed [facility] Tetanus/Diptheria Unknown Completed Un [facility] IPV Unknown Completed [facility] IPV Unknown Completed [facility] Haemophilus influenzae type b vaccine, conjugate unspecified formulation Unknown Completed [facility] Haemophilus influenzae type b vaccine, conjugate unspecified formulation Unknown Completed [facility] DTaP, Unspecified Formulation Unknown Completed [facility] DTaP, Unspecified Formulation Unknown Completed [facility] TDAP (ADACEL) VACCINE Unknown Completed [facility] DTAP Unknown Completed [facility] DTAP Unknown Completed [facility] HIB 3 Dose Schedule Unknown Completed [facility] HIB 3 Dose Schedule Unknown Completed [facility] HEPATITIS A Unknown Completed [facility] HEPATITIS A Unknown Com[facility] Hep B, Adol or Pedi Dosage Unknown Completed [facility] Hep B, Adol or Pedi Dosage Unknown Completed [facility] HPV Unknown Completed [facility] HPV Unknown Completed [facility] HPV Unknown Completed [facility] HPV Unknown Completed [facility] Meningococcal Polysaccharide (groups A, C, Y and W-135) conjugate vaccine (MCV4P) Unknown Completed [facility] Polio (IPV/OPV) Unknown Completed [facility] Polio (IPV/OPV) Unknown Completed [facility] TDAP Unknown Completed [facility] TDAP Unknown Completed [facility] Varicella (varivax)(chicken pox) Unknown Completed [facility] Varicella (varivax)(chicken pox) Unknown Completed [facility] Influenza Virus Vaccine Quad IM, Preserv and ABX Free 6 MO-64 YRS (FLUCELVAX) Unknown Completed [facility] TDAP Unknown Completed [facility] Tetanus/Diptheria Unknown Completed [facility] IPV Unknown Completed [facility] IPV Unknown Completed [facility] Haemophilus influenzae type b vaccine, conjugate unspecified formulation Unknown Completed [facility] Haemophilus influenzae type b vaccine, conjugate unspecified formulation Unknown Completed [facility] DTaP, Unspecified Formulation Unknown Completed [facility] DTaP, Unspecified Formulation Unknown Completed [facility] TDAP (ADACEL) VACCINE Unknown Completed [facility] DTAP Unknown Completed [facility] DTAP Unknown Completed [facility] HIB 3 Dose Schedule Unknown Completed [facility] HIB 3 Dose Schedule Unknown Completed [facility] HEPATITIS A Unknown Completed [facility] HEPATITIS A Unknown [facility] Hep B, Adol or Pedi Dosage Unknown Completed [facility] Hep B, Adol or Pedi Dosage Unknown Completed [facility] HPV Unknown Completed [facility] HPV Unknown Completed [facility] HPV Unknown Completed [facility] HPV Unknown Completed [facility] Meningococcal Polysaccharide (groups A, C, Y and W-135) conjugate vaccine (MCV4P) Unknown Completed [facility] Polio (IPV/OPV) Unknown Completed [facility] Polio (IPV/OPV) Unknown Completed [facility] TDAP Unknown Completed [facility] TDAP Unknown Completed [facility] Varicella (varivax)(chicken pox) Unknown Completed [facility] Varicella (varivax)(chicken pox) Unknown Completed [facility] Influenza Virus Vaccine Quad IM, Preserv and ABX Free 6 MO-64 YRS (FLUCELVAX) Unknown Completed [facility] TDAP Unknown Completed [facility] Tetanus/Diptheria Unknown Completed [facility] IPV Unknown Completed [facility] IPV Unknown Completed [facility] Haemophilus influenzae type b vaccine, conjugate unspecified formulation Unknown Completed [facility] Haemophilus influenzae type b vaccine, conjugate unspecified formulation Unknown Completed [facility] DTaP, Unspecified Formulation Unknown Completed [facility] DTaP, Unspecified Formulation Unknown Completed [facility] TDAP (ADACEL) VACCINE Unknown Completed [facility] DTAP Unknown Completed [facility] DTAP Unknown Completed [facility] HIB 3 Dose Schedule Unknown Completed [facility] HIB 3 Dose Schedule Unknown Completed [facility] HEPATITIS A Unknown Completed [facility] HEPATITIS A Unknown Completed [facility] Hep B, Adol or Pedi Dosage Unknown Completed [facility] Hep B, Adol or Pedi Dosage Unknown Completed [facility] HPV Unknown Completed [facility] HPV Unknown Completed [facility] HPV Unknown Completed [facility] HPV Unknown Completed [facility] Meningococcal Polysaccharide (groups A, C, Y and W-135) conjugate vaccine (MCV4P) Unknown Completed [facility] Polio (IPV/OPV) Unknown Completed [facility] Polio (IPV/OPV) Unknown Completed [facility] TDAP Unknown Completed [facility] TDAP Unknown Completed [facility] Varicella (varivax)(chicken pox) Unknown Completed [facility] Varicella (varivax)(chicken pox) Unknown Completed [facility] Influenza Virus Vaccine Quad IM, Preserv and ABX Free 6 MO-64 YRS (FLUCELVAX) Unknown Completed [facility] TDAP Unknown Completed [facility] Tetanus/Diptheria Unknown [facility] Completed [facility] IPV Unknown Completed [facility] Haemophilus influenzae type b vaccine, conjugate unspecified formulation Unknown Completed [facility] Haemophilus influenzae type b vaccine, conjugate unspecified formulation Unknown Completed [facility] DTaP, Unspecified Formulation Unknown Completed [facility] DTaP, Unspecified Formulation Unknown Completed [facility] TDAP (ADACEL) VACCINE Unknown Completed [facility] DTAP Unknown Completed [facility] DTAP Unknown Completed [facility] HIB 3 Dose Schedule Unknown Completed [facility] HIB 3 Dose Schedule Unknown Completed [facility] HEPATITIS A Unknown Completed [facility] HEPATITIS A Unknown Completed [facility] Hep B, Adol or Pedi Dosage Unknown Completed [facility] Hep B, Adol or Pedi Dosage Unknown Completed [facility] HPV Unknown Completed [facility] HPV Unknown Completed [facility] HPV Unknown Completed [facility] HPV Unknown Completed [facility] Meningococcal Polysaccharide (groups A, C, Y and W-135) conjugate vaccine (MCV4P) Unknown Completed [facility] Polio (IPV/OPV) Unknown Completed [facility] Polio (IPV/OPV) Unknown Completed [facility] TDAP Unknown Completed [facility] TDAP Unknown Completed [facility] Varicella (varivax)(chicken pox) Unknown Completed [facility] Varicella (varivax)(chicken pox) Unknown Completed [facility] Influenza Virus Vaccine Quad IM, Preserv and ABX Free 6 MO-64 YRS (FLUCELVAX) Unknown Completed [facility] TDAP Unknown Completed [facility] Tetanus/Diptheria Unknown Completed [facility] IPV Unknown Completed [facility] IPV Unknown Completed [facility] Haemophilus influenzae type b vaccine, conjugate unspecified formulation Unknown Completed [facility] Haemophilus influenzae type b vaccine, conjugate unspecified formulation Unknown Completed [facility] DTaP, Unspecified Formulation Unknown Completed [facility] DTaP, Unspecified Formulation [facility] [facility] TDAP (ADACEL) VACCINE Unknown Completed [facility] DTAP Unknown Completed [facility] DTAP Unknown Completed [facility] HIB 3 Dose Schedule Unknown Completed [facility] HIB 3 Dose Schedule Unknown Completed [facility] HEPATITIS A Unknown Completed [facility] HEPATITIS A Unknown Completed [facility] Hep B, Adol or Pedi Dosage Unknown Completed [facility] Hep B, Adol or Pedi Dosage Unknown Completed [facility] HPV Unknown Completed [facility] HPV Unknown Completed [facility] HPV Unknown Completed [facility] HPV Unknown Completed [facility] Meningococcal Polysaccharide (groups A, C, Y and W-135) conjugate vaccine (MCV4P) Unknown Completed [facility] Polio (IPV/OPV) Unknown Completed [facility] Polio (IPV/OPV) Unknown Completed [facility] TDAP Unknown Completed [facility] TDAP Unknown Completed [facility] Varicella (varivax)(chicken pox) Unknown Completed [facility] Varicella (varivax)(chicken pox) Unknown Completed [facility] Influenza Virus Vaccine Quad IM, Preserv and ABX Free 6 MO-64 YRS (FLUCELVAX) Unknown Completed [facility] TDAP Unknown Completed [facility] Tetanus/Diptheria Unknown [facility] Com[facility] IPV Unknown Completed [facility] Haemophilus influenzae type b vaccine, conjugate unspecified formulation Unknown Completed [facility] Haemophilus influenzae type b vaccine, conjugate unspecified formulation Unknown Completed [facility] DTaP, Unspecified Formulation Unknown Completed [facility] DTaP, Unspecified Formulation Unknown Completed [facility] TDAP (ADACEL) VACCINE Unknown Completed [facility] DTAP Unknown Completed [facility] DTAP Unknown Completed [facility] HIB 3 Dose Schedule Unknown Completed [facility] HIB 3 Dose Schedule Unknown Completed [facility] HEPATITIS A Unknown Completed [facility] HEPATITIS A Unknown Completed [facility] Hep B, Adol or Pedi Dosage Unknown Completed [facility] Hep B, Adol or Pedi Dosage Unknown Completed [facility] HPV Unknown Completed [facility] HPV Unknown Completed [facility] HPV Unknown Completed [facility] HPV Unknown Completed [facility] Meningococcal Polysaccharide (groups A, C, Y and W-135) conjugate vaccine (MCV4P) Unknown Completed [facility] Polio (IPV/OPV) Unknown [facility]) [facility] Completed [facility] TDAP Unknown Completed [facility] TDAP Unknown Completed [facility] Varicella (varivax)(chicken pox) Unknown Completed [facility] Varicella (varivax)(chicken pox) Unknown Completed [facility] Influenza Virus Vaccine Quad IM, Preserv and ABX Free 6 MO-64 YRS (FLUCELVAX) Unknown Completed [facility] TDAP Unknown Completed [facility] Tetanus/Diptheria Unknown [facility] Completed [facility] IPV Unknown Completed [facility] Haemophilus influenzae type b vaccine, conjugate unspecified formulation Unknown Completed [facility] Haemophilus influenzae type b vaccine, conjugate unspecified formulation Unknown Completed [facility] DTaP, Unspecified Formulation Unknown Completed [facility] DTaP, Unspecified Formulation Unknown Completed [facility] TDAP (ADACEL) VACCINE Unknown Completed [facility] DTAP Unknown Completed [facility] DTAP Unknown Completed [facility] HIB 3 Dose Schedule Unknown Completed [facility] HIB 3 Dose Schedule Unknown Completed [facility] HEPATITIS A Unknown Completed [facility] HEPATITIS A Unknown Com[facility] Hep B, Adol or Pedi Dosage Unknown Completed [facility] Hep B, Adol or Pedi Dosage Unknown Completed [facility] HPV Unknown Completed [facility] HPV Unknown Completed [facility] HPV Unknown Completed [facility] HPV Unknown Completed [facility] Meningococcal Polysaccharide (groups A, C, Y and W-135) conjugate vaccine (MCV4P) Unknown Completed [facility] Polio (IPV/OPV) Unknown Completed [facility] Polio (IPV/OPV) Unknown Completed [facility] TDAP Unknown Completed [facility] TDAP Unknown Completed [facility] Varicella (varivax)(chicken pox) Unknown Completed [facility] Varicella (varivax)(chicken pox) Unknown Completed [facility] Influenza Virus Vaccine Quad IM, Preserv and ABX Free 6 MO-64 YRS (FLUCELVAX) Unknown Completed [facility] TDAP Unknown Completed [facility] Tetanus/Diptheria Unknown [facility] Unknown Completed [facility] IPV Unknown Completed [facility] Haemophilus influenzae type b vaccine, conjugate unspecified formulation Unknown Completed [facility] Haemophilus influenzae type b vaccine, conjugate unspecified formulation Unknown Completed [facility] DTaP, Unspecified Formulation Unknown Completed [facility] DTaP, Unspecified Formulation Unknown Completed [facility] Vital Signs Vital Name Observation Time Observation Value Comments S ource Systolic blood pressure 2023-11-28 20:26:00 103 mm[Hg] [facility] Diastolic blood pressure 2023-11-28 20:26:00 58 mm[Hg] [facility] Heart rate 2023-11-28 20:26:00 83 /min [facility] Body temperature 2023-11-28 20:26:00 36.89 Leny [facility] Respiratory rate 2023-11-28 20:26:00 16 /min [facility] Body height 2023-11-28 20:26:00 160 cm [facility] Body weight 2023-11-28 20:26:00 78.926 kg [facility] BMI 2023-11-28 20:26:00 30.82 kg/m2 [facility] Oxygen saturation in Arterial blood by Pulse oximetry 2023-11-28 20:26:00 98 /min [facility] Systolic blood pressure 2023-10-26 16:30:00 115 mm[Hg] [facility] Diastolic blood pressure 2023-10-26 16:30:00 71 mm[Hg] [facility] Heart rate 2023-10-26 16:30:00 58 /min [facility] Body height 2023-10-26 16:30:00 160 cm [facility] Body weight 2023-10-26 16:30:00 76.658 kg [facility] BMI 2023-10-26 16:30:00 29.94 kg/m2 [facility] Oxygen saturation in Arterial blood by Pulse oximetry 2023-10-26 16:30:00 98 /min [facility] Systolic blood pressure 2023-10-21 21:27:00 101 mm[Hg] [facility] Diastolic blood pressure 2023-10-21 21:27:00 64 mm[Hg] [facility] Heart rate 2023-10-21 21:27:00 77 /min [facility] Respiratory rate 2023-10-21 21:27:00 18 /min [facility] Body height 2023-10-21 21:27:00 160 cm [facility] Body weight 2023-10-21 21:27:00 76.658 kg [facility] BMI 2023-10-21 21:27:00 29.94 kg/m2 [facility] Systolic blood pressure 2023-10-06 18:45:00 116 mm[Hg] [facility] Diastolic blood pressure 2023-10-06 18:45:00 58 mm[Hg] [facility] Heart rate 2023-10-06 18:45:00 97 /min [facility] Body height 2023-10-06 18:45:00 160 cm [facility] Body weight 2023-10-06 18:45:00 76.431 kg [facility] BMI 2023-10-06 18:45:00 29.85 kg/m2 [facility] Oxygen saturation in Arterial blood by Pulse oximetry 2023-10-06 18:45:00 97 /min [facility] Systolic blood pressure 2023-09-29 21:21:00 114 mm[Hg] [facility] [place] Diastolic blood pressure 2023-09-29 21:21:00 81 mm[Hg] [facility] Heart rate 2023-09-29 21:21:00 74 /min [facility]ive [facility] Body temperature 2023-09-29 21:21:00 36.83 Leny [facility] Respiratory rate 2023-09-29 21:21:00 16 /min [facility] Body height 2023-09-29 21:21:00 160 cm [facility] Body weight 2023-09-29 21:21:00 75.751 kg [facility] BMI 2023-09-29 21:21:00 29.58 kg/m2 [facility] Oxygen saturation in Arterial blood by Pulse oximetry 2023-09-29 21:21:00 98 /min [facility] Systolic blood pressure 2023-09-27 21:04:00 119 mm[Hg] [facility] Diastolic blood pressure 2023-09-27 21:04:00 71 mm[Hg] [facility] Heart rate 2023-09-27 21:04:00 74 /min [facility] Body temperature 2023-09-27 21:04:00 36.61 Leny [facility] Respiratory rate 2023-09-27 21:04:00 18 /min [facility] Body height 2023-09-27 21:04:00 160 cm [facility] Body weight 2023-09-27 21:04:00 76.159 kg [facility] BMI 2023-09-27 21:04:00 29.74 kg/m2 [facility] Oxygen saturation in Arterial blood by Pulse oximetry 2023-09-27 21:04:00 97 /min [facility] Systolic blood pressure 2023-08-26 20:21:00 111 mm[Hg] [facility] Diastolic blood pressure 2023-08-26 20:21:00 62 mm[Hg] [facility] Heart rate 2023-08-26 20:21:00 79 /min [facility] Body temperature 2023-08-26 20:21:00 37.06 Leny [facility] Body height 2023-08-26 20:21:00 160 cm Univ [facility] Body weight 2023-08-26 20:21:00 74.844 kg [facility] BMI 2023-08-26 20:21:00 29.23 kg/m2 [facility] Systolic blood pressure 2023-08-20 23:16:00 123 mm[Hg] [facility] Diastolic blood pressure 2023-08-20 23:16:00 75 mm[Hg] [facility] Heart rate 2023-08-20 23:16:00 66 /min [facility] Respiratory rate 2023-08-20 23:16:00 13 /min [facility] Oxygen saturation in Arterial blood by Pulse oximetry 2023-08-20 23:16:00 100 /min [facility] Body temperature 2023-08-20 20:05:00 37.11 Leny [facility] Body height 2023-08-20 20:05:00 160 cm [facility] Body weight 2023-08-20 20:05:00 73.664 kg [facility] BMI 2023-08-20 20:05:00 28.77 kg/m2 [facility] Systolic blood pressure 2023-08-20 19:42:00 120 mm[Hg] [facility] Diastolic blood pressure 2023-08-20 19:42:00 75 mm[Hg] [facility] Heart rate 2023-08-20 19:42:00 81 /min Unive [facility] Body temperature 2023-08-20 19:42:00 36.78 Leny [facility] Respiratory rate 2023-08-20 19:42:00 20 /min [facility] Body height 2023-08-20 19:42:00 160 cm [facility] Body weight 2023-08-20 19:42:00 73.891 kg [facility] BMI 2023-08-20 19:42:00 28.86 kg/m2 [facility] Oxygen saturation in Arterial blood by Pulse oximetry 2023-08-20 19:42:00 99 /min [facility] Systolic blood pressure 2023-08-16 19:17:00 127 mm[Hg] [facility] Diastolic blood pressure 2023-08-16 19:17:00 62 mm[Hg] [facility] Heart rate 2023-08-16 19:17:00 88 /min [facility] 2023-08-16 19:17:00 160 cm [facility] Body weight 2023-08-16 19:17:00 74.39 kg Univ [facility] BMI 2023-08-16 19:17:00 29.05 kg/m2 [facility] Oxygen saturation in Arterial blood by Pulse oximetry 2023-08-16 19:17:00 99 /min [facility] Heart rate 2023-05-31 13:45:00 84 /min Unive [facility] Body temperature 2023-05-31 13:45:00 37.22 Leny [facility] Respiratory rate 2023-05-31 13:45:00 17 /min [facility] Systolic blood pressure 2023-05-31 05:00:00 117 mm[Hg] [facility] Diastolic blood pressure 2023-05-31 05:00:00 59 mm[Hg] [facility] Oxygen saturation in Arterial blood by Pulse oximetry 2023-05-31 05:00:00 99 /min [facility] Body weight 2023-05-30 06:47:00 85.821 kg [facility] BMI 2023-05-30 06:47:00 33.52 kg/m2 [facility] Systolic blood pressure 2023-05-25 13:56:00 116 mm[Hg] [facility] Diastolic blood pressure 2023-05-25 13:56:00 70 mm[Hg] [facility] Heart rate 2023-05-25 13:56:00 86 [facility] Body temperature 2023-05-25 13:56:00 36.72 Leny [facility] Respiratory rate 2023-05-25 13:56:00 18 /min [facility] Body height 2023-05-25 13:56:00 160 cm [facility] Body weight 2023-05-25 13:56:00 84.532 kg [facility] BMI 2023-05-25 13:56:00 33.01 kg/m2 [facility] Oxygen saturation in Arterial blood by Pulse oximetry 2023-05-25 13:56:00 98 /min [facility] Systolic blood pressure 2023-05-18 13:58:00 124 mm[Hg] [facility] Diastolic blood pressure 2023-05-18 13:58:00 71 mm[Hg] [facility] Heart rate 2023-05-18 13:58:00 80 /min [facility] Body temperature 2023-05-18 13:58:00 36.78 Leny [facility] Respiratory rate 2023-05-18 13:58:00 18 /min [facility] Body height 2023-05-18 13:58:00 160 cm [facility] Body weight 2023-05-18 13:58:00 83.915 kg [facility] BMI 2023-05-18 13:58:00 32.77 kg/m2 [facility] Systolic blood pressure 2023-05-11 14:46:00 113 mm[Hg] [facility] Diastolic blood pressure 2023-05-11 14:46:00 64 mm[Hg] [facility] Heart rate 2023-05-11 14:46:00 81 /min Unive [facility] Body temperature 2023-05-11 14:46:00 36.78 Leny [facility] Respiratory rate 2023-05-11 14:46:00 18 /min [facility] Body height 2023-05-11 14:46:00 160 cm [facility] Body weight 2023-05-11 14:46:00 83.734 kg [facility] BMI 2023-05-11 14:46:00 32.70 kg/m2 [facility] Oxygen saturation in Arterial blood by Pulse oximetry 2023-05-11 14:46:00 99 /min [facility] Systolic blood pressure 2023-04-21 16:08:00 123 mm[Hg] [facility] Diastolic blood pressure 2023-04-21 16:08:00 64 mm[Hg] [facility] o [facility] Heart rate 2023-04-21 16:08:00 83 /min [facility] Body temperature 2023-04-21 16:08:00 36.5 Leny [facility] Respiratory rate 2023-04-21 16:08:00 18 /min [facility] Body height 2023-04-21 16:08:00 160 cm [facility] Body weight 2023-04-21 16:08:00 81.647 kg [facility] BMI 2023-04-21 16:08:00 31.89 kg/m2 [facility] Systolic blood pressure 2023-04-06 18:09:00 117 mm[Hg] [facility] o [facility] Diastolic blood pressure 2023-04-06 18:09:00 64 mm[Hg] [facility] Heart rate 2023-04-06 18:09:00 81 /min [facility] Body temperature 2023-04-06 18:09:00 36.56 Leny [facility] Respiratory rate 2023-04-06 18:09:00 18 /min [facility] Body height 2023-04-06 18:09:00 160 cm [facility] Body weight 2023-04-06 18:09:00 80.559 kg [facility] BMI 2023-04-06 18:09:00 31.46 kg/m2 [facility] Systolic blood pressure 2023-03-21 20:57:00 111 mm[Hg] [facility]inta o [facility] Diastolic blood pressure 2023-03-21 20:57:00 63 mm[Hg] [facility] Heart rate 2023-03-21 20:57:00 81 /min Unive [facility] Body temperature 2023-03-21 20:57:00 36.72 Leny [facility] Respiratory rate 2023-03-21 20:57:00 18 /min [facility] Body height 2023-03-21 20:57:00 160 cm [facility] Body weight 2023-03-21 20:57:00 79.561 kg [facility] BMI 2023-03-21 20:57:00 31.07 kg/m2 [facility] Oxygen saturation in Arterial blood by Pulse oximetry 2023-03-21 20:57:00 100 /min [facility] Systolic blood pressure 2023-03-11 15:13:00 110 mm[Hg] [facility] Diastolic blood pressure 2023-03-11 15:13:00 70 mm[Hg] [facility] Heart rate 2023-03-11 15:01:00 79 /min Un[facility] Body temperature 2023-03-11 15:01:00 36.67 Leny [facility] Body height 2023-03-11 15:01:00 160 cm [facility] Body weight 2023-03-11 15:01:00 78.291 kg [facility] BMI 2023-03-11 15:01:00 30.57 kg/m2 [facility] Oxygen saturation in Arterial blood by Pulse oximetry 2023-03-11 15:01:00 99 /min [facility] Systolic blood pressure 2022-12-05 19:39:00 120 mm[Hg] [facility] Diastolic blood pressure 2022-12-05 19:39:00 64 mm[Hg] [facility] Heart rate 2022-12-05 19:39:00 93 /min [facility] Body temperature 2022-12-05 19:39:00 36.61 Leny [facility] Body height 2022-12-05 19:39:00 160 cm [facility] Body weight 2022-12-05 19:39:00 74.844 kg [facility] BMI 2022-12-05 19:39:00 29.23 kg/m2 [facility] Oxygen saturation in Arterial blood by Pulse oximetry 2022-12-05 19:39:00 98 /min [facility] Systolic blood pressure 2022-11-24 19:55:00 134 mm[Hg] [facility] Diastolic blood pressure 2022-11-24 19:55:00 66 mm[Hg] [facility] Heart rate 2022-11-24 19:55:00 89 /min Un[facility] Body temperature 2022-11-24 19:55:00 37 Leny [facility] Respiratory rate 2022-11-24 19:55:00 18 /min [facility] Body height 2022-11-24 19:55:00 160 cm [facility] Body weight 2022-11-24 19:55:00 76.658 kg [facility] BMI 2022-11-24 19:55:00 29.94 kg/m2 [facility] Systolic blood pressure 2022-11-22 15:00:00 108 mm[Hg] [facility] Diastolic blood pressure 2022-11-22 15:00:00 62 mm[Hg] [facility] Heart rate 2022-11-22 15:00:00 74 /min [facility]ive [facility] Respiratory rate 2022-11-22 15:00:00 16 /min [facility] Oxygen saturation in Arterial blood by Pulse oximetry 2022-11-22 15:00:00 100 /min [facility] Body temperature 2022-11-22 09:17:00 37.5 Leny [facility] Body height 2022-11-22 09:17:00 160 cm [facility] Body weight 2022-11-22 09:17:00 78.472 kg [facility] BMI 2022-11-22 09:17:00 30.65 kg/m2 [facility] Systolic blood pressure 2022-11-08 17:39:00 116 mm[Hg] [facility] Diastolic blood pressure 2022-11-08 17:39:00 69 mm[Hg] [facility] Heart rate 2022-11-08 17:39:00 93 /min Unive [facility] Body temperature 2022-11-08 17:39:00 36.72 Leny [facility] Body height 2022-11-08 17:39:00 160 cm [facility] Body weight 2022-11-08 17:39:00 79.652 kg [facility] BMI 2022-11-08 17:39:00 31.11 kg/m2 [facility] Heart rate 2022-10-30 06:00:00 63 /min [facility] Oxygen saturation in Arterial blood by Pulse oximetry 2022-10-30 06:00:00 99 /min [facility] Systolic blood pressure 2022-10-30 06:00:00 105 mm[Hg] [facility] Diastolic blood pressure 2022-10-30 06:00:00 65 mm[Hg] [facility] Body temperature 2022-10-30 05:00:00 37.22 Leny [facility] Respiratory rate 2022-10-30 05:00:00 16 /min [facility] Body height 2022-10-30 05:00:00 160 cm [facility] Body weight 2022-10-30 05:00:00 83.462 kg [facility] BMI 2022-10-30 05:00:00 32.59 kg/m2 [facility] Procedures Procedure Date / Time Performed Performing Clinician Source DISABILITY/FMLA 2023-11-23 06:01:00 Doctor Unass igned, [place] [facility] INSURANCE CORRESPONDENCE 2023-11-04 06:01:00 Doc tor Unassigned, [place] [facility] STERILIZATION CONSENT FORM 2023-10-21 06:01:00 Doctor Unassigned, [place] [facility] POCT URINALYSIS 2023-09-29 21:26:00 Ramírez Zee [facility] POCT TEST 2023-09-29 21:25:00 Ramírez Zee [facility] CT ABDOMEN PELVIS W CONTRAST 2023-09-08 15:45:00 Marsha Kaplan [facility] MAGNESIUM 2023-08-26 21:56:00 Marsha Kaplan [facility] FREE T4 2023-08-26 21:56:00 Marsha Kaplan [facility] THYROID STIMULATING HORMONE 2023-08-26 21:56:00 Marsha Kaplan [facility] FREE T3 2023-08-26 21:56:00 Marsha Kaplan [facility] URINE CULTURE 2023-08-26 21:46:00 Marsha Kaplan [facility] POCT URINALYSIS 2023-08-26 00:00:00 Marsha Kaplan [facility] POCT TEST 2023-08-26 00:00:00 Marsha Kaplan [facility] POCT TEST 2023-08-20 21:26:00 Kayden Rodríguez [facility] TROPONIN I 2023-08-20 21:24:00 Anne [facility] COMP. METABOLIC PANEL ([id number]) 2023-08-20 21:24[facility] 2023-08-20 21:24:00 Beti Rodríguez [facility] D-DIMER 2023-08-20 21:24:00 Anne [facility] RAPID STREP SCREEN FOR GROUP A 2023-08-20 21:24:00 Anne [facility] RAPID INFLUENZA A/B 2023-08-20 21:24:00 Kayden Rodríguez [facility] CONSENT/REFUSAL FOR DIAGNOSIS AND TREATMENT 2023-08-20 19:55:45 Doctor Unassigned, [place] [facility] POCT TEST 2023-08-16 20:42:00 Fawn Bone [facility] POCT SARS-COV-2 ANTIGEN (BINAX NOW) 2023-08-16 20:31:00 Fawn Bone [facility] CBC WITH DIFF 2023-05-31 09:32:00 Carmen Hilton [facility] URINALYSIS 2023-05-30 14:21:00 Carmen Hilton [facility] PROTEIN CREAT RATIO URINE RANDOM 2023-05-30 14:21:00 Carmen Hilton [facility] SGOT (ASPARTATE AMINO TRANSFER) 2023-05-30 08:04:00 Carmen Hilton [facility] CREATININE 2023-05-30 08:04:00 Carmen Hilton [facility] ALANINE AMINO TRANSFERASE(SGPT 2023-05-30 08:04:00 Carmen Hilton [facility] LACTATE DEHYDROGENASE 2023-05-30 08:04:00 Carmen Hilton [facility] URIC ACID 2023-05-30 08:04:00 Carmen Hilton [facility] CBC WITH DIFF 2023-05-30 08:04:00 Adum, Hayley Henning [facility] HEPATITIS B SURFACE ANTIGEN 2023-05-30 08:04:00 Adum, Hayley Pacheco [facility] HB ABO GROUPING 2023-05-30 08:04:00 Adum, Hayley Cooper [facility] RHO (D) IMMUNE GLOBULIN 2023-05-30 08:04:00 Carmen Hilton [facility] ADC OR MALVIN ONLY - RPR 2023-05-30 08:04:00 Adum, Ta Pacheco [facility] HIV 1/2 AG-AB WITH REFLEX 2023-05-30 08:04:00 Adum, Ta Pacheco [facility] ADC ONLY - FERN TEST 2023-05-30 07:07:00 Adum, Hayley Pacheco [facility] NOTICE OF PRIVACY PRACTICES 2023-05-30 06:30:23 Doctor Unassigned, [place] [facility] CONSENT/REFUSAL FOR DIAGNOSIS AND TREATMENT 2023-05-30 06:29:53 Doctor Unassigned, [place] [facility] ASSIGNMENT OF BENEFITS 2023-05-30 06:29:34 Docto r Unassigned, [place] [facility] POCT URINALYSIS W/O SPECIFIC GRAVITY 2023-05-25 00:00:00 Carmen Hiltno [facility] POCT URINALYSIS W/O SPECIFIC GRAVITY 2023-05-18 00:00:00 Carmen Hilton [facility] >14 WEEKS US LIMITED 2023-05-11 15:14:29 Carmen Hilton [facility] DSHS - BREAST AND CERVICAL CANCER CONTROL PROGRAM - COMPREHEM 2023-05-11 05:01:00 Doctor Unassigned, [place] [facility] POCT URINALYSIS W/O SPECIFIC GRAVITY 2023-05-11 00:00:00 HiltonTajoselo Araujo [facility] POCT URINALYSIS W/O SPECIFIC GRAVITY 2023-04-21 00:00:00 HiltonTajoselo Araujo [facility] 1 HR GLUCOSE TOLERANCE TEST 2023-04-08 13:56:00 Talon [facility] GLUCOSE FASTING 2023-04-08 12:53:00 Talon [facility] POCT URINALYSIS W/O SPECIFIC GRAVITY 2023-04-06 00:00:00 Carmen Hilton Van [facility] GLUCOSE 1 HOUR POST PRANDIAL 2023-03-22 19:21:00 Talon [facility] CBC WITH DIFF 2023-03-22 [facility] HB ABO GROUPING 2023-03-22 19:21:00 AdiConnell , [facility] ADC OR MALVIN ONLY - RPR 2023-03-22 19:21:00 Rose Whalen [facility] HIV 1/2 AG-AB WITH REFLEX 2023-03-22 19:21:00 Rose Whalen [facility] TDAP VACCINE, >11 YRS, IM 2023-03-21 21:13:52 Rose Whalen [facility] POCT URINALYSIS W/O SPECIFIC GRAVITY 2023-03-21 00:00:00 Talon [facility] PATIENT FINANCIAL POLICY 2023-03-11 14:50:50 Doctor Unassigned, [place] [facility] COMP. METABOLIC PANEL ([id number]) 2022-12-05 21:49:00 Beti Rodríguez [facility] TOTAL BETA HCG ASSAY 2022-12-05 21:49:00 Anne, And res [facility] CBC WITH DIFF 2022-12-05 21:49:00 Beti Rodríguez [facility] URINALYSIS 2022-12-05 21:49:00 Anne Beti [facility] FIRST TRIMESTER LESS THAN 14 WEEKS WITH TRANSVAGINAL 2022-12-05 21:18:35 Anne [facility] ASSIGNMENT OF BENEFITS 2022-12-05 19:57:54 Docto r Unassigned, [place] [facility] POCT URINALYSIS W/O SPECIFIC GRAVITY 2022-11-24 00:00:00 Carmen Hilton [facility] FIRST TRIMESTER LESS THAN 14 WEEKS 2022-11-22 12:44:00 Darren Moe [facility] POCT TEST 2022-11-22 09:30:00 Darren Moe [facility] LIPASE 2022-11-22 09:29:00 Darren Moe [facility] COMP. METABOLIC PANEL ([id number]) 2022-11-22 09:29:00 Darren Moe [facility] TOTAL BETA HCG ASSAY 2022-11-22 09:29:00 Shawnee Moe i [facility] CBC WITH DIFF 2022-11-22 09:29:00 Darren Moe [facility] URINALYSIS 2022-11-22 09:29:00 Darren Moe [facility] HB ABO GROUPING 2022-11-22 09:28:00 Darren Moe [facility] CONSENT/REFUSAL FOR DIAGNOSIS AND TREATMENT 2022-11-22 09:08:48 Doctor Unassigned, [place] [facility] OB TRANSVAGINAL 2022-11-08 19:18:23 Carmen Hilton [facility] FLU VACC ([id number]), 6 MO-64 YRS, .5ML, IM, QUAD (FLUCELVAX) 2022-11-08 18:26:24 Carmen Hilton [facility] GALV ONLY - VAGINAL PATHOGENS BY NUCLEIC ACID TESTING 2022-11-08 18:19:00 Carmen Hilton [facility] GC & CHLAMYDIA AMPLIFIED ASSAY 2022-11-08 18:17:00 Carmen Hilton [facility] LAB ONLY PAP SMEAR-LIQUID BASED 2022-11-08 18:17:00 Carmen Hilton [facility] TRICHOMONAS AMPLIFIED ASSAY 2022-11-08 18:17:00 Carmen Hilton [facility] PAP SMEAR-LIQUID BASED-CP 2022-11-08 18:17:00 HiltonAndria dennis [facility] URINE DRUG (IMMUNOASSAY) - COMPREHENSIVE DRUG SCREEN 2022-11-08 17:48:00 Carmen Hilton [facility] URINE CULTURE 2022-11-08 17:48:[address] [facility] ASSIGNMENT OF BENEFITS 2022-11-08 16:58:12 Docto r Unassigned, [place] [facility] POCT TEST 2022-11-08 00:00:00 Carmen Hilton [facility] POCT URINALYSIS W/O SPECIFIC GRAVITY 2022-11-08 00:00:00 Carmen Hilton [facility] COMP. METABOLIC PANEL ([id number]) 2022-10-30 05:36:00 Singer [facility] CBC WITH DIFF 2022-10-30 05:36:00 Beatty, Lucho [facility] URINALYSIS 2022-10-30 05:36:00 [facility] NOTICE OF PRIVACY PRACTICES 2022-10-30 04:59:24 Doctor Unassigned, [place] [facility] CONSENT/REFUSAL FOR DIAGNOSIS AND TREATMENT 2022-10-30 04:58:00 Doctor Unassigned, [place] [facility] Encounters Start Date/Time End Date/Time Encounter Type Admission Type Attending Clinicians Care Facility Care Department Encounter ID Source 2023-11-10 07:48:16 Outpatient R KIRA YEBOAH MARISOL [facility]ANCH OFFICE MANAGER [id number] [facility] 2021-08-07 14:58:04 Outpatient P [facility] BONNIE [id number] [facility] 2023-12-04 00:00:00 2023-12-04 00:00:00 Nurse Triage Emiliano Lewis [facility] 1.2.840.114 350.1.13.10 4.2.7.2.686 [id number] [facility] 2023-11-28 14:30:00 2023-11-28 14:42:11 Outpatient R STEPHANIE Alcantara, KIRA STEPHANIE Alcantara, [facility] [id number] [facility] 2023-11-28 14:30:00 2023-11-28 14:42:11 Office Visit Stephanie alcantara [facility] BUILDING 1.2.840.114 350.1.13.10 4.2.7.2.686 [id number] 134 [id number] [facility] 2023-11-23 00:00:00 2023-11-23 00:00:00 Orders Only Doctor Unassigned, [place] [facility] 1.2.840.114 350.1.13.10 4.2.7.2.686 [id number] [facility] 2023-11-04 00:00:00 2023-11-04 00:00:00 Orders Only Doctor Unassigned, [place] [facility] 1.2.840.114 350.1.13.10 4.2.7.2.686 [id number] [facility] 2023-10-26 09:40:48 2023-10-26 23:59:00 [facility] [id number] [facility] 2023-10-26 09:40:48 2023-10-26 23:59:00 Hospital Encounter Chelsea [facility] BUILDING 1.2.840.114 350.1.13.10 4.2.7.2.686 [id number] [facility] 2023-10-21 15:30:00 2023-10-21 16:38:25 Outpatient R STEPHANIE Alcantara, KIRA STEPHANIE Alcantara [facility] [id number] [facility] 2023-10-21 15:30:00 2023-10-21 16:38:25 Office Visit Cheri Yeboahsol [facility] NAL BUILDING 1.2840.114 350.1.13.10 4.2.7.2.686 [id number] 134 [id number] [facility] 2023-10-21 00:00:00 2023-10-21 00:00:00 Prep For Surgery Stephanie alcantara Kira [facility] BUILDING 1.20.114 350.1.13.10 4.2.7.2.686 [id number] [facility] 2023-10-21 00:00:00 2023-10-21 00:00:00 Orders Only Doctor Unassigned, [place] [facility] 1.20.114 350.1.13.10 4.2.7.2.686 [id number] [facility] 2023-10-06 12:30:00 2023-10-06 13:00:52 Outpatient R MARSHA KAPLAN [facility] [id number] [facility] 2023-10-06 12:30:00 2023-10-06 13:00:52 Office Visit Marsha Kaplan [facility] 1.2840.114 350.1.13.10 4.2.7.2.686 [id number] 044 [id number] [facility] 2023-10-02 00:00:00 2023-10-02 00:00:00 Nurse Triage Zuleima Biswas [facility] 1.0.114 350.1.13.10 4.2.7.2.686 [id number] [facility] 2023-09-29 15:00:00 2023-09-29 15:38:27 Outpatient R RAMÍREZ ZEE [facility] [id number] [facility] 2023-09-29 15:00:00 2023-09-29 15:38:27 Urgent Care Ramírez Zee Unknown, Attending [facility] 1..840.114 350.1.13.10 4.2.7.2.686 [id number] [facility] 2023-09-29 00:00:00 2023-09-29 00:00:00 Telephone Ramírez Zee [facility] BU[facility] 1..840.114 350.1.13.10 4.2.7.2.686 [id number] [facility] 2023-09-27 15:00:00 2023-09-27 15:37:56 Outpatient R LORRIE TRAN [facility] [id number] [facility] 2023-09-27 15:00:00 2023-09-27 15:37:56 [facility] 1..840.114 350.1.13.10 4.2.7.2.686 [id number] [facility] 2023-09-08 09:00:24 2023-09-08 23:59:00 Outpatient R MARSHA KAPLAN [facility] [id number] [facility] 2023-09-08 09:00:24 2023-09-08 23:59:00 Hospital Encounter Marsha Kaplan [facility] 1..840.114 350.1.13.10 4.2.7.2.686 [id number] [facility] 2023-09-06 00:00:2023-09-06 00:00:00 Patient Secure Msg Doctor Unassigned, [place] [facility] OFF[facility] BUILD[facility] 1.2.840.114 350.1.13.10 4.2.7.2.686 [id number] [facility] 2023-09-03 00:00:00 2023-09-03 00:00:00 Outpatient R EARLENEJASE COVARRUBIASLIE [facility] [id number] [facility] 2023-08-31 00:00:00 2023-08-31 00:00:00 Telephone Marsha Kaplan [facility] OFFICE BUILDING 1.2840.114 350.1.13.10 4.2.7.2.686 [id number] [facility] 2023-08-26 16:00:00 2023-08-26 16:11:24 Skid Man Visit Lab, Ang - Db Marsha Kaplan [facility] 1..840.114 350.1.13.10 4.2.7.2.686 [id number] [facility] 2023-08-26 15:00:00 2023-08-26 15:47:19 Outpatient R MARSHA KAPLAN [facility] [id number] [facility] 2023-08-26 15:00:00 2023-08-26 15:47:19 Office Visit Marsha Kaplan [facility] MED[facility] OFFICE BUILDING 1.2840.114 350.1.13.10 4.2.7.2.686 [id number] [id number] [facility] 2023-08-26 00:00:00 2023-08-26 00:00:00 Patient Secure Msg Doctor Unassigned, [place] [facility] 1..840.114 350.1.13.10 4.2.7.2.686 [id number] 134 [id number] [facility] 2023-08-25 15:00:00 2023-08-25 15:00:00 Outpatient R MARSHA KAPLAN [facility] [id number] [facility] 2023-08-20 14:10:00 2023-08-20 17:26:00 Emergency X BETI RODRÍGUEZ [facility] ERT [id number] [facility] 2023-08-20 14:10:00 2023-08-20 17:26:00 Emergency Beti Rodríguez [facility] 1..840.114 350.1.13.10 4.2.7.2.686 [id number] [facility] 2023-08-20 13:35:00 2023-08-20 14:07:20 Outpatient SPENCER FERNANDEZ [facility] [id number] [facility] 2023-08-20 13:35:00 2023-08-20 14:07:20 Nurse Visit Nurse, Nitesh Phipps [facility] Unknown, Attending Spencer Skelton [facility] MED[facility] OFFICE BUILDING 1..840.114 350.1.13.10 4.2.7.2.686 [id number] [facility] 2023-08-18 00:00:00 2023-08-18 00:00:00 Telephone [facility] 1.2.840.114 350.1.13.10 4.2.7.2.686 [id number] [id number] [facility] 2023-08-17 00:00:00 2023-08-17 00:00:00 [facility] 1.2.840.114 350.1.13.10 4.2.7.2.686 [id number] [facility] 2023-08-17 00:00:00 2023-08-17 00:00:00 Telephone Smitha Fawn [facility] OFF[facility] BUILDING 1.2.840.114 350.1.13.10 4.2.7.2.686 [id number] [id number] [facility] 2023-08-17 00:00:00 2023-08-17 00:00:00 Telephone Fwan Bone [facility] BU[facility] 1.2.840.114 350.1.13.10 4.2.7.2.686 [id number] [facility] 2023-08-17 00:00:00 2023-08-17 00:00:00 Patient Secure Msg Doctor Unassigned, [place] [facility] OFF[facility] BUILDING 1.2.840.114 350.1.13.10 4.2.7.2.686 [id number] [id number] [facility] 2023-08-17 00:00:00 2023-08-17 00:00:00 Telephone [facility] 1.2.840.114 350.1.13.10 4.2.7.2.686 [id number] [facility] 2023-08-16 14:45:00 2023-08-16 15:00:00 Skid Man Visit Lab, Nitesh - Fawn Cordero [facility] OFF[facility] BUILDING 1.2.840.114 350.1.13.10 4.2.7.2.686 [id number] [facility] 2023-08-16 13:30:00 2023-08-16 14:31:07 Outpatient R FAWN BONE [facility] [id number] [facility] 2023-08-16 13:30:00 2023-08-16 14:31:07 [facility] 1.840.114 350.1.13.10 4.2.7.2.686 [id number] [facility] 2023-07-06 11:15:00 2023-07-06 11:15:00 Outpatient R LIDA [facility] [id number] [facility] 2023-06-07 00:00:00 2023-06-07 00:00:00 Telephone Carmen Hilton [facility] 1.840.114 350.1.13.10 4.2.7.2.686 [id number] [facility] 2023-05-30 01:40:00 2023-05-31 11:22:00 Inpatient P LIDA [facility] [id number] [facility] 2023-05-30 01:40:00 2023-05-31 11:22:00 Hospital Encounter Adum, Hayley Pacheco Lida [facility] 1.0.114 350.1.13.10 4.2.7.2.686 [id number] [facility] 2023-05-30 11:54:55 2023-05-30 11:54:55 Anesthesia Event Dale Lal [facility] 1.840.114 350.1.13.10 4.2.7.2.686 [id number] [facility] 2023-05-25 09:00:00 2023-05-25 09:22:45 Outpatient R LIDA CARMEN [facility] [id number] [facility] 2023-05-25 09:00:00 2023-05-25 09:22:45 Routine Visit Carmen Hilton [facility] BUILDING 1.840.114 350.1.13.10 4.2.7.2.686 [id number] 134 [id number] [facility] 2023-05-18 09:00:00 2023-05-18 09:15:00 Routine Visit Carmen Hilton [facility] BUILDING 1.2.840.114 350.1.13.10 4.2.7.2.686 [id number] 134 [id number] [facility] 2023-05-18 09:00:00 2023-05-18 09:00:00 Outpatient R CARMEN HILTON [facility] [id number] [facility] 2023-05-11 09:30:00 2023-05-11 10:25:06 Outpatient R CARMEN HILTON [facility] [id number] [facility] 2023-05-11 09:30:00 2023-05-11 10:25:06 Routine Visit Carmen Hilton [facility] 1.2.840.114 350.1.13.10 4.2.7.2.686 [id number] [facility] 2023-05-11 00:00:00 2023-05-11 00:00:00 Orders Only Doctor Unassigned, [place] [facility] 1.2840.114 350.1.13.10 4.2.7.2.686 [id number] [facility] 2023-05-09 00:00:00 2023-05-09 00:00:00 Telephone Carmen Hilton [facility] BUILDING 1.2.840.114 350.1.13.10 4.2.7.2.686 [id number] 134 [id number] [facility] 2023-04-22 00:00:00 2023-04-22 00:00:00 Telephone Carmen Hilton [facility] BUILDING 1.2.840.114 350.1.13.10 4.2.7.2.686 [id number] [facility] 2023-04-21 10:30:00 2023-04-21 11:30:06 Outpatient R CARMEN HILTON [facility] [id number] [facility] 2023-04-21 10:30:00 2023-04-21 11:30:06 Routine Visit Carmen Hilton [facility] 1.2.840.114 350.1.13.10 4.2.7.2.686 [id number] [facility] 2023-04-20 10:45:00 2023-04-20 10:45:00 Outpatient R CARMEN HILTON [facility] [id number] [facility] 2023-04-08 08:00:00 2023-04-08 08:15:00 Skid Man Visit 2, Adc Lab Carmen Hilton [facility] 1.2.840.114 350.1.13.10 4.2.7.2.686 [id number] [facility] 2023-04-08 08:00:00 2023-04-08 08:00:00 Outpatient R CARMEN HILTON [facility] [id number] [facility] 2023-04-08 00:00:00 2023-04-08 00:00:00 Patient Secure Msg Doctor Unassigned, [place] [facility] 1.2.840.114 350.1.13.10 4.2.7.2.686 [id number] [facility] 2023-04-06 13:15:00 2023-04-06 13:30:33 Outpatient R CARMEN HILTON [facility] [id number] [facility] 2023-04-06 13:15:00 2023-04-06 13:30:33 Routine Visit Carmen Hilton [facility] 1.2.840.114 350.1.13.10 4.2.7.2.686 [id number] [facility] 2023-04-06 00:00:00 2023-04-06 00:00:00 Patient Secure Msg Doctor Unassigned, [place] [facility] BU[facility] 1.2.840.114 350.1.13.10 4.2.7.2.686 [id number] 134 [id number] [facility] 2023-03-24 00:00:00 2023-03-24 00:00:00 Patient Secure Msg Doctor Unassigned, [place] [facility] BUILD[facility] 1..840.114 350.1.13.10 4.2.7.2.686 [id number] 134 [id number] [facility] 2023-03-22 13:45:00 2023-03-22 14:30:37 Skid Man Visit 2, Adc Lab Carmen Hilton [facility] 1.2.840.114 350.1.13.10 4.2.7.2.686 [id number] [facility] 2023-03-22 13:45:00 2023-03-22 13:45:00 Outpatient R CARMEN HILTON [facility] [id number] [facility] 2023-03-21 16:00:00 2023-03-21 16:15:02 Outpatient R KIRA YEBOAH MARISOL [facility] [id number] [facility] 2023-03-21 16:00:00 2023-03-21 16:15:02 Routine Visit Kira Yeboah [facility] 1.2.840.114 350.1.13.10 4.2.7.2.686 [id number] 134 [id number] [facility] 2023-03-14 00:00:00 2023-03-14 00:00:00 Patient Secure Msg Doctor Unassigned, [place] [facility] 1.114 350.1.13.10 4.2.7.2.686 [id number] [facility] 2023-03-11 10:00:00 2023-03-11 10:37:51 Outpatient R FAWN BONE [facility] [id number] [facility] 2023-03-11 10:00:00 2023-03-11 10:37:51 Office Visit Fawn Bone [facility] 1.84.114 350.1.13.10 4.2.7.2.686 [id number] [facility] 2023-03-11 00:00:00 2023-03-11 00:00:00 Orders Only Doctor Unassigned, [place] [facility] 1.84.114 350.1.13.10 4.2.7.2.686 [id number] [facility] 2022-12-22 16:30:00 2022-12-22 16:30:00 Outpatient R MJ IZAGUIRRE [facility] [id number] [facility] 2022-12-07 00:00:00 2022-12-07 00:00:00 Telephone Carmen Hilton [facility] BUILDING 1.84.114 350.1.13.10 4.2.7.2.686 [id number] [facility] 2022-12-05 13:40:00 2022-12-05 17:24:00 Emergency X BETI RODRÍGUEZ [facility] ERT [id number] [facility] 2022-12-05 13:40:00 2022-12-05 17:24:00 Emergency Beti Rodríguez [facility] 1.84.114 350.1.13.10 4.2.7.2.686 [id number] [facility] 2022-11-24 13:45:00 2022-11-24 14:30:38 Outpatient R CARMEN HILTON [facility] [id number] [facility] 2022-11-24 13:45:00 2022-11-24 14:30:38 Routine [facility] 1.2.840.114 350.1.13.10 4.2.7.2.686 [id number] [facility] 2022-11-22 03:13:00 2022-11-22 09:10:00 Emergency NAEL RODRIGUEZ [facility] [id number] [facility] 2022-11-22 03:13:00 2022-11-22 09:10:00 Emergency Darren Moe Robert Lee [facility] 1.2.840.114 350.1.13.10 4.2.7.2.686 [id number] [id number] [facility] 2022-11-22 00:00:00 2022-11-22 00:00:00 Telephone Carmen Hilton [facility] BUILDING 1.2.840.114 350.1.13.10 4.2.7.2.686 [id number] 134 [id number] [facility] 2022-11-15 10:15:00 2022-11-15 10:30:00 Skid Man Visit 2, Adc Lab Carmen Hilton [facility] BUILDING 1.2.840.114 350.1.13.10 4.2.7.2.686 [id number] [facility] 2022-11-15 10:15:00 2022-11-15 10:15:00 Outpatient R TA [facility] [id number] [facility] 2022-11-15 00:00:00 2022-11-15 00:00:00 Telephone Carmen Hilton [facility] 1.2.840.114 350.1.13.10 4.2.7.2.686 [id number] 134 [id number] [facility] 2022-11-12 00:00:00 2022-11-12 00:00:00 Case Management Carmen Hilton [facility] 1.2840.114 350.1.13.10 4.2.7.2.686 [id number] 134 [id number] [facility] 2022-11-08 11:00:00 2022-11-08 12:28:17 [id number] 2022-11-08 11:00:00 2022-11-08 12:28:17 Initial Visit Carmen Hilton [facility] 1.2840.114 350.1.13.10 4.2.7.2.686 [id number] 134 [id number] [facility] 2022-11-08 00:00:00 2022-11-08 00:00:00 Orders Only Doctor Unassigned, [place] [facility] 1.20.114 350.1.13.10 4.2.7.2.686 [id number] [facility] 2022-10-29 23:07:00 2022-10-30 00:49:00 Emergency X LUCHO BEATTY [facility] [id number] [facility] 2022-10-29 23:07:00 2022-10-30 00:49:00 Emergency Lucho Beatty [facility] 1.2840.114 350.1.13.10 4.2.7.2.686 [id number] [id number] [facility] 2022-10-29 00:00:00 2022-10-29 00:00:00 Orders Only Doctor Unassigned, [place] [facility] 1.2840.114 350.1.13.10 4.2.7.2.686 [id number] [facility] 2019-12-20 14:57:45 2019-12-20 16:56:00 Emergency X LUCHO BEATTY [facility] ERT [id number] [facility] 2019-03-21 08:56:00 2019-03-21 08:56:00 Emergency E [facility] [address] [facility] Results Test Description Test Time Test Comments Results Result Co [id number] 21:25:00* Test Item Value Reference Range Interpretation Comme nts POCT PREG (test code = 1605) Negative On board controls acceptable with C Line (test code = 3574) Yes POCT PREG LOT # (test code = 3575) POCT PREG TEST DATE (test code = 3576) MATHEUS (test code = MATHEUS) accurate developme nt and interpretation of all internal controls Lab Interpretation (test code = 28806-9) Normal [place] [facility] [id number] 06:15:05 * Test Item Value Reference Range Interpretation Comme nts TSH (test code = 9133042144) 1.15 See_Comment [Automated messa ge] The system which generated this result transmitted reference range: 0.45 - 4.70 mIU/L. The reference range was not used to interpret this result as normal/abnormal. Lab Interpretation (test code = 87424-2) Normal [facility] [id number] 06:01:49* Test Item Value Reference Range Interpretation Comme nts FREE T4 (test code = 9415869036) 0.97 See_Comment [Automated messa ge] The system which generated this result transmitted reference range: 0.78 - 2.20 ng/dL:. The reference range was not used to interpret this result as normal/abnormal. Lab Interpretation (test code = 98727-8) Normal [facility] [id number] 06:01:20* Test Item Value Reference Range Interpretation Comme nts FREE T3 (test code = 4515628692) 3.52 pg/mL 2.77-5.27 Lab Interpretation (test cod e = 28012-5) [facility]* Test Item Value Reference Range Interpretation Comme nts MAGNESIUM (test code = 4337787645) 2.1 mg/dL 1.7-2.4 Lab Interpretation (test cod e = 05598-5) Normal [facility] URINALYSIS W SPECIFIC [id number] 21:38:00* Test Item Value Reference Range Interpretation Comme nts POCT U SP GRAV (test code = 3255) 1.010 mg/dl 1.005-1.025 POCT PH U (test code = 3254) 7 mg/dl 5-8 POCT U LEUK EST (test code = 3263) trace Negative - Negative POCT U NIT (test code = 3262) neg Negative - Negative POCT U PROT (test code = 3259) trace Negative - Negative POCT U GLU (test code = 3256) normal Negative - Negative POCT U KETONE (test code = 3258) neg Negative - Negative POCT U UROBILI (test code = 3260) normal 0.2-1 POCT U BILI (test code = 3261) neg Negative - Negative POCT U BLD (test code = 3257) 50 Negative - Negative POCT U COLOR (test code = 3266) light yellow POCT U APPEAR (test code = 3267) clear [facility] URINALYSIS W SPECIFIC [id number] 21:38:00* Test Item Value Reference Range Interpretation Comme nts POCT U SP GRAV (test code = 3255) 1.010 mg/dl 1.005-1.025 POCT PH U (test code = 3254) 7 mg/dl 5-8 POCT U LEUK EST (test code = 3263) trace Negative - Negative POCT U NIT (test code = 3262) neg Negative - Negative POCT U PROT (test code = 3259) trace Negative - Negative POCT U GLU (test code = 3256) normal Negative - Negative POCT U KETONE (test code = 3258) neg Negative - Negative POCT U UROBILI (test code = 3260) normal 0.2-1 POCT U BILI (test code = 3261) neg Negative - Negative POCT U BLD (test code = 3257) 50 Negative - Negative POCT U COLOR (test code = 3266) light yellow POCT U APPEAR (test code = 3267) clear [facility] [id number] 21:36:00* Test Item Value Reference Range Interpretation Comme nts POCT PREG (test code = 1605) Negative On board controls acceptable with C Line (test code = 3574) Yes POCT PREG LOT # (test code = 3575) POCT PREG TEST DATE ( test code = 3576) [facility] [id number] 21:36:00* Test Item Value Reference Range Interpretation Comme nts POCT PREG (test code = 1605) Negative On board controls acceptable with C Line (test code = 3574) Yes POCT PREG LOT # (test code = 3575) POCT PREG TEST DATE ( test code = 3576) [facility]fieldTR[facility] [id number] 22:12:29* Test Item Value Reference Range Interpretation Comme nts TROPONIN I (test code = 5335639995) 0.000 ng/mL <=0.034 MATHEUS (test code = MATHEUS) Reference (Normal) Range (defined by the 99th percentile reference limit): <= 0.034 ng/mL Note: Cardiac troponin begins to rise 3-4 hours after the onset of ischemia. Repeat in 4-6 hours if the sample was drawn within 3-4 hours of the onset of the symptom and found normal. Diagnosis of myocardial injury is made with acute changes in cTn concentrations with at least one serial sample above the 99th percentile upper reference limit (URL), taken together with the patient's clinical presentation. Biotin has been reported to cause a negative bias, interpret results relative to patient's use of biotin. Lab Interpretation (test code = 07826-7) Normal [facility]field[facility]-[id number] 22:04:46* Test Item Value Reference Range Interpretation Comments D-DIMER (test code = 3499452552) 0.41 See_Comment H [Automated message] The system which generated this result transmitted reference range: <0.41 ?g/mL (FEU). The reference range was not used to interpret this result as normal/abnormal. MATHEUS (test code = MATHEUS) This test may be used in conjunction with a clinical pretest probability (PTP) assessment model to exclude venous thromboembolism (VTE) in patients suspected of deep venous thrombosis (DVT) and pulmonary embolism (PE) A D-Dimer value less than 0.50 ?g/ml (FEU) has a negative predicative value of 96 to 100% (95% CI)and 97 to 100% (95% CI) as an aid in the diagnosis of deep vein thrombosis (DVT) and pulmonary embolism when there is low or moderate pretest probability of PE or DVT. D-Dimer values are expressed in initial fibrinogen equivalent units (FEU)" The assay results should be used with other information, including the clinical context, in forming a diagnosis. Lab Interpretation (test code = 00727-0) Abnormal [facility]. METABOLIC PANEL (03349)2023-08-20 22:02:49* Test Item Value Reference Range Interpretation Comme nts NA (test code = 6999145636) 137 mmol/L 135-145 K (test code = 6342562407) 4.0 mmol/L 3.5-5.0 CL (test code = 5446007919) 106 mmol/L 98-108 CO2 TOTAL (test code = 0084367662) 23 mmol/L 23-31 AGAP (test code = 2115771619) 8 2-16 BUN (test code = 8099443489) 12 mg/dL 7-23 GLUCOSE (test code = 5841295072) 90 mg/dL 70-110 CREATININE (test code = 6384895990) 0.77 mg/dL 0.50-1.04 TOTAL BILI (test code = 3767699369) 0.5 mg/dL 0.1-1.1 CALCIUM (test code = 7573354536) 9.3 mg/dL 8.6-10.6 T PROTEIN (test code = 0307194435) 7.6 g/dL 6.3-8.2 ALBUMIN (test code = 7721335650) 4.1 g/dL 3.5-5.0 ALK PHOS (test code = 6800874692) 75 U/L 34-122 ALTv (test code = 1742-6) 18 U/L 5-35 AST(SGOT) (test code = 0519565324) 31 U/L 13-40 eGFR (test code = 25491-3) 109.9 mL/min/1.73m2 CKD-EPI eGFR (20 21). Assuming creatinine has been stable day-to-day for at least three months, the eGFR indicates Category G1 (>= 90 mL/min/1.73 m2) General acute hospital WITH [id number] 21:42:47* Test Item Value Reference Range Interpretation Comme nts WBC (test code = 6690-2) 6.59 See_Comment [Automated [employer] ge] The system which generated this result transmitted reference range: 4.30 - 11.10 10*3/?L. The reference range was not used to interpret this result as normal/abnormal. RBC (test code = 789-8) 4.33 See_Comment [Automated [employer] ge] The system which generated this result transmitted reference range: 3.93 - 5.25 10*6/?L. The reference range was not used to interpret this result as normal/abnormal. HGB (test code = 718-7) 12.0 g/dL 11.6-15.0 HCT (test code = 4544-3) 36.6 % 35.7-45.2 MCV (test code = 787-2) 84.5 fL 80.6-95.5 MCH (test code = 785-6) 27.7 pg 25.9-32.8 MCHC (test code = 786-4) 32.8 g/dL 31.6-35.1 RDW-SD (test code = 71463-9) 43.6 fL 39.0-49.9 RDW-CV (test code = 788-0) 13.9 % 12.0-15.5 PLT (test code = 777-3) 331 See_Comment [Automated [employer] ge] The system which generated this result transmitted reference range: 166 - 358 10*3/?L. The reference range was not used to interpret this result as normal/abnormal. MPV (test code = 24574-3) 11.5 fL 9.5-12.9 NRBC/100 WBC (test code = 9244150586) 0.0 See_Comment [Automated [employer] ssage] The system which generated this result transmitted reference range: 0.0 - 10.0 /100 WBCs. The reference range was not used to interpret this result as normal/abnormal. NRBC x10^3 (test code = 5399413385) See_Comment [Automated messa ge] The system which generated this result transmitted reference range: 10*3/?L. The reference range was not used to interpret this result as normal/abnormal. GRAN MAT (NEUT) % (test code = 770-8) 53.8 % IMM GRAN % (test code = 8771061254) 0.20 % LYMPH % (test code = 736-9) 27.9 % MONO % (test code = 5905-5) 9.0 % EOS % (test code = 713-8) 8.2 % BASO % (test code = 706-2) 0.9 % GRAN MAT x10^3(ANC) (test code = 9449425287) 3.55 10*3/uL 1.88-7.09 IMM GRAN x10^3 (test code = 7962306461) 0.00-0.06 LYMPH x10^3 (test code = 731-0) 1.84 10*3/uL 1.32-3.29 MONO x10^3 (test code = 742-7) 0.59 10*3/uL 0.33-0.92 EOS x10^3 (test code = 711-2) 0.54 10*3/uL 0.03-0.39 H BASO x10^3 (test code = 704-7) 0.06 10*3/uL 0.01-0.07 Lab Interpretation (test code = 89866-7) Abnormal [facility] [id number] 21:26:00* Test Item Value Reference Range Interpretation Comme nts POCT PREG (test code = 1605) Negative On board controls acceptable with C Line (test code = 3574) Yes POCT PREG LOT # (test code = 3575) HCG [id number] POCT PREG TEST DATE (test code = 3576) 01/12/2025 Lab Interpretation (test cod e = 33633-6) Normal [facility] [id number] 20:43:00* Test Item Value Reference Range Interpretation Comme nts POCT PREG (test code = 1605) Negative On board controls acceptable with C Line (test code = 3574) Yes POCT PREG LOT # (test code = 3575) [id number] POCT PREG TEST DATE ( test code = 3576) 06/26/24 [facility] [id number] 20:43:00* Test Item Value Reference Range Interpretation Comme nts POCT PREG (test code = 1605) Negative On board controls acceptable with C Line (test code = 3574) Yes POCT PREG LOT # (test code = 3575) [id number] POCT PREG TEST DATE ( test code = 3576) 06/26/24 [facility] SARS-COV-2 ANTIGEN (BINAX NOW)2023-08-16 20:31:00* Test Item Value Reference Range Interpretation Comme nts POCT SARS-COV-2 ANTIGEN (nadege t code = 70088-7) Not Detected Not Detected On board controls acceptable with C Line (test code = 3574) Yes [facility] SARS-COV-2 ANTIGEN (BINAX NOW)2023-08-16 20:31:00* Test Item Value Reference Range Interpretation Comme nts POCT SARS-COV-2 ANTIGEN (nadege t code = 97404-3) Not Detected Not Detected On board controls acceptable with C Line (test code = 3574) Yes [facility] IMM[facility]E [id number] 19:21:34* Test Item Value Reference Range Interpretation Comme nts RHIG CANDIDATE? (test code = 5188) No- see comment Patient is not a candidate for RhIg- Patient is Rh Positive.Performed at [facility] Laboratory Services - [facility] Blood [id number] [place] [id number] Free: [phone] No. [id number] [facility] URINALYSIS W/O SPECIFIC [id number] 13:55:00* Test Item Value Reference Range Interpretation Comme nts POCT PH U (test code = 3254) n/a 5-8 POCT U LEUK EST (test code = 3263) n/a Negative - Negative POCT U NIT (test code = 3262) n/a Negative - Negati ve POCT U PROT (test code = 3259) TRACE Negative - Negat buzz POCT U GLU (test code = 3256) negative Negative - Negati ve POCT U KETONE (test code = 3258) n/a Negative - Neg ative POCT U BLD (test code = 3257) n/a Negative - Negati ve [facility] URINALYSIS W/O SPECIFIC [id number] 14:02:00* Test Item Value Reference Range Interpretation Comme nts POCT PH U (test code = 3254) n/a 5-8 POCT U LEUK EST (test code = 3263) n/a Negative - N egative POCT U NIT (test code = 3262) n/a Negative - Negati ve POCT U PROT (test code = 3259) neg Negative - Negat buzz POCT U GLU (test code = 3256) neg Negative - Negati ve POCT U KETONE (test code = 3258) n/a Negative - Neg ative POCT U BLD (test code = 3257) n/a Negative - Negati ve [facility] URINALYSIS W/O SPECIFIC [id number] 14:44:00* Test Item Value Reference Range Interpretation Comme nts POCT PH U (test code = 3254) n/a 5-8 POCT U LEUK EST (test code = 3263) n/a Negative - Negative POCT U NIT (test code = 3262) n/a Negative - Negati ve POCT U PROT (test code = 3259) negative Negative - Negat buzz POCT U GLU (test code = 3256) negative Negative - Negati ve POCT U KETONE (test code = 3258) n/a Negative - Neg ative POCT U BLD (test code = 3257) n/a Negative - Negati ve [facility] URINALYSIS W/O SPECIFIC [id number] 14:44:00* Test Item Value Reference Range Interpretation Comme nts POCT PH U (test code = 3254) n/a 5-8 POCT U LEUK EST (test code = 3263) n/a Negative - Negative POCT U NIT (test code = 3262) n/a Negative - Negati ve POCT U PROT (test code = 3259) negative Negative - Negat buzz POCT U GLU (test code = 3256) negative Negative - Negati ve POCT U KETONE (test code = 3258) n/a Negative - Neg ative POCT U BLD (test code = 3257) n/a Negative - Negati ve [facility] URINALYSIS W/O SPECIFIC [id number] 14:44:00* Test Item Value Reference Range Interpretation Comme nts POCT PH U (test code = 3254) n/a 5-8 POCT U LEUK EST (test code = 3263) n/a Negative - Negative POCT U NIT (test code = 3262) n/a Negative - Negati ve POCT U PROT (test code = 3259) negative Negative - Negat buzz POCT U GLU (test code = 3256) negative Negative - Negati ve POCT U KETONE (test code = 3258) n/a Negative - Neg ative POCT U BLD (test code = 3257) n/a Negative - Negati ve [facility] URINALYSIS W/O SPECIFIC [id number] 16:15:00* Test Item Value Reference Range Interpretation Comme nts POCT PH U (test code = 3254) n/a 5-8 POCT U LEUK EST (test code = 3263) n/a Negative - N egative POCT U NIT (test code = 3262) n/a Negative - Negati ve POCT U PROT (test code = 3259) neg Negative - Negat buzz POCT U GLU (test code = 3256) neg Negative - Negati ve POCT U KETONE (test code = 3258) n/a Negative - Neg ative POCT U BLD (test code = 3257) n/a [facility] [id number] 18:13:00* Test Item Value Reference Range Interpretation Comme nts POCT PH U (test code = 3254) n/a 5-8 POCT U LEUK EST (test code = 3263) n/a Negative - Negative POCT U NIT (test code = 3262) n/a Negative - Negati ve POCT U PROT (test code = 3259) Negative Negative - Negat buzz POCT U GLU (test code = 3256) Normal Negative - Negati ve POCT U KETONE (test code = 3258) n/a Negative - Neg ative POCT U BLD (test code = 3257) n/a Negative - Negati ve [facility] URINALYSIS W/O SPECIFIC [id number] 18:13:00* Test Item Value Reference Range Interpretation Comme nts POCT PH U (test code = 3254) n/a 5-8 POCT U LEUK EST (test code = 3263) n/a Negative - Negative POCT U NIT (test code = 3262) n/a Negative - Negati ve POCT U PROT (test code = 3259) Negative Negative - Negat buzz POCT U GLU (test code = 3256) Normal Negative - Negati ve POCT U KETONE (test code = 3258) n/a Negative - Neg ative POCT U BLD (test code = 3257) n/a Negative - Negati ve [facility] URINALYSIS W/O SPECIFIC [id number] 20:55:00* Test Item Value Reference Range Interpretation Comme nts POCT PH U (test code = 3254) n /a 5-8 POCT U LEUK EST (test code = 3263) n/a Negative - Negative POCT U NIT (test code = 3262) n/a Negative - Negati ve POCT U PROT (test code = 3259) negative Negative - Negat buzz POCT U GLU (test code = 3256) negative Negative - Negati ve POCT U KETONE (test code = 3258) n/a Negative - Neg ative POCT U BLD (test code = 3257) n/a Negative - Negati ve [facility] URINALYSIS W/O SPECIFIC [id number] 19:55:00* Test Item Value Reference Range Interpretation Comme nts POCT PH U (test code = 3254) 5 mg/dl 5-8 POCT U LEUK EST (test code = 3263) negative Negative - Negative POCT U NIT (test code = 3262) negative Negative - Negati ve POCT U PROT (test code = 3259) negative Negative - Negat buzz POCT U GLU (test code = 3256) negative Negative - Negati ve POCT U KETONE (test code = 3258) 2+ Negative - Neg ative POCT U BLD (test code = 3257) negative Negative - Negati ve [facility] Screen - ONCE [id number] 10:17:50 * Test Item Value Reference Range Interpretation Comme nts ABO & RH (test code = 20) O Positive Performed at [facility] Laboratory [facility] Blood [address] Free: [phone] No. [id number] IAT (test code = 1185) Negative Performed at [facility] Laboratory Services [facility] Blood [address] Free: [phone] No. [id number] [facility] [id number] 09:30:00* Test Item Value Reference Range Interpretation Comme nts POCT PREG (test code = 1605) + On board controls acceptable with C Line (test code = 3574) yes POCT PREG LOT # (test code = 3575) [id number] POCT PREG TEST DATE ( test code = 3576) 03/09/2024 Lab Interpretation (test cod e = 17142-8) Normal [facility] [id number] 17:43:00* Test Item Value Reference Range Interpretation Comme nts POCT PREG (test code = 1605) Positive On board controls acceptable with C Line (test code = 3574) Yes POCT PREG LOT # (test code = 3575) POCT PREG TEST DATE ( test code = 3576) [facility] URINALYSIS W/O SPECIFIC [id number] 17:43:00* Test Item Value Reference Range Interpretation Comme nts POCT PH U (test code = 3254) 5 mg/dl 5-8 POCT U LEUK EST (test code = 3263) 2+ Negative - Negative POCT U NIT (test code = 3262) negative Negative - Negati ve POCT U PROT (test code = 3259) trace Negative - Negat buzz POCT U GLU (test code = 3256) negative Negative - Negati ve POCT U KETONE (test code = 3258) 3+ Negative - Neg ative POCT U BLD (test code = 3257) negative Negative - Negati ve [facility] [id number] 17:43:00* Test Item Value Reference Range Interpretation Comme nts POCT PREG (test code = 1605) Positive On board controls acceptable with C Line (test code = 3574) Yes POCT PREG LOT # (test code = 3575) POCT PREG TEST DATE ( test code = 3576) [facility] URINALYSIS W/O SPECIFIC [id number] 17:43:00* Test Item Value Reference Range Interpretation Comme nts POCT PH U (test code = 3254) 5 mg/dl 5-8 POCT U LEUK EST (test code = 3263) 2+ Negative - Negative POCT U NIT (test code = 3262) negative Negative - Negati ve POCT U PROT (test code = 3259) trace Negative - Negat buzz POCT U GLU (test code = 3256) negative Negative - Negati ve POCT U KETONE (test code = 3258) 3+ Negative - Neg ative POCT U BLD (test code = 3257) negative Negative - Negati ve [facility] METABOLIC PANEL (84775)2022-10-30 06:22:54* Test Item Value Reference Range Interpretation Comme nts NA (test code = 7910857030) 135 mmol/L 135-145 K (test code = 1904156402) 4.3 mmol/L 3.5-5.0 CL (test code = 2483742994) 105 mmol/L 98-108 CO2 TOTAL (test code = 9306109570) 22 mmol/L 23-31 L AGAP (test code = 4207129201) 2-16 BUN (test code = 7534259341) 6 mg/dL 7-23 L GLUCOSE (test code = 2857660539) 100 mg/dL 70-110 CREATININE (test code = 8680877930) 0.53 mg/dL 0.50-1.04 TOTAL BILI (test code = 4235008683) 0.6 mg/dL 0.1-1.1 CALCIUM (test code = 5383836643) 9.2 mg/dL 8.6-10.6 T PROTEIN (test code = 2264935097) 7.7 g/dL 6.3-8.2 ALBUMIN (test code = 3090768749) 4.5 g/dL 3.5-5.0 ALK PHOS (test code = 9971889690) 66 U/L 34-122 ALTv (test code = 1742-6) 21 U/L 5-35 AST(SGOT) (test code = 9681478103) 23 U/L 13-40 eGFR (test code = 7532454252) mL/min/1.73m2 MATHEUS (test code = MATHEUS) Association of [...] or abnormalities in imaging tests). Lab Interpretation (test code = 41404-8) Abnormal [facility] acute hospital WITH [id number] 06:01:54* Test Item Value Reference Range Interpretation Comme nts WBC (test code = 6690-2) See_Comment [Automated [email or web address]] The system which generated this result transmitted reference range: 4.30 - 11.10 10*3/?L. The reference range was not used to interpret this result as normal/abnormal. RBC (test code = 789-8) See_Comment [Automated [employer] ge] The system which generated this result transmitted reference range: 3.93 - 5.25 10*6/?L. The reference range was not used to interpret this result as normal/abnormal. HGB (test code = 718-7) 12.7 g/dL 11.6-15.0 HCT (test code = 4544-3) 37.6 % 35.7-45.2 MCV (test code = 787-2) 85.8 fL 80.6-95.5 MCH (test code = 785-6) 29.0 pg 25.9-32.8 MCHC (test code = 786-4) 33.8 g/dL 31.6-35.1 RDW-SD (test code = 57441-3) 39.1 fL 39.0-49.9 RDW-CV (test code = 788-0) 12.5 % 12.0-15.5 PLT (test code = 777-3) See_Comment [Automated [employer] ge] The system which generated this result transmitted reference range: 166 - 358 10*3/?L. The reference range was not used to interpret this result as normal/abnormal. MPV (test code = 61278-4) 11.2 fL 9.5-12.9 NRBC/100 WBC (test code = 4312704794) See_Comment [Automated me ssage] The system which generated this result transmitted reference range: 0.0 - 10.0 /100 WBCs. The reference range was not used to interpret this result as normal/abnormal. NRBC x10^3 (test code = 8824391914) See_Comment [Automated [employer] ssage] The system which generated this result transmitted reference range: 10*3/?L. The reference range was not used to interpret this result as normal/abnormal. GRAN MAT (NEUT) % (test code = 770-8) 60.6 % IMM GRAN % (test code = 7815298374) 0.40 % LYMPH % (test code = 736-9) 27.1 % MONO % (test code = 5905-5) 7.6 % EOS % (test code = 713-8) 3.8 % BASO % (test code = 706-2) 0.5 % GRAN MAT x10^3(ANC) (test code = 5593401258) 4.95 10*3/uL 1.88-7.09 IMM GRAN x10^3 (test code = 1470036461) 0.03 10*3/uL 0.00-0.06 LYMPH x10^3 (test code = 731-0) 2.21 10*3/uL 1.32-3.29 MONO x10^3 (test code = 742-7) 0.62 10*3/uL 0.33-0.92 EOS x10^3 (test code = 711-2) 0.31 10*3/uL 0.03-0.39 BASO x10^3 (test code = 704-7) 0.04 10*3/uL 0.01-0.07 [facility] History and Physical Notes Date/Time Note Provider Source 2023-05-30 07:44:18 VxELrf+9+uW46haVUbyc [id number] yXqX3mAdaNw1dViwqxbi511415-93-01F17:44:18F ormatting of this note is different from the original.TRIAGE HISTORY & PHYSICALIDENTIFYING DATADanuta Peetrson is 23 year old, /White, 38w5d, female with ORA 06/08/2023, by Last Menstrual Period. : 2000MRN: [id number] Care Physician: PATIENT DOES NOT HAVE A PCPCHIEF COMPLAINTLOFHISTORY OF PRESENT ILLNESSDanuta Peterson is a 23 year old female @ 38w5d presented for leakage of fluid that started around 0030. The fluid was not clear.+FM. No VB. + CTX. No pre-eclampsia sx or other complaints.PAST OBSTETRIC HISTORYOB History Para Term AB Living 2 1 1 0 0 1 SAB IAB Ectopic Multiple Live Births 0 0 0 0 1 # Outcome Date GA Lbr Luis Manuel/2nd Weight Sex Delivery Anes PTL Lv 2 Current 1 Term 10/18/19 39w1d 2750 g F NORMAL SPONT IV narcotic, EPI N DEANNE PAST MEDICAL HISTORYProblem list: Patient Active Problem List Diagnosis Date Noted Full-term premature rupture of membranes with onset of labor within 24 hours of rupture 05/30/2023 Encounter for tubal ligation counseling 05/11/2023 Other specified anxiety disorders 04/06/2023 Depression affecting , antepartum 04/06/2023 Abnormal maternal glucose tolerance, antepartum 04/06/2023 Obesity (BMI 30-39.9) 03/21/2023 Acute pain of left knee 03/11/2023 History of gestational diabetes 11/08/2022 History of depression 11/08/2022 Supervision of high risk in third trimester 09/05/2019 38 weeks gestation of 09/05/2019 Asthma Operations: Past Surgical History: Procedure Laterality Date INSERT CERVICAL DILATOR 10/17/2019 PECTUS EXCAVATUM HARDWARE PLACEMENT N/A 2002 PECTUS EXCAVATUM HARDWARE REMOVAL 2004 Past Medical History: Diagnosis Date Anxiety Asthma Diabetes mellitus affecting in third trimester 09/05/2019 GERD without esophagitis Hypercholesteremia IBS (irritable bowel syndrome) depression 11/06/2019 PTSD (post-traumatic stress disorder) CURRENT HEALTH STATUSMedications: Current Facility-Administered Medications Medication Dose Route Frequency Last Rate Last Admin carboprost (HEMABATE) injection 250 mcg 250 mcg Intramuscular Q2HPRN D5W-LR IV infusion 1,000 mL 1,000 mL IV Infusion TITRATE 125 mL/hr at 05/30/23 1231 Rate Verify at 05/30/23 1231 FENTanyl PF (SUBLIMAZE (PF)) injection 100 mcg 100 mcg Slow IV Push Q1HPRN 100 mcg at 05/30/23 1216 lactated ringers IV infusion 500 mL 500 mL IV Infusion PRN - SEE INSTRUCTIONS lactated ringers IV infusion 700 mL 700 mL Intravenous ONCE Held at 05/30/23 0245 lidocaine 1% (PF) (XYLOCAINE) injection 0.3 mL 0.3 mL Infiltration PRN - SEE INSTRUCTIONS lidocaine 1% (XYLOCAINE) 10 mg/mL (1 %) injection 50 mL 50 mL Infiltration PRN - SEE INSTRUCTIONS methylergonovine (METHERGINE) injection 0.2 mg 0.2 mg Intramuscular Q4HPRN miSOPROStoL (CYTOTEC) tablet 200 mcg 200 mcg Rectal PRN oxytocin (PITOCIN) 30 units in NS 500 mL IV infusion 600 mL/hr IV Infusion PRN oxytocin (PITOCIN) 30 units in NS 500 mL IV infusion 2-40 jeison-units/min IV Infusion TITRATE 4 mL/hr at 05/30/23 1231 4 jeison-units/min at 05/30/23 1231 proMETHazine (PHENERGAN) 25 mg in NaCl 0.9% (NS) 50 mL IV piggyback 25 mg IV Piggyback Q4HPRN 25 mg at 05/30/23 1126 sodium citrate-citric acid (BICITRA) 500-334 mg/5 mL solution 30 mL 30 mL Oral PRE-PROCEDURE ONCE sodium citrate-citric acid (BICITRA) 500-334 mg/5 mL solution 30 mL 30 mL Oral PRE-PROCEDURE ONCE tranexamic acid (CYKLOKAPRON) 1,000 mg in NaCl 0.9% (NS) 250 mL piggyback 1,000 mg IV Piggyback PRN Allergies and drug reactions: Banana and AvocadoHOME MEDICATIONSMedications Prior to Admission Medication Sig Dispense Refill Last Dose FLUoxetine 20 mg capsule Take 1 capsule by mouth in the morning. 30 capsule 2 05/29/2023 doxylamine (UNISOM, DOXYLAMINE,) 25 mg tablet Take 1 tablet by mouth at bedtime as needed for Nausea and Vomiting (N/V). 30 tablet 1 Unknown pyridoxine, VITAMIN B-6, (VITAMIN B-6) 25 mg tablet Take 1 tablet by mouth every 6 (six) hours as needed for Nausea and Vomiting (N/V). 120 tablet 1 Unknown vitamin w/FA tablet Take 1 tablet by mouth daily. 100 tablet 3 Unknown SOCIAL HISTORYTobacco History: Social History Tobacco Use Smoking Status Former Types: Cigarettes Quit date: 03/10/2017 Years since quittin.2 Smokeless Tobacco Never Drug History: Social History Substance and Sexual Activity Drug Use Never Alcohol History: Social History Substance and Sexual Activity Alcohol Use Not Currently FAMILY HISTORYFamily History Problem Relation Age of Onset Arthritis Mother Heart Mother Cancer Father colon Colon Cancer Father Hypertension Father Depression Sister No Significant Medical Problems Brother No Significant Medical Problems Maternal Aunt No Significant Medical Problems Maternal Uncle No Significant Medical Problems Paternal Uncle Cancer Maternal Grandmother lung Arthritis Maternal Grandfather No Significant Medical Problems Paternal Grandmother No Significant Medical Problems Paternal Grandfather Mental retardation Other Possible autism Asthma NoFHx defects NoFHx Genetic NoFHx Breast Cancer NoFHx Ovarian Cancer NoFHx Uterine Cancer NoFHx Diabetes NoFHx High cholesterol NoFHx Neurological NoFHx Osteoporosis NoFHx Psychiatry NoFHx REVIEW OF SYSTEMSGeneral: negativeConstitutional: negativeEyes: negativeENT/Mouth: negativeCardiovascular: negativeRespiratory: negativeGastrointestinal:negativeGenitouri nary: See HPIMusculoskeletal: negativeSkin/breast: negativeNeurological: negativePsychiatric: negativeEndocrine: negativeHemat/Lymph: negativeAllergic/Immuno:noneVITAL SIGNSBP: (111-144)/(69-90) Temp: [36.4 ?C (97.5 ?F)-37.3 ?C (99.2 ?F)] Temp source: Temporal Artery (05/30 1200)Pulse: [62-75] Resp: [18] SpO2: [96 %-100 %] Height: --Weight: [85.8 kg (189 lb 3.2 oz)] BMI (calculated): [0] PHYSICAL EXAMINATIONSGen: alert and oriented, well appearing, no distressCV: RRR, normal S1/S2, no m/r/gResp: normal work of breathing, lungs CTABAbd: gravid, soft, NTTPExt: no calf tenderness or edemaGU: SVE 3/60/-2 by RN. Thin meconium noted. REVIEW OF LABORATORY, PATHOLOGY, AND RADIOLOGY DATALab results:Type & Screen HIV Hep B Syphilis Chlamydia ABO & RH Date Value Ref Range Status 05/30/2023 O Positive Final No results found for: "HIVMULTIPLEX" No components found for: "HBSHBSAG" Syphilis IgG/IgM Date Value Ref Range Status 03/15/2019 Non-reactive Non-reactive Final C. trachomatis Nucleic Acid Date Value Ref Range Status 05/11/2023 Negative Negative Final IAT Date Value Ref Range Status 05/30/2023 Negative Final Varicella Rubella Glucose Group B Strep CBC VZV IgG antibody Date Value Ref Range Status 03/15/2019 Positive Negative Final Rubella screen IgG Date Value Ref Range Status 11/15/2022 Negative Negative Final GLUC 1 HR Date Value Ref Range Status 04/08/2023 135 120 - 170 mg/dL Final No results found for: "CGBS" HGB Date Value Ref Range Status 05/30/2023 10.9 (L) 11.6 - 15.0 g/dL Final HCT Date Value Ref Range Status 05/30/2023 32.5 (L) 35.7 - 45.2 % Final PLT Date Value Ref Range Status 05/30/2023 278 166 - 358 10*3/?L Final Active Hospital Problems Diagnosis Date Noted Full-term premature rupture of membranes with onset of labor within 24 hours of rupture 05/30/2023 38 weeks gestation of 09/05/2019 Resolved Hospital Problems No resolved problems to display. Present on Admission: Full-term premature rupture of membranes with onset of labor within 24 hours of rupture 38 weeks gestation of pregnancyPlacenta Accreta ScreeningPrior ? : NoPrior Uterine Surgery?: NoPlacenta low lying/previa in current ? : NoScreening outcome:A positive screening outcome indicates a history of prior delivery or prior uterine surgery, AND the presence of either a placenta low lying/previa or ultrasound suspicion of PASD in the current . Negative screening.ASSESSMENT AND PLANAmanda Nicholas is a 23 year old female @ 38w5d here for LOF and admitted for an induction due to PROM.Induction- due to PROM-Pitocin per protocol- Cephalic presentation confirmed- GBS negative- Fabien EFW less than 4500 gMPDPS-BTL consent signed on 05/11/2023, not matureanxiety/depression- on Fluoxetine 20 mg daily, ordered while in house.Patient is given up baby for adoption. Does not desire to see baby or hold baby.PVT of Dr. Hilton, please see OB Summary for more detailsAndrian Van Hilton MD 05/30/2023 1:00 PM 76315-9Zcfonfj and physical lryoXS0625-58-72T02:03:58History and physical noteTXT1.2.840.771778.1.13.104.2.7.2.29666 9|[id number] for patient vgxe78783-7Gmsxurc and physical noteLNUTMBUT - [address] Oz[id number] WEVKNMJZNCJAEWNU9985-19-28C80:03:581.2.840 .645707.1.72.3.15|1.2.840.263063.1.13.104. 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 -----says she has severe pain in lower abdominal area rt side only and getting worsePt discharging rust color from vaginal area period is offshe wants to know what she should do 58117-8Ljdzltmmk encounter KmvhNM6846-24-45K82:38:26Telephone encounter NoteTXT1.2.840.574180.1.13.104.2.7.2 .018227|[id number] for patient obft94601-8FizfBHHFQPSCFSTAoolpizvo C-CDA narrative [id number] Burk RNUT[address] Olck[id number] EANTOPQXOJJBWPOHKFEQES0775-52-27U65: 38:261.2.840.288600.1.72.3.15|1.2.84 0.333157.1.13.104.2.7.2.727879_20335 62938 Emiliano Lewis RN [facility] 2023-12-04 12:38:00 yZ8NguUIXsLRSKIiYKbCSmvvR3kFsW3fuGrq 3uQufvFfp9mvi8DStZj9WBK4pgZQ5467-18- 25T12:38:00 Adult Triage AssessmentLast Clinic Visit: 11/28/23 - [facility] for pre-op exam for sterilizationPrimary Symptom: Abdominal painOnset / Duration: 2 hours agoLocation / Description: right lower quadrantPain / Severity: 7/10 - constantAssociated Symptoms: severe rebound pain with movement moving, blood in urine x1 - unsure of menstrual blood.Fever / Method: DeniedHydration: 2 bottles of water, last urinated 10min - denied difficultyTreatment so far: Midol 500mg last taken 1 hour ago - no reliefEffect on ADL's: Some changeLMP: started today possibly, 12 days late.Pre-existing condition / Immunocompromised: DeniedReason for Disposition[1] SEVERE pain (e.g., excruciating) AND [2] present > 1 hourProtocols used: Abdominal Pain - Neusfa-NVBQP-EAZqzrfwgdvriqch signed by Emiliano Lewis RN at 12/04/2023 12:51 PM ILE16063-2Jqrfmdisq encounter ClarIQ4698-69-27Q95:51:21Telephone encounter NoteTXT1.2.840.409465.1.13.104.2.7.2 .387572|[id number] for patient dzll23515-3YyyaDERUSFGOHCTEkgtnxrvp C-CDA narrative text[address] Gt[id number] PEFHQJXIGXHQLORPQWIRSJ6146-64-94E42: 51:211.2.840.623331.1.72.3.15|1.2.84 0.331528.1.13.104.2.7.2.727879_20335 63336 [facility] 2023-10-02 10:21:00 CMiAR8Z7vDxW0CTs9nyHnA7DhaTms9Xdf5kj w3cliDvzx4BvSLe/iuvA2/t8cYWz6316-17- 24T10:21:00 Regarding: pink brownish discharge with lower abdominal pain x today----- Message from Liat Victoria sent at 10/02/2023 10:11 AM HEALTH 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 test negative done x one week UC appt declined 49424-9Iwevkqybl encounter MsmdMQ8531-78-80L90:21:17Telephone encounter NoteTXT1.2.840.577256.1.13.104.2.7.2 .758520|[id number] for patient kity90229-2SekoPMRHRMNAMAQGiyfsswjz C-CDA narrative [id number] T Ross RN[address] Lu[id number] OTANRWGCONUNYUGHMMMMVN0130-59-75V47: 21:171.2.840.270740.1.72.3.15|1.2.84 0.849202.1.13.104.2.7.2.727879_19851 31178 Zuleima Biswas RN [facility] 2023-10-02 10:21:00 yx2n/Bg7L2IXGotCbDAbVcltEDkGMvZTesKg JkB7EAXZieZsLMMsZksJiS0V204m2535-79- 24T10:21:00 Adult Triage AssessmentLast Clinic Visit: 09/29/2023 abdominal painPrimary Symptom: "severe abdominal pain"Onset / Duration: 09/29/23Location / Description: lower abdominalPain / Severity: 10 out of 10Associated Symptoms: throwing upFever / Method: deniesHydration: frequent urinationTreatment so far: noneEffect on ADL's: cannot stand upLMP: 08/2023 lasting 2 daysPre-existing condition / Immunocompromised: AsthmaSupervision of high risk in third uufbytwky11 weeks gestation of pregnancyLiveborn , of nielsen , born in hospital by vaginal deliveryHistory of gestational diabetesHistory of depressionAcute pain of left kneeObesity (BMI 30-39.9)Other specified anxiety disordersDepression affecting , antepartumAbnormal maternal glucose tolerance, antepartumEncounter for tubal ligation counselingFull-term premature rupture of membranes with onset of labor within 24 hours of ruptureGestational hypertension, third trimesterPreterm premature rupture of membranes (PPROM) with onset of labor within 24 hours of rupture in third trimester, antepartumDizzinessChest pain, unspecified typeNurse Note: after assessment pt was advised to go to ER, pt states her friend is calling an ambulance right now.[facility] Daytonrashmi Biswas RNRelokesh for Disposition [1] SEVERE pain (e.g., excruciating) AND [2] present > 1 hourProtocols used: Abdominal Pain - Vdffco-LHGAF-TXOnxyzeoroeoshd signed by Zuleima Biswas RN at 10/02/2023 10:39 AM HCH85715-5Yxldxnect encounter PpwqCC4842-10-44F63:39:23Telephone encounter NoteTXT1.2.840.411733.1.13.104.2.7.2 .190477|[id number] for patient hasq15878-8GtwsDQDFGFSUTBMJhlffpvta C-CDA narrative textUT79 Barr StreetKx[id number] ECYYIZDNJRNSIIXWOLEZYI3276-06-24W83: 39:231.2.840.000418.1.72.3.15|1.2.84 0.195325.1.13.104.2.7.2.727879_19851 67635 [facility] 2023-09-29 15:52:58 rKJe1e3tsJ8IyImDwkpCGECsE3s2yBcGSp6w eLzCJo0wnDspSQ0JIQth8fCqok8g8342-36- 21T15:52:58 Pt upset due to no blood work ordered in . Pt states access center directed her to [facility] to determine why she is missing her cycles. Apologized to pt on behalf of access center mistake. Explained to pt limitations of [facility] and advised PCP or blasting entryman for further testing. Pt states she has an appt on 10/06/2023 with PCP and an appt in October with blasting entryman. Advised pt to call PCP clinic to ask if lab orders may be placed early so results will be back for appt. Pt verbalized understanding. 02362-6Bawyjddwr encounter OlhhMP3947-05-44Z90:01:00Telephone encounter NoteTXT1.2.840.350440.1.13.104.2.7.2 .647429|[id number] for patient oqtz03783-0UggbMRNGWTCZVJXZhrkcvtkc C-CDA narrative [id number] M Giusti RN[address] StreetFwzlN[id number] CZNTWRWBAFFOXTMEJEKUUI0074-15-92O92: 01:001.2.840.933014.1.72.3.15|1.2.84 0.023136.1.13.104.2.7.2.727879_19836 58153 Zee Harmon RN [facility] 2023-09-29 15:43:33 tH73bgkJkfgTP6+E3r8SWVyCLfC5ghau5Gf1 yDuVP9u+CjqOsopkm7kCS0HvCjFC0773-54- 21T15:43:33 Danuta Peterson is a 23 year old female calling to have a nurse explain their lab results 86376-4Peeakbwjg encounter FrymHO6939-98-67Y21:44:21Telephone encounter NoteTXT1.2.840.968981.1.13.104.2.7.2 .859201|[id number] for patient gfbm33933-3FojbNMDUVOMUEAAKlktvvndq C-CDA narrative rlfq509963221Wbpvb C Briggs[address] [id number] BWSCJIZUZBZBHWTTSNCKCI5865-79-23L90: 44:211.2.840.991270.1.72.3.15|1.2.84 0.162118.1.13.104.2.7.2.727879_19836 29330 Lisa Kim [facility] 2023-06-08 10:29:14 A0DM9Sv6JR042jM2SeIBAJS/0azjpn6AOGH1 h0nA6nfhr1fNaWgayI/sAmgeMuVi9655-10- 30T10:29:14 Return to work forms complete and faxed back. [10:25 AM] Carmen Hiltonno restrictions, she can go back to work[10:26 AM] Carmen Hiltontell her to wear a back/abdominal binder with lifting for 6 wksPatient provided with copy. Paula Sotomayor RN 06/08/2023 10:29 AM 66077-3Qvcfiureq encounter OvsoAZ8644-74-44Y81:30:31Telephone encounter NoteTXT1.2.840.553619.1.13.104.2.7.2 .885725|[id number] for patient fikz89462-4TsiyPL951239899Qispwca Collins RNUTMB[address] [id number] OPGHBVOLOSFNINVOZGTWHI3346-73-75R53: 30:311.2.840.126256.1.72.3.15|1.2.84 0.341977.1.13.104.2.7.2.727879_18870 20010 Paula Sotomayor RN [facility] 2023-06-07 13:15:45 51fnm+Rzu4dUv1u0O8KxpCKUSzQQBwP4O4DI qwZBdxoItPRRS0N8RIovapGw+Kom6120-21- 29T13:15:45 Spoke with patient regarding FMLA paperwork and job description. 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 Patient will be 3 weeks when she returns. Waiting for Dr. Hilton clearance and clarification on restrictions for working. Paula Sotomayor RN 06/07/2023 1:16 PM 07066-7Apnfdbodc encounter UsgmWY7862-95-81V13:17:03Telephone encounter NoteTXT1.2.840.160723.1.13.104.2.7.2 .375840|[id number] for patient pbfo89355-1HjltOKETFHSHFF[address][id number] NGXEHPWDILPRNGCDOUSNPT4279-13-86U73: 17:031.2.840.892880.1.72.3.15|1.2.84 0.070843.1.13.104.2.7.2.727879_18861 48534 [facility] 2023-06-07 11:31:07 jo1+piMxHRgjXm4nNfzA5+sZcxv83ZvvrMUg /RoM1qmmCYrMR3HRiIEVahR/426w7912-42- 29T11:31:07 Pt returning call to clinic about forms. 62205-9Kuemlicrt encounter DfcxHH4259-98-81D63:31:51Telephone encounter NoteTXT1.2.840.079866.1.13.104.2.7.2 .684677|[id number] for patient lyhe13155-2UicfHI517715743Lpwvm C [id number] BKWCKWGHCKBEDHMGPGXTWC0854-01-39C99: 31:511.2.840.384002.1.72.3.15|1.2.84 0.130410.1.13.104.2.7.2.727879_18860 43768 Lisa Kim [facility] 2023-06-07 11:12:48 qhyZUnfW2HPFMSrUOCmMt2pEoRD909AuXp+V L6mrkBy56liBeXYn1xl0M8gqROM90446-12- 29T11:12:48 Attempted to contact patient for further information regarding FMLA. No answer, VM left. Paula Sotomayor RN 06/07/2023 11:13 AM 39843-2Svmapomqn encounter HlknFP3615-68-30N32:13:34Telephone encounter NoteTXT1.2.840.669223.1.13.104.2.7.2 .933404|[id number] for patient vuav13486-0BksxQRCSETTFFN[address] [id number] WUPSEIFSWOOWYZWCVBYWOA1799-21-97J64: 13:341.2.840.637087.1.72.3.15|1.2.84 0.607328.1.13.104.2.7.2.727879_18860 06308 [facility] 2023-06-07 10:52:07 grrQwcm3MGaxluYIkGLrDr8G+6a1LcXAgzVo OJlAjnNWPsSrk0XyxyT3n7V+LayI3838-240:52:07 Pt calling to see if the forms she dropped of yesterday have been signed yet. I informed her it takes 7-9 days but she needed them by yesterday when she dropped it off. She would like some one to call her back. 63994-0Nqkeuwled encounter IijpCL0291-36-57P86:55:40Telephone encounter NoteTXT1.2.840.234469.1.13.104.2.7.2 .231267|[id number] for patient lxtv39437-8GpexLALVBYNABF[address][id number] CIIFWQAUXFDWNTGDYBTAWT7954-65-13C71: 55:401.2.840.317385.1.72.3.15|1.2.84 0.815321.1.13.104.2.7.2.727879_18860 20369 [facility] 2023-05-30 19:31:43 h2eJqEtpNYBYhO83OcLqfW97b7OFi256fCXe DdK44WdZpUEZabd81RALMGf2nuvb0882-09- 21T19:31:43 Problem: PainGoal: Control of pain at or below patient's documented comfort goalOutcome: Progressing as expectedGoal: Reduction in pain sensationOutcome: Progressing as expected Problem: Infection RiskGoal: Absence of infectionOutcome: Progressing as expected Problem: Complications of hemorrhage (risk or actual)Goal: Absence of active bleedingOutcome: Progressing as expectedGoal: Absence of complicationsOutcome: Progressing as expected Problem: Discharge Planning - PostpartumGoal: Adequate for dischargeOutcome: Progressing as expectedGoal: Mood stableOutcome: Progressing as expected 46401-6Hmfv of care sxkfHG8914-18-87E30:31:47Plan of care noteTXT1.2.840.899478.1.13.104.2.7.2 .684917|[id number] for patient ivnv08263-8FtmhNAASBTMDXF[address] Db[id number] BMJXJXLBXDTQKSYZMUTSTF3093-75-66U68: 31:471.2.840.183820.1.72.3.15|1.2.84 0.932206.1.13.104.2.7.2.727879_18796 56017 [facility] 2023-05-30 16:55:33 tMhIMfDXbnIHpCx6dM0qMwK/CpBLKKSGjEYN hR7JHMLU1g+HNW2Nbcm7cLK0Jzbz4248-15- 21T16:55:33 DELIVERY BY SPONTANEOUS VAGINAL DELIVERYDelivery Date: 05/30/2023 Delivery Time: 1:17 PM Delivery Summary Danuta Peterson is a 23 year old female @ 38w5d presented for [facility]. Patient ruled in for gestational hypertension intrapartum. The patient was admitted to the Labor & Delivery unit for induction at 38 weeks due to PROM.Delivery Physician: Carmen Hilton MDIntrapartum Anesthesia/Analgesia: IV Fentanyl anlagesiaMode of Delivery: Delivery of nielsen fetus with cephalic presentationFetusSpontaneous vaginal delivery of head with cephalic position, occipital anterior. As the head crowned and distended the perineum, no episiotomy was performed. A blue towel was used to protect the perineum as the head crowned and delivered. The other hand was used to exert pressure on the occiput to control the delivery of the head. The perineum was pushed with a towel-draped hand as the head and mouth was delivered over the perineum. The head was allowed to rotate externally to achieve natural body posture. Examination of neck revealed no umbilical cord. The shoulder was delivered by gentle downward traction applied to head and downward traction for the delivery of anterior shoulder. This was followed by upward traction with delivery of posterior shoulder and body. After the delivery of infant, bulb suction was performed from ororpharynx and nostril with removal of clear amniotic fluid. A normal, female was delivered.The umbilical cord was double clamped, cut and the infant was handed off the field to the circulating nursePlacentaPlacenta was delivered spontaneously while the abdominal hand lifted the uterus cephalad and other hand keeping the umbilical cord slightly taut. Laceration: NoneLaceration Repair: No laceration repair needed.Fourth StageFourth stage of labor was managed by uterine massage with abdominal hand and infusion 30 units of pitocin mixed with intravenous fluid.QBL: see I/O'sComplications: NoneWeight: 2630 g 1 Minute 5 Minute 10 Minute Totals: 7 8 Carmen Hilton MD 05/30/2023 4:56 PM 66255-1Hmkut and delivery summary zmayOM1854-79-91S00:26:36Labor and delivery summary noteTXT1.2.840.483103.1.13.104.2.7.2 .166183|[id number] for patient wrck90769-9SnkuTLJCMQZDDQ[address][id number] DSVKGABTJMVJVRJZPLPRXJ7373-73-20J41: 26:361.2.840.870092.1.72.3.15|1.2.84 0.357632.1.13.104.2.7.2.727879_18795 69504 [facility] 2023-05-30 14:11:27 aVr6kdh0A9SJXL6RFI16QJOKlRnTDYZmG5q6 vJNevKllbnC4yQREWOGj7lYdqFsp1886-93- 21T14:11:27 Problem: Infection RiskGoal: Absence of infection05/30/2023 1411 by Nettie Tidwell RNOutcome: Progressing as expected05/30/2023 1410 by Fleshman, Nettie, RNOutcome: Progressing as expected05/30/2023 0731 by Nettie Tidwell RNOutcome: Progressing as expected Problem: Complications of hemorrhage (risk or actual)Goal: Absence of active bleedingOutcome: Progressing as expectedGoal: Absence of complicationsOutcome: Progressing as expected Problem: Discharge Planning - PostpartumGoal: Adequate for dischargeOutcome: Progressing as expectedGoal: Mood stableOutcome: Progressing as expected 24830-1Gwjx of care qhlwEB1263-40-24O86:11:31Plan of care noteTXT1.2.840.304280.1.13.104.2.7.2 .001073|[id number] for patient nqav43625-6YhahCD355493361Tkervz Fleshman RN[address] [id number] PGTNQQRZWJJHHOJRCOXAWZ6197-04-41K02: 11:311.2.840.779916.1.72.3.15|1.2.84 0.573522.1.13.104.2.7.2.727879_18793 12102 Nettie Tidwell [facility] 2023-05-30 14:10:15 SWDybAavmswloRnTitFuVYdb5zBh9ExVCIsr 0J0dcgJYY6aL0cfYGZmwXL8b4BGW7088-77- 21T14:10:15 Problem: Intrapartum process (including labor pain)Goal: Absence of or reduction of complications of labor05/30/2023 1410 by Nettie Tidwell RNOutcome: Resolved05/30/2023 07 by Nettie Tidwell RNOutcome: Progressing as expectedGoal: Able to cope with pain05/30/2023 1410 by Nettie Tidwell RNOutcome: Resolved05/30/2023730 by Nettie Tidwell RNOutcome: Progressing as expectedGoal: Adequate to move to next level of care05/30/2023 1410 by Nettie Tidwell RNOutcome: Resolved05/30/2023 07 by Nettie Tidwell RNOutcome: Progressing as expectedGoal: Reduction in pain sensation05/30/2023 1410 by Nettie Tidwell RNOutcome: Resolved05/30/2023 07 by Nettie Tidwell RNOutcome: Progressing as expected Problem: PainGoal: Control of pain at or below patient's documented comfort goal05/30/2023 1410 by Nettie Tidwell RNOutcome: Progressing as expected05/30/2023 07 by Nettie Tidwell RNOutcome: Progressing as expectedGoal: Reduction in pain sensation05/30/2023 1410 by Nettie Tidwell RNOutcome: Progressing as expected05/30/2023 07 by Nettie Tidwell RNOutcome: Progressing as expected Problem: Infection RiskGoal: Absence of infection05/30/20230 by Nettie Tidwell RNOutcome: Progressing as expected05/30/2023 07 by Nettie Tidwell RNOutcome: Progressing as expected 80037-2Tmpi of care rzngOV0004-01-44G94:10:25Plan of care noteTXT1.2.840.608667.1.13.104.2.7.2 .378826|[id number] for patient bsif57848-8HqpcAGNRWENHPA[address] Yy[id number] URZXCREWTBCYOHWOQPTNJB5747-57-95B89: 10:251.2.840.433314.1.72.3.15|1.2.84 0.937796.1.13.104.2.7.2.727879_18793 17949 [facility] 2023-05-30 09:11:31 fMnndbL4wncmMr/PmqyBF36OiwOXHWbRLr2h tpcIknH8KTyd22GEjrydBP1lJxMW9499-83- 21T09:11:31 Name/ MRN / Age / Gender:Danuta Peterson, [id number] year old female BMI:Estimated body mass index is 33.52 kg/m? as calculated from the following: Height as of 05/25/23: 1.6 m (5' 3"). Weight as of an earlier encounter on 05/30/23: 85.8 kg (189 lb 3.2 oz). Allergies:Banana and Avocado Last Vitals:BP Readings from Last 1 Encounters: 05/30/23 138/81 Pulse Readings from Last 1 Encounters: 05/30/23 71 SpO2 Readings from Last 1 Encounters: 05/30/23 98% Anesthesia Preop Eval (physical exam) Anesthesia Preop: [id number] Status VerifiedClear Liquids: > 2 HoursSolid Food/Non-Clear Liquids: > 8 HoursPONV Risk Factors: female and non-smokerPONV Risk Score: 2Anesthesia HistoryAnesthesia History Negative(-) Hx of anesthetic complicationsPrevious Anesthetics/AirwaysCardiovascular(+) Dyslipidemia Pulmonary(+) AsthmaFrequency of inhaler/nebulizer use: months apart Neuro/Musculoskeletal(+) Obesity GI/HepaticNegative GI/Hepatic ROS HematologyNegative Hematology ROS RenalNegative Renal ROS Skin(+) Current IV access and 18g Endo/Other Negative Endo/Other ROS Other OB/GYNNegative [employer] ROS(+) Gestational diabetes and A1 Pediatric NeonatalNeonatal N/A Preoperative Medication InstructionsContinue taking all prescribed medications except:SHASHA inhibitors, ARBs, diuretics, all oral diabetes medicationsAnticoagulant Therapy: Defer to surgeonsInsulin: Take 1/2 dose the night prior to surgery. Hold on DOS. Phentermine: Alert [facility] anesthesiologistSGLT2 Inhibitors: "gliflozins" to be held for 3 days prior to elective surgeries MAC Cases: Continue taking SHASHA inhibitors and ARBs ASA ClassificationASA: 2ASA Comments: [id number]/21 - Plt 278Pt refuses epidural at this time Current Medications:No outpatient medications have been marked as taking for the 05/30/23 encounter (Anesthesia Event) with Dale Lal CRNA. Previous Surgeries: Past Surgical History: Procedure Laterality Date INSERT CERVICAL DILATOR 10/17/2019 PECTUS EXCAVATUM HARDWARE PLACEMENT N/A 2002 PECTUS EXCAVATUM HARDWARE REMOVAL 2004 Anesthesia Physical ExamGeneralno apparent distress and alert and oriented x 3 Neuro/Psychneurological Dentalno notable dental hx Abdominal (+) obesity and gravid Airway Mallampati score:IITM distance:> 5 cmNeck ROM: fullMouth opening:normal(+) Normal facies Extremity Normal extremity Pulmonarypulmonary exam normal Other Cardiovascularcardiovascular exam normalRhythm:RegularRate: Normal Anesthesia Plan ASA Status: 2 39202-2Nnqrchdezkftmo Preoperative evaluation and management oahlPU0217-77-68N68:52:47Anesthesiol ogy Preoperative evaluation and management noteTXT1.2.840.945604.1.13.104.2.7.2 .543589|[id number] for patient ucwo81173-5Rbvxpida operation noteLNNACR-NURSE TRAINING MANAGER,CERTIFIED REGISTERED NURSE ANESTHETISTNACR-NURSE TRAINING MANAGER,CERTIFIED REGISTERED NURSE ANESTHETIST[id number] BWKMDWAMKEAFZLAEJMASGW8496-73-32F41: 52:471.2.840.627511.1.72.3.15|1.2.84 0.687616.1.13.104.2.7.2.727879_18790 52274 NACR-NURSE TRAINING MANAGER,CERTIFI ED REGISTERED NURSE TRAINING MANAGER [facility] 2023-05-30 07:31:52 zSRnCQXs1ZYFsKI4QoOY/iIcU4oiZuy6QAzg GRV5qGGLNVSOHn8GHedb2p0JSdZA1357-69- 21T07:31:52 Problem: Intrapartum process (including labor pain)Goal: Absence of or reduction of complications of laborOutcome: Progressing as expectedGoal: Able to cope with painOutcome: Progressing as expectedGoal: Adequate to move to next level of careOutcome: Progressing as expectedGoal: Reduction in pain sensationOutcome: Progressing as expected Problem: PainGoal: Control of pain at or below patient's documented comfort goalOutcome: Progressing as expectedGoal: Reduction in pain sensationOutcome: Progressing as expected Problem: Infection RiskGoal: Absence of infectionOutcome: Progressing as expected 55696-1Dtma of care sldjRO2011-18-10R25:31:58Plan of care noteTXT1.2.840.432185.1.13.104.2.7.2 .488627|[id number] for patient tgok47203-4RylmYKQDROGEIB[id number] ADJBUMURLCIKLAUVEBRCKA1771-23-00C96: 31:581.2.840.807981.1.72.3.15|1.2.84 0.948441.1.13.104.2.7.2.727879_18788 71777 [facility] 2023-05-30 01:44:16 3FDiFMeaZJJVLIsk1dMMBGTg8W4NL2gf2ITX UeV3REAMzA/Mw1+WDUqq2PVAqQAs5046-38- 21T01:44:16 Water broke at 0030, contractions 7 min apartDr. Lam weeks, scheduled for induction on TuesdayReport to Zuleikaily 33900-2Fjujlktxj department Triage zrpeAY6669-71-35J52:45:43Emergency department Triage noteTXT1.2.840.149107.1.13.104.2.7.2 .989323|[id number] for patient ztqx14696-4Yykdscwbm department RfenYI819203241Qwgbj A. Barker RNUT[id number] KABXSHUUFYQOCRQCIJLNJE1265-64-68Z01: 45:431.2.840.442002.1.72.3.15|1.2.84 0.923271.1.13.104.2.7.2.727879_18787 06035 Akikogege Spaulding Mj RN [facility] 2023-05-25 09:00:00 tes5SRvrcq5pV14dm7+QNtZqTzasDkO1gt+K nRtibFmjMJLeYvgqaNMPKTkxBl535677-13- 16T09:00:00 Age: 23 year oldGA: 38w0d - Doing well except for mood- anxiety/depression: EPDS 21. Denies SI/HI. BARBI-7 score 15. Desires to restart Fluoxetine now. Fluoxetine 20 mg daily. - Induction planned for 06/01/23 @ 39 wks unless clinically indicated otherwise- Daily kick counts and labor precautions given- follow-up in 5-6 wks for PP visit 11871-8Thajpuha dpvnMM0984-50-63S60:43:53Progress noteTXT1.2.840.285742.1.13.104.2.7.2 .752969|[id number] for patient oeev16074-8EfaxYFXRBMLCNY[id number] EZWRYHZONXARXTOXQEXNHQ5277-13-43L01: 43:531.2.840.913488.1.72.3.15|1.2.84 0.145197.1.13.104.2.7.2.727879_18755 87596 [facility] 2023-05-18 09:00:00 DnflNKZnqM9hyMV2+T9y96Ajxy3NP7akFlOd LDbhJ+hWIU3fBIPQDwffPveSKaiu6216-40- 09T09:00:00 Age: 23 year oldGA: 37w0d - Doing well except for discomforts and irregular contractions. SVE cl/th/high- Hx of anxiety/depression: EPDS 19. Denies SI/HI. BARBI-7 score 12.- GBS neg - Induction planned for 06/01/23 @ 39 wks unless clinically indicated otherwise- Daily kick counts and labor precautions given- follow-up in 1 [place] [address]-2Howvcjyu znzkCK7806-42-50Y59:13:15Progress noteTXT1.2.840.697074.1.13.104.2.7.2 .451432|[id number] for patient tinm64767-1MymdGBTBUUDKMN[id number] DAIBJLRWSJLUAVNJNMLXUV6268-80-16T79: 13:151.2.840.113337.1.72.3.15|1.2.84 0.665052.1.13.104.2.7.2.727879_18700 64368 [facility] 2023-05-11 09:30:00 BplY3rHb7xQ3vvSsFisRzFbosP0m9VMJjJWD XFovbhfSl/0k8+0eZcK8FtqRbean4894-47- 02T09:30:00 Age: 23 year oldGA: 36w0d - Doing well- Hx of anxiety/depression: EPDS 15. Denies SI/HI. BARBI-7 score 6.- S << D: Declined anatomy scan- MPDPS: BTL consent signed today"I counseled the patient regarding risks, benefits and alternatives of laparoscopic Bilateral Tubal Ligation. Explained that it is a surgical procedure that is done by ligating/cutting/occluding a segment of the tubes;hence, it is a permanent form of control that requires a surgical procedure for reversal (if she changes her mind afterwards), which might not be successful and increases the risk of ectopic if does eventually occur. Risks include but not limited to: infection, bleeding, need for transfusion of blood/blood products, injury to ureter, bladder, bowel with possible further surgery, stint, catheterization or colostomy to repair, conversion to open. The permanence of this procedure and risk of regret in 1 in 3 women were discussed. tubal ligation failure rate is 0.75% and higher in women younger than 30 years old. There is an increased risk for ectopic and the need to seek medical attention should failure of tubal ligation occur. Alternatives discussed include: Oral Contraceptive Agents, Intrauterine Device, Nexplanon, Depo Provera, Ring, Patch, Condoms/foam, vasectomy of partner, or bilateral salpingectomy. Salpingectomy has been shown to decrease risk of ovarian cancer, similar to tubal ligation; however, no tubal reversal will be able to be done in the future and might be able to achieve with in vitro fertilization only. All questions answered, and patient expressed her desire to proceed with bilateral salpingectomy." Patient understands that if she needed a CD, tubal cannot be done at same time as consent will not be mature by then.Induction planned for 06/01/23 @ [address] Hilton talked about at your 36 week talk:1. Go to Labor and Delivery when your contractions are 5-7 minutes apart and you have been able to time them for an hour. If you live more than 30 minutes from the hospital, then go when they are 10 minutes apart and you have been able to time them for an hour.2. BUT, there are 4 reasons to go to Labor and Delivery REGARDLESS of what else is happening, whether you are renzo or not: 1. If your water breaks - - - it may be a gush or a constant trickle. If you are not sure, always come in to be checked. 2. Bleeding like your period. 3. If your baby's movements are less than 10 in an hour. If you are concerned this might be the case, drink a tall glass of cold fluids, lay down on your side on the couch or your bed and see how long it takes to note 10 movements - if less than 10, this needs to be evaluated immediately. 4. Contractions or Pain that is continuous. Normal labor contractions last only 45 seconds - 1 minute.cephalic presentationGC/CT and GBS obtained, CBC orderedZika precautions reviewedContraception PP: Bilateral salpingectomyDelivery consent signed todayRT in 1 [place] [address]-3Inounuou cznrKO4540-47-69B43:19:59Progress noteTXT1.2.840.153776.1.13.104.2.7.2 .331651|[id number] for patient rrif81666-1BgwcNXFKGAFKUA09 [id number] RSIJFPZRUYKLDGGRGYVMIK5340-50-23Q95: 19:591.2.840.256112.1.72.3.15|1.2.84 0.213647.1.13.104.2.7.2.727879_18645 18408 [facility] 2023-05-11 09:30:00 6p3BNcn+2N+VnJOdNwlV8EyuqDOc6jSaCKBw xNci6AzVWlF5QfOYtOSYaNTZjcXb5753-20- 02T09:30:00 Addended by: PAULA SOTOMAYOR on: 05/11/2023 05:00 PM Modules accepted: Orders 24108-8Doofuzsh XxhigeedCO9159-54-19N07:00:32Addendu DocumentTXT1.2.840.356450.1.13.104.2 .7.2.110184|[id number] for patient [id number] Collins [id number] HKIPGHCLWXAYXBRHGTYWOY6249-74-75X39: 00:321.2.840.403310.1.72.3.15|1.2.84 0.242011.1.13.104.2.7.2.727879_18651 15045 Paula Sotomayor RN [facility] 2023-05-11 09:18:00 KEaNR9p6NLOtWGJVPRIhbOQOILMRS/+5JRI7 BrBCoS3fTNuF2DdwyFrR/nhPvpFe5992-96- 02T09:18:00Associated Problem(s): Abnormal maternal glucose tolerance, antepartum Normal 3 hr 97528-3Icfxvkdtbz + Plan cscuGX6189-38-30P79:18:05Evaluation + Plan noteTXT1.2.840.292691.1.13.104.2.7.2 .331707|[id number] for patient nbtm22606-5OemnVSAHWUPRCJ[address] Ej[id number] UUIOTIGXTHTYZGZCGHFNHK5870-07-57L30: 18:051.2.840.419553.1.72.3.15|1.2.84 0.204781.1.13.104.2.7.2.727879_18645 70305 [facility] 2023-05-09 09:48:16 +VaXRKXfibyOSCjaBjPQQOcZrg+WFblLMrp/ w1T5KfjNGgU+4S43ZW0Q0HQY0F8l3391-99- 31T09:48:16 Spoke with patient. Patient states starting Tuesday she has been having one "cramping/raging pain" that lasts a few minutes. Patient rates this pain anywhere from 4-9/10. Patient states she is only having one cramp an hour. Patient denies loss of fluids or vaginal bleeding. Patient reports positive movement. Patient advised to time contractions/cramping pain. If contractions are occurring every 5-10 minutes for an hour and last 45 seconds to 1 minute, go to the hospital. Patient verbalized understanding. Paula Sotomayor RN 05/09/2023 9:52 AM 79331-3Wcrnluwnx encounter QlopZK9280-10-42H22:52:37Telephone encounter NoteTXT1.2.840.956490.1.13.104.2.7.2 .923714|[id number] for patient dcde86620-6MkwgYF493351388Qcyihsw Collins RN[id number] DLROEYSBTLOEDMSCAXWATL5036-12-74X64: 52:371.2.840.531561.1.72.3.15|1.2.84 0.485386.1.13.104.2.7.2.727879_18624 48660 Paula Sotomayor [facility] 2023-05-09 09:35:44 f7TyeaikU/9z/26TT81Kwrh3lqKBmXsZrvzV oexBFkolLYz8JFW6pzXbmFCWMUeh1987-49- 31T09:35:44 Patient is calling she has an appointment on Tuesday. But over the weekend she has dropped a lot and having consistent pain. Call transferred to clinic for triage. 96317-5Ejcoroush encounter ImvmCY1500-78-70E33:38:54Telephone encounter NoteTXT1.2.840.959787.1.13.104.2.7.2 .395119|[id number] for patient mhdg48370-8PckgWS923735316Xhrjxh D [address] Rh[id number] DFYRWPDQRBMNRXVVXEMDTZ3138-30-97J57: 38:541.2.840.155142.1.72.3.15|1.2.84 0.972823.1.13.104.2.7.2.727879_18624 10[address] [facility]
[2023-12-04 13:42] LABS: Absolute Lymphocytes (CBC) 1.7 K/uL (0.7-4.9); Hematocrit 40.6 % (36.0-45.0); Lymphocytes % 22.6 % (15.3-44.8); MCV 84.5 fL (80-100); MPV 9.5 fL (7.6-11.3); Platelets 410 thou/uL (152-406)
[2023-12-04 13:58] LABS: Albumin 3.9 g/dL (3.4-5.0); Bilirubin Total 0.5 mg/dL (0.2-1.0); Potassium 3.9 mEq/L (3.5-5.1); Protein, Total 8.3 g/dL (6.4-8.2)
[2023-12-04 14:57] LABS: Specific Gravity 1.008 (1.005-1.030)
[2023-12-04 15:04] LABS: Specific Gravity 1.008 (1.005-1.030); Urine Bacteria <20 /HPF (<20); Urine Bilirubin NEGATIVE (Negative); Urine Blood 3+ (OVER) (Negative); Urine Clarity Extremely Turbid (Clear); Urine Color Light-Brown (Yellow); Urine Glucose NEGATIVE (Negative); Urine Protein TRACE (Negative); Urine RBC >50 /HPF (None Seen); Urine Urobilinogen Normal (Normal); Urine pH 6.5 (5.0-7.0)
--- NOTE | 2023-12-04 15:04 | RAD REPORT ---
EXAM DESCRIPTION: CT - Abdomen Pelvis W Contrast - 12/04/2023 2:54 pm CLINICAL HISTORY: Abdominal pain COMPARISON: 2022 TECHNIQUE: Computed axial tomography of the abdomen pelvis was obtained. 100 cc Isovue-300 was admin istered intravenously. Oral contrast was not requested which limits evaluation of bowel and appendix All CT scans are performed using dose optimization technique as appropriate and may include automated exposure control or mA/KV adjustment according to patient size. FINDINGS: The liver, spleen, pancreas, adrenal and kidneys appear unremarkable. There is no evidence of diverticulitis. Normal appendix. No adnexal mass IMPRESSION: No acute abnormality is displayed.
--- NOTE | 2023-12-04 15:38 | ER ---
Nurse's Notes [facility] Name: Danuta Montiel Age: 23 yrs Sex: Female : 2000 Arrival Date: 12/04/2023 Time: 13:09 Bed 14 Private MD: Diagnosis: Abdominal tenderness;Dysmenorrhea, unspecified;UTI/ Urinary tract infection, site not specified Presentation: 12/04 13:18 Chief complaint: Patient states: Sudden onset RLQ severe abdominal pain 2/5 hours SKID ADZER. ll1 No fever, denies N/V/D. Period 11 days late, but home test was negative. Coronavirus screen: Client denies travel out of the [place] in the last 14 days. At this time, the client does not indicate any symptoms associated with coronavirus-19. Ebola Screen: Patient denies travel to an Ebola-affected area in the 21 days before illness onset. Initial Sepsis Screen: Does the patient meet any 2 criteria? No. Patient's initial sepsis screen is negative. Does the patient have a suspected source of infection? Yes: Acute abdominal pain. Risk Assessment: Do you want to hurt yourself or someone else? Patient reports no desire to harm self or others. Onset of symptoms was December 04, 2023. 13:18 Method Of Arrival: Wheelchair ll1 13:18 Acuity: VIRI 3 ll1 Triage Assessment: 13:20 General: Appears uncomfortable, Behavior is cooperative, appropriate for age. Pain: ll1 Complains of pain in RLQ Pain currently is 7 out of 10 on a pain scale. Neuro: Reports near syncope feeling. GI: Reports lower abdominal pain. 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 - Social history:: Smoking status: Patient denies any tobacco usage or history of. - Family history:: not pertinent. Screenin:36 [facility] ED Fall Risk Assessment (Adult) History of falling in the last 3 months, cp4 including since admission No falls in past 3 months (0 pts) Confusion or Disorientation No (0 pts) Intoxicated or Sedated No (0 pts) Impaired Gait No (0 pts) Mobility Assist Device Used No (0 pt) Altered Elimination No (0 pt) Score/Fall Risk Level 0 - 2 = Low Risk Oriented to surroundings, Maintained a safe environment, Educated pt \T\ family on fall prevention, incl call for assistance when getting out of bed, Assessed \T\ reinforced patient's understanding of fall precautions, Provided non-skid footwear, Hourly rounding (assess needs \T\ fall precautionary measures) done. Abuse screen: Denies threats or abuse. Nutritional screening: No deficits noted. Tuberculosis screening: No symptoms or risk factors identified. Assessment: 13:36 General: Appears distressed, Behavior is cooperative, anxious. Pain: Complains of pain cp4 in abdomen Pain currently is 7 out of 10 on a pain scale. 15:50 GI: Bowel sounds present X 4 quads. Abd is soft and non tender Abdomen is tender to cp4 palpation in right lower quadrant and left lower quadrant. Vital Signs: 13:18 BP 135 / 81; Pulse 71; Resp 18; Temp 97.2; Pulse Ox 98% ; Weight 79.83 kg; Height 5 ft. ll1 3 in. ; Pain 7/10; 14:05 BP 124 / 80; Pulse 68; Resp 18; Pulse Ox 100% ; cp4 15:00 BP 111 / 77; Pulse 54; Resp 18; Pulse Ox 100% ; cp4 13:18 Body Mass Index 31.18 (79.83 kg, 160.02 cm) ll1 13:18 Pain Scale: Adult ll1 ED Course: 13:10 Patient arrived in ED. mr 13:11 Arm band placed on Patient placed in an exam room, on a stretcher. ll1 13:12 Mirta Preciado is Primary Nurse. cp4 13:13 Cristian Malone MD is Attending Physician. [facility] [place] 13:17 Notified ED physician of other Severe abdominal pain. ll1 13:20 Triage completed. ll1 13:36 Bed in low position. Call light in reach. Side rails up X2. cp4 13:37 No provider procedures requiring assistance completed. Inserted saline lock: 20 gauge cp4 in right antecubital area, using aseptic technique. Blood collected. 14:55 CT Abd/Pelvis - IV Contrast Only In Process Unspecified. EDMS 15:49 Provided Education on: uti. cp4 15:49 intact, bleeding controlled, No redness/swelling at site. Pressure dressing applied. cp4 Administered Medications: 13:35 Drug: NS 0.9% IV 1000 ml IV at 1 bolus Per protocol; 1000 mL bolus Route: IV; Rate: 1 cp4 bolus; Site: right antecubital; 15:36 Follow up: Response: No adverse reaction; IV Status: Completed infusion cp4 13:35 Drug: Ondansetron IVP 4 mg IVP once; over 2 minutes Route: IVP; Site: right antecubital;cp4 15:37 Follow up: Response: No adverse reaction cp4 13:35 Drug: morphine IVP or IV 2 mg IVP once over 4 mins Route: IVP; Infused Over: 4 mins; cp4 Site: right antecubital; 15:36 Follow up: Response: No adverse reaction cp4 13:35 Drug: morphine IVP or IV 2 mg IVP once over 4 mins Route: IVP; Infused Over: 4 mins; cp4 Site: right antecubital; 15:36 Follow up: Response: No adverse reaction cp4 15:42 Drug: Rocephin IV 1 grams IV at per protocol once; Given slow IV push per pharmacy cp4 instructions Route: IV; Rate: per protocol; Site: right antecubital; 15:43 Follow up: Response: No adverse reaction; IV Status: Completed infusion cp4 15:42 Drug: Ciprofloxacin PO 500 mg PO once Route: PO; cp4 15:44 Follow up: Response: No adverse reaction cp4 Medication: 13:36 VIS not applicable for this client. cp4 Outcome: 15:37 Discharge ordered by . romie 15:49 Discharged to home ambulatory, cp4 15:49 Condition: stable 15:49 Discharge instructions given to patient, Instructed on discharge instructions, follow up and referral plans. medication usage, Demonstrated understanding of instructions, follow-up care, medications, Prescriptions given X 3, 15:50 Patient left the ED. cp4 Signatures: Dispatcher [employer] EDMS Cristian Malone MD MD cha Rivera, Mary, Pasquale Bernal RN RN llMirta Guidry cp4
--- NOTE | 2023-12-04 15:38 | EDPHYS ---
Physician Documentation [facility] Name: Danuta Montiel Age: 23 yrs Sex: Female : 2000 Arrival Date: 12/04/2023 Time: 13:09 Bed 14 Private MD: ED Physician Cristian Malone HPI: 12/04 15:32 This 23 yrs old Female presents to ER via Wheelchair with complaints of romie Abdominal Pain. 15:32 The patient presents with abdominal pain in the lower abdomen. Onset: The romie symptoms/episode began/occurred just prior to arrival, this morning. The patient presents with urinary symptoms, frequency, hematuria, vaginal bleeding that is light, moderate. Onset: The symptoms/episode began/occurred just prior to arrival. Modifying factors: The symptoms are alleviated by nothing, the symptoms are aggravated by nothing. Associated signs and symptoms: The patient has no apparent associated signs or symptoms. Severity of symptoms: At their worst the symptoms were moderate, in the emergency department the symptoms have improved, moderately. The patient is sexually active, reportedly has a single partner. 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 - Social history:: Smoking status: Patient denies any tobacco usage or history of. - Family history:: not pertinent. ROS: 15:32 Constitutional: Negative for fever, chills, and weight loss, Eyes: Negative for injury, romie pain, redness, and discharge, ENT: Negative for injury, pain, and discharge, Neck: Negative for injury, pain, and swelling, Cardiovascular: Negative for chest pain, palpitations, and edema, Respiratory: Negative for shortness of breath, cough, wheezing, and pleuritic chest pain, Back: Negative for injury and pain, : Negative for injury, bleeding, discharge, and swelling, MS/Extremity: Negative for injury and deformity, Skin: Negative for injury, rash, and discoloration, Neuro: Negative for headache, weakness, numbness, tingling, and seizure, 15:32 Abdomen/GI: Positive for abdominal pain, abdominal cramps, of the right lower quadrant and left lower quadrant, Exam: 15:32 Constitutional: This is a well developed, well nourished patient who is awake, alert, romie and in no acute distress. Head/Face: Normocephalic, atraumatic. Eyes: Pupils equal round and reactive to light, extra-ocular motions intact. Lids and lashes normal. Conjunctiva and sclera are non-icteric and not injected. Cornea within normal limits. Periorbital areas with no swelling, redness, or edema. ENT: Nares patent. No nasal discharge, no septal abnormalities noted. Tympanic membranes are normal and external auditory canals are clear. Oropharynx with no redness, swelling, or masses, exudates, or evidence of obstruction, uvula midline. Mucous membranes moist. Neck: Trachea midline, no thyromegaly or masses palpated, and no cervical lymphadenopathy. Supple, full range of motion without nuchal rigidity, or vertebral point tenderness. No Meningismus. Chest/axilla: Normal chest wall appearance and motion. Nontender with no deformity. No lesions are appreciated. Cardiovascular: Regular rate and rhythm with a normal S1 and S2. No gallops, murmurs, or rubs. Normal PMI, no JVD. No pulse deficits. Respiratory: Lungs have equal breath sounds bilaterally, clear to auscultation and percussion. No rales, rhonchi or wheezes noted. No increased work of breathing, no retractions or nasal flaring. Back: No spinal tenderness. No costovertebral tenderness. Full range of motion. Skin: Warm, dry with normal turgor. Normal color with no rashes, no lesions, and no evidence of cellulitis. MS/ Extremity: Pulses equal, no cyanosis. Neurovascular intact. Full, normal range of motion. Neuro: Awake and alert, GCS 15, oriented to person, place, time, and situation. Cranial nerves II-XII grossly intact. Motor strength 5/5 in all extremities. Sensory grossly intact. Cerebellar exam normal. Normal gait. 15:32 Abdomen/GI: Inspection: abdomen appears normal, Bowel sounds: normal, Palpation: mild abdominal tenderness, in the right lower quadrant and left lower quadrant, Liver: no appreciated palpable abnormalities, Hernia: not appreciated, Vital Signs: 13:18 BP 135 / 81; Pulse 71; Resp 18; Temp 97.2; Pulse Ox 98% ; Weight 79.83 kg; Height 5 ft. ll1 3 in. ; Pain 7/10; 14:05 BP 124 / 80; Pulse 68; Resp 18; Pulse Ox 100% ; cp4 15:00 BP 111 / 77; Pulse 54; Resp 18; Pulse Ox 100% ; cp4 13:18 Body Mass Index 31.18 (79.83 kg, 160.02 cm) ll1 13:18 Pain Scale: Adult ll1 MDM: 13:13 Patient medically screened. [facility] 12/04 13:18 Order name: CBC with Diff; Complete Time: 14:23 [facility] 12/04 13:18 Order name: CMP; Complete Time: 14:23 [facility] 12/04 13:18 Order name: Lipase; Complete Time: 14:23 [facility] 12/04 13:18 Order name: Test, Urine; Complete Time: 15:03 [facility] 12/04 13:18 Order name: Urinalysis w/ reflexes; Complete Time: 15:22 [facility] 12/04 13:19 Order name: Test, Serum; Complete Time: 14:23 [facility] 12/04 15:08 Order name: Urine Culture [facility] 12/04 14:24 Order name: CT Abd/Pelvis - IV Contrast Only; Complete Time: 15:22 [facility] 12/04 13:19 Order name: IV Saline Lock; Complete Time: 13:35 [facility] 12/04 13:19 Order name: Labs collected and sent; Complete Time: 13:36 [facility] Administered Medications: 13:35 Drug: NS 0.9% IV 1000 ml IV at 1 bolus Per protocol; 1000 mL bolus Route: IV; Rate: 1 cp4 bolus; Site: right antecubital; 15:36 Follow up: Response: No adverse reaction; IV Status: Completed infusion cp4 13:35 Drug: Ondansetron IVP 4 mg IVP once; over 2 minutes Route: IVP; Site: right antecubital;cp4 15:37 Follow up: Response: No adverse reaction cp4 13:35 Drug: morphine IVP or IV 2 mg IVP once over 4 mins Route: IVP; Infused Over: 4 mins; cp4 Site: right antecubital; 15:36 Follow up: Response: No adverse reaction cp4 13:35 Drug: morphine IVP or IV 2 mg IVP once over 4 mins Route: IVP; Infused Over: 4 mins; cp4 Site: right antecubital; 15:36 Follow up: Response: No adverse reaction cp4 15:42 Drug: Rocephin IV 1 grams IV at per protocol once; Given slow IV push per pharmacy cp4 instructions Route: IV; Rate: per protocol; Site: right antecubital; 15:43 Follow up: Response: No adverse reaction; IV Status: Completed infusion cp4 15:42 Drug: Ciprofloxacin PO 500 mg PO once Route: PO; cp4 15:44 Follow up: Response: No adverse reaction cp4 Disposition Summary: 12/04/23 15:37 Discharge Ordered Notes: Location: Home romie Problem: new romie Symptoms: have improved romie Condition: Stable romie Diagnosis - Abdominal tenderness romie - Dysmenorrhea, unspecified romie - UTI/ Urinary tract infection, site not specified romie Followup: romie - With: Private Physician - When: 2 - 3 days - Reason: Recheck today's complaints, Continuance of care, Re-evaluation by your physician Discharge Instructions: - Discharge Summary Sheet romie - Abdominal Pain, Adult romie - Dysmenorrhea romie - Dysuria romie - Urinary Tract Infection, Adult romie - Urinary Tract Infection, Adult, [id number] romie - Abdominal Pain, Adult, [id number] romie Forms: - Medication Reconciliation Form [facility] - Thank You Letter [facility] - Antibiotic Education romie - Prescription Opioid Use romie - Patient Portal Instructions [facility] - Leadership Thank You Letter [facility] Prescriptions: - acetaminophen-codeine 300-30 mg Oral tablet - take 2 tablet ORAL route every 6 hours as needed for pain; 15 tablet; Refills: romie 0, Product Selection Permitted - Cipro 250 mg Oral tablet - take 1 tablet ORAL route every 12 hours; 14 tablet; Refills: 0, Product [facility] Selection Permitted - Ibuprofen 600 mg Oral Tablet - take 1 tablet ORAL route every 6 hours As needed take with food; 30 tablet; romie Refills: 0, Product Selection Permitted Signatures: Dispatcher [employer] Cristian Feng MD MD cha Lewis, Lynsay, RN RN ll1 Mirta Preciado cp4
[2023-12-04 16:25] VITALS: BP 111/77; TEMP 97.2; O2SAT 100
== END ==
LOC: ER 13:09
DX: N39.0 Urinary tract infection, site not specified (principal); N94.6 Dysmenorrhea, unspecified; Z91.018 Allergy to other foods
CPT/HCPCS: 87088; 85025; 81001; 87086; 36415; 84703; 81025; 83690; 80053; 74177; Q9967; J2270; J2405; J7030; J0696; 96361; 96374; 96375; 99284